=== PATIENT | female | born 1945 | race Caucasian/White ===

== ENCOUNTER 2019-11-26 17:45 | Emergency (ER) | payer MEDICARE, SELFPAY ==
[2019-11-26 17:47] VITALS: PULSE 79; RESP 18; TEMP 36.6; O2SAT 96; BMI 29.2
[2019-11-26 18:22] LABS: Basophils % 0.6 %; Eosinophils # 0.1 10^3/uL (0.0-0.8); Hematocrit 41.8 % (37.0-47.0); Hemoglobin 12.6 g/dL (11.5-15.3); Lymphocytes % 29.1 %; Mean Corpuscular HGB Conc 30.1 g/dL (30.0-36.0); Mean Corpuscular Volume 99.5 fL (81-99); Mean Platelet Volume 10.2 fL (7.4-10.4); Monocytes # 0.6 10^3/uL (0.2-0.9); Monocytes % 8.6 %; Neutrophils % 60.4 %; Nucleated Red Blood Cells % 0 %; Platelet Count 218 10^3/cmm (130-400); White Blood Count 6.8 10^3/uL (4.0-10.0)
[2019-11-26 18:35] VITALS: BP 162/91; PULSE 90; RESP 18; O2SAT 95
[2019-11-26 19:00] LABS: Specific Gravity, Urine 1.015 (1.005-1.030); Urine Appearance Clear (CLEAR); Urine Color Yellow (Yellow); pH Urine 5 (5-7)
[2019-11-26 19:01] LABS: Add Urine Microscopic? YES; Bilirubin Urine Neg (NEGATIVE); Blood Urine Neg (Negative); Glucose Urine UA Norm (Normal); Ketones Urine Negative (Negative); Leukocyte Esterase Urine 1+ (Negative); Nitrate Urine Negative (Negative); Protein Urine Neg (Negative); Urobilinogen Urine Neg (Negative)
[2019-11-26 19:01] LABS: Alanine Aminotransferase 16 U/L (0-33); Albumin Level 3.8 g/dL (3.5-5.2); Alkaline Phosphatase 61 IU/L (35-105); Anion Gap 14.7 (5-19); Aspartate Amino Transferase 22 U/L (0-32); Blood Urea Nitrogen 13 mg/dL (8-23); Calcium 9.3 mg/dL (8.5-10.5); Carbon Dioxide 23 mmol/L (22-29); Chloride 106 mmol/L (98-107); Globulin 2.9 g/dL (1.3-4.6); Glucose 176 mg/dL (65-115); Osmolality Calculated 290 mOsm/kg (285-295); Potassium 3.7 mmol/L (3.5-5.1); Sodium 140 mmol/L (136-145); Thyroid Stimulating Hormone 1.86 uIU/mL (0.27-4.20); Total Bilirubin 0.4 mg/dL (0.15-1.2); Total Protein 6.7 g/dL (6.6-8.7)
[2019-11-26 19:03] LABS: Acetaminophen < 5.0 ug/mL (10-30); Alcohol Level < 10 mg/dL (0-10); Salicylate < 0.3 mg/dL (3-10)
[2019-11-26 19:04] LABS: Add Urine Culture? Yes; Bacteria Urine 1+; Mucus Urine 1+; Squamous Epithelial Cell Urine 0-4 (0-5); WBC Urine 15-25 /hpf (0-5)
[2019-11-26 19:07] LABS: Amphetamines Screen Urine Negative (Negative); Barbiturates Screen Urine Negative (Negative); Benzodiazepines Screen Urine Negative (Negative); Cocaine Screen Urine Negative (Negative); Opiate Screen Urine Negative (Negative); PCP Screen Urine Negative (Negative); THC Screen Urine Negative (Negative)
--- NOTE | 2019-11-27 00:03 | ED_ITS ---
HPI - Psych General: Chief Complaint: Psychiatric Symptoms Stated Complaint: SI/ HI Time Seen by Provider: 11/26/19 17:49 Source: patient Mode of arrival: EMS Limitations: no limitations History of Present Illness: HPI Narrative: This 74-year-old female patient was brought in to the emergency department by EMS after her daughter called because she felt the patient was homicidal and suicidal. The patient is tearful when she is talking to me and explained that what happened was she asked her daughter for money to go for lunch with her friends. Her daughter is the patient's power of managing attorney and has control over her financial affairs. So the patient was upset when her daughter did not give her money that belongs to the patient so she could have lunch with her friends. In the midst of these the patient then said you know someone should just shoot me. Because of the statement the daughter called for the patient to be evaluated in the ED. The patient is very upset and is wondering if she is unable to get upset any longer. She is very mandaen and has not thought of harming herself or anyone else as she believes it is a sin. Review of Systems General: Reports: 10 or more systems reviewed and unremarkable except in HPI and below Const: Denies: fever(s), chills or body aches Eyes: Denies: change in vision or blurry vision ENMT: Denies: throat pain, enlarged tonsils, odynophagia, hoarseness, mouth pain or swelling of lips/tongue Card: Denies: palpitations, irregular heart rhythm, edema or swelling of feet/ankles Resp: Denies: dyspnea, productive cough or non-productive cough GI: Denies: abdominal pain, nausea or vomiting : Denies: flank pain, difficulty voiding, dysuria, urinary frequency, urinary urgency or urinary hesitancy Musc: Denies: neck pain, back pain or extremity swelling Skin/Breast: Denies: rash, pruritus or erythema Neuro: Denies: headache(s), numbness in extremities or weakness in extremities Psych: Denies: anxiety, mood swings or panic attacks Endo: Denies: polyuria, polydipsia or tired all the time Physical Exam Const: COMMON NORMALS: no acute distress, average body habitus, patient oriented x3, no limitations, healthy appearing, alert and well nourished HENMT: COMMON NORMALS: normocephalic, atraumatic and moist oral mucous membranes HEAD & SCALP: normocephalic and atraumatic Neck/C-Spine: COMMON NORMALS: no meningeal signs and no JVD Resp: COMMON NORMALS: normal respiratory effort, No retractions, No use of accessory muscles, clear to auscultation bilaterally and percussion normal AUSCULTATION: clear to auscultation bilaterally PERCUSSION: percussion normal Cardio: COMMON NORMALS: no JVD, regular rate, regular rhythm, S1 normal heart sound present, S2 normal heart sound present, No gallops present (Cardio), No clicks present (Cardio), No murmurs present (Cardio), No rub (Cardio) and Peripheral pulses 2+ throughout RATE: regular rate RHYTHM: regular rhythm HEART SOUNDS: S1 normal heart sound present and S2 normal heart sound present PERIPHERAL PULSES: Peripheral pulses 2+ throughout GI: COMMON NORMALS: Normal to inspection, nondistended, normoactive bowel sounds present, Soft to palpation, non-tender, No hepatosplenomegaly present, no masses and no bruits PALPATION: Yes Soft to palpation and Yes No hepatosplenomegaly present Extremity: COMMON NORMALS: normal to inspection, full ROM, capillary refill normal, no calf tenderness and no pedal edema Neuro: COMMON NORMALS: patient oriented x3 SENSORIUM/ORIENTATION: Yes alert MENINGEAL SIGNS: Yes no meningeal signs Skin: COMMON NORMALS: no rashes or lesions noted, no wounds, turgor normal, no jaundice, no petechiae and no mottling GENERAL SKIN EXAM: no rashes or lesions noted and turgor normal MDM - Psych MDM Narrative: Medical decision making narrative: 74-year-old female whose daughter called emergency services for her because she felt the patient was homicidal. The patient was not homicidal and was just upset after a disagreement with her daughter. The daughter did not release the patient's forms that she wanted to have lunch with her friends. The patient was not homicidal or suicidal by my evaluation and evaluation of the psychiatrist. The daughter however is pretty rude and was rude to every member of the staff that she was in contact with. New data and the patient left before she could be discharged and after I discussed my plan with them. Medical Records: Attestation: I reviewed the patient's medical records. Lab Data: Attestation: I reviewed the patient's lab results. Labs: Lab Results 11/26/19 11/26/19 11/26/19 Range/Units 18:05 18:05 18:33 WBC 6.8 (4.0-10.0) 10^3/ uL RBC 4.20 (4.1-5.3) 10^6/u L Hgb 12.6 (11.5-15.3) g/dL Hct 41.8 (37.0-47.0) % MCV 99.5 H (81-99) fL MCH 30.0 (28.0-34.0) pg MCHC 30.1 (30.0-36.0) g/dL RDW 13.0 (12.1-15.1) % Plt Count 218 (130-400) 10^3/c mm MPV 10.2 (7.4-10.4) fL Neut % (Auto) 60.4 % Lymph % (Auto) 29.1 % [place] % (Auto) 8.6 % Eos % (Auto) 1.0 % Baso % (Auto) 0.6 % Neut # (Auto) 4.10 (1.8-7.7) 10^3/u L Lymph # (Auto) 2.0 (0.8-4.8) 10^3/u L [place] # (Auto) 0.6 (0.2-0.9) 10^3/u L Eos # (Auto) 0.1 (0.0-0.8) 10^3/u L Baso # (Auto) 0.0 (0.0-0.1) 10^3/u L Nucleated RBC % (a uto) 0 % Nucleated RBCs # 0.0 /100WBC Sodium 140 (136-145) mmol/L Potassium 3.7 (3.5-5.1) mmol/L Chloride 106 (98-107) mmol/L Carbon Dioxide 23 (22-29) mmol/L Anion Gap 14.7 (5-19) BUN 13 (8-23) mg/dL Creatinine 0.9 (0.5-0.9) mg/dL GFR Calculation Not Reportable Glucose 176 H (65-115) mg/dL Calculated Osmolal ity 290 (285-295) mOsm/k g Calcium 9.3 (8.5-10.5) mg/dL Total Bilirubin 0.4 (0.15-1.2) mg/dL AST 22 (0-32) U/L ALT 16 (0-33) U/L Alkaline Phosphata se 61 (35-105) IU/L Total Protein 6.7 (6.6-8.7) g/dL Albumin 3.8 (3.5-5.2) g/dL Globulin 2.9 (1.3-4.6) g/dL TSH 1.86 (0.27-4.20) uIU/ mL Urine Color Yellow (Yellow) Urine Appearance Clear (CLEAR) Urine pH 5 (5-7) Ur Specific Gravit y 1.015 (1.005-1.030) Urine Protein Neg (Negative) Urine Glucose (UA) Norm (Normal) Urine Ketones Negative (Negative) Urine Blood Neg (Negative) Urine Nitrate Negative (Negative) Urine Bilirubin Neg (NEGATIVE) Urine Urobilinogen Neg (Negative) mg/dL Ur Leukocyte Zoe ase 1+ H (Negative) Urine RBC None (0-2) /hpf Urine WBC 15-25 H (0-5) /hpf Ur Squamous Epith Cells 0-4 H (0-5) Amorphous Sediment Not Reportable Urine Bacteria 1+ H (NONE) Urine Mucus 1+ Salicylates < 0.3 L (3-10) mg/dL Urine Opiates Scre en (Negative) ng/mL Acetaminophen < 5.0 L (10-30) ug/mL Ur Barbiturates Sc reen (Negative) ng/mL Ur Phencyclidine S crn (Negative) ng/mL Ur Amphetamines Sc reen (Negative) ng/mL U Benzodiazepines Scrn (Negative) ng/mL Urine Cocaine Scre en (Negative) ng/mL U Marijuana (THC) Screen (Negative) ng/mL Ethyl Alcohol < 10 (0-10) mg/dL 11/26/19 Range/Units 18:33 WBC (4.0-10.0) 10^3/ uL RBC (4.1-5.3) 10^6/u L Hgb (11.5-15.3) g/dL Hct (37.0-47.0) % MCV (81-99) fL MCH (28.0-34.0) pg MCHC (30.0-36.0) g/dL RDW (12.1-15.1) % Plt Count (130-400) 10^3/c mm MPV (7.4-10.4) fL Neut % (Auto) % Lymph % (Auto) % [place] % (Auto) % Eos % (Auto) % Baso % (Auto) % Neut # (Auto) (1.8-7.7) 10^3/u L Lymph # (Auto) (0.8-4.8) 10^3/u L [place] # (Auto) (0.2-0.9) 10^3/u L Eos # (Auto) (0.0-0.8) 10^3/u L Baso # (Auto) (0.0-0.1) 10^3/u L Nucleated RBC % (a uto) % Nucleated RBCs # /100WBC Sodium (136-145) mmol/L Potassium (3.5-5.1) mmol/L Chloride (98-107) mmol/L Carbon Dioxide (22-29) mmol/L Anion Gap (5-19) BUN (8-23) mg/dL Creatinine (0.5-0.9) mg/dL GFR Calculation Glucose (65-115) mg/dL Calculated Osmolal ity (285-295) mOsm/k g Calcium (8.5-10.5) mg/dL Total Bilirubin (0.15-1.2) mg/dL AST (0-32) U/L ALT (0-33) U/L Alkaline Phosphata se (35-105) IU/L Total Protein (6.6-8.7) g/dL Albumin (3.5-5.2) g/dL Globulin (1.3-4.6) g/dL TSH (0.27-4.20) uIU/ mL Urine Color (Yellow) Urine Appearance (CLEAR) Urine pH (5-7) Ur Specific Gravit y (1.005-1.030) Urine Protein (Negative) Urine Glucose (UA) (Normal) Urine Ketones (Negative) Urine Blood (Negative) Urine Nitrate (Negative) Urine Bilirubin (NEGATIVE) Urine Urobilinogen (Negative) mg/dL Ur Leukocyte Zoe ase (Negative) Urine RBC (0-2) /hpf Urine WBC (0-5) /hpf Ur Squamous Epith Cells (0-5) Amorphous Sediment Urine Bacteria (NONE) Urine Mucus Salicylates (3-10) mg/dL Urine Opiates Scre en Negative (Negative) ng/mL Acetaminophen (10-30) ug/mL Ur Barbiturates Sc reen Negative (Negative) ng/mL Ur Phencyclidine S crn Negative (Negative) ng/mL Ur Amphetamines Sc reen Negative (Negative) ng/mL U Benzodiazepines Scrn Negative (Negative) ng/mL Urine Cocaine Scre en Negative (Negative) ng/mL U Marijuana (THC) Screen Negative (Negative) ng/mL Ethyl Alcohol (0-10) mg/dL Discharge Plan Discharge Patient Disposition: Left Against Medical Advice Clinical Impression: Social discord Prescriptions: No Action memantine [Namenda] 10 mg tablet 10 mg PO BID Qty: 60 RF: 2 venlafaxine 37.5 mg capsule,extended release 24hr 37.5 mg PO DAILY RF: 0 donepezil 10 mg tablet 10 mg PO BEDTIME RF: 0 isosorbide mononitrate 30 mg tablet extended release 24 hr 30 mg PO DAILY RF: 0 Aspirin Low Dose 81 mg Tablet,Delayed Release (Dr/Ec) 81 mg PO DAILY RF: 0 alprazolam 0.25 mg tablet 0.25 mg PO BID RF: 0 metformin 1,000 mg tablet 1,000 mg PO BID RF: 0 hydrochlorothiazide 25 mg tablet 25 mg PO DAILY RF: 0 albuterol sulfate 90 mcg/actuation HFA aerosol inhaler See Rx Instructions .ROUTE .COMPLEX RF: 0 atenolol 50 mg tablet 25 mg PO DAILY RF: 0 Vitamin D3 25 mcg (1,000 unit) Tablet 25 mcg PO DAILY RF: 0 Referrals: Saima Carnes MD [Primary Care Provider] - Interventions: ED Discharge Assessment Last Done: 11/26/19 19:30 ED Charges Last Done: 11/26/19 19:30 Discharge Date/Time: 11/26/19 19:32 Coding Level of Care Code 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
== END 2019-11-26 19:32 | disposition left against medical advice (07) ==
PROVIDERS: Emergency Provider Family Medicine; PCP Family Medicine
DX: Z73.5 Social role conflict, not elsewhere classified (principal); Z53.21 Procedure and treatment not carried out due to patient leaving prior to being seen by health care provider; Z79.82 Long term (current) use of aspirin; Z79.899 Other long term (current) drug therapy
CPT/HCPCS: 12345; 80053; 80306; 80307; 81001; 84443; 85025; 87086; 99284

== ENCOUNTER 2020-01-11 20:46 | Observation (INO) | payer MEDICARE, SELFPAY ==
[2020-01-11 20:49] VITALS: BP 117/70; PULSE 123; RESP 18; TEMP 36.6; O2SAT 94; BMI 32.9
--- NOTE | 2020-01-11 20:51 | XRR_ITS ---
PROCEDURE INFORMATION: Exam: XR Chest, 1 View Exam date and time: 01/11/2020 9:14 PM Age: 74 years old Clinical indication: Other: AMS TECHNIQUE: Imaging protocol: XR of the chest Views: 1 view. COMPARISON: No relevant prior studies available. FINDINGS: Lungs: COPD, interstitial disease, and left-sided volume loss. Pleural space: No significant pleural effusion. Heart/Mediastinum: No cardiomegaly. Vasculature: Calcification of the thoracic aorta. Bones/joints: Degenerative change. XR/XR chest 1V portable [id number] IMPRESSION: COPD, interstitial disease, and left-sided volume loss.
--- NOTE | 2020-01-11 20:52 | ECG_ITS ---
[facility] Test Date: 2020-01-11 Pat Name: Vandana Le Department: Room: Gender: Female Teller Manager: : 1945 Requested By: Shefali Montes Order Number: [id number] Eloisa MD: Oc Westfall M.D. Measurements Intervals [place] Rate: 117 P: 80 MS: 156 QRS: 59 QRSD: 89 T: 76 QT: 341 QTc: 476 Interpretive Statements SINUS TACHYCARDIA MINIMAL ST DEPRESSION [0.025+ mV ST DEPRESSION] ABNORMAL RHYTHM ECG No previous ECG available for comparison Electronically Signed On 01-12-2020 18:35:44 CDT by Oc Westfall M.D. [id number]
--- NOTE | 2020-01-11 20:54 | ED_ITS ---
HPI - General Adult General: Chief complaint: Psychiatric Symptoms Stated complaint: MHE Time Seen by Provider: 01/11/20 20:46 Source: patient and EMS Mode of arrival: EMS Limitations: altered mental status History of Present Illness: HPI narrative: Mrs. Le is a very nice 74-year-old female who is brought in by EMS for threatening to hurt others. Apparently the family called EMS because the patient got upset today. She lives at home alone but does have dementia. Apparently she was throwing things and it was hitting her head against a wall. Her daughter who is her power of city attorney stated that she was also threatening to hurt other people. Because of this the patient was brought here for evaluation. The patient states that she does not know why she is here. She understands that she is in the hospital in [place] and that it is 2019 but does not know the month. The patient states that she is here in the hospital because her family is upset with her. Associated symptoms: Deny chest pain, confusion, diaphoresis, dyspnea, headache(s), malaise, nausea, rash, palpitations, syncope or vomiting Review of Systems Const: Denies: fever(s), chills, body aches, fatigue, malaise or diaphoresis Eyes: Denies: change in vision, blurry vision, photophobia, eye discomfort, eye discharge, eye redness or yellow eyes ENMT: Denies: throat pain, odynophagia, hoarseness, swelling of lips/tongue, ear or mastoid pain, ear discharge, change in hearing or nasal discharge Card: Denies: chest pain, palpitations, irregular heart rhythm, edema, lightheadedness, syncope, pre-syncope, dyspnea on exertion or orthopnea Resp: Denies: dyspnea, productive cough, non-productive cough, wheezing, hemoptysis or chest congestion GI: Denies: abdominal pain, nausea, vomiting, hematemesis, coffee ground emesis, heartburn, diarrhea, constipation, GI cramping, hematochezia or melena : Denies: flank pain, dysuria, urinary frequency, urinary urgency or hematuria Musc: Denies: neck pain, back pain, extremity pain, extremity swelling, joint pain, joint swelling, joint redness, joint warmth or joint stiffness Skin/Breast: Denies: rash, pruritus, erythema, skin pain or skin tenderness Neuro: Denies: headache(s), numbness in extremities, weakness in extremities, sensory changes, lack of coordination, difficulty walking, dizziness, vertigo, confusion, Slurred speech present or seizure-like activity Onel/Lymph: Denies: easy bruising, easy bleeding, petechiae, purpura or enlarged lymph nodes All/Imm: Denies: urticaria, throat swelling, tongue swelling, facial swelling or acute wheezing PFSH ED PFSH: Medical History (Updated 01/12/20 @ 03:05 by Cara Coates MD) DM type 2 (diabetes mellitus, type 2) DVT (deep venous thrombosis) GERD (gastroesophageal reflux disease) Heart disease Hyperlipidemia Hypertension Surgical History (Updated 01/12/20 @ 03:11 by Cara Coates MD) H/O hernia repair H/O: hysterectomy History of carpal tunnel surgery S/P appendectomy Status post myringotomy with tube placement of both ears Physical Exam Const: COMMON NORMALS: no acute distress, no limitations and alert GENERAL APPEARANCE: cooperative ORIENTATION/CONSCIOUSNESS: Yes oriented to person and Yes oriented to place; not oriented to time HENMT: COMMON NORMALS: normocephalic, atraumatic, external ears normal, EAC's normal and Normal external nose present HEAD & SCALP: normal to inspection, normocephalic and atraumatic FACE & SINUS: normal facial exam and face symmetric NOSE: Normal external nose present and Normal nares present EXTERNAL EAR: Yes external ears normal EXTERNAL AUDITORY CANAL: EAC's normal MOUTH: Normal oral and palatal mucosa present, lip normal and tongue normal Eye: COMMON NORMALS: Equal, round and reactive pupils present and conjunctivae normal GENERAL EYE: appearance normal, both eyes and all related structures ALIGNMENT: Yes alignment normal PERIORBITAL: periorbital findings normal EYELID: eyelids normal CONJUNCTIVA: Yes conjunctivae normal SCLERA: sclerae normal PUPIL: Yes Equal, round and reactive pupils present Neck/C-Spine: COMMON NORMALS: full ROM, no lymphadenopathy, supple, no meningeal signs and no JVD GENERAL: Yes normal visual inspection and Yes trachea midline Chest: COMMONS NORMALS: normal inspection of the chest and normal palpation of entire chest wall Resp: COMMON NORMALS: normal respiratory effort, No retractions, No use of accessory muscles and clear to auscultation bilaterally EFFORT & INSPECTION: Yes able to speak in complete sentences and Yes symmetric chest movement AUSCULTATION: clear to auscultation bilaterally, no crackles, no rales, no rhonchi and no wheezes Cardio: COMMON NORMALS: no JVD, regular rhythm, S1 normal heart sound present and S2 normal heart sound present RATE: tachycardic RHYTHM: regular rhythm HEART SOUNDS: S1 normal heart sound present, S2 normal heart sound present, no click, no gallops, no murmurs and no rubs GI: COMMON NORMALS: Soft to palpation and No hepatosplenomegaly present PALPATION: Yes Soft to palpation, No Tenderness to palpation present (GI), No Guarding due to palpation present (GI), No Rigid due to palpation, Yes No hepatosplenomegaly present, No Hernia present, No Palpable mass present and No Pulsatile mass present : COMMON NORMALS: Yes no CVA tenderness BLADDER/KIDNEY EXAM: Yes no CVA tenderness EXTERNAL FEMALE EXAM: No Hernia present Back/Pelvis: COMMON NORMALS: no CVA tenderness, thoracic and lumbar spine normal to inspection, no thoracic nor lumbar tenderness and thoraco-lumbar ROM normal Extremity: COMMON NORMALS: normal to inspection, full ROM, capillary refill normal, no joint enlargement, no clubbing, cyanosis or edema and no calf tenderness Neuro: COMMON NORMALS: CN's II-XII intact bilaterally, moves all extremities, no focal motor deficits and no sensory deficits noted SENSORIUM/ORIENTATION: Yes alert, Yes oriented to person, Yes oriented to place and No oriented to time MENINGEAL SIGNS: Yes no meningeal signs SPEECH: speech normal Psych: COMMON NORMALS: mental status grossly normal, Normal thought process present, cooperative, normal affect, speech normal and activity/motor behavior normal SPEECH: Yes normal speech THOUGHT PROCESS: Normal thought process present Skin: COMMON NORMALS: no rashes or lesions noted, turgor normal, no jaundice, no petechiae and no mottling GENERAL SKIN EXAM: no rashes or lesions noted and turgor normal Course Vital Signs: Vital signs: Vital Signs Temperature 98.1 F 01/12/20 03:00 Pulse Rate 103 H 01/12/20 03:00 Respiratory Rate 18 01/12/20 03:00 Blood Pressure 164/110 01/12/20 03:00 Pulse Oximetry 96 01/12/20 03:00 MDM - General Adult MDM Narrative: Medical decision making narrative: Mrs. Le is a pleasant 74-year-old female who comes in with report of hurting others and threatening others. I believe this likely represents dementia with agitation. The patient did not appear agitated or anxious upon arrival though in the work-up of her tachycardia pulmonary embolism was found. Patient has a history of DVT but it is been years since she was on any medication for this. There is no sign of heart failure or significant strain on her heart at this time. Patient also has a UTI but no fever or elevated white count. She does not appear septic. Because of all these issues I believe the patient will need to be admitted and further medically managed before sent to a geriatric psychiatry facility. I did review the case with Dr. Londono who states he is in agreement that he can consult if necessary. I reviewed the case with Dr. Coates who is agreeable to admit the patient for medical management at this time. Lab Data: Attestation: I reviewed the patient's lab results. Labs: Lab Results 01/11/20 01/11/20 01/11/20 Range/Units 21:03 21:03 21:03 WBC 7.6 (4.0-10.0) 10^3/ uL RBC 3.78 L (4.1-5.3) 10^6/u L Hgb 11.5 (11.5-15.3) g/dL Hct 37.2 (37.0-47.0) % MCV 98.4 (81-99) fL MCH 30.4 (28.0-34.0) pg MCHC 30.9 (30.0-36.0) g/dL RDW 13.1 (12.1-15.1) % Plt Count 213 (130-400) 10^3/c mm MPV 10.0 (7.4-10.4) fL Neut % (Auto) 72.4 % Lymph % (Auto) 18.0 % [place] % (Auto) 8.7 % Eos % (Auto) 0.1 % Baso % (Auto) 0.4 % Neut # (Auto) 5.46 (1.8-7.7) 10^3/u L Lymph # (Auto) 1.4 (0.8-4.8) 10^3/u L [place] # (Auto) 0.7 (0.2-0.9) 10^3/u L Eos # (Auto) 0.0 (0.0-0.8) 10^3/u L Baso # (Auto) 0.0 (0.0-0.1) 10^3/u L Nucleated RBC % (a uto) 0 % Nucleated RBCs # 0.0 /100WBC PT 12.90 (12.1-14.9) SECO NDS INR 0.94 (0.8-1.2) D-Dimer (0-0.59) ug/mIFE U Specimen Type Sample Site ABG pH (7.35-7.45) ABG pCO2 (35-45) mmHg ABG pO2 (80.0-100.0) mmH g ABG HCO3 (22-26) mmol/L ABG Base Excess (-2.0-2.0) mmol/ L Dorian Test Hematocrit (37-47) % O2 Delivery Device O2 Liters/Min % Parking Cashier ID Sodium 138 (136-145) mmol/L Potassium 4.2 (3.5-5.1) mmol/L Chloride 98 (98-107) mmol/L Carbon Dioxide 24 (22-29) mmol/L Anion Gap 20.2 H (5-19) BUN 18 (8-23) mg/dL Creatinine 1.4 H (0.5-0.9) mg/dL GFR Calculation Not Reportable Glucose 157 H (65-115) mg/dL Calculated Osmolal ity 291 (285-295) mOsm/k g Lactic Acid (0.5-2.2) mmol/L Calcium 10.0 (8.5-10.5) mg/dL Magnesium 1.4 L (1.7-2.3) mg/dL Total Bilirubin 0.4 (0.15-1.2) mg/dL AST 15 (0-32) U/L ALT 9 (0-33) U/L Alkaline Phosphata se 72 (35-105) IU/L Creatine Kinase 52 (26-192) U/L Troponin T Baselin e (0-10) ng/L Troponin T 120 Min [place] (0-10) ng/L Delta Troponin T (0-10) ABS# NT-Pro-B Natriuret Pep (0-450) pg/mL Total Protein 6.0 L (6.6-8.7) g/dL Albumin 3.8 (3.5-5.2) g/dL Globulin 2.2 (1.3-4.6) g/dL Lipase 29 (13-60) U/L TSH 1.33 (0.27-4.20) uIU/ mL Free T4 1.19 (0.82-1.77) ng/d L Urine Color (Yellow) Urine Appearance (CLEAR) Urine pH (5-7) Ur Specific Gravit y (1.005-1.030) Urine Protein (Negative) Urine Glucose (UA) (Normal) Urine Ketones (Negative) Urine Blood (Negative) Urine Nitrate (Negative) Urine Bilirubin (Negative) Urine Urobilinogen (Negative) mg/dL Ur Leukocyte Zoe ase (Negative) Urine RBC (0-2) /hpf Urine WBC (0-5) /hpf Ur Squamous Epith Cells (0-5) /hpf Amorphous Sediment Urine Bacteria (NONE) /hpf Salicylates < 0.3 L (3-10) mg/dL Urine Opiates Scre en (Negative) ng/mL Acetaminophen < 5.0 L (10-30) ug/mL Ur Barbiturates Sc reen (Negative) ng/mL Ur Phencyclidine S crn (Negative) ng/mL Ur Amphetamines Sc reen (Negative) ng/mL U Benzodiazepines Scrn (Negative) ng/mL Urine Cocaine Scre en (Negative) ng/mL U Marijuana (THC) Screen (Negative) ng/mL Ethyl Alcohol < 10 (0-10) mg/dL Serum Ketones Negative (Negative) SARS-CoV-2 Ag (Rap id) (Negative) 01/11/20 01/11/20 01/11/20 Range/Units 21:03 21:03 21:03 WBC (4.0-10.0) 10^3/ uL RBC (4.1-5.3) 10^6/u L Hgb (11.5-15.3) g/dL Hct (37.0-47.0) % MCV (81-99) fL MCH (28.0-34.0) pg MCHC (30.0-36.0) g/dL RDW (12.1-15.1) % Plt Count (130-400) 10^3/c mm MPV (7.4-10.4) fL Neut % (Auto) % Lymph % (Auto) % [place] % (Auto) % Eos % (Auto) % Baso % (Auto) % Neut # (Auto) (1.8-7.7) 10^3/u L Lymph # (Auto) (0.8-4.8) 10^3/u L [place] # (Auto) (0.2-0.9) 10^3/u L Eos # (Auto) (0.0-0.8) 10^3/u L Baso # (Auto) (0.0-0.1) 10^3/u L Nucleated RBC % (a uto) % Nucleated RBCs # /100WBC PT (12.1-14.9) SECO NDS INR (0.8-1.2) D-Dimer 1.21 H (0-0.59) ug/mIFE U Specimen Type Sample Site ABG pH (7.35-7.45) ABG pCO2 (35-45) mmHg ABG pO2 (80.0-100.0) mmH g ABG HCO3 (22-26) mmol/L ABG Base Excess (-2.0-2.0) mmol/ L Dorian Test Hematocrit (37-47) % O2 Delivery Device O2 Liters/Min % Parking Cashier ID Sodium (136-145) mmol/L Potassium (3.5-5.1) mmol/L Chloride (98-107) mmol/L Carbon Dioxide (22-29) mmol/L Anion Gap (5-19) BUN (8-23) mg/dL Creatinine (0.5-0.9) mg/dL GFR Calculation Glucose (65-115) mg/dL Calculated Osmolal ity (285-295) mOsm/k g Lactic Acid 2.3 H (0.5-2.2) mmol/L Calcium (8.5-10.5) mg/dL Magnesium (1.7-2.3) mg/dL Total Bilirubin (0.15-1.2) mg/dL AST (0-32) U/L ALT (0-33) U/L Alkaline Phosphata se (35-105) IU/L Creatine Kinase (26-192) U/L Troponin T Baselin e 32 H (0-10) ng/L Troponin T 120 Min [place] (0-10) ng/L Delta Troponin T (0-10) ABS# NT-Pro-B Natriuret Pep (0-450) pg/mL Total Protein (6.6-8.7) g/dL Albumin (3.5-5.2) g/dL Globulin (1.3-4.6) g/dL Lipase (13-60) U/L TSH (0.27-4.20) uIU/ mL Free T4 (0.82-1.77) ng/d L Urine Color (Yellow) Urine Appearance (CLEAR) Urine pH (5-7) Ur Specific Gravit y (1.005-1.030) Urine Protein (Negative) Urine Glucose (UA) (Normal) Urine Ketones (Negative) Urine Blood (Negative) Urine Nitrate (Negative) Urine Bilirubin (Negative) Urine Urobilinogen (Negative) mg/dL Ur Leukocyte Zoe ase (Negative) Urine RBC (0-2) /hpf Urine WBC (0-5) /hpf Ur Squamous Epith Cells (0-5) /hpf Amorphous Sediment Urine Bacteria (NONE) /hpf Salicylates (3-10) mg/dL Urine Opiates Scre en (Negative) ng/mL Acetaminophen (10-30) ug/mL Ur Barbiturates Sc reen (Negative) ng/mL Ur Phencyclidine S crn (Negative) ng/mL Ur Amphetamines Sc reen (Negative) ng/mL U Benzodiazepines Scrn (Negative) ng/mL Urine Cocaine Scre en (Negative) ng/mL U Marijuana (THC) Screen (Negative) ng/mL Ethyl Alcohol (0-10) mg/dL Serum Ketones (Negative) SARS-CoV-2 Ag (Rap id) (Negative) 01/11/20 01/11/20 01/11/20 Range/Units 21:03 21:13 21:19 WBC (4.0-10.0) 10^3/ uL RBC (4.1-5.3) 10^6/u L Hgb (11.5-15.3) g/dL Hct (37.0-47.0) % MCV (81-99) fL MCH (28.0-34.0) pg MCHC (30.0-36.0) g/dL RDW (12.1-15.1) % Plt Count (130-400) 10^3/c mm MPV (7.4-10.4) fL Neut % (Auto) % Lymph % (Auto) % [place] % (Auto) % Eos % (Auto) % Baso % (Auto) % Neut # (Auto) (1.8-7.7) 10^3/u L Lymph # (Auto) (0.8-4.8) 10^3/u L [place] # (Auto) (0.2-0.9) 10^3/u L Eos # (Auto) (0.0-0.8) 10^3/u L Baso # (Auto) (0.0-0.1) 10^3/u L Nucleated RBC % (a uto) % Nucleated RBCs # /100WBC PT (12.1-14.9) SECO NDS INR (0.8-1.2) D-Dimer (0-0.59) ug/mIFE U Specimen Type Arterial Sample Site Brachial, right ABG pH 7.40 (7.35-7.45) ABG pCO2 37.0 (35-45) mmHg ABG pO2 79.9 L (80.0-100.0) mmH g ABG HCO3 23.1 (22-26) mmol/L ABG Base Excess -1.4 (-2.0-2.0) mmol/ L Dorian Test N/a Hematocrit 37.8 (37-47) % O2 Delivery Device Nc O2 Liters/Min 2.0 % Parking Cashier ID vossa Sodium (136-145) mmol/L Potassium (3.5-5.1) mmol/L Chloride (98-107) mmol/L Carbon Dioxide (22-29) mmol/L Anion Gap (5-19) BUN (8-23) mg/dL Creatinine (0.5-0.9) mg/dL GFR Calculation Glucose (65-115) mg/dL Calculated Osmolal ity (285-295) mOsm/k g Lactic Acid (0.5-2.2) mmol/L Calcium (8.5-10.5) mg/dL Magnesium (1.7-2.3) mg/dL Total Bilirubin (0.15-1.2) mg/dL AST (0-32) U/L ALT (0-33) U/L Alkaline Phosphata se (35-105) IU/L Creatine Kinase (26-192) U/L Troponin T Baselin e (0-10) ng/L Troponin T 120 Min [place] (0-10) ng/L Delta Troponin T (0-10) ABS# NT-Pro-B Natriuret Pep 681 H (0-450) pg/mL Total Protein (6.6-8.7) g/dL Albumin (3.5-5.2) g/dL Globulin (1.3-4.6) g/dL Lipase (13-60) U/L TSH (0.27-4.20) uIU/ mL Free T4 (0.82-1.77) ng/d L Urine Color (Yellow) Urine Appearance (CLEAR) Urine pH (5-7) Ur Specific Gravit y (1.005-1.030) Urine Protein (Negative) Urine Glucose (UA) (Normal) Urine Ketones (Negative) Urine Blood (Negative) Urine Nitrate (Negative) Urine Bilirubin (Negative) Urine Urobilinogen (Negative) mg/dL Ur Leukocyte Zoe ase (Negative) Urine RBC (0-2) /hpf Urine WBC (0-5) /hpf Ur Squamous Epith Cells (0-5) /hpf Amorphous Sediment Urine Bacteria (NONE) /hpf Salicylates (3-10) mg/dL Urine Opiates Scre en (Negative) ng/mL Acetaminophen (10-30) ug/mL Ur Barbiturates Sc reen (Negative) ng/mL Ur Phencyclidine S crn (Negative) ng/mL Ur Amphetamines Sc reen (Negative) ng/mL U Benzodiazepines Scrn (Negative) ng/mL Urine Cocaine Scre en (Negative) ng/mL U Marijuana (THC) Screen (Negative) ng/mL Ethyl Alcohol (0-10) mg/dL Serum Ketones (Negative) SARS-CoV-2 Ag (Rap id) Negative (Negative) 01/11/20 01/11/20 01/11/20 Range/Units 21:27 21:27 23:00 WBC (4.0-10.0) 10^3/ uL RBC (4.1-5.3) 10^6/u L Hgb (11.5-15.3) g/dL Hct (37.0-47.0) % MCV (81-99) fL MCH (28.0-34.0) pg MCHC (30.0-36.0) g/dL RDW (12.1-15.1) % Plt Count (130-400) 10^3/c mm MPV (7.4-10.4) fL Neut % (Auto) % Lymph % (Auto) % [place] % (Auto) % Eos % (Auto) % Baso % (Auto) % Neut # (Auto) (1.8-7.7) 10^3/u L Lymph # (Auto) (0.8-4.8) 10^3/u L [place] # (Auto) (0.2-0.9) 10^3/u L Eos # (Auto) (0.0-0.8) 10^3/u L Baso # (Auto) (0.0-0.1) 10^3/u L Nucleated RBC % (a uto) % Nucleated RBCs # /100WBC PT (12.1-14.9) SECO NDS INR (0.8-1.2) D-Dimer (0-0.59) ug/mIFE U Specimen Type Sample Site ABG pH (7.35-7.45) ABG pCO2 (35-45) mmHg ABG pO2 (80.0-100.0) mmH g ABG HCO3 (22-26) mmol/L ABG Base Excess (-2.0-2.0) mmol/ L Dorian Test Hematocrit (37-47) % O2 Delivery Device O2 Liters/Min % Parking Cashier ID Sodium (136-145) mmol/L Potassium (3.5-5.1) mmol/L Chloride (98-107) mmol/L Carbon Dioxide (22-29) mmol/L Anion Gap (5-19) BUN (8-23) mg/dL Creatinine (0.5-0.9) mg/dL GFR Calculation Glucose (65-115) mg/dL Calculated Osmolal ity (285-295) mOsm/k g Lactic Acid (0.5-2.2) mmol/L Calcium (8.5-10.5) mg/dL Magnesium (1.7-2.3) mg/dL Total Bilirubin (0.15-1.2) mg/dL AST (0-32) U/L ALT (0-33) U/L Alkaline Phosphata se (35-105) IU/L Creatine Kinase (26-192) U/L Troponin T Baselin e (0-10) ng/L Troponin T 120 Min [place] 33.72 H (0-10) ng/L Delta Troponin T 1.72 (0-10) ABS# NT-Pro-B Natriuret Pep (0-450) pg/mL Total Protein (6.6-8.7) g/dL Albumin (3.5-5.2) g/dL Globulin (1.3-4.6) g/dL Lipase (13-60) U/L TSH (0.27-4.20) uIU/ mL Free T4 (0.82-1.77) ng/d L Urine Color Yellow (Yellow) Urine Appearance Clear (CLEAR) Urine pH 5 (5-7) Ur Specific Gravit y 1.015 (1.005-1.030) Urine Protein Neg (Negative) Urine Glucose (UA) Norm (Normal) Urine Ketones 1+ H (Negative) Urine Blood Neg (Negative) Urine Nitrate Negative (Negative) Urine Bilirubin Neg (Negative) Urine Urobilinogen Norm (Negative) mg/dL Ur Leukocyte Zoe ase 1+ H (Negative) Urine RBC 5-10 H (0-2) /hpf Urine WBC >100 H (0-5) /hpf Ur Squamous Epith Cells 0-4 H (0-5) /hpf Amorphous Sediment Not Reportable Urine Bacteria 1+ H (NONE) /hpf Salicylates (3-10) mg/dL Urine Opiates Scre en Negative (Negative) ng/mL Acetaminophen (10-30) ug/mL Ur Barbiturates Sc reen Negative (Negative) ng/mL Ur Phencyclidine S crn Negative (Negative) ng/mL Ur Amphetamines Sc reen Negative (Negative) ng/mL U Benzodiazepines Scrn Negative (Negative) ng/mL Urine Cocaine Scre en Negative (Negative) ng/mL U Marijuana (THC) Screen Negative (Negative) ng/mL Ethyl Alcohol (0-10) mg/dL Serum Ketones (Negative) SARS-CoV-2 Ag (Rap id) (Negative) Imaging Data^: CT Head: Radiologist's impression: [address] [place] [address] CT Scan Report Signed Patient: Vandana Le Unit #: [id number] : 1945 Age/Sex: 74 / F ADM Date: 01/11/20 Loc: ER Room/Bed: Attending Dr: Ordering Provider/Ordering MD: Shefali Izquierdo DO Date of Service: 01/11/20 Procedure(s): CT head wo con* [id number] Accession Number(s): [id number] Report Number: [id number] PROCEDURE INFORMATION: Exam: CT Head Without Contrast Exam date and time: 01/11/2020 11:45 PM Age: 74 years old Clinical indication: Altered mental status/memory loss; Confusion or disorientation TECHNIQUE: Imaging protocol: Computed tomography of the head without contrast. Sagittal and coronal reformatted images were created and reviewed. Radiation optimization: All CT scans at this facility use at least one of these dose optimization techniques: automated exposure control; mA and/or kV adjustment per patient size (includes targeted exams where dose is matched to clinical indication); or iterative reconstruction. COMPARISON: [place] [id number] 09/22/2018 10:19 AM RADIATION DOSE METRICS: Total DLP (mGy-cm): 877.21 FINDINGS: Brain: No intra-axial or extra-axial masses. Howe-white matter differentiation is preserved. No cerebral edema. No extra-axial fluid collections. No midline shift. No evidence for Chiari 1 malformation. Stable mild atrophy of the brain parenchyma. Stable mildly decreased attenuation in the deep white matter, consistent with mild chronic microangiopathic change. Cerebral ventricles: No hydrocephalus. Bones/joints: No acute fracture. Paranasal sinuses: Visualized paranasal sinuses are clear. Mastoid air cells: Small amount of fluid in the right mastoid air cells and large amount of fluid in the left mastoid air cells. Findings are stable. Orbits: Globes and lenses, extraocular muscles, and optic nerves are intact bilaterally. No acute intraorbital abnormality. Vasculature: Atherosclerotic changes in the visualized arteries. Evaluation for hemorrhage is limited due to recent administration of intravenous contrast. No definite intracranial hemorrhage otherwise. No acute infarct. Soft tissues: No acute abnormality of the extracranial soft tissues. CT/CT head wo con* [id number] IMPRESSION: 1. Evaluation for hemorrhage is limited due to recent administration of intravenous contrast. Otherwise, no acute abnormality of the brain. 2. Stable mild atrophy of the brain parenchyma. 3. Stable mild chronic white matter microangiopathic change. 4. Small amount of fluid in the right mastoid air cells and large amount of fluid in the left mastoid air cells. Findings are stable. 5. Incidental/nonacute findings are listed in the report. Radiation Dose CTDIVOL = (mGy): DLP = 877.21 (mGy-cm) Dictated By: Elva Malloy MD Signed By: Elva Malloy MD Signed Date/Time: 01/12/2010 DD/ 001 CT Chest: Radiologist's impression: [place] [address] CT Scan Report Signed with Addenda Patient: Vandana Le Unit #: [id number] : 1945 Age/Sex: 74 / F ADM Date: 01/11/20 Loc: ER Room/Bed: Attending Dr: Ordering Provider/Ordering MD: Shefali Izquierdo DO Date of Service: 01/11/20 Procedure(s): CT angio chest PE protcl [id number] Accession Number(s): [id number] Report Number: [id number]/CT angio chest PE protcl [id number] THIS REPORT CONTAINS FINDINGS THAT MAY BE CRITICAL TO PATIENT CARE. The findings were verbally communicated via telephone conference with Shefali Wells at 11:32 PM CDT on 01/11/2020. The findings were acknowledged and understood. Radiation Dose CTDIVOL = (mGy): DLP = 621.38 (mGy-cm) Addendum Dictated By: Elva Malloy MD Addendum Signed By: Elva Malloy MD Signed Date/Time: 01/11/20 2333 Addendum Cosigned By: PROCEDURE INFORMATION: Exam: CT Angiography Chest With Contrast Exam date and time: 01/11/2020 9:57 PM Age: 74 years old Clinical indication: Abnormal findings; Abnormal diagnostic tests; Elevated d-dimer; Other: Tachycardia; Additional info: Tachycardia, elevated d-dimer. TECHNIQUE: Imaging protocol: Computed tomographic angiography of the chest with intravenous contrast. 3D rendering (Not supervised by radiologist): MIP and/or 3D reconstructed images were created by the technologist. Radiation optimization: All CT scans at this facility use at least one of these dose optimization techniques: automated exposure control; mA and/or kV adjustment per patient size (includes targeted exams where dose is matched to clinical indication); or iterative reconstruction. Contrast material: VISI 320; Contrast volume: 74 ml; Contrast route: INTRAVENOUS (IV); COMPARISON: CR XR chest 1V portable [id number] 01/11/2020 9:00 PM RADIATION DOSE METRICS: Total DLP (mGy-cm): 621.38 FINDINGS: Pulmonary arteries: Enlarged main pulmonary artery, this may suggest pulmonary hypertension. The main pulmonary artery measures 3.7 cm in diameter (series 2, image 159). Relatively small caliber pulmonary arteries in the left upper lobe, likely secondary to chronic pleural-parenchymal scarring and volume loss. There is an occlusive filling defect within the anterior segmental branch of the left upper lobe pulmonary artery. Findings suggest an acute pulmonary embolus. Aorta: Moderate atherosclerotic changes in the visualized arteries. No evidence for aortic aneurysm or aortic dissection. Thyroid: Calcifications in the right thyroid lobe. Lungs: Extensive pleural-parenchymal scarring with volume loss and bronchiectatic changes in the left upper lobe. Superior retraction of the left hilum. Moderate centrilobular and paraseptal emphysematous changes in the upper lobes. No pulmonary parenchymal nodules or masses. No focal consolidation. No pulmonary edema. There is a polypoid soft tissue focus at the origin of the right mainstem bronchus. This measures 0.8 x 0.7 x 1.1 cm (series 602, image 42 in series 2, image 157). Pleural space: No pneumothorax. No pleural effusion. Heart: Mild enlargement of the heart. Calcification of the aortic valve. Extensive atherosclerotic calcification in the coronary arteries. The RV/LV ratio 0.84. Mediastinal space: Small hiatal hernia. The esophagus is unremarkable. No mediastinal hematoma. No pneumomediastinum. Lymph nodes: No lymphadenopathy. Liver: The liver is unremarkable. Gallbladder and bile ducts: The gallbladder is unremarkable. No biliary ductal dilatation. Pancreas: The visualized pancreas is unremarkable. No pancreatic ductal dilatation. Spleen: Multiple calcified granulomas in the spleen. Adrenals: The right and left adrenal glands are unremarkable. Kidneys and ureters: The visualized right and left kidneys are unremarkable. Bones/joints: Multilevel degenerative changes of varying severity in the visualized spine. Soft tissues: No acute abnormality in the extrathoracic soft tissues. CT/CT angio chest PE protcl [id number] IMPRESSION: 1. Relatively small caliber pulmonary arteries in the left upper lobe, likely secondary to chronic pleural-parenchymal scarring and volume loss. There is an occlusive filling defect within the anterior segmental branch of the left upper lobe pulmonary artery. Findings suggest an acute pulmonary embolus. 2. Soft tissue polypoid density at the origin of the right mainstem bronchus, findings may suggest bronchial secretions, a small mass cannot be ruled out however. Recommend follow up to ensure resolution of these findings. If findings persist, consider further evaluation with bronchoscopy. 3. Extensive pleural-parenchymal scarring with volume loss and bronchiectatic changes in the left upper lobe. Superior retraction of the left hilum. 4. Small hiatal hernia. 5. Incidental/nonacute findings are listed in the report. Radiation Dose CTDIVOL = (mGy): DLP = 621.38 (mGy-cm) Dictated By: Elva Malloy MD Signed By: Elva Malloy MD Signed Date/Time: 01/11/202331 DD/ 31 CXR: Attestation: I personally reviewed and interpreted this imaging study as follows: My impression: Patient slightly rotated. No acute pulmonary findings. CV Echo Limited: My impression: See formal report. No evidence of pericardial effusion. Ultrasound bilateral lower extremity venous doppler: My impression: Tech interpretation -no DVT present. EKG Data^: EKG 1: Attestation: I personally reviewed and interpreted this EKG as follows: EKG interpretation date: 01/11/20 EKG interpretation time: 21:00 Interpretation: Sinus tachycardia at 117 beats a minute, normal axis, no blocks, normal intervals, nonspecific ST and T wave changes. Baseline artifact present. Computer generated interpretation: Chest CTA 01/11/20 21:39 IMPRESSION: 1. Relatively small caliber pulmonary arteries in the left upper lobe, likely secondary to chronic pleural-parenchymal scarring and volume loss. There is an occlusive filling defect within the anterior segmental branch of the left upper lobe pulmonary artery. Findings suggest an acute pulmonary embolus. 2. Soft tissue polypoid density at the origin of the right mainstem bronchus, findings may suggest bronchial secretions, a small mass cannot be ruled out however. Recommend follow up to ensure resolution of these findings. If findings persist, consider further evaluation with bronchoscopy. 3. Extensive pleural-parenchymal scarring with volume loss and bronchiectatic changes in the left upper lobe. Superior retraction of the left hilum. 4. Small hiatal hernia. 5. Incidental/nonacute findings are listed in the report. Radiation Dose CTDIVOL = (mGy): DLP = 621.38 (mGy-cm) ADDENDUM: 01/11/20 2333 THIS REPORT CONTAINS FINDINGS THAT MAY BE CRITICAL TO PATIENT CARE. The findings were verbally communicated via telephone conference with Shefali Wells at 11:32 PM CDT on 01/11/2020. The findings were acknowledged and understood. Radiation Dose CTDIVOL = (mGy): DLP = 621.38 (mGy-cm) Head CT 01/11/20 23:30 IMPRESSION: 1. Evaluation for hemorrhage is limited due to recent administration of intravenous contrast. Otherwise, no acute abnormality of the brain. 2. Stable mild atrophy of the brain parenchyma. 3. Stable mild chronic white matter microangiopathic change. 4. Small amount of fluid in the right mastoid air cells and large amount of fluid in the left mastoid air cells. Findings are stable. 5. Incidental/nonacute findings are listed in the report. Radiation Dose CTDIVOL = (mGy): DLP = 877.21 (mGy-cm) ADDENDUM: 01/12/20 0019 Follow-up CT scan of the head in 12 hours may be obtained if there is continuing clinical concern for intracranial abnormality. Urgent results were discussed with Shefali Wells on 01/12/2020 at 12:17 AM CDT. Radiation Dose CTDIVOL = (mGy): DLP = 877.21 (mGy-cm) EKG 2: Attestation: I personally reviewed and interpreted this EKG as follows: EKG interpretation date: 01/11/20 EKG interpretation time: 23:00 Interpretation: Normal sinus rhythm at 90 beats a minute, normal axis, no blocks, normal intervals, low voltage present, nonspecific ST and T wave changes present. Baseline artifact present. Computer generated interpretation: Chest CTA 01/11/20 21:39 IMPRESSION: 1. Relatively small caliber pulmonary arteries in the left upper lobe, likely secondary to chronic pleural-parenchymal scarring and volume loss. There is an occlusive filling defect within the anterior segmental branch of the left upper lobe pulmonary artery. Findings suggest an acute pulmonary embolus. 2. Soft tissue polypoid density at the origin of the right mainstem bronchus, findings may suggest bronchial secretions, a small mass cannot be ruled out however. Recommend follow up to ensure resolution of these findings. If findings persist, consider further evaluation with bronchoscopy. 3. Extensive pleural-parenchymal scarring with volume loss and bronchiectatic changes in the left upper lobe. Superior retraction of the left hilum. 4. Small hiatal hernia. 5. Incidental/nonacute findings are listed in the report. Radiation Dose CTDIVOL = (mGy): DLP = 621.38 (mGy-cm) ADDENDUM: 01/11/20 2333 THIS REPORT CONTAINS FINDINGS THAT MAY BE CRITICAL TO PATIENT CARE. The findings were verbally communicated via telephone conference with Shefali Wells at 11:32 PM CDT on 01/11/2020. The findings were acknowledged and understood. Radiation Dose CTDIVOL = (mGy): DLP = 621.38 (mGy-cm) Head CT 01/11/20 23:30 IMPRESSION: 1. Evaluation for hemorrhage is limited due to recent administration of intravenous contrast. Otherwise, no acute abnormality of the brain. 2. Stable mild atrophy of the brain parenchyma. 3. Stable mild chronic white matter microangiopathic change. 4. Small amount of fluid in the right mastoid air cells and large amount of fluid in the left mastoid air cells. Findings are stable. 5. Incidental/nonacute findings are listed in the report. Radiation Dose CTDIVOL = (mGy): DLP = 877.21 (mGy-cm) ADDENDUM: 01/12/20 0019 Follow-up CT scan of the head in 12 hours may be obtained if there is continuing clinical concern for intracranial abnormality. Urgent results were discussed with Shefali Wells on 01/12/2020 at 12:17 AM CDT. 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
[2020-01-11] MEDS: LORazepam 1 mg Tablet PO (21:01)
[2020-01-11] MEDS: sodium chloride 0.9% 1,000 ML 999 ML IV (21:06)
[2020-01-11 21:10] LABS: Basophils % 0.4 %; Eosinophils % 0.1 %; Hematocrit 37.2 % (37.0-47.0); Hemoglobin 11.5 g/dL (11.5-15.3); Lymphocytes # 1.4 10^3/uL (0.8-4.8); Mean Corpuscular HGB Conc 30.9 g/dL (30.0-36.0); Mean Corpuscular Hemoglobin 30.4 pg (28.0-34.0); Mean Corpuscular Volume 98.4 fL (81-99); Monocytes # 0.7 10^3/uL (0.2-0.9); Monocytes % 8.7 %; Neutrophils # 5.46 10^3/uL (1.8-7.7); Neutrophils % 72.4 %; Nucleated Red Blood Cells % 0 %; Platelet Count 213 10^3/cmm (130-400); Red Blood Count 3.78 10^6/uL (4.1-5.3); Red Cell Distribution Width 13.1 % (12.1-15.1); White Blood Count 7.6 10^3/uL (4.0-10.0)
--- NOTE | 2020-01-11 21:13 | PC.NURSE ---
COVID test obtained and sent to lab.
[2020-01-11 21:24] VITALS: BP 146/87; PULSE 113; RESP 16
[2020-01-11 21:24] LABS: INR 0.94 (0.8-1.2)
[2020-01-11 21:25] LABS: Ketone (Acetest) Serum Negative (Negative)
[2020-01-11 21:26] LABS: D Dimer 1.21 ug/mIFEU (0-0.59)
[2020-01-11 21:30] LABS: Arterial Blood Gas Hematocrit 37.8 % (37-47); Base Excess ABG -1.4 mmol/L (-2.0-2.0); Blood Gas Sample Site Brachial, right; Blood Gas Sample Type Arterial; HCO3 ABG 23.1 mmol/L (22-26); Oxygen Device NC; PO2 ABG 79.9 mmHg (80.0-100.0)
[2020-01-11 21:34] VITALS: BP 146/87; PULSE 105; RESP 16; O2SAT 96
[2020-01-11 21:35] LABS: Troponin(5th) Baseline 32 ng/L (0-10)
--- NOTE | 2020-01-11 21:39 | CTR_ITS ---
PROCEDURE INFORMATION: Exam: CT Angiography Chest With Contrast Exam date and time: 01/11/2020 9:57 PM Age: 74 years old Clinical indication: Abnormal findings; Abnormal diagnostic tests; Elevated d-dimer; Other: Tachycardia; Additional info: Tachycardia, elevated d-dimer. TECHNIQUE: Imaging protocol: Computed tomographic angiography of the chest with intravenous contrast. 3D rendering (Not supervised by radiologist): MIP and/or 3D reconstructed images were created by the technologist. Radiation optimization: All CT scans at this facility use at least one of these dose optimization techniques: automated exposure control; mA and/or kV adjustment per patient size (includes targeted exams where dose is matched to clinical indication); or iterative reconstruction. Contrast material: VISI 320; Contrast volume: 74 ml; Contrast route: INTRAVENOUS (IV); COMPARISON: CR XR chest 1V portable [id number] 01/11/2020 9:00 PM RADIATION DOSE METRICS: Total DLP (mGy-cm): 621.38 FINDINGS: Pulmonary arteries: Enlarged main pulmonary artery, this may suggest pulmonary hypertension. The main pulmonary artery measures 3.7 cm in diameter (series 2, image 159). Relatively small caliber pulmonary arteries in the left upper lobe, likely secondary to chronic pleural-parenchymal scarring and volume loss. There is an occlusive filling defect within the anterior segmental branch of the left upper lobe pulmonary artery. Findings suggest an acute pulmonary embolus. Aorta: Moderate atherosclerotic changes in the visualized arteries. No evidence for aortic aneurysm or aortic dissection. Thyroid: Calcifications in the right thyroid lobe. Lungs: Extensive pleural-parenchymal scarring with volume loss and bronchiectatic changes in the left upper lobe. Superior retraction of the left hilum. Moderate centrilobular and paraseptal emphysematous changes in the upper lobes. No pulmonary parenchymal nodules or masses. No focal consolidation. No pulmonary edema. There is a polypoid soft tissue focus at the origin of the right mainstem bronchus. This measures 0.8 x 0.7 x 1.1 cm (series 602, image 42 in series 2, image 157). Pleural space: No pneumothorax. No pleural effusion. Heart: Mild enlargement of the heart. Calcification of the aortic valve. Extensive atherosclerotic calcification in the coronary arteries. The RV/LV ratio 0.84. Mediastinal space: Small hiatal hernia. The esophagus is unremarkable. No mediastinal hematoma. No pneumomediastinum. Lymph nodes: No lymphadenopathy. Liver: The liver is unremarkable. Gallbladder and bile ducts: The gallbladder is unremarkable. No biliary ductal dilatation. Pancreas: The visualized pancreas is unremarkable. No pancreatic ductal dilatation. Spleen: Multiple calcified granulomas in the spleen. Adrenals: The right and left adrenal glands are unremarkable. Kidneys and ureters: The visualized right and left kidneys are unremarkable. Bones/joints: Multilevel degenerative changes of varying severity in the visualized spine. Soft tissues: No acute abnormality in the extrathoracic soft tissues. CT/CT angio chest PE protcl [id number] IMPRESSION: 1. Relatively small caliber pulmonary arteries in the left upper lobe, likely secondary to chronic pleural-parenchymal scarring and volume loss. There is an occlusive filling defect within the anterior segmental branch of the left upper lobe pulmonary artery. Findings suggest an acute pulmonary embolus. 2. Soft tissue polypoid density at the origin of the right mainstem bronchus, findings may suggest bronchial secretions, a small mass cannot be ruled out however. Recommend follow up to ensure resolution of these findings. If findings persist, consider further evaluation with bronchoscopy. 3. Extensive pleural-parenchymal scarring with volume loss and bronchiectatic changes in the left upper lobe. Superior retraction of the left hilum. 4. Small hiatal hernia. 5. Incidental/nonacute findings are listed in the report. Radiation Dose CTDIVOL = (mGy): DLP = 621.38 (mGy-cm)
[2020-01-11 21:43] LABS: Alanine Aminotransferase 9 U/L (0-33); Albumin Level 3.8 g/dL (3.5-5.2); Alkaline Phosphatase 72 IU/L (35-105); Anion Gap 20.2 (5-19); Aspartate Amino Transferase 15 U/L (0-32); Blood Urea Nitrogen 18 mg/dL (8-23); Carbon Dioxide 24 mmol/L (22-29); Chloride 98 mmol/L (98-107); Creatine Phosphokinase 52 U/L (26-192); Free T4 Free Thyroxine 1.19 ng/dL (0.82-1.77); Globulin 2.2 g/dL (1.3-4.6); Glucose 157 mg/dL (65-115); Lipase 29 U/L (13-60); Magnesium 1.4 mg/dL (1.7-2.3); Osmolality Calculated 291 mOsm/kg (285-295); Potassium 4.2 mmol/L (3.5-5.1); Sodium 138 mmol/L (136-145); Thyroid Stimulating Hormone 1.33 uIU/mL (0.27-4.20); Total Bilirubin 0.4 mg/dL (0.15-1.2)
[2020-01-11 21:50] LABS: Acetaminophen < 5.0 ug/mL (10-30); Alcohol Level < 10 mg/dL (0-10); Salicylate < 0.3 mg/dL (3-10)
[2020-01-11 21:52] LABS: SARS Covid-2 Antigen Negative (Negative)
[2020-01-11 21:57] LABS: Add Urine Culture? Yes; Bacteria Urine 1+ /hpf; Bilirubin Urine Neg (Negative); Blood Urine Neg (Negative); Glucose Urine UA Norm (Normal); Ketones Urine 1+ (Negative); Leukocyte Esterase Urine 1+ (Negative); Nitrate Urine Negative (Negative); Protein Urine Neg (Negative); Specific Gravity, Urine 1.015 (1.005-1.030); Squamous Epithelial Cell Urine 0-4 /hpf (0-5); Urine Appearance Clear (CLEAR); Urine Color Yellow (Yellow); Urobilinogen Urine Norm (Negative); WBC Urine >100 /hpf (0-5); pH Urine 5 (5-7)
[2020-01-11 21:58] LABS: Amphetamines Screen Urine Negative (Negative); Barbiturates Screen Urine Negative (Negative); Benzodiazepines Screen Urine Negative (Negative); Cocaine Screen Urine Negative (Negative); Opiate Screen Urine Negative (Negative); PCP Screen Urine Negative (Negative); THC Screen Urine Negative (Negative)
[2020-01-11 22:00] VITALS: BP 125/79; PULSE 94; RESP 16; O2SAT 98
[2020-01-11 22:26] LABS: Lactic Sepsis W/Reflex 2.3 mmol/L (0.5-2.2)
[2020-01-11] MEDS: cefTRIAXone 1,000 MG in sodium chloride 0.9% (plus) 50 ML 100 MG IV (22:28)
[2020-01-11] MEDS: iodixanol 320 mg/mL 100mL Btl IV (22:46)
--- NOTE | 2020-01-11 22:52 | ECG_ITS ---
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 Measurements Intervals [place] Rate: 90 P: 81 [place]: 162 QRS: 51 QRSD: 89 T: 86 QT: 349 QTc: 429 Interpretive Statements SINUS RHYTHM LOW QRS VOLTAGE IN PRECORDIAL LEADS [QRS DEFLECTION < 1.0 mV IN CHEST LEADS] NONSPECIFIC T-WAVE ABNORMALITY Compared to ECG 01/11/2020 20:59:54 Low QRS voltage now present T-wave abnormality now present Sinus tachycardia no longer present ST (T wave) deviation no longer present Electronically Signed On 01-12-2020 18:37:02 CDT by Oc Westfall M.D. [id number]
[2020-01-11] MEDS: sodium chloride 0.9% 1,000 ML 100 ML IV (22:55)
[2020-01-11] MEDS: magnesium sulfate premix 2 GM/50 ML PIGGYBACK IV (22:55)
[2020-01-11 23:00] VITALS: PULSE 99; RESP 16; O2SAT 98
[2020-01-11 23:13] VITALS: BP 164/88; PULSE 92; RESP 18; O2SAT 93
--- NOTE | 2020-01-11 23:13 | PC.NURSE ---
EKG done at 2304 and shown to ER doctor
--- NOTE | 2020-01-11 23:30 | CTR_ITS ---
PROCEDURE INFORMATION: Exam: CT Head Without Contrast Exam date and time: 01/11/2020 11:45 PM Age: 74 years old Clinical indication: Altered mental status/memory loss; Confusion or disorientation TECHNIQUE: Imaging protocol: Computed tomography of the head without contrast. Sagittal and coronal reformatted images were created and reviewed. Radiation optimization: All CT scans at this facility use at least one of these dose optimization techniques: automated exposure control; mA and/or kV adjustment per patient size (includes targeted exams where dose is matched to clinical indication); or iterative reconstruction. COMPARISON: [place] [id number] 09/22/2018 10:19 AM RADIATION DOSE METRICS: Total DLP (mGy-cm): 877.21 FINDINGS: Brain: No intra-axial or extra-axial masses. Howe-white matter differentiation is preserved. No cerebral edema. No extra-axial fluid collections. No midline shift. No evidence for Chiari 1 malformation. Stable mild atrophy of the brain parenchyma. Stable mildly decreased attenuation in the deep white matter, consistent with mild chronic microangiopathic change. Cerebral ventricles: No hydrocephalus. Bones/joints: No acute fracture. Paranasal sinuses: Visualized paranasal sinuses are clear. Mastoid air cells: Small amount of fluid in the right mastoid air cells and large amount of fluid in the left mastoid air cells. Findings are stable. Orbits: Globes and lenses, extraocular muscles, and optic nerves are intact bilaterally. No acute intraorbital abnormality. Vasculature: Atherosclerotic changes in the visualized arteries. Evaluation for hemorrhage is limited due to recent administration of intravenous contrast. No definite intracranial hemorrhage otherwise. No acute infarct. Soft tissues: No acute abnormality of the extracranial soft tissues. CT/CT head wo con* [id number] IMPRESSION: 1. Evaluation for hemorrhage is limited due to recent administration of intravenous contrast. Otherwise, no acute abnormality of the brain. 2. Stable mild atrophy of the brain parenchyma. 3. Stable mild chronic white matter microangiopathic change. 4. Small amount of fluid in the right mastoid air cells and large amount of fluid in the left mastoid air cells. Findings are stable. 5. Incidental/nonacute findings are listed in the report. Radiation Dose CTDIVOL = (mGy): DLP = 877.21 (mGy-cm)
[2020-01-11 23:58] LABS: Reflex Lactate Order REFLEX LACTIC ORDERD
[2020-01-12] VITALS (12 sets, daily range): BP systolic 124–164; BP diastolic 69–110; PULSE 54–112; RESP 16–20; TEMP 36.5–37.1; O2SAT 94–99
--- NOTE | 2020-01-12 | USCV_ITS ---
Vandana Le Age: 74 Gender: F : 1945 Exam Date: 01/12/2020 00:49 Ordering Phys: Shefali Izquierdo DO Technologist: Jamie Teixeira Exam Location: [facility] [place]_ Indication: swelling HISTORY: Lower extremity swelling. PROCEDURES: Venous duplex imaging was performed in bilateral lower extremities. The following venous structures were evaluated: common femoral vein, profunda vein, proximal portion of the greater saphenous vein, superficial femoral vein, and the popliteal vein. In addition, the posterior tibial and peroneal trunk were evaluated. Serial compression, augmentation maneuvers, and spectral Doppler flow evaluation were performed. FINDINGS: Normal 2-D Doppler and augmentation and compressibility throughout the lower extremity venous structures. Additional imaging through the proximal calf veins also reveals no thrombus. Limited evaluation of the greater saphenous vein is patent with no thrombus.. CONCLUSIONS No evidence of DVT in the above-mentioned identifiable veins. Dr Niall Araiza MD [facility] (Electronically Signed) Final Date: 13 January 2020 08:44 S
[2020-01-12 00:10] LABS: Troponin 5 2HR 33.72 ng/L (0-10); Troponin 5 2HR Delta 1.72 ABS# (0-10)
[2020-01-12 00:16] LABS: NT Pro B Type Natriuretic Pept 681 pg/mL (0-450)
--- NOTE | 2020-01-12 00:29 | PC.NURSE ---
Urine collected for UA and sent to lab by nurse
[2020-01-12] MEDS: enoxaparin 80 mg/0.8 mL Syringe 81 MG SUBCUT (02:25)
--- NOTE | 2020-01-12 02:52 | ECG_ITS ---
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 Measurements Intervals [place] Rate: 76 P: 63 GA: 146 QRS: -7 QRSD: 91 T: 96 QT: 391 QTc: 440 Interpretive Statements SINUS RHYTHM NONSPECIFIC ST & T-WAVE ABNORMALITY Compared to ECG 01/11/2020 23:00:27 No significant changes Electronically Signed On 01-12-2020 18:37:26 CDT by Oc Westfall M.D. [id number]
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
[2020-01-12 05:10] LABS: Basophils % 0.3 %; Eosinophils % 0.7 %; Hematocrit 34.3 % (37.0-47.0); Hemoglobin 10.5 g/dL (11.5-15.3); Lymphocytes # 1.5 10^3/uL (0.8-4.8); Lymphocytes % 25.3 %; Mean Corpuscular HGB Conc 30.6 g/dL (30.0-36.0); Mean Corpuscular Hemoglobin 30.5 pg (28.0-34.0); Mean Corpuscular Volume 99.7 fL (81-99); Mean Platelet Volume 10.3 fL (7.4-10.4); Monocytes # 0.6 10^3/uL (0.2-0.9); Monocytes % 10.4 %; Neutrophils # 3.77 10^3/uL (1.8-7.7); Neutrophils % 63.1 %; Nucleated Red Blood Cells % 0 %; Platelet Count 199 10^3/cmm (130-400); Red Blood Count 3.44 10^6/uL (4.1-5.3); Red Cell Distribution Width 13.2 % (12.1-15.1)
[2020-01-12 05:35] LABS: Anion Gap 14.7 (5-19); Blood Urea Nitrogen 15 mg/dL (8-23); Calcium 8.9 mg/dL (8.5-10.5); Carbon Dioxide 25 mmol/L (22-29); Chloride 104 mmol/L (98-107); Creatinine Clr Calc Pharmacy 47.3875; Glucose 114 mg/dL (65-115); Osmolality Calculated 292 mOsm/kg (285-295); Potassium 3.7 mmol/L (3.5-5.1); Sodium 140 mmol/L (136-145)
[2020-01-12 06:10] LABS: Troponin 5 6HR 33.99 ng/L (0-10); Troponin 5 6HR Delta 1.99 ng/L (0-12)
[2020-01-12] MEDS: docusate sodium 100 mg Capsule PO ×2 (08:10→17:20)
[2020-01-12] MEDS: memantine 5 mg tablet 10 MG PO ×2 (08:10→17:20)
[2020-01-12] MEDS: isosorbide mononitrate ER 30 mg Tablet PO (08:10)
[2020-01-12] MEDS: atenolol 50 mg Tablet 25 MG PO (08:10)
[2020-01-12] MEDS: venlafaxine ER (24HR) 150 mg Capsule PO (08:10)
[2020-01-12] MEDS: sodium chloride 0.9% 1,000 ML 100 ML IV (08:12)
[2020-01-12 08:19] LABS: Glucose Point of Care 99 mg/dL (70-110)
[2020-01-12] MEDS: pantoprazole DR 40 mg Tablet PO (09:08)
[2020-01-12 10:37] LABS: Glucose Point of Care 127 mg/dL (70-110)
--- NOTE | 2020-01-12 12:53 | PM.PSYCN ---
Providers/Reason for Consult Consulting Physican/Specialty*: Jovanny Petty M.D./psychiatry Reason for Consult*: Episodes of extreme agitation, self-harm and depression. Patient has also been aggressive with grandchildren. Attending Physician: Ritchie Carnes MD Primary Care Provider: Saima Carnes MD Psych Consult HPI History of Present Illness Vandana Le is a 74 year old female who was brought to the hospital by her daughter, who has medical power of commercial real estate attorney. The reason she was brought here is that she has been having episodes of severe depression with uncontrollable crying to the point that she is unable to speak. She has also had pronounced agitation, self-harm, banging her head on the floor and physical aggression towards her grandchildren. She says she has not been on any antipsychotic or antidepressive medication (she was on quetiapine 50 mg daily and venlafaxine 37.5 mg daily at home) but seems to remember seeing me some 15 years ago. I have talked to her daughter, who characterizes the problem as escalating over time to the point that it is simply not manageable at home. She also provided some of the details about her mother's agitated behavior. raised the question of transfer to a geriatric psych unit, which occasioned this consultation. Meds Current Medications: Current Medications Generic Name Dose Route Start Last Admin Trade Name Tish PRN Reason Stop Dose Admin Atenolol 25 mg 01/12/20 09:00 01/12/20 08:10 Tenormin PO 25 mg DAILY TE Administration Docusate Sodium 100 mg 01/12/20 09:00 01/12/20 08:10 Colace PO 100 mg BID TE Administration Sodium Chloride 1,000 mls @ 100 m ls/hr 01/11/20 21:00 01/12/20 08:12 Sodium Chloride 0.9% IV 100 mls/hr .Q10H TE Administration Insulin Aspart 0 unit 01/12/20 08:00 01/12/20 11:11 Novolog SUBCUT Not Given TIDWM TE Protocol Isosorbide Mononit rate 30 mg 01/12/20 09:00 01/12/20 08:10 Imdur PO 30 mg DAILY TE Administration Memantine 10 mg 01/12/20 09:00 01/12/20 08:10 Namenda PO 10 mg BID TE Administration Pantoprazole Sodiu m 40 mg 01/12/20 09:00 01/12/20 09:08 Protonix PO 40 mg DAILY ET Administration Venlafaxine HCl 150 mg 01/12/20 09:00 01/12/20 08:10 Effexor Xr PO 150 mg DAILY TE Administration PFSH NPU PFSH: Medical History (Updated 01/12/20 @ 13:17 by Jovanny Petty) COPD (chronic obstructive pulmonary disease) Dementia DM type 2 (diabetes mellitus, type 2) DVT (deep venous thrombosis) GERD (gastroesophageal reflux disease) Hyperlipidemia Hypertension Surgical History (Updated 01/12/20 @ 03:11 by Cara Coates MD) H/O hernia repair H/O: hysterectomy History of carpal tunnel surgery S/P appendectomy Status post myringotomy with tube placement of both ears Family History Other Dementia Social History (Updated 01/12/20 @ 07:38 by Cara Coates MD) Smoking and tobacco status: former smoker Alcohol intake: never Substance/Drug Use: never Household members: children Marital status: / Female Reproductive History: : 4 Para: 3 Mental Status Exam MSE Comments: Ms. Le is a 74-year-old female who presents at her stated age. She is lying in her bed with a one-to-one sitter. She seems reasonably clean and free of dishevelment. Mood is described as calm but she frankly acknowledges episodes of depression with severe agitation. Affect is appropriate. She is very friendly on approach. Thought processes are integrated and free of any racing, blocking or looseness of association. She cognitive functions presently are largely intact. She is fully oriented and we can have a very nuanced and enjoyable conversation. She does complain of some memory problems, although there does not seem to be any glaring problems. Insight into the gravity of her situation may be mildly limited, as is her judgment. She does not frankly admit to the self-harm or to hurting her grandchild. We discussed treatment options for her and she agrees that a geropsychiatry placement might be helpful for her psychiatric affliction. Vitals/I&O/Wt Last Vital Signs Temp 97.9 F 01/12/20 11:14 Pulse 72 01/12/20 11:14 Resp 18 01/12/20 11:14 BP 133/74 01/12/20 11:14 Pulse Ox 98 01/12/20 11:14 01/11/20 01/12/20 01/12/20 23:59 07:59 15:59 Intake Total 1648.333 Balance 1648.333 Weight last 48 hrs Weight 180 lb Data NPU Micro: Micro: Microbiology 01/11/20 21:45 Blood Culture - Pr eliminary Blood SPECIMEN [facility] 01/11/20 21:45 Blood Culture - Pr eliminary Blood SPECIMEN [facility] Microbiology 01/11/20 21:45 Blood Blood Culture - Preliminary SPECIMEN COLLECTED 01/11/20 21:45 Blood Blood Culture - Preliminary SPECIMEN COLLECTED A&P Assessment and plan (1) COPD (chronic obstructive pulmonary disease): Status: Chronic Qualifiers: COPD type: emphysema Emphysema type: unspecified Qualified Code(s): J43.9 - Emphysema, unspecified (2) Acute UTI: Dr. Carnes is treating this Status: Acute (3) Agitation due to dementia: This and her depression would be well served by assessment and treatment at a geropsychiatry unit. She is already on pharmacotherapy and adjustment thereof should be undertaken there. Status: Acute (4) Depression due to dementia: See above. Status: Acute (5) Acute pulmonary embolism: Status: Acute Qualifiers: Acute cor pulmonale presence: unspecified Pulmonary embolism type: unspecified Qualified Code(s): I26.99 - Other pulmonary embolism without acute cor pulmonale Involuntary Hold Information 96 Hour Hold: 96 Hour Involuntary Admission: No Attestations NPU Medical Necessity Statement*: I anticipate 2 to 3 midnights additional hospitalization here prior to transfer to a geriatric psychiatry unit Time Spent in Patient Care: Greater than 35 minutes (>than 50% of time spent in counselling and/or direct pt care on unit). [address] Carnes. Review of the record. Gathering collateral history from patient's daughter. Patient interview. Documentation. Coding Level of Care Code Acute Complaint Evaluation Officer for [employer] Fwd Diagnoses COPD (chronic obstructive pulmonary disease) J43.9 COPD type: emphysema Emphysema type: unspecified Acute UTI N39.0 Agitation due to dementia F03.91 Depression due to dementia F32.9; F02.80 Acute pulmonary embolism I26.99 Acute cor pulmonale presence: unspecified Pulmonary embolism type: unspecified
--- NOTE | 2020-01-12 13:45 | P.PN_ITS ---
Subjective Subjective: Interval history: History and physical reviewed. Patient confused, but conversant. No specific complaints. I discussed her case with daughter as well concerning her behaviors at home. Nurse alerts me that she occasionally will have some hallucinations. Patient denies shortness of breath or chest pain. Medications: Reviewed: Yes Vitals/I&O/Wt Last Vital Signs Temp 97.9 F 01/12/20 11:14 Pulse 72 01/12/20 11:14 Resp 18 01/12/20 11:14 BP 133/74 01/12/20 11:14 Pulse Ox 98 01/12/20 11:14 01/11/20 01/12/20 01/12/20 22:59 06:59 14:59 Intake Total 1648.333 / 1648.333 Balance 1648.333 / 1648.333 Weight last 48 hrs Weight 81.647 kg Physical Exam Narrative: EXAM NARRATIVE: General exam is conversant and pleasant. Cardiovascular regular rate and rhythm without murmur Lungs clear Abdomen is soft with positive bowel sounds Extremities no cyanosis clubbing or edema Data : 01/12/20 04:30 01/12/20 04:30 Micro: Microbiology 01/11/20 21:45 Blood Culture - Preliminary Blood SPECIMEN COLLECTED 01/11/20 21:45 Blood Culture - Preliminary Blood SPECIMEN COLLECTED A&P Assessment and plan (1) Acute pulmonary embolism: Therapeutic Lovenox initiated She is on her baseline oxygen requirement Elevated d-dimer, troponin likely secondary to PE Check echocardiogram, for any right heart strain If none is present change to oral anticoagulation tomorrow Status: Acute Qualifiers: Acute cor pulmonale presence: unspecified Pulmonary embolism type: unspecified Qualified Code(s): I26.99 - Other pulmonary embolism without acute cor pulmonale (2) Macrocytic anemia: Without any reported bleeding Stool Hemoccult ordered TIBC and B12 level ordered for tomorrow Repeat CBC in the morning Status: Acute (3) Acute UTI: Possible symptoms included increasing confusion. Placed on ceftriaxone. Await culture. Status: Acute (4) Agitation due to dementia: Concern for self-harm. Sitter will stay with the patient. May need geriatric psychiatry. Consult psychiatry here for opinion Status: Acute (5) COPD (chronic obstructive pulmonary disease): No evidence of acute exacerbation Status: Chronic Qualifiers: COPD type: emphysema Emphysema type: unspecified Qualified Code(s): J43.9 - Emphysema, unspecified (6) Oxygen dependent: Status: Chronic (7) DM type 2 (diabetes mellitus, type 2): Sliding scale insulin Status: Chronic Qualifiers: Diabetes mellitus skilled nursing insulin use: without skilled nursing use Diabetes mellitus complication status: without complication Qualified Code(s): E11.9 - Type 2 diabetes mellitus without complications (8) Hypertension: Continue home meds Status: Chronic Qualifiers: Hypertension type: essential hypertension Qualified Code(s): I10 - Essential (primary) hypertension (9) GERD (gastroesophageal reflux disease): Protonix Status: Chronic Qualifiers: Esophagitis presence: esophagitis presence not specified Qualified Code(s): K21.9 - Gastro-esophageal reflux disease without esophagitis Additional A&P Information Full code Lovenox will serve for DVT prophylaxis. Attestations Medical Necessity Statement*: Needs continued hospitalization, for close monitoring secondary to pulmonary embolism, symptomatic UTI in this elderly patient with dementia with behaviors and likely need for geriatric psychiatry placement. Coding Level of Care Code Acute Exterminator Helper Termite for [facility] Fwd Diagnoses Acute pulmonary embolism I26.99 Acute cor pulmonale presence: unspecified Pulmonary embolism type: unspecified Macrocytic anemia D53.9 Acute UTI N39.0 Agitation due to dementia F03.91 COPD (chronic obstructive pulmonary disease) J43.9 COPD type: emphysema Emphysema type: unspecified Oxygen dependent Z99.81 DM type 2 (diabetes mellitus, type 2) E11.9 Diabetes mellitus skilled nursing insulin use: without skilled nursing use Diabetes mellitus complication status: without complication Hypertension I10 Hypertension type: essential hypertension GERD (gastroesophageal reflux disease) K21.9 Esophagitis presence: esophagitis presence not specified
[2020-01-12] MEDS: enoxaparin 80 mg/0.8 mL Syringe SUBCUT (13:47)
--- NOTE | 2020-01-12 13:53 | PC.CHAP ---
Pastoral Care Encounter/Spiritual Assessment Type of Contact [] Declined secondary special education teacher visit [] Patient/Family/Request visit [] Outpatient visit [] Follow-up visit [] Physician referral [] Code/Alert [X] Routine visit [] Staff referral [] Actively dying [] Patient sleeping [] Family support [] [] Out of room [] Palliative care [] [] Receiving care in room [] Pre-surgical visit [] Trauma [] Long length of stay [] ICU visit [] Other: Relational/Emotional Strength [] Patient feels connected with others/family/visitors/staff [] Distress [] Loneliness/isolation [] Abandonment Spirituality of Patient [] Person of Juli [] Attends Shinto of their Juli [] Believes in Prayer [] Reads Bible or Yarsani materials [] There are Spiritual issues to be addressed Insulation Worker Furnace Installer Interventions [] Prayer [] Active listening [] Non-anxious presence [] Spiritual/emotional support [] Crisis/trauma care [] Spiritual counseling [] Bereavement support [] Provided bereavement packet [] Provided Bible/devotional materials [] Provided toy/stuffed animal, coloring book to patient or family member [] Provided Communion [] Anointing/[place] [] Salvation [] Completed spiritual assessment [] Other: Impact on Illness or Injury [] Angry [] Fearful [] Anxious [] Often cries [] Exhaustion [] Unable to work [] Unable to attend zoroastrian [] Unable to walk/stand [] Unable to read [] Unable to drive [] Unable to eat/drink [] Unable to sleep [] Unable to be with family [] Patient intubated [] Other: Summary Time spent with patient
--- NOTE | 2020-01-12 14:28 | USCV_ITS ---
Vandana Le Age: 74 Gender: F : 1945 Exam Date: 01/12/2020 00:40 Ordering Phys: Shefali Izquierdo DO Technologist: Jamie Teixeira Exam Location: [facility] [place] Indication: EFFUSION BP: 150 / 78 HR: 79 Rhythm: Sinus Technical Quality: Adequate MEASUREMENTS (Male / Female) Normal Values 2D ECHO LV Diastolic Diameter PLAX 4.3 cm 4.2 - 5.9 / 3.9 - 5.3 cm LV Systolic Diameter PLAX 2.9 cm IVS Diastolic Thickness 1.0 cm 0.6 - 1.0 / 0.6 - 0.9 cm IVS Systolic Thickness 1.5 cm LVPW Diastolic Thickness 1.1 cm 0.6 - 1.0 / 0.6 - 0.9 cm LVPW Systolic Thickness 1.3 cm LVOT Diameter 2.0 cm LV Ejection Fraction 2D Teich 62.0 % LV Ejection Fraction MOD 2C 60.2 % LV Ejection Fraction 2C AL 59.9 % LA Diameter 3.6 cm LA Width 3.2 cm LA Height 4.3 cm RA Width 3.4 cm RA Height 5.0 cm Aorta at Sinotubular Diameter 1.0 cm M-MODE LV Diastolic Diameter MM 4.7 cm 4.2 - 5.9 / 3.9 - 5.3 cm LV Systolic Diameter MM 3.4 cm LV Ejection Fraction MM Teich 55.8 % IVS Diastolic Thickness MM 1.2 cm 0.6 - 1.0 / 0.6 - 0.9 cm IVS Systolic Thickness MM 1.4 cm LVPW Diastolic Thickness MM 1.7 cm 0.6 - 1.0 / 0.6 - 0.9 cm LVPW Systolic Thickness MM 1.9 cm RV Diastolic Diameter MM 2.2 cm Aortic Annulus Diameter 4.2 cm LA Ao Ratio MM 0.9 MV E Point Septal Separation 1.3 cm FINDINGS Left Ventricle Normal LV size with diminished ejection fraction of 45 to 50%. Diffuse hypokinesia of the septum, anteroseptal [place] and inferior wall segments were noted.mild left ventricular hypertrophy. Right Ventricle Normal right ventricular size and systolic function. Right Atrium The right atrium is normal in size. Left Atrium Mildly increased left atrial size. Mitral Valve Mild mitral annular calcification. Aortic Valve No gross abnormalities noted Tricuspid Valve No gross abnormalities noted Pulmonic Valve Pulmonic valve not well visualized. Pericardium Normal pericardium without effusion. Aorta Normal ascending aorta dimension. CONCLUSIONS Normal LV size with diminished ejection fraction of 45 to 50%. Diffuse hypokinesia of the septum, anteroseptal [place] and inferior wall segments were noted.mild left ventricular hypertrophy. Mildly increased left atrial size. Mild mitral annular calcification. There is no pericardial effusion. There are no intracardiac masses. No previous study is available for comparison. Dr Niall Araiza MD FACC (Electronically Signed) Final Date: 12 January 2020 18:09 S
--- NOTE | 2020-01-12 14:51 | DCPLANNER ---
assistant merchandise manager had message to schedule a follow up appointment for patient with Dr. Barker. After looking at patients chart, this patient was admitted. The order came from [facility], this patient was seen by Dr. Izquierdo, order was placed on wrong patient.
[2020-01-12 16:32] LABS: Glucose Point of Care 99 mg/dL (70-110)
[2020-01-12 21:13] LABS: Glucose Point of Care 106 mg/dL (70-110)
[2020-01-12] MEDS: donepezil 5 MG Tablet 10 MG PO (21:20)
[2020-01-12] MEDS: cefTRIAXone 1,000 MG in sodium chloride 0.9% (plus) 50 ML 100 MG IV (21:21)
[2020-01-12] MEDS: quetiapine 25 mg Tablet PO (21:21)
[2020-01-13] VITALS: BP 131/73; PULSE 81; RESP 18; TEMP 36.4; O2SAT 92
[2020-01-13] MEDS: enoxaparin 80 mg/0.8 mL Syringe SUBCUT (03:30)
[2020-01-13 04:00] VITALS: BP 116/66; PULSE 81; RESP 17; TEMP 36.6; O2SAT 97
[2020-01-13 05:17] LABS: Basophils % 0.4 %; Eosinophils # 0.1 10^3/uL (0.0-0.8); Eosinophils % 1.7 %; Hematocrit 31.6 % (37.0-47.0); Hemoglobin 9.6 g/dL (11.5-15.3); Lymphocytes # 1.7 10^3/uL (0.8-4.8); Lymphocytes % 34.9 %; Mean Corpuscular HGB Conc 30.4 g/dL (30.0-36.0); Mean Corpuscular Hemoglobin 30.6 pg (28.0-34.0); Mean Corpuscular Volume 100.6 fL (81-99); Mean Platelet Volume 10.7 fL (7.4-10.4); Monocytes # 0.6 10^3/uL (0.2-0.9); Monocytes % 12.3 %; Neutrophils # 2.38 10^3/uL (1.8-7.7); Neutrophils % 50.3 %; Nucleated Red Blood Cells % 0 %; Platelet Count 199 10^3/cmm (130-400); Red Blood Count 3.14 10^6/uL (4.1-5.3); Red Cell Distribution Width 13.2 % (12.1-15.1); White Blood Count 4.7 10^3/uL (4.0-10.0)
[2020-01-13 05:46] LABS: Blood Urea Nitrogen 16 mg/dL (8-23); Calcium 8.7 mg/dL (8.5-10.5); Carbon Dioxide 25 mmol/L (22-29); Chloride 110 mmol/L (98-107); Creatinine Clr Calc Pharmacy 47.3875; Glucose 115 mg/dL (65-115); Magnesium 1.7 mg/dL (1.7-2.3); Osmolality Calculated 300 mOsm/kg (285-295); Sodium 144 mmol/L (136-145)
[2020-01-13 06:01] LABS: Iron 36 ug/dL (37-145); Vitamin B12 243 pg/mL (232-1245)
[2020-01-13 06:02] LABS: Folate Level 5.5 ng/mL (4.8-37.3)
--- NOTE | 2020-01-13 06:12 | PC.NURSE ---
Pt has been A&O tonight, with no signs or suicidal attempt. Pt has been slightly emotional and has became teary-eyed on a few occasions when asking about going home. This nurse as well as PSA would talk to pt and pt would redirect easily.
[2020-01-13 06:18] LABS: Percent Saturation 20.4 % (20-50); Total Iron Binding Capacity 176 mcg/dl; Unsaturated Iron Binding 140 ug/dL (112-347)
[2020-01-13 06:44] LABS: Glucose Point of Care 100 mg/dL (70-110)
[2020-01-13 08:00] VITALS: BP 131/78; PULSE 80; PULSE 81; RESP 15; RESP 16; TEMP 36.6; O2SAT 97
[2020-01-13] MEDS: atenolol 50 mg Tablet 25 MG PO (08:45)
[2020-01-13] MEDS: isosorbide mononitrate ER 30 mg Tablet PO (08:45)
[2020-01-13] MEDS: venlafaxine ER (24HR) 150 mg Capsule PO (08:45)
[2020-01-13] MEDS: docusate sodium 100 mg Capsule PO (08:45)
[2020-01-13] MEDS: memantine 5 mg tablet 10 MG PO (08:45)
[2020-01-13] MEDS: pantoprazole DR 40 mg Tablet PO (08:45)
--- NOTE | 2020-01-13 10:04 | PC.NURSE ---
Spoke with patient at length. longterm memory was intact. Patient has difficult word finding and unable to remember grand children names. Patient started talking to someone (not present) in the room regarding helping her recall these names. Patient states she wont answer me. Patient brightens with interaction and does not know why she is here. Patient states she has fallen quite a few times recently.
[2020-01-13 10:54] LABS: Glucose Point of Care 132 mg/dL (70-110)
[2020-01-13 11:32] VITALS: BP 116/70; PULSE 74; RESP 16; TEMP 36.4; O2SAT 97
--- NOTE | 2020-01-13 12:52 | P.TS_ITS ---
Transfer Summary Providers Date of Admission: 01/12/20 02:20 Date of Discharge: 01/13/20 Attending Provider at Admission: Cara Coates MD Attending Provider at Transfer: Ritchie Carnes MD Primary Care Provider: Saima Carnes MD Anticipated Date of Transfer: Anticipated date of transfer: 01/13/20 Receiving Facility & Provider: Receiving Provider: [] Receiving facility: [] Diagnoses at Discharge Discharge Diagnosis (1) Acute pulmonary embolism: Status: Acute Problem details: Transition to Eliquis 10 mg twice daily for 1 week then 5 mg twice daily Qualifiers: Acute cor pulmonale presence: unspecified Pulmonary embolism type: unspecified Qualified Code(s): I26.99 - Other pulmonary embolism without acute cor pulmonale (2) Macrocytic anemia: Status: Acute Problem details: Stable, B12 levels normal (3) Acute UTI: Status: Acute Problem details: Will finish up 5 days of cefdinir (4) Agitation due to dementia: Status: Acute (5) COPD (chronic obstructive pulmonary disease): Status: Chronic Qualifiers: COPD type: emphysema Emphysema type: unspecified Qualified Code(s): J43.9 - Emphysema, unspecified (6) Oxygen dependent: Status: Chronic (7) DM type 2 (diabetes mellitus, type 2): Status: Chronic Qualifiers: Diabetes mellitus middle or intermediate [employer] principal insulin use: without fpc use Diabetes mellitus complication status: without complication Qualified Code(s): E11.9 - Type 2 diabetes mellitus without complications (8) Hypertension: Status: Chronic Qualifiers: Hypertension type: essential hypertension Qualified Code(s): I10 - Essential (primary) hypertension (9) GERD (gastroesophageal reflux disease): Status: Chronic Qualifiers: Esophagitis presence: esophagitis presence not specified Qualified Code(s): K21.9 - Gastro-esophageal reflux disease without esophagitis Reason for Visit Reason for Visit: My daughter wanted me here Hospital Course Hospital Course: Vandana presented to the hospital with concern of behaviors. There was concern she may need to go to geriatric psychiatry facility. While in the emergency department, tachycardia was noted. Screening occurred and she was found to have a UTI, as well as a small pulmonary embolism left upper lobe. She was anticoagulated with Lovenox. She was placed on Rocephin. Admitted to the hospital. While in the hospital she remained stable. She did not have any further tachycardia. She was able to wean down to her home oxygen amount. She was transitioned to Eliquis 10 mg twice daily which she should take for 1 week and then transition to 5 mg twice daily. She will take cefdinir for 5 more days 300 mg twice daily. Psychiatric consultation was obtained, and they believed she would need further inpatient psychiatric treatment. This was arranged, and patient transferred on January 12. Other pertinent studies were an echocardiogr am demonstrating no right heart strain, venous duplex demonstrating no DVT in either leg. Physical Exam Narrative: EXAM NARRATIVE: General exam no apparent distress Cardiovascular regular rate and rhythm without murmur Lungs clear Abdomen is soft with positive bowel sounds Extremities no cyanosis clubbing or edema TS Data Data Completed and Pending: Completed Studies During Hospitalization Category Date Time Status CT angio chest PE protcl [id number] Stat Cat Scan 01/11/20 21:[address] head wo con* 7 0450 Stat Cat Scan 01/11/20 23:30 Completed XR chest 1V pablo ble [id number] Stat Exams 01/11/20 20:51 Completed CV echo limited 9 [id number] Routine Ultrasound 01/12/20 14:28 [place] [id number] Stat Ultrasound 01/12/20 00:00 Completed Pending at discharge Category Date Time Status Blood Culture Sta t Lab 01/11/20 21:45 Results Immunochemical Fe olga OCB Routine Lab 01/12/20 08:12 Uncollected Urine Culture Sta t Lab 01/11/20 21:27 Results Labs from last 24 hours 01/13/20 01/13/20 01/13/20 10:29 06:39 04:37 WBC RBC Hgb Hct MCV MCH MCHC RDW Plt Count MPV Neut % (Auto) Lymph % (Auto) [place] % (Auto) Eos % (Auto) Baso % (Auto) Neut # (Auto) Lymph # (Auto) [place] # (Auto) Eos # (Auto) Baso # (Auto) Nucleated RBC % (a uto) Nucleated RBCs # Sodium Potassium Chloride Carbon Dioxide Anion Gap BUN Creatinine GFR Calculation Glucose POC Glucose 132 100 Calculated Osmolal ity Calcium Phosphorus Magnesium Iron TIBC % Saturation Unsat Iron Binding Vitamin B12 Folate 5.5 01/13/20 01/13/20 01/13/20 04:37 04:37 04:37 WBC 4.7 RBC 3.14 L Hgb 9.6 L Hct 31.6 L MCV 100.6 H MCH 30.6 MCHC 30.4 RDW 13.2 Plt Count 199 MPV 10.7 H Neut % (Auto) 50.3 Lymph % (Auto) 34.9 [place] % (Auto) 12.3 Eos % (Auto) 1.7 Baso % (Auto) 0.4 Neut # (Auto) 2.38 Lymph # (Auto) 1.7 [place] # (Auto) 0.6 Eos # (Auto) 0.1 Baso # (Auto) 0.0 Nucleated RBC % (a uto) 0 Nucleated RBCs # 0.0 Sodium 144 Potassium 4.0 Chloride 110 H Carbon Dioxide 25 Anion Gap 13.0 BUN 16 Creatinine 1.0 H GFR Calculation Not Reportable Glucose 115 POC Glucose Calculated Osmolal ity 300 H Calcium 8.7 Phosphorus 3.0 Magnesium 1.7 Iron 36 L TIBC 176 % Saturation 20.4 Unsat Iron Binding 140 Vitamin B12 243 Folate 01/12/20 01/12/20 20:48 16:27 WBC RBC Hgb Hct MCV MCH MCHC RDW Plt Count MPV Neut % (Auto) Lymph % (Auto) [place] % (Auto) Eos % (Auto) Baso % (Auto) Neut # (Auto) Lymph # (Auto) [place] # (Auto) Eos # (Auto) Baso # (Auto) Nucleated RBC % (a uto) Nucleated RBCs # Sodium Potassium Chloride Carbon Dioxide Anion Gap BUN Creatinine GFR Calculation Glucose POC Glucose 106 99 Calculated Osmolal ity Calcium Phosphorus Magnesium Iron TIBC % Saturation Unsat Iron Binding Vitamin B12 Folate Vitals: Last Vital Signs Temp 97.5 F L 01/13/20 11:32 Pulse 74 01/13/20 11:32 Resp 16 01/13/20 11:32 BP 116/70 01/13/20 11:32 Pulse Ox 97 01/13/20 11:32 TS Medications Medications Home Medications albuterol sulfate 1 puff INHALATION Q6H PRN 11/26/19 [History Confirmed 01/12/20] alprazolam 0.25 mg PO BID PRN 11/26/19 [History Confirmed 01/12/20] aspirin [Aspirin Low Dose] 81 mg PO DAILY 11/26/19 [History Confirmed 01/12/20] atenolol 25 mg PO DAILY 11/26/19 [History Confirmed 01/12/20] cholecalciferol (vitamin D3) [Vitamin D3] 25 mcg PO DAILY 11/26/19 [History Confirmed 01/12/20] donepezil 10 mg PO BEDTIME 11/26/19 [History Confirmed 01/12/20] hydrochlorothiazide 25 mg PO DAILY 11/26/19 [History Confirmed 01/12/20] isosorbide mononitrate 30 mg PO BID 11/26/19 [History Confirmed 01/12/20] metformin 1,000 mg PO BID 11/26/19 [History Confirmed 01/12/20] venlafaxine 37.5 mg PO DAILY 11/26/19 [History Confirmed 01/12/20] memantine 10 mg tablet 10 mg PO BID #60 tab 01/10/20 [Rx Confirmed 01/12/20] levothyroxine 50 mcg PO DAILY 01/12/20 [History Confirmed 01/12/20] quetiapine [Seroquel] 50 mg PO DAILY 01/12/20 [History Confirmed 01/12/20] Active Medications Acetaminophen (Tylenol) 650 mg PO Q6H PRN PRN Reason: Mild/Mod Pain Or Temp >/= 101 Albuterol Sulfate (Ventolin) 2 puff INHALATION Q4H.RESPIRATORY PRN PRN Reason: SHORTNESS OF BREATH Alprazolam (Xanax) 0.25 mg PO TID PRN PRN Reason: ANXIETY Apixaban (Eliquis) 10 mg PO BID@0600,1800 TE Apixaban (Eliquis) 10 mg PO ONCE ONE Stop: 01/13/20 16:01 Atenolol (Tenormin) 25 mg PO DAILY REPLACED BY [facility] Last Admin: 01/13/20 08:45 Dose: 25 mg Documented by: Bisacodyl (Dulcolax) 10 mg PO DAILY PRN PRN Reason: CONSTIPATION Calcium Carbonate (Tums) 1,000 mg PO Q4H PRN PRN Reason: DYSPEPSI Dextrose (D50w) 25 ml IVP ONCE PRN; Protocol PRN Reason: hypoglycemia protocol Dextrose (D50w) 50 ml IVP PRN PRN; Protocol PRN Reason: hypoglycemia protocol Docusate Sodium (Colace) 100 mg PO BID REPLACED BY [facility] Last Admin: 01/13/20 08:45 Dose: 100 mg Documented by: Donepezil HCl (Aricept) 10 mg PO BEDTIME REPLACED BY [facility] Last Admin: 01/12/20 21:20 Dose: 10 mg Documented by: Glucagon (Glucagen) 1 mg IM ONCE PRN; Protocol PRN Reason: Adult Acute Hypoglycemia Prot. Dextrose (D5w) 500 mls @ 100 mls/hr IV ONCE PRN; Protocol PRN Reason: Adult Acute Hypoglycemia Prot Insulin Aspart (Novolog) 0 unit SUBCUT BEDTIME REPLACED BY [facility]; Protocol Last Admin: 01/12/20 21:14 Dose: Not Given Documented by: Insulin Aspart (Novolog) 0 unit SUBCUT TIDWM REPLACED BY [facility]; Protocol Last Admin: 01/13/20 11:17 Dose: Not Given Documented by: Isosorbide Mononitrate (Imdur) 30 mg PO DAILY REPLACED BY [facility] Last Admin: 01/13/20 08:45 Dose: 30 mg Documented by: Memantine (Namenda) 10 mg PO BID REPLACED BY [facility] Last Admin: 01/13/20 08:45 Dose: 10 mg Documented by: Morphine Sulfate (Morphine) 2 mg IVP Q4H PRN PRN Reason: SEVERE PAIN Ondansetron HCl (Zofran) 4 mg IVP Q6H PRN PRN Reason: NAUSEA AND VOMITING Pantoprazole Sodium (Protonix) 40 mg PO DAILY REPLACED BY [facility] Last Admin: 01/13/20 08:45 Dose: 40 mg Documented by: Quetiapine Fumarate (Seroquel) 25 mg PO BEDTIME REPLACED BY [facility] Last Admin: 01/12/20 21:21 Dose: 25 mg Documented by: Venlafaxine HCl (Effexor Xr) 150 mg PO DAILY REPLACED BY [facility] Last Admin: 01/13/20 08:45 Dose: 150 mg Documented by: Discharge Plan Discharge Patient Disposition: Xfer Psychiatric Hosp Condition: Stable Prescriptions: New apixaban 5 mg (74 tabs) tablets,dose pack See Rx Instructions .ROUTE .COMPLEX Qty: 74 RF: 0 cefdinir 300 mg capsule 300 mg PO BID 5 Days Qty: 10 RF: 0 Continued memantine [Namenda] 10 mg tablet 10 mg PO BID Qty: 60 RF: 2 venlafaxine 37.5 mg capsule,extended release 24hr 37.5 mg PO DAILY RF: 0 donepezil 10 mg tablet 10 mg PO BEDTIME RF: 0 isosorbide mononitrate 30 mg tablet extended release 24 hr 30 mg PO BID RF: 0 aspirin [Aspirin Low Dose] 81 mg Tablet,Delayed Release (Dr/Ec) 81 mg PO DAILY RF: 0 alprazolam 0.25 mg tablet 0.25 mg PO BID PRN (Reason: Anxiety) RF: 0 hydrochlorothiazide 25 mg tablet 25 mg PO DAILY RF: 0 albuterol sulfate 90 mcg/actuation HFA aerosol inhaler 1 puff inhalation Q6H PRN (Reason: Shortness Of Breath) RF: 0 atenolol 50 mg tablet 25 mg PO DAILY RF: 0 cholecalciferol (vitamin D3) [Vitamin D3] 25 mcg (1,000 unit) Tablet 25 mcg PO DAILY RF: 0 Seroquel 25 mg Tablet 50 mg PO DAILY RF: 0 levothyroxine 50 mcg Tablet 50 mcg PO DAILY RF: 0 Discontinued metformin 1,000 mg tablet 1,000 mg PO BID RF: 0 Referrals: Saima Carnes MD [Primary Care Provider] - Activity Restrictions/Additional Instructions: Patient should be on apixaban 10 mg twice daily for 1 week then 5 mg twice daily. Metformin can be restarted on January 14. 5 days of cefdinir. Gram- negative jeovany growing in urine. Identification and sensitivity pending. Transfer Attestations Time Spent in Transfer Care*: greater than 30 min Quality Metrics Clinical Quality Measures: During this hospital stay, did patient experience: VTE Contraindication to Overlap Therapy: Overlap treatment not indicated VTE Discharge Education: Medication side effects education Coding Level of Care Code Acute [employer] Attendant for g Fwd Diagnoses Acute pulmonary embolism I26.99 Acute cor pulmonale presence: unspecified Pulmonary embolism type: unspecified Macrocytic anemia D53.9 Acute UTI N39.0 Agitation due to dementia F03.91 COPD (chronic obstructive pulmonary disease) J43.9 COPD type: emphysema Emphysema type: unspecified Oxygen dependent Z99.81 DM type 2 (diabetes mellitus, type 2) E11.9 Diabetes mellitus fpc insulin use: without fpc use Diabetes mellitus complication status: without complication Hypertension I10 Hypertension type: essential hypertension GERD (gastroesophageal reflux disease) K21.9 Esophagitis presence: esophagitis presence not specified
[2020-01-13 15:58] VITALS: BP 148/79; PULSE 63; RESP 20; TEMP 36.5; O2SAT 100
[2020-01-13] MEDS: apixaban 5 mg Tablet 10 MG PO (15:59)
[2020-01-13 17:45] VITALS: BP 148/79; PULSE 63; RESP 20; TEMP 36.5; O2SAT 100
== END 2020-01-13 16:30 ==
LOC: ER 01-12 01:09 → MEDSURG 01-12 07:26
PROVIDERS: Emergency Medicine; Admitting Provider Hospitalist; PCP Family Medicine; Visit Provider Internal Medicine
DX: I26.99 Other pulmonary embolism without acute cor pulmonale (principal); D53.9 Nutritional anemia, unspecified; N39.0 Urinary tract infection, site not specified; F03.91 Unspecified dementia, unspecified severity, with behavioral disturbance; J43.9 Emphysema, unspecified; Z99.81 Dependence on supplemental oxygen; E11.9 Type 2 diabetes mellitus without complications; I10 Essential (primary) hypertension; K21.9 Gastro-esophageal reflux disease without esophagitis; Z79.01 Long term (current) use of anticoagulants; Z79.82 Long term (current) use of aspirin; Z79.84 Long term (current) use of oral hypoglycemic drugs; Z86.718 Personal history of other venous thrombosis and embolism; E78.5 Hyperlipidemia, unspecified; Z87.891 Personal history of nicotine dependence
CPT/HCPCS: 12345; 36415; 36416; 36600; 70450; 71045; 71275; 80048; 80053; 80306; 80307; 81001; 82009; 82550; 82607; 82746; 82803; 82962; 83540; 83550; 83605; 83690; 83735; 83880; 84100; 84439; 84443; 84484; 85025; 85378; 85610; 87040; 87077; 87086; 87186; 87426; 93005; 93308; 93970; 96360; 96361; 96365; 96367; 96372; 99285; G0378; J0696; J1650; J3475; J7030; Q9967

== ENCOUNTER 2020-06-10 23:41 | Inpatient (IN) | payer MEDICARE, SELFPAY ==
[2020-06-10 23:48] VITALS: BP 133/76; PULSE 74; RESP 18; TEMP 36.4; O2SAT 100; BMI 26.2
[2020-06-11] VITALS (12 sets, daily range): BP systolic 89–187; BP diastolic 55–94; PULSE 59–78; RESP 15–20; TEMP 36.2–36.7; O2SAT 97–100
--- NOTE | 2020-06-11 00:06 | ED_ITS ---
Documented by User: Cyndie Penaloza 06/11/20 02:29 HPI - Altered Mental Status General: Chief Complaint: Altered Mental Status Stated Complaint: INCREASED FALLS Time Seen by Provider: 06/10/20 23:51 Source: patient and family Mode of arrival: EMS Limitations: altered mental status and physical limitation History of Present Illness: HPI narrative: pt has been passing out increasingly over the past several months complaint: weakness Timing confirmed by: family member Review of Systems General: Reports: 10 or more systems reviewed and unremarkable except in HPI and below Neuro: Reports: lack of coordination, frequent falls and dizziness PFS ED PFSH: Medical History COPD (chronic obstructive pulmonary disease) Dementia DM type 2 (diabetes mellitus, type 2) DVT (deep venous thrombosis) GERD (gastroesophageal reflux disease) Hyperlipidemia Hypertension Surgical History H/O hernia repair H/O: hysterectomy History of carpal tunnel surgery S/P appendectomy Status post myringotomy with tube placement of both ears Family History Other Dementia Social History Smoking and tobacco status: former smoker Alcohol intake: never Household members: children Marital status: / Female Reproductive History: Para: 3 Physical Exam Const: COMMON NORMALS: no acute distress, patient oriented x3, no limitations and alert GENERAL APPEARANCE: cooperative and comfortable ORIENTATION/CONSCIOUSNESS: Yes awake, Yes oriented to person, Yes oriented to place and Yes oriented to time HENMT: COMMON NORMALS: normocephalic, atraumatic, external ears normal, EAC's normal, TM's normal bilaterally and Normal external nose present HEAD & SCALP: normal to inspection, normocephalic and atraumatic FACE & SINUS: normal facial exam, sinuses nontender and face symmetric NOSE: Normal external nose present, Normal nares present and No nasal discharge present EXTERNAL EAR: Yes external ears normal EXTERNAL AUDITORY CANAL: EAC's normal TYMPANIC MEMBRANE: TM's normal bilaterally MOUTH: Normal oral and palatal mucosa present, lip normal and tongue normal THROAT: posterior oropharynx normal, tonsils normal and uvula midline Eye: COMMON NORMALS: Equal, round and reactive pupils present, EOMs intact bilaterally and conjunctivae normal GENERAL EYE: appearance normal, both eyes and all related structures and normal light reflex EYELID: eyelids normal CONJUNCTIVA: Yes conjunctivae normal PUPIL: Yes Equal, round and reactive pupils present EOM: Yes EOM abnormal DIRECT OPHTHALMOSCOPY: Yes normal light reflex Neck/C-Spine: COMMON NORMALS: full ROM, no lymphadenopathy, supple, no meningeal signs, no JVD and Thyroid normal GENERAL: Yes normal visual inspection THYROID: Thyroid normal CERVICAL SPINE: Yes cervical ROM normal and Yes normal cervical lordosis Lymph: LYMPHATIC: no lymphadenopathy noted Chest: COMMONS NORMALS: normal inspection of the chest and normal palpation of entire chest wall Resp: COMMON NORMALS: normal respiratory effort, No retractions and clear to auscultation bilaterally AUSCULTATION: clear to auscultation bilaterally Cardio: COMMON NORMALS: no JVD, regular rate, regular rhythm, S1 normal heart sound present, S2 normal heart sound present, No gallops present (Cardio), No clicks present (Cardio), No murmurs present (Cardio), No rub (Cardio) and Peripheral pulses 2+ throughout RATE: regular rate RHYTHM: regular rhythm HEART SOUNDS: S1 normal heart sound present and S2 normal heart sound present PERIPHERAL PULSES: Peripheral pulses 2+ throughout GI: COMMON NORMALS: Normal to inspection, nondistended, normoactive bowel sounds present, Soft to palpation, non-tender and no masses PALPATION: Yes Soft to palpation : COMMON NORMALS: Yes no CVA tenderness and Yes normal external appearance BLADDER/KIDNEY EXAM: Yes no CVA tenderness Back/Pelvis: COMMON NORMALS: no CVA tenderness, thoracic and lumbar spine normal to inspection, no thoracic nor lumbar tenderness and thoraco-lumbar ROM normal Extremity: COMMON NORMALS: normal to inspection, full ROM, capillary refill normal, no joint enlargement, no clubbing, cyanosis or edema, no calf tenderness and no pedal edema GENERAL: Yes normal exam except as noted Neuro: COMMON NORMALS: patient oriented x3, moves all extremities, no focal motor deficits, no sensory deficits noted and gait normal SENSORIUM/ORIENTATION: Yes alert, Yes oriented to person, Yes oriented to place and Yes oriented to time MENINGEAL SIGNS: Yes no meningeal signs Psych: COMMON NORMALS: mental status grossly normal, Normal thought process present, cooperative, normal affect, speech normal and activity/motor behavior normal SPEECH: Yes normal speech THOUGHT PROCESS: Normal thought process present Skin: COMMON NORMALS: no rashes or lesions noted, no wounds and turgor normal GENERAL SKIN EXAM: no rashes or lesions noted and turgor normal Course ED course: Pt presents to ER with complaints of increased falls and weakness as well as passing out. Caregiver is grandson who is at bedside who states it happens several times a day. She is not using her walker currently because she does not want to become dependent on it. CT head ordered as well as labs. Orthostatic VS ordered. Reevaluation(s): Reevaluation #1: Pt CT head is normal. She was unable to tolerate orthostatic vitals without needing to lay back down. Will likely need to be admitted to the hospital. Awaiting labs currently and urine sample. Time: 01:19 Reevaluation #2: Pt urine is positive for WBC, leuk est, and she is exhibiting labs indicative of metabolic acidosis. She will require admission to the hospital. Oral levaquin and potassium started. Dr. Garcias notified and will place orders once pt is accepted for admission. Awaiting callback from hospitalist. Time: 02:29 Vital Signs: Vital signs: Vital Signs Temperature 97.7 F 06/11/20 04:00 Pulse Rate 66 06/11/20 04:05 Respiratory Rate 16 06/11/20 04:40 Blood Pressure 128/68 06/11/20 04:05 Pulse Oximetry 100 06/11/20 04:05 MDM - Altered Mental Status Lab Data: Labs: Lab Results 06/11/20 06/11/20 06/11/20 Range/Units 00:04 00:04 00:36 WBC 10.0 (4.0-10.0) 10^3/ uL RBC 4.55 (4.1-5.3) 10^6/u L Hgb 13.7 (11.5-15.3) g/dL Hct 43.5 (37.0-47.0) % MCV 95.6 (81-99) fL MCH 30.1 (28.0-34.0) pg MCHC 31.5 (30.0-36.0) g/dL RDW 12.2 (12.1-15.1) % Plt Count 288 (130-400) 10^3/c mm MPV 10.3 (7.4-10.4) fL Neut % (Auto) 84.3 % Lymph % (Auto) 9.8 % [place] % (Auto) 5.2 % Eos % (Auto) 0.1 % Baso % (Auto) 0.3 % Neut # (Auto) 8.40 H (1.8-7.7) 10^3/u L Lymph # (Auto) 1.0 (0.8-4.8) 10^3/u L [place] # (Auto) 0.5 (0.2-0.9) 10^3/u L Eos # (Auto) 0.0 (0.0-0.8) 10^3/u L Baso # (Auto) 0.0 (0.0-0.1) 10^3/u L Nucleated RBC % (a uto) 0 % Nucleated RBCs # 0.0 /100WBC Sodium 131 L (136-145) mmol/L Potassium 3.3 L (3.5-5.1) mmol/L Chloride 91 L (98-107) mmol/L Carbon Dioxide 20 L (22-29) mmol/L Anion Gap 23.3 H (5-19) BUN 29 H (8-23) mg/dL Creatinine 1.2 H (0.5-0.9) mg/dL GFR Calculation Not Reportable Glucose 129 H (65-115) mg/dL Calculated Osmolal ity 280 L (285-295) mOsm/k g Calcium 10.2 (8.5-10.5) mg/dL Total Bilirubin 0.5 (0.15-1.2) mg/dL AST 13 (0-32) U/L ALT 9 (0-33) U/L Alkaline Phosphata se 96 (35-105) IU/L C-React Prot High Sens 10.760 H (0.0-0.3) mg/dL Total Protein 8.1 (6.6-8.7) g/dL Albumin 4.1 (3.5-5.2) g/dL Globulin 4.0 (1.3-4.6) g/dL Urine Color Yellow (Yellow) Urine Appearance Sl cloudy A (CLEAR) Urine pH 5 (5-7) Ur Specific Gravit y 1.020 (1.005-1.030) Urine Protein Trace (Negative) Urine Glucose (UA) Norm (Normal) Urine Ketones 2+ H (Negative) Urine Blood 3+ H (Negative) Urine Nitrate Positive H (Negative) Urine Bilirubin 1+ H (Negative) Urine Urobilinogen Norm (Negative) mg/dL Ur Leukocyte Zoe ase 2+ H (Negative) Urine RBC 25-40 H (0-2) /hpf Urine WBC 40-55 H (0-5) /hpf Ur Squamous Epith Cells 0-4 H (0-5) /hpf Amorphous Sediment Not Reportable Urine Bacteria 4+ H (NONE) /hpf Imaging Data^: CT Head: Radiologist's impression: [employer] [address] [address] Scan Report Signed Patient: Vandana Le Unit #: [id number] : 1945 Age/Sex: 75 / F ADM Date: 06/10/20 Loc: ER Room/Bed: Attending Dr: Ordering Provider/Ordering MD: Cyndie Penaloza NP Date of Service: 06/11/20 Procedure(s): CT head wo con* [id number] Accession Number(s): [id number] Report Number: [id number] PROCEDURE INFORMATION: Exam: CT Head Without Contrast Exam date and time: 06/11/2020 12:08 AM Age: 75 years old Clinical indication: Syncope and collapse; Patient HX: Multiple syncope episodes increasing frequency; Additional info: AMS TECHNIQUE: Imaging protocol: Computed tomography of the head without contrast. Radiation optimization: All CT scans at this facility use at least one of these dose optimization techniques: automated exposure control; mA and/or kV adjustment per patient size (includes targeted exams where dose is matched to clinical indication); or iterative reconstruction. COMPARISON: CT head wo con* [id number] 01/11/2020 11:41 PM RADIATION DOSE METRICS: Total DLP (mGy-cm): 759.01 FINDINGS: Brain: No evidence of acute infarct. No mass or mass effect. No intra axial hemorrhage. No extra axial fluid collection or hemorrhage. Cerebral ventricles: Symmetric and without enlargement. Bones/joints: No acute fracture. Paranasal sinuses: Visualized sinuses are well aerated. Mastoid air cells: Visualized mastoid air cells are well aerated. Soft tissues: Suspected small laceration/contusion over the left frontal scalp. CT/CT head wo con* [id number] IMPRESSION: No acute intracranial abnormality. Radiation Dose CTDIVOL = (mGy): DLP = 759.01 (mGy-cm) Dictated By: Jose Rogers Signed By: Jose Rogers Signed Date/Time: 06/11/2033 DD/ EKG Data^: EKG 1: EKG interpretation date: 06/11/20 Interpretation: NSR Discharge Plan Discharge Patient Disposition: Admitted As Inpatient Admit Provider: Oc Davidson Clinical Impression: Orthostasis, Acute UTI Condition: Stable Coding Level of Care Code ED Groundskeeper Supervisor for Chg Fwd Exam Comprehensive Documented by User: Wayne Garcias DO 06/11/20 04:53 HPI - Altered Mental Status General: Chief Complaint: Altered Mental Status Stated Complaint: INCREASED FALLS Time Seen by Provider: 06/10/20 23:51 PFSH ED PFSH: Medical History COPD (chronic obstructive pulmonary disease) Dementia DM type 2 (diabetes mellitus, type 2) DVT (deep venous thrombosis) GERD (gastroesophageal reflux disease) Hyperlipidemia Hypertension Surgical History H/O hernia repair H/O: hysterectomy History of carpal tunnel surgery S/P appendectomy Status post myringotomy with tube placement of both ears Family History Other Dementia Social History Smoking and tobacco status: former smoker Alcohol intake: never Household members: children Marital status: / Course Vital Signs: Vital signs: Vital Signs Temperature 97.7 F 06/11/20 04:00 Pulse Rate 66 06/11/20 04:05 Respiratory Rate 16 06/11/20 04:40 Blood Pressure 128/68 06/11/20 04:05 Pulse Oximetry 100 06/11/20 04:05 MDM - Altered Mental Status MDM Narrative: Medical decision making narrative: 75-year-old female seen by KianJORDI. I agree with her history, evaluation, and treatment. This lady is incredibly weak, is unable to tolerate standing for orthostatic vital signs, and falling at home. She has significant dehydration with a bicarbonate level of 20, bump in her creatinine, and hypokalemia. She is admitted to the hospital. Hospitalist has been consulted and agrees. Lab Data: Labs: Lab Results 06/11/20 06/11/20 06/11/20 Range/Units 00:04 00:04 00:36 WBC 10.0 (4.0-10.0) 10^3/ uL RBC 4.55 (4.1-5.3) 10^6/u L Hgb 13.7 (11.5-15.3) g/dL Hct 43.5 (37.0-47.0) % MCV 95.6 (81-99) fL MCH 30.1 (28.0-34.0) pg MCHC 31.5 (30.0-36.0) g/dL RDW 12.2 (12.1-15.1) % Plt Count 288 (130-400) 10^3/c mm MPV 10.3 (7.4-10.4) fL Neut % (Auto) 84.3 % Lymph % (Auto) 9.8 % [place] % (Auto) 5.2 % Eos % (Auto) 0.1 % Baso % (Auto) 0.3 % Neut # (Auto) 8.40 H (1.8-7.7) 10^3/u L Lymph # (Auto) 1.0 (0.8-4.8) 10^3/u L [place] # (Auto) 0.5 (0.2-0.9) 10^3/u L Eos # (Auto) 0.0 (0.0-0.8) 10^3/u L Baso # (Auto) 0.0 (0.0-0.1) 10^3/u L Nucleated RBC % (a uto) 0 % Nucleated RBCs # 0.0 /100WBC Sodium 131 L (136-145) mmol/L Potassium 3.3 L (3.5-5.1) mmol/L Chloride 91 L (98-107) mmol/L Carbon Dioxide 20 L (22-29) mmol/L Anion Gap 23.3 H (5-19) BUN 29 H (8-23) mg/dL Creatinine 1.2 H (0.5-0.9) mg/dL GFR Calculation Not Reportable Glucose 129 H (65-115) mg/dL Calculated Osmolal ity 280 L (285-295) mOsm/k g Calcium 10.2 (8.5-10.5) mg/dL Total Bilirubin 0.5 (0.15-1.2) mg/dL AST 13 (0-32) U/L ALT 9 (0-33) U/L Alkaline Phosphata se 96 (35-105) IU/L C-React Prot High Sens 10.760 H (0.0-0.3) mg/dL Total Protein 8.1 (6.6-8.7) g/dL Albumin 4.1 (3.5-5.2) g/dL Globulin 4.0 (1.3-4.6) g/dL Urine Color Yellow (Yellow) Urine Appearance Sl cloudy A (CLEAR) Urine pH 5 (5-7) Ur Specific Gravit y 1.020 (1.005-1.030) Urine Protein Trace (Negative) Urine Glucose (UA) Norm (Normal) Urine Ketones 2+ H (Negative) Urine Blood 3+ H (Negative) Urine Nitrate Positive H (Negative) Urine Bilirubin 1+ H (Negative) Urine Urobilinogen Norm (Negative) mg/dL Ur Leukocyte Zoe ase 2+ H (Negative) Urine RBC 25-40 H (0-2) /hpf Urine WBC 40-55 H (0-5) /hpf Ur Squamous Epith Cells 0-4 H (0-5) /hpf Amorphous Sediment Not Reportable Urine Bacteria 4+ H (NONE) /hpf Discharge Plan Discharge Patient Disposition: Admitted As Inpatient Admit Provider: Oc Davidson Clinical Impression: Orthostasis, Acute UTI Condition: Stable Coding Level of Care Code ED Groundskeeper Supervisor for g Fwd Exam Comprehensive
--- NOTE | 2020-06-11 00:11 | ECG_ITS ---
[facility] Test Date: 2020-06-11 Pat Name: Vandana Le Department: Room: Gender: Female Head Of Marketing: : 1945 Requested By: Cyndie Penaloza Order Number: [id number] Eloisa MD: Camilo Nieto M.D. Measurements Intervals [place] Rate: 65 P: 77 RI: 148 QRS: 14 QRSD: 92 T: 73 QT: 394 QTc: 412 Interpretive Statements SINUS RHYTHM NONSPECIFIC ST & T-WAVE ABNORMALITY Compared to ECG 01/12/2020 06:07:54 No significant changes Electronically Signed On 06-11-2020 17:01:28 SERVICES PROGRAM MANAGER by Camilo Nieto M.D. [email or web address]
[2020-06-11 00:18] LABS: Basophils % 0.3 %; Eosinophils % 0.1 %; Hematocrit 43.5 % (37.0-47.0); Hemoglobin 13.7 g/dL (11.5-15.3); Lymphocytes % 9.8 %; Mean Corpuscular HGB Conc 31.5 g/dL (30.0-36.0); Mean Corpuscular Hemoglobin 30.1 pg (28.0-34.0); Mean Corpuscular Volume 95.6 fL (81-99); Mean Platelet Volume 10.3 fL (7.4-10.4); Monocytes # 0.5 10^3/uL (0.2-0.9); Monocytes % 5.2 %; Neutrophils % 84.3 %; Nucleated Red Blood Cells % 0 %; Platelet Count 288 10^3/cmm (130-400); Red Blood Count 4.55 10^6/uL (4.1-5.3); Red Cell Distribution Width 12.2 % (12.1-15.1)
[2020-06-11 00:45] LABS: Alanine Aminotransferase 9 U/L (0-33); Albumin Level 4.1 g/dL (3.5-5.2); Alkaline Phosphatase 96 IU/L (35-105); Anion Gap 23.3 (5-19); Aspartate Amino Transferase 13 U/L (0-32); Blood Urea Nitrogen 29 mg/dL (8-23); Calcium 10.2 mg/dL (8.5-10.5); Carbon Dioxide 20 mmol/L (22-29); Chloride 91 mmol/L (98-107); Glucose 129 mg/dL (65-115); Osmolality Calculated 280 mOsm/kg (285-295); Potassium 3.3 mmol/L (3.5-5.1); Sodium 131 mmol/L (136-145); Total Bilirubin 0.5 mg/dL (0.15-1.2); Total Protein 8.1 g/dL (6.6-8.7)
[2020-06-11 01:24] LABS: Add Urine Microscopic? YES; Bilirubin Urine 1+ (Negative); Blood Urine 3+ (Negative); Glucose Urine UA Norm (Normal); Ketones Urine 2+ (Negative); Leukocyte Esterase Urine 2+ (Negative); Nitrate Urine Positive (Negative); Protein Urine Trace (Negative); Urine Color Yellow (Yellow); Urobilinogen Urine Norm (Negative); pH Urine 5 (5-7)
[2020-06-11 01:25] LABS: Add Urine Culture? Yes; Bacteria Urine 4+ /hpf; RBC Urine 25-40 /hpf (0-2); Squamous Epithelial Cell Urine 0-4 /hpf (0-5); WBC Urine 40-55 /hpf (0-5)
[2020-06-11] MEDS: levoFLOXacin 500 mg Tablet PO (01:52)
[2020-06-11] MEDS: potassium chloride ER 20 mEq Tablet 40 MEQ PO (01:53)
[2020-06-11] MEDS: sodium chloride 0.9% 500 ML IV (01:54)
--- NOTE | 2020-06-11 02:39 | P.HP_ITS ---
Providers/Chief Complaint Primary Care Provider: Saima Carnes MD Chief Complaint: INCREASED FALLS History of Present Illness Vandana Le is a 75 year old female who was sent to [facility] facility and December 2019 when she was diagnosed with new PE, she was transferred to [facility] facility with Chauncey, at that time UTI was also detected with Klebsiella presenting today with chief complaint of syncopal events. Patient is stating that she has been having dizziness for last 1 to 2 months, she is describing dizziness as lightheadedness which gets worse on changing her position no recent chest pain, shortness of breath, orthopnea, PND, fever, diarrhea, vomiting she is also denying dysuria however endorsing frequent urination. She is compliant with her medications including hydrochlorothiazide and Imdur. No previous history of aortic stenosis, patient is denying chest pain, palpitations, seizure-like activities. Diagnostics in the ER revealed normal CBC, BMP revealed hypokalemia, mild JOSEPH and abnormal urinalysis noted CT head unremarkable patient was complaining of left-sided rib pain for which I have requested chest x-ray, lactic acid is pending for metabolic acidosis, high CRP noted, I have requested urine cultures Levaquin was given in the ER, she was orthostatic positive, EKG showed sinus rhythm with normal QTc interval Review of Systems Const: Reports: fatigue and malaise; Denies: fever(s) or chills Eyes: Denies: change in vision ENMT: Denies: throat pain Card: Denies: chest pain Resp: Denies: dyspnea GI: Denies: abdominal pain : Reports: urinary frequency and urinary urgency; Denies: flank pain Musc: Reports: back pain Skin/Breast: Denies: lesions Neuro: Denies: headache(s) Psych: Denies: anxiety Endo: Denies: polyuria Onel/Lymph: Denies: easy bruising All/Imm: Denies: urticaria Medications/Allergies Home Medications Medication Instructions Recorded Confirmed Last Taken Type albuterol sulfate 1 puff INHALATION Q6H PRN 11/26/19 01/12/20 Unknown History alprazolam 0.25 mg PO BID PRN 11/26/19 01/12/20 Unknown History aspirin [Aspirin Low Dose] 81 mg PO DAILY 11/26/19 01/12/20 11/25/19 History atenolol 25 mg PO DAILY 11/26/19 01/12/20 11/26/19 History cholecalciferol (vitamin D3) 25 mcg PO DAILY 11/26/19 01/12/20 11/25/19 History [Vitamin D3] donepezil 10 mg PO BEDTIME 11/26/19 01/12/20 11/25/19 History hydrochlorothiazide 25 mg PO DAILY 11/26/19 01/12/20 11/26/19 History isosorbide mononitrate 30 mg PO BID 11/26/19 01/12/20 11/26/19 History metformin 1,000 mg PO BID 11/26/19 01/12/20 11/26/19 History venlafaxine 37.5 mg PO DAILY 11/26/19 01/12/20 11/26/19 History memantine 10 mg tablet 10 mg PO BID #60 tab 01/10/20 01/12/20 Unknown Rx levothyroxine 50 mcg PO DAILY 01/12/20 01/12/20 Unknown History quetiapine [Seroquel] 50 mg PO DAILY 01/12/20 01/12/20 Unknown History Allergies Allergy/AdvReac Type Severity Reaction Status Date / Time No Known Allergies Allergy Verified 06/11/20 00:01 PFSH Acute PFSH: Medical History COPD (chronic obstructive pulmonary disease) Dementia DM type 2 (diabetes mellitus, type 2) DVT (deep venous thrombosis) GERD (gastroesophageal reflux disease) Hyperlipidemia Hypertension Surgical History H/O hernia repair H/O: hysterectomy History of carpal tunnel surgery S/P appendectomy Status post myringotomy with tube placement of both ears Family History Other Dementia Social History Smoking and tobacco status: former smoker Alcohol intake: never Household members: children Marital status: / Female Reproductive History: Para: 3 Vitals/I&O/Wt Last Vital Signs Temp 97.5 F L 06/10/20 23:48 Pulse 74 06/11/20 01:18 Resp 18 06/10/20 23:48 BP 115/71 06/11/20 01:18 Pulse Ox 99 06/11/20 01:18 Weight last 48 hrs Weight 68.039 kg Physical Exam Narrative: EXAM NARRATIVE: Very pleasant elderly female resting comfortably in her bed Was not able to do Carmina-Hallpike maneuver because of her rib pain however patient endorsed feeling lightheaded on change of head position, she was orthostatic positive S1, S2 no murmur appreciated no signs of aortic stenosis Bilateral breath sounds no adventitious rhonchi or crackles Abdomen soft Bilateral lower extremity no edema gangrene or ulcer Appropriate mood and affect GCS 15 no neurological deficit No skin cellulitis or joint swelling EOMI, PERRLA Data : 06/11/20 00:04 06/11/20 00:04 A&P Assessment and plan (1) Syncope: Status: Acute (2) UTI (urinary tract infection): Status: Acute (3) Rib pain on left side: Status: Acute (4) Hypokalemia: Status: Acute (5) Orthostasis: Status: Acute (6) JOSEPH (acute kidney injury): Status: Acute Additional A&P Information Recurrent syncopal events Orthostatic positive, previous history of PE, currently hemodynamically stable she has been compliant with her Eliquis, EKG showing sinus rhythm currently saturating well on room air Endorsing lightheadedness with change of head position, No active systolic murmur appreciated Would request echo in the morning Start her on meclizine Start maintenance fluid Physical therapy evaluation UTI: Start ceftriaxone requested urine culture Hypokalemia secondary to hydrochlorothiazide usage: Stop diuretics Metabolic acidosis, lactic acid is pending Mild uremia, she is type II diabetic with hypokalemia do not think renal tubular acidosis is playing a role at this point Glucose normal With pain on the left side: Would request chest x-ray to rule out rib fracture otherwise no flail breathing pattern noted JOSEPH Hold hydrochlorothiazide Consistent carb diet, moderate sliding scale DNR/DNI discussed with the patient Attestations Medical Necessity Statement*: Anticipating discharge in less than 48 hours continued overnight monitoring because of recurrent syncopal events Time Spent in Patient Care: 45mins Coding Level of Care Code Acute Timber Management Professor for g Fwd Diagnoses Syncope R55 UTI (urinary tract infection) N39.0 Rib pain on left side R07.81 Hypokalemia E87.6 Orthostasis I95.1 JOSEPH (acute kidney injury) N17.9
--- NOTE | 2020-06-11 03:18 | XRR_ITS ---
PROCEDURE INFORMATION: Exam: XR Chest Exam date and time: 06/11/2020 3:19 AM Age: 75 years old Clinical indication: Dyspnea; Additional info: Fall TECHNIQUE: Imaging protocol: XR of the chest Views: 1 view. COMPARISON: CR XR chest 1V portable [id number] 01/11/2020 9:00 PM FINDINGS: Lungs: Fibrotic changes are seen in the left lung with decreased volume and ipsilateral shift of the mediastinum, unchanged. No consolidation. Pleural spaces: Unremarkable. No pleural effusion. No pneumothorax. Heart/Mediastinum: Unremarkable. No cardiomegaly. Bones/joints: Unremarkable. XR/XR chest 1V portable [id number] IMPRESSION: No acute change.
--- NOTE | 2020-06-11 04:07 | USCV_ITS ---
Vandana Le Age: 75 Gender: F : 1945 Exam Date: 06/11/2020 09:23 Ordering Phys: Oc Davidson MD Technologist: Aixa Ingram Exam Location: [facility] – [place] Indication: Syncope BP: 150 / 75 HR: 66 Rhythm: Sinus Technical Quality: Fair MEASUREMENTS (Male / Female) Normal Values 2D ECHO LV Diastolic Diameter PLAX 3.5 cm 4.2 - 5.9 / 3.9 - 5.3 cm LV Systolic Diameter PLAX 2.3 cm LV Chamber Size 4.5 cm IVS Diastolic Thickness 1.1 cm 0.6 - 1.0 / 0.6 - 0.9 cm IVS Systolic Thickness 1.3 cm LVPW Diastolic Thickness 1.3 cm 0.6 - 1.0 / 0.6 - 0.9 cm LVPW Systolic Thickness 1.1 cm RV Chamber Size 1.8 cm LVOT Diameter 2.0 cm LV Ejection Fraction 2D Teich 63.0 % LV Ejection Fraction MOD 2C 52.2 % LV Ejection Fraction 2C AL 53.8 % LA Diameter 2.4 cm LA Width 2.2 cm LA Height 6.0 cm RA Width 3.2 cm RA Height 4.2 cm Aorta at Sinotubular Diameter 2.4 cm M-MODE LV Diastolic Diameter MM 4.5 cm 4.2 - 5.9 / 3.9 - 5.3 cm LV Systolic Diameter MM 3.0 cm LV Ejection Fraction MM Teich 60.1 % IVS Diastolic Thickness MM 1.4 cm 0.6 - 1.0 / 0.6 - 0.9 cm IVS Systolic Thickness MM 1.5 cm LVPW Diastolic Thickness MM 1.3 cm 0.6 - 1.0 / 0.6 - 0.9 cm LVPW Systolic Thickness MM 1.4 cm RV Diastolic Diameter MM 2.3 cm Aortic Annulus Diameter 3.8 cm LA Ao Ratio MM 0.7 MV E Point Septal Separation 1.4 cm DOPPLER AV Peak Velocity 132.3 cm/s LVOT Peak Velocity 82.0 cm/s AV Area Cont Eq vti 2.1 cm squared AV Area Cont Eq pk 1.9 cm squared MV Area PHT 2.8 cm squared Mitral E to A Ratio 0.6 MV E' Velocity 29.0 cm/s Mitral E to MV E' Ratio 8.8 Mitral E to LV E' Lateral Ratio 7.6 Mitral E to LV E' Septal Ratio 10.7 TR Peak Velocity 218.3 cm/s TR Peak Gradient 19.1 mmHg TV Peak E Velocity 32.0 cm/s Right Atrial Pressure 3.0 mmHg Pulmonary Artery Systolic Pressu 22.1 mmHg PV Peak Velocity 37.0 cm/s RV Acceleration Time 0.1 s RV Ejection Time 0.3 s RV AcT/ET 0.3 FINDINGS Left Ventricle Normal left ventricular size. LV systolic function is borderline low with EF of 45-50%. Mild hypokinesis of anteroseptal wall. Grade 1 diastolic dysfunction. Mild left ventricular hypertropy present Right Ventricle The right ventricle is normal in size and function. Right Atrium The right atrium is normal in size. Left Atrium The left atrium is mildly enlarged Mitral Valve Mild mitral annular calcification is seen. No significant stenosis or prolapse. There is no mitral regurgitation. Aortic Valve Structurally normal aortic valve without significant sclerosis or stenosis. There is mild aortic regurgitation. Tricuspid Valve Structurally normal tricuspid valve without significant stenosis or regurgitation. Insufficient TR jet to calculate RVSP Pulmonic Valve Structurally normal pulmonic valve without significant stenosis. There is no pulmonic regurgitation. Pericardium Normal pericardium without effusion. Aorta Normal ascending aorta dimension. CONCLUSIONS LV systolic function is borderline low with EF of 45-50%. Mild hypokinesis of the anteroseptal wall Mild LVH is present Grade 1 diastolic dysfunction Mildly enlarged left atrium Mild aortic regurgitation Compared to prior echocardiogram from 01/12/2020, mild aortic regurgitation is noted now Camilo Nieto MD (Electronically Signed) Final Date: 11 June 2020 12:21 S
--- NOTE | 2020-06-11 04:17 | PC.NURSE ---
Patient sat down before standing blood pressure was complete.
[2020-06-11] MEDS: sodium chloride 0.9% 1,000 ML 75 ML IV ×2 (04:40→18:36)
[2020-06-11] MEDS: oxyCODONE 5 mg IR Tab/Cap PO (04:40)
[2020-06-11 06:45] LABS: Glucose Point of Care 80 mg/dL (70-110)
[2020-06-11] MEDS: memantine 5 mg tablet 10 MG PO ×2 (08:34→17:12)
[2020-06-11] MEDS: apixaban 5 mg Tablet PO ×2 (08:34→17:12)
[2020-06-11] MEDS: quetiapine 25 mg Tablet 50 MG PO (08:34)
[2020-06-11] MEDS: aspirin 81 mg EC Tablet PO (08:34)
[2020-06-11] MEDS: levothyroxine 50 mcg Tablet PO (08:34)
[2020-06-11] MEDS: cefTRIAXone 1,000 MG in sodium chloride 0.9% (plus) 50 ML 100 MG IV (08:37)
[2020-06-11] MEDS: venlafaxine ER (24HR) 37.5 mg Capsule PO (08:46)
--- NOTE | 2020-06-11 09:49 | P.PN_ITS ---
Subjective Subjective: Interval history: 75-year-old female with a past medical history significant for dementia, diabetes mellitus, O2 dependent COPD, hypertension, gastroesophageal reflux disease, microcytic anemia, pulmonary embolism on Eliquis, chronic systolic heart failure with a last known EF of 45 to 50% who was brought to the hospital after she noted to have dizziness leading to increa sed frequency of falls and syncope. Laboratory workup on arrival showed a WBC of 10.0, hemoglobin 13.7, hematocrit of 43.5 and platelet count 288. Sodium 131, potassium 3.3, chloride 91, bicarb 20, BUN 29 and creatinine of 1.2. Prior creatinine of 1.0 in January of 2020. Lactic acid of 2.0. Urinalysis positive for nitrites and leukocyte esterase. Head CT without contrast did not show any acute intracranial abnormality. Chest x-ray also was unremarkable. Upon admission to the hospital patient had cardiac workup performed including echocardiogram which showed EF of 45 to 50%, grade 1 diastolic dysfunction and newly noted mild aortic regurgitation. Initially on arrival patient was noted to have orthostatic hypotension. Antihypertensive medications were held and patient was started on IV fluids. Patient at the time of my evaluation did not have any complaints while Ng in bed. This states that she became dizzy earlier when attempting orthostatic vitals. Denies chest pain or shortness of breath. No fever or chills. Of note while in ER patient was given Levaquin 500mg PO x 1 and subsequently continued on Rocephin 1 g daily for suspected UTI based on abnormal UA. Medications: Reviewed: Yes Vitals/I&O/Wt Last Vital Signs Temp 98.1 F 06/11/20 20:00 Pulse 78 06/11/20 20:00 Resp 17 06/11/20 20:00 BP 126/74 06/11/20 20:00 Pulse Ox 98 06/11/20 20:00 06/11/20 06/11/20 06/11/20 06:59 14:59 22:59 Intake Total 175 / 175 615 / 615 1480 / 2095 Output Total 120 / 120 Balance 55 / 55 615 / 615 1480 / 2095 Weight last 48 hrs Weight 68.039 kg Physical Exam Narrative: EXAM NARRATIVE: General- alert awake in no apparent distress HEENT- grossly unremarkable CVS- regular rate rhythm Chest- clear to auscultation, nonlabored respiration on baseline O2 via nasal cannula Abdomen- soft nontender nondistended Extremities-no significant edema Data : 06/11/20 00:04 06/11/20 00:04 Micro: Microbiology 06/11/20 07:16 Blood Culture - Preliminary Blood SPECIMEN COLLECTED 06/11/20 03:00 Blood Culture - Preliminary Blood SPECIMEN COLLECTED A&P Assessment and plan (1) Syncope: Status: Acute (2) UTI (urinary tract infection): Status: Acute (3) Rib pain on left side: Status: Acute (4) Hypokalemia: Status: Acute (5) Orthostasis: Status: Acute (6) JOSEPH (acute kidney injury): Status: Acute Additional A&P Information Recurrent syncope/fall due to orthostatic hypotension - Antihypertensive medication held - Reintroduce gradually - Continue IVF - cautiously due to ch. HF - Repeat labs in AM - Fall precautions - Repeat orthostatic vital in am - ECHO - EF 45-50%, mild AR - Monitor on telemetry Chronic systolic HF w/o exacerbation - Monitor daily weight - Cautious fluid resuscitation Urinary tract infection - UA culture - pending - Continue IV Rocephin daily - Further abx based on organism and susceptibilities Hypokalemia - Replaced - Repeat BMP in am Acute kidney injury - Likely pre-renal - hypotensive - Hold hydrochlorothiazide - Repeat BMP in am Hx of PE - OAC Hypothyroidism - Continue synthyroid Diabetes Mellitus - Sliding scale insulin - Diabetic diet. Code status - DNR/DNI Attestations Medical Necessity Statement*: Will require further hospitalization for management of recurrent syncope, orthostatic hypotension and acute renal insufficiency Time Spent in Patient Care: Greater than 35 minutes (>than 50% of time spent in counselling and/or direct pt care on unit) . Coding Level of Care Code Acute Currency Examiner for Chg Fwd Diagnoses Syncope R55 UTI (urinary tract infection) N39.0 Rib pain on left side R07.81 Hypokalemia E87.6 Orthostasis I95.1 JOSEPH (acute kidney injury) N17.9
[2020-06-11 16:43] LABS: Glucose Point of Care 95 mg/dL (70-110)
[2020-06-11 16:44] LABS: Glucose Point of Care 79 mg/dL (70-110)
[2020-06-11] MEDS: donepezil 5 MG Tablet 10 MG PO (21:09)
[2020-06-11 21:13] LABS: Glucose Point of Care 132 mg/dL (70-110)
[2020-06-12] VITALS (7 sets, daily range): BP systolic 81–151; BP diastolic 52–84; PULSE 65–83; RESP 17–19; TEMP 36.2–37.1; O2SAT 92–99
[2020-06-12 06:37] LABS: Glucose Point of Care 100 mg/dL (70-110)
[2020-06-12 07:03] LABS: Basophils % 0.5 %; Eosinophils % 0.5 %; Hematocrit 39.7 % (37.0-47.0); Hemoglobin 12.2 g/dL (11.5-15.3); Lymphocytes # 1.2 10^3/uL (0.8-4.8); Lymphocytes % 21.3 %; Mean Corpuscular HGB Conc 30.7 g/dL (30.0-36.0); Mean Corpuscular Hemoglobin 30.5 pg (28.0-34.0); Mean Corpuscular Volume 99.3 fL (81-99); Monocytes # 0.6 10^3/uL (0.2-0.9); Monocytes % 10.3 %; Neutrophils # 3.88 10^3/uL (1.8-7.7); Neutrophils % 66.9 %; Nucleated Red Blood Cells % 0 %; Platelet Count 262 10^3/cmm (130-400); Red Cell Distribution Width 12.6 % (12.1-15.1); White Blood Count 5.8 10^3/uL (4.0-10.0)
[2020-06-12 07:20] LABS: Anion Gap 14.6 (5-19); Blood Urea Nitrogen 26 mg/dL (8-23); Carbon Dioxide 24 mmol/L (22-29); Chloride 102 mmol/L (98-107); Glucose 98 mg/dL (65-115); Osmolality Calculated 289 mOsm/kg (285-295); Potassium 3.6 mmol/L (3.5-5.1); Sodium 137 mmol/L (136-145)
[2020-06-12] MEDS: sodium chloride 0.9% 1,000 ML 75 ML IV ×2 (08:17→21:31)
[2020-06-12] MEDS: aspirin 81 mg EC Tablet PO (08:40)
[2020-06-12] MEDS: apixaban 5 mg Tablet PO ×2 (08:40→17:29)
[2020-06-12] MEDS: levothyroxine 50 mcg Tablet PO (08:40)
[2020-06-12] MEDS: venlafaxine ER (24HR) 37.5 mg Capsule PO (08:40)
[2020-06-12] MEDS: memantine 5 mg tablet 10 MG PO ×2 (08:40→17:29)
[2020-06-12] MEDS: quetiapine 25 mg Tablet 50 MG PO (08:40)
[2020-06-12] MEDS: cefTRIAXone 1,000 MG in sodium chloride 0.9% (plus) 50 ML 100 MG IV (08:43)
--- NOTE | 2020-06-12 09:48 | PC.CHAP ---
Pastoral Care Encounter/Spiritual Assessment Type of Contact [] Declined exchange teller visit [] Patient/Family/Request visit [] Outpatient visit [] Follow-up visit [] Physician referral [] Code/Alert [x] Routine visit [] Staff referral [] Actively dying [] Patient sleeping [] Family support [] [] Out of room [] Palliative care [] [x] Receiving care in room [] Pre-surgical visit [] Trauma [] Long length of stay [] ICU visit [] Other: Relational/Emotional Strength [] Patient feels connected with others/family/visitors/staff [] Distress [] Loneliness/isolation [] Abandonment Spirituality of Patient [] Person of Juli [] Attends Rastafarian of their Juli [] Believes in Prayer [] Reads Bible or Taoism materials [] There are Spiritual issues to be addressed Registered Nurse First Assistant Interventions [] Prayer [] Active listening [] Non-anxious presence [] Spiritual/emotional support [] Crisis/trauma care [] Spiritual counseling [] Bereavement support [] Provided bereavement packet [] Provided Bible/devotional materials [] Provided toy/stuffed animal, coloring book to patient or family member [] Provided Communion [] Anointing/[place] [] Salvation [] Completed spiritual assessment [] Other: Impact on Illness or Injury [] Angry [] Fearful [] Anxious [] Often cries [] Exhaustion [] Unable to work [] Unable to attend anabaptism [] Unable to walk/stand [] Unable to read [] Unable to drive [] Unable to eat/drink [] Unable to sleep [] Unable to be with family [] Patient intubated [] Other: Summary Time spent with patient
[2020-06-12 10:51] LABS: Glucose Point of Care 121 mg/dL (70-110)
[2020-06-12 16:47] LABS: Glucose Point of Care 94 mg/dL (70-110)
[2020-06-12 20:54] LABS: Glucose Point of Care 103 mg/dL (70-110)
--- NOTE | 2020-06-12 21:10 | PM.PN ---
Subjective Subjective: Interval history: Noted to get quite dizzy while standing up with physical therapy. Noted quite significantly orthostatic. States otherwise no complaints while supine/at rest. Denies chest pain or pressure. Denies trouble breathing. Vitals/I&O/Wt Last Vital Signs Temp 97.9 F 06/12/20 20:00 Pulse 79 06/12/20 20:00 Resp 17 06/12/20 20:00 BP 148/80 06/12/20 20:00 Pulse Ox 98 06/12/20 20:00 06/12/20 06/12/20 06/12/20 06:59 14:59 22:59 Intake Total 1350 / 1350 200 / 1550 Output Total 600 / 600 300 / 300 Balance -600 / 1615 1050 / 1050 200 / 1250 Weight last 48 hrs Weight 68.039 kg Physical Exam Const: COMMON NORMALS: no acute distress and patient oriented x3 GENERAL APPEARANCE: cooperative and comfortable HENMT: COMMON NORMALS: oropharynx normal Neck/C-Spine: COMMON NORMALS: no JVD Resp: COMMON NORMALS: normal respiratory effort and clear to auscultation bilaterally AUSCULTATION: clear to auscultation bilaterally Cardio: COMMON NORMALS: no JVD, regular rhythm, S1 normal heart sound present, S2 normal heart sound present and No murmurs present (Cardio) RHYTHM: regular rhythm HEART SOUNDS: S1 normal heart sound present and S2 normal heart sound present GI: COMMON NORMALS: Normal to inspection, nondistended, normoactive bowel sounds present, Soft to palpation and non-tender PALPATION: Yes Soft to palpation Extremity: COMMON NORMALS: no joint enlargement and no pedal edema Neuro: COMMON NORMALS: patient oriented x3 and moves all extremities Skin: COMMON NORMALS: no rashes or lesions noted GENERAL SKIN EXAM: no rashes or lesions noted Data : 06/12/20 05:35 06/12/20 05:35 Micro: Microbiology 06/11/20 00:36 Urine Culture - Preliminary Urine Catheterized Gram Negative Rods 06/11/20 07:16 Blood Culture - Preliminary Blood NEGATIVE TO DATE 06/11/20 03:00 Blood Culture - Preliminary Blood NEGATIVE TO DATE A&P Assessment and plan (1) Syncope: Status: Acute (2) UTI (urinary tract infection): Status: Acute (3) Rib pain on left side: Status: Acute (4) Hypokalemia: Status: Acute (5) Orthostasis: Status: Acute (6) JOSEPH (acute kidney injury): Status: Acute Additional A&P Information Recurrent syncope/fall due to orthostatic hypotension: Persistent significant orthostatic hypotension, blood pressure supine 118/61, standing 80/50. Symptomatic. This despite IV hydration, decrease rate to 30 mL/h. Continue gentle IV hydration. Will start midodrine after discussion with her. We discussed additional consideration of adverse effects including supine hypertension. Reassess orthostatics tomorrow. Continue attempts to safely mobilize. Maintain orthostatic precautions. - Antihypertensive medication held - Repeat labs in AM - ECHO - EF 45-50%, mild AR - Monitor on telemetry Chronic systolic HF w/o exacerbation - Monitor daily weight - Decreaase IVF rate Urinary tract infection: Gram-negative rods. Follow-up urine culture results. Continue IV Rocephin daily - Further abx based on organism and susceptibilities Hypokalemia - Replaced - Repeat BMP in am Acute kidney injury: Improving. Monitor creatinine. - Likely pre-renal - hypotensive - Hold hydrochlorothiazide - Repeat BMP in am Hx of PE - OAC Hypothyroidism - Continue synthyroid Diabetes Mellitus - Sliding scale insulin - Diabetic diet. Code status - DNR/DNI Attestations Medical Necessity Statement*: Requires admission of over 2 midnights for assessment management of severe orthostatic hypotension, symptomatic with presyncope, disabling to the point of inability to ambulate, assessment treatment of UTI. Coding Level of Care Code Acute Industrial Gas Production Operator for [facility] Khadijah Diagnoses Syncope R55 UTI (urinary tract infection) N39.0 Rib pain on left side R07.81 Hypokalemia E87.6 Orthostasis I95.1 JOSEPH (acute kidney injury) N17.9
[2020-06-12] MEDS: donepezil 5 MG Tablet 10 MG PO (21:27)
[2020-06-12] MEDS: midodrine 5 mg TABLET PO (21:27)
[2020-06-13] VITALS (12 sets, daily range): BP systolic 110–184; BP diastolic 65–85; PULSE 64–94; RESP 15–19; TEMP 36.4–37.1; O2SAT 87–98
[2020-06-13 06:36] LABS: Glucose Point of Care 103 mg/dL (70-110)
[2020-06-13] MEDS: quetiapine 25 mg Tablet 50 MG PO (08:31)
[2020-06-13] MEDS: memantine 5 mg tablet 10 MG PO ×2 (08:31→17:03)
[2020-06-13] MEDS: apixaban 5 mg Tablet PO ×2 (08:31→17:03)
[2020-06-13] MEDS: venlafaxine ER (24HR) 37.5 mg Capsule PO (08:31)
[2020-06-13] MEDS: aspirin 81 mg EC Tablet PO (08:32)
[2020-06-13] MEDS: cefTRIAXone 1,000 MG in sodium chloride 0.9% (plus) 50 ML 100 MG IV (08:32)
[2020-06-13] MEDS: midodrine 5 mg TABLET PO (08:32)
[2020-06-13] MEDS: levothyroxine 50 mcg Tablet PO (08:32)
[2020-06-13 10:44] LABS: Glucose Point of Care 165 mg/dL (70-110)
[2020-06-13] MEDS: midodrine 5 mg TABLET 10 MG PO (14:11)
[2020-06-13 17:07] LABS: Glucose Point of Care 103 mg/dL (70-110)
--- NOTE | 2020-06-13 17:52 | PC.NURSE ---
Patient's orthostatic blood pressures taken at 1738 were as followed: Laying- 169/80 Sitting- 148/85 Standing 117/75 Provider notified of results
--- NOTE | 2020-06-13 20:48 | PM.PN ---
Subjective Subjective: Interval history: Today she is needing little bit of nasal cannula support for the first time, IV fluids discontinued. She denies chest pain or pressure. Overall says she is breathing comfortably. Denies any complaints. Blood pressure did appear to transiently improved today with standing up, however, on recheck again quite significantly orthostatic later in the evening. Discussed with her daughter who is concerned that the patient has had a very poor oral intake at home. During my visit she actually eating someone from her tray. Discussed with daughter it is difficult to say whether the acute urinary tract infection has contributed some worse appetite and oral intake, as well as contributing to her orthostasis. Daughter is concerned it may be progression of her dementia, and discussed that certainly this may be a possibility, and dementia, be certain times of it may be associated with autonomic dysfunction. She reportedly follows with neurology in office, and daughter states is on optimal therapy currently. Vitals/I&O/Wt Last Vital Signs Temp 98.7 F 06/13/20 20:00 Pulse 64 06/13/20 20:00 Resp 18 06/13/20 20:00 BP 176/80 06/13/20 20:15 Pulse Ox 95 06/13/20 20:00 06/13/20 06/13/20 06/13/20 06:59 14:59 22:59 Intake Total 240 / 2820 1290 / 1290 240 / 1530 Output Total 400 / 700 Balance -160 / 2120 1290 / 1290 240 / 1530 Physical Exam Const: COMMON NORMALS: no acute distress and patient oriented x3 GENERAL APPEARANCE: cooperative and comfortable HENMT: COMMON NORMALS: oropharynx normal Neck/C-Spine: COMMON NORMALS: no JVD Resp: COMMON NORMALS: normal respiratory effort and clear to auscultation bilaterally AUSCULTATION: clear to auscultation bilaterally Cardio: COMMON NORMALS: no JVD, regular rhythm, S1 normal heart sound present, S2 normal heart sound present and No murmurs present (Cardio) RHYTHM: regular rhythm HEART SOUNDS: S1 normal heart sound present and S2 normal heart sound present GI: COMMON NORMALS: Normal to inspection, nondistended, normoactive bowel sounds present, Soft to palpation and non-tender PALPATION: Yes Soft to palpation Extremity: COMMON NORMALS: no joint enlargement and no pedal edema Neuro: COMMON NORMALS: patient oriented x3 and moves all extremities Skin: COMMON NORMALS: no rashes or lesions noted GENERAL SKIN EXAM: no rashes or lesions noted Data : 06/12/20 05:35 06/12/20 05:35 Micro: Microbiology 06/11/20 00:36 Urine Culture - Final Urine Catheterized Klebsiella pneumoniae A&P Assessment and plan (1) Syncope: Status: Acute (2) UTI (urinary tract infection): Status: Acute (3) Rib pain on left side: Status: Acute (4) Hypokalemia: Status: Acute (5) Orthostasis: Status: Acute (6) JOSEPH (acute kidney injury): Status: Acute Additional A&P Information Recurrent syncope/fall due to orthostatic hypotension: Transiently during this afternoon blood pressure. To be better, with orthostasis nearly resolved, however, appears this was short-lived. We did have to discontinue her IV fluids due to now needing some oxygen support, and with history of CHF. Fluid overload is minimal if present. Otherwise does not appear in genie CHF, however, will avoid additional intravenous fluids so as to avoid florid CHF exacerbation. As still orthostatic today, midodrine dose increased to 10 mg 3 times daily. Discussed with her daughter. We discussed also supine hypertension as a risk of treatment. Continue to monitor. With patient's dementia, daughter would rather prefer if possible as she did not go to [facility]. She will be trying to seek to arrange for more supervision and help at home. Assistance with oral intake. - Antihypertensive medication held - Repeat labs in AM - ECHO - EF 45-50%, mild AR - Monitor on telemetry Chronic systolic HF w/o exacerbation - Monitor daily weight -DC IVF Urinary tract infection: Klebsiella. Continue IV Rocephin daily Hypokalemia - Replaced - Repeat BMP in am Acute kidney injury: Continue to improve. Creatinine down to 1. DC IV fluid. - Likely pre-renal - hypotensive - Hold hydrochlorothiazide - Repeat BMP in am Hx of PE - OAC Hypothyroidism - Continue synthyroid Diabetes Mellitus - Sliding scale insulin - Diabetic diet. Code status - DNR/DNI Attestations Medical Necessity Statement*: Continue admission for optimization of medical therapy for management of severe, disabling, symptomatic orthostatic hypotension with inability to stand or ambulate. Treatment of UTI. Disposition planning. Coding Level of Care Code Acute Remediation Technician for [facility] Fwd Diagnoses Syncope R55 UTI (urinary tract infection) N39.0 Rib pain on left side R07.81 Hypokalemia E87.6 Orthostasis I95.1 JOSEPH (acute kidney injury) N17.9
[2020-06-13 21:05] LABS: Glucose Point of Care 94 mg/dL (70-110)
[2020-06-13] MEDS: donepezil 5 MG Tablet 10 MG PO (22:03)
[2020-06-14] VITALS (9 sets, daily range): BP systolic 63–169; BP diastolic 47–82; PULSE 67–102; RESP 17–20; TEMP 36.6–36.9; O2SAT 92–99
[2020-06-14 06:06] LABS: Blood Urea Nitrogen 20 mg/dL (8-23); Calcium 8.8 mg/dL (8.5-10.5); Carbon Dioxide 22 mmol/L (22-29); Chloride 110 mmol/L (98-107); Glucose 101 mg/dL (65-115); Osmolality Calculated 297 mOsm/kg (285-295); Sodium 142 mmol/L (136-145)
[2020-06-14 06:08] LABS: Anion Gap 13.8 (5-19); Potassium 3.8 mmol/L (3.5-5.1)
[2020-06-14 06:11] LABS: Basophils % 0.5 %; Eosinophils # 0.1 10^3/uL (0.0-0.8); Eosinophils % 1.5 %; Hematocrit 38.2 % (37.0-47.0); Hemoglobin 11.4 g/dL (11.5-15.3); Lymphocytes # 2.4 10^3/uL (0.8-4.8); Lymphocytes % 39.2 %; Mean Corpuscular HGB Conc 29.8 g/dL (30.0-36.0); Mean Corpuscular Hemoglobin 30.6 pg (28.0-34.0); Mean Corpuscular Volume 102.4 fL (81-99); Mean Platelet Volume 10.5 fL (7.4-10.4); Monocytes # 0.6 10^3/uL (0.2-0.9); Monocytes % 9.6 %; Neutrophils # 2.97 10^3/uL (1.8-7.7); Neutrophils % 48.9 %; Nucleated Red Blood Cells % 0 %; Platelet Count 264 10^3/cmm (130-400); Red Blood Count 3.73 10^6/uL (4.1-5.3); Red Cell Distribution Width 12.7 % (12.1-15.1); White Blood Count 6.1 10^3/uL (4.0-10.0)
[2020-06-14 06:42] LABS: Glucose Point of Care 106 mg/dL (70-110)
[2020-06-14] MEDS: aspirin 81 mg EC Tablet PO (08:00)
[2020-06-14] MEDS: apixaban 5 mg Tablet PO ×2 (08:00→17:48)
[2020-06-14] MEDS: quetiapine 25 mg Tablet 50 MG PO (08:00)
[2020-06-14] MEDS: levothyroxine 50 mcg Tablet PO (08:01)
[2020-06-14] MEDS: memantine 5 mg tablet 10 MG PO ×2 (08:01→17:48)
[2020-06-14] MEDS: venlafaxine ER (24HR) 37.5 mg Capsule PO (08:01)
[2020-06-14] MEDS: midodrine 5 mg TABLET 10 MG PO ×3 (08:01→21:03)
[2020-06-14] MEDS: cefTRIAXone 1,000 MG in sodium chloride 0.9% (plus) 50 ML 100 MG IV (08:02)
[2020-06-14 08:56] LABS: Thyroid Stimulating Hormone 0.81 uIU/mL (0.27-4.20)
[2020-06-14 10:35] LABS: Glucose Point of Care 237 mg/dL (70-110)
[2020-06-14 12:56] LABS: Cortisol Random 14.02 ug/dL (2.47-19.5)
[2020-06-14 16:35] LABS: Glucose Point of Care 80 mg/dL (70-110)
--- NOTE | 2020-06-14 20:26 | P.PN_ITS ---
Subjective Subjective: Interval history: She is lying reclined in bed. She denies any discomfort or pain. No headache or dizziness. No lightheadedness. No trouble breathing or chest pain. States that she is comfortable. Denies any needs. Vitals/I&O/Wt Last Vital Signs Temp 97.8 F 06/14/20 19:39 Pulse 102 H 06/14/20 19:39 Resp 18 06/14/20 19:39 BP 142/76 06/14/20 19:39 Pulse Ox 94 06/14/20 19:39 06/14/20 06/14/20 06/14/20 06:59 14:59 22:59 Intake Total 550 / 550 400 / 950 Balance 550 / 550 400 / 950 Physical Exam Const: COMMON NORMALS: no acute distress GENERAL APPEARANCE: cooperative and comfortable HENMT: COMMON NORMALS: oropharynx normal Neck/C-Spine: COMMON NORMALS: no JVD Resp: COMMON NORMALS: normal respiratory effort and clear to auscultation bilaterally AUSCULTATION: clear to auscultation bilaterally Cardio: COMMON NORMALS: no JVD, regular rhythm, S1 normal heart sound present, S2 normal heart sound present and No murmurs present (Cardio) RHYTHM: regular rhythm HEART SOUNDS: S1 normal heart sound present and S2 normal heart sound present GI: COMMON NORMALS: Normal to inspection, nondistended, normoactive bowel sounds present, Soft to palpation and non-tender PALPATION: Yes Soft to pal pation Extremity: COMMON NORMALS: no joint enlargement and no pedal edema Neuro: COMMON NORMALS: moves all extremities Skin: COMMON NORMALS: no rashes or lesions noted GENERAL SKIN EXAM: no rashes or lesions noted Data : 06/14/20 05:14 06/14/20 05:14 A&P Assessment and plan (1) Syncope: Status: Acute (2) UTI (urinary tract infection): Status: Acute (3) Rib pain on left side: Status: Acute (4) Hypokalemia: Status: Acute (5) Orthostasis: Status: Acute (6) JOSEPH (acute kidney injury): Status: Acute Additional A&P Information Recurrent syncope/fall due to orthostatic hypotension: Persistent severe orthostatic hypotension, symptomatic, disabling, she is unable to stand up even for short period of time. Orthostatic even with sitting. Appears yesterday dose was missed for midodrine due to supine hypertension. Will request for head of bed elevation. Midodrine dose for now continue 10 mg 3 times daily. Discussed with her daughter. Unfortunately it may be that she may not respond to midodrine. In that case consideration may be given to switching to fludrocortisone, in which case we discussed potential adverse effects of fluid overload and CHF, or trial of pyridostigmine, although I am not sure that this medication is well-tolerated in general based on past experiences. We checked TSH which was normal. Serum cortisol level assessed as well this morning, was 14. As discussed with her we can consider cosyntropin stimulation test. Discussed also if we are not seeing a reversible causes, unfortunately this may be related to her dementia. Discussed also with her neurologist who agrees that unfortunately symptoms more likely related to system atrophy in relation to progression of dementia. She certainly will require additional support at home. May require wheelchair if tolerates enough sitting upright. - Antihypertensive medication held - Repeat labs in AM - ECHO - EF 45-50%, mild AR - Monitor on telemetry Chronic systolic HF w/o exacerbation - Monitor daily weight -off IVF Urinary tract infection: Klebsiella. Continue IV Rocephin daily Hypokalemia - Replaced - Repeat BMP in am Acute kidney injury: Continue to improve. Creatinine improved. - Likely pre-renal - hypotensive - Hold hydrochlorothiazide - Repeat BMP in am Hx of PE - OAC Hypothyroidism - Continue synthyroid Diabetes Mellitus - Sliding scale insulin - Diabetic diet. Code status - DNR/DNI Attestations Medical Necessity Statement*: Continue assessment of management of severe, symptomatic disabling orthostatic hypotension, disposition planning. Coding Level of Care Code Acute Cinder Dump Crane Operator for Chg Fwd Diagnoses Syncope R55 UTI (urinary tract infection) N39.0 Rib pain on left side R07.81 Hypokalemia E87.6 Orthostasis I95.1 JOSEPH (acute kidney injury) N17.9
[2020-06-14] MEDS: donepezil 5 MG Tablet 10 MG PO (21:04)
[2020-06-14 21:10] LABS: Glucose Point of Care 127 mg/dL (70-110)
[2020-06-15] VITALS (8 sets, daily range): BP systolic 82–196; BP diastolic 56–108; PULSE 77–89; RESP 17–18; TEMP 36–36.6; O2SAT 90–98
--- NOTE | 2020-06-15 01:05 | PC.NURSE ---
VENUE ATTENDANT reported 198/106 B/P (manual) with patient in recumbent position. Nurse had patient stand at bedside 2 minutes and a recheck (manual) had result of 106/64. Patient denies any dizziness or discomfort.
[2020-06-15 06:19] LABS: Basophils % 0.6 %; Eosinophils # 0.1 10^3/uL (0.0-0.8); Eosinophils % 1.4 %; Hematocrit 35.5 % (37.0-47.0); Hemoglobin 10.8 g/dL (11.5-15.3); Lymphocytes # 2.3 10^3/uL (0.8-4.8); Lymphocytes % 36.6 %; Mean Corpuscular HGB Conc 30.4 g/dL (30.0-36.0); Mean Corpuscular Hemoglobin 30.1 pg (28.0-34.0); Mean Corpuscular Volume 98.9 fL (81-99); Mean Platelet Volume 10.4 fL (7.4-10.4); Monocytes # 0.6 10^3/uL (0.2-0.9); Monocytes % 10.2 %; Neutrophils # 3.18 10^3/uL (1.8-7.7); Neutrophils % 50.7 %; Nucleated Red Blood Cells % 0 %; Platelet Count 267 10^3/cmm (130-400); Red Blood Count 3.59 10^6/uL (4.1-5.3); Red Cell Distribution Width 12.6 % (12.1-15.1); White Blood Count 6.3 10^3/uL (4.0-10.0)
[2020-06-15 06:44] LABS: Anion Gap 12.7 (5-19); Blood Urea Nitrogen 21 mg/dL (8-23); Carbon Dioxide 25 mmol/L (22-29); Chloride 110 mmol/L (98-107); Glucose 105 mg/dL (65-115); Osmolality Calculated 301 mOsm/kg (285-295); Potassium 3.7 mmol/L (3.5-5.1); Sodium 144 mmol/L (136-145)
[2020-06-15 06:55] LABS: Glucose Point of Care 119 mg/dL (70-110)
[2020-06-15] MEDS: cosyntropin 0.25 mg SDV IVP (09:22)
[2020-06-15] MEDS: aspirin 81 mg EC Tablet PO (09:26)
[2020-06-15] MEDS: memantine 5 mg tablet 10 MG PO (09:26)
[2020-06-15] MEDS: cefTRIAXone 1,000 MG in sodium chloride 0.9% (plus) 50 ML 100 MG IV (09:26)
[2020-06-15] MEDS: venlafaxine ER (24HR) 37.5 mg Capsule PO (09:26)
[2020-06-15] MEDS: apixaban 5 mg Tablet PO (09:27)
[2020-06-15] MEDS: levothyroxine 50 mcg Tablet PO (09:27)
--- NOTE | 2020-06-15 09:29 | PC.CHAP ---
Pastoral Care Encounter/Spiritual Assessment Type of Contact [] Declined spot facer visit [] Patient/Family/Request visit [] Outpatient visit [] Follow-up visit [] Physician referral [] Code/Alert [x] Routine visit [] Staff referral [] Actively dying [] Patient sleeping [] Family support [] [] Out of room [] Palliative care [] [] Receiving care in room [] Pre-surgical visit [] Trauma [] Long length of stay [] ICU visit [] Other: Relational/Emotional Strength [x] Patient feels connected with others/family/visitors/staff [] Distress [] Loneliness/isolation [] Abandonment Spirituality of Patient [x] Person of Juli [] Attends Restoration of their Juli [x] Believes in Prayer [] Reads Bible or Religion materials [] There are Spiritual issues to be addressed Clinical Courier Interventions [x] Prayer [x] Active listening [] Non-anxious presence [x] Spiritual/emotional support [] Crisis/trauma care [] Spiritual counseling [] Bereavement support [] Provided bereavement packet [] Provided Bible/devotional materials [] Provided toy/stuffed animal, coloring book to patient or family member [] Provided Communion [] Anointing/[place] [] Salvation [x] Completed spiritual assessment [] Other: Impact on Illness or Injury [] Angry [] Fearful [] Anxious [] Often cries [] Exhaustion [] Unable to work [] Unable to attend hindu [] Unable to walk/stand [] Unable to read [] Unable to drive [] Unable to eat/drink [] Unable to sleep [] Unable to be with family [] Patient intubated [] Other: Summary Time spent with patient 10 min
[2020-06-15] MEDS: midodrine 5 mg TABLET 10 MG PO (09:34)
[2020-06-15] MEDS: quetiapine 25 mg Tablet 50 MG PO (09:34)
[2020-06-15 11:05] LABS: Cosyntropin Baseline 9.23 mcg/dL
--- NOTE | 2020-06-15 11:15 | PC.SOCIAL ---
IMM Update Pg. 2 of IMM updated and reviewed with patient who verbalized understanding. Copy provided.
[2020-06-15 11:40] LABS: Cosyntropin 1 Hour 39.79 mcg/dL
[2020-06-15 12:26] LABS: Cosyntropin 30 Minute 39.79 mcg/dL
[2020-06-15 12:38] LABS: Glucose Point of Care 138 mg/dL (70-110)
--- NOTE | 2020-06-15 14:52 | P.DS_ITS ---
Discharge Providers Date of Admission: 06/12/20 21:13 Date of Discharge: June 15, 2020 Attending Provider at Admission: Oc Davidson MD Attending Provider at Discharge: Pancho Milton Primary Care Provider: Saima Carnes MD Diagnoses at Discharge Discharge Diagnosis (1) Syncope: Status: Acute (2) UTI (urinary tract infection): Status: Acute (3) Rib pain on left side: Status: Acute (4) Hypokalemia: Status: Acute (5) Orthostasis: Status: Acute (6) JOSEPH (acute kidney injury): Status: Acute Reason for Visit Reason for Visit: INCREASED FALLS Hospital Course Hospital Course Pleasant 75-year-old lady with history of dementia, recently in January found to have a PE started on anticoagulation, was brought in due to significant dizziness, lightheadedness, worse with change in position, and hospital noted significantly orthostatic, with prior history of PE, was resumed on anticoagulation, received fluid challenge on admission, with concern for possible dehydration due to poor oral intake at home, per discussion with her daughter recently with advancing dementia, was also found to have urinary tract infection for which was treated with ceftriaxone after 1 dose of Levaquin in ER. Her diuretic, antihypertensives were held. CT of the head without acute normality. Chest x-ray without acute change. Was assessed by echocardiogram with EF 45-50%, mild hypokinesis anteroseptal wall, mild LVH, grade 1 diastolic dysfunction, mildly enlarged left atrium, mild aortic regurgitation. Compared to prior echo in December noted mild aortic regurgitation. Findings on echocardiogram mostly not new, and not corresponding to the degree of orthostatic hypotension. Blood pressures will decrease as low as 63/47 on standing even for a brief period of time. Symptoms severely disabling, unable to stand or walk, with blood pressures even significantly orthostatic with sitting. Also with noted acute kidney injury on presentation. Despite rehydration, treatment of UTI, improvement in JOSEPH, there was no improvement in blood pressures. She continued to do very poorly with even brief upright positioning. She was started on midodrine, with response in blood pressure with supine hypertension, but with still significant orthostatic blood pressure decreases from 162/87 down to 82/56 despite escalation to 10 mg midodrine 3 times daily. She was additionally assessed by thyroid function test, with normal TSH, as well as with borderline serum cortisol at 14 was assessed with cosyntropin stimulation test, on which appears to have had sufficiently appropriate response with 9.23 baseline, response up to 39.79 at 30 and 60 minutes. Adrenal sufficiency did not appear to be the cause of her symptoms. IV fluids were discontinued due to minimal fluid overload. Did not appear to be in active CHF. Completed course of Rocephin for Klebsiella pneumoniae UTI, more than 100,000, resistant to ampicillin. They were no signs of persistent sepsis. We discussed additional options with her daughter. Also discussed with her neurologist. They consensus is unfortunately it appears that significant of stasis may be related to progression in dementia, possible autonomic dysfunction, multisystem atrophy. We discussed additional possibilities of treatment, discussed setting up compression stockings, 20-30mmHg, strict orthostatic precautions, we are also ordering a wheelchair for her due to severe intolerance of any upright positioning standing or walking of any distance with increased risk of syncope, falls, injury. Her family is getting additional help to provide close progression of her through the day. Due to this for now we are continuing anticoagulation, however, if there is persistent risk of falls, this will need to be discontinued for risk of injury/bleeding. We also discussed additional options for possible medical treatment of the significant hypotension, discussed previous treatment and fludrocortisone, for now we will hold off on fludrocortisone due to CHF, propensity for fluid overload. Her daughter is agreeable with plan and to trial with pyridostigmine, initially 30 mg twice a day. Please follow-up, adjust depending on response and tolerance. Home health is requested for her to follow-up orthostatics, assistance with medications as well as PT. Physical Exam Const: COMMON NORMALS: no acute distress GENERAL APPEARANCE: cooperative and comfortable HENMT: COMMON NORMALS: oropharynx normal Neck/C-Spine: COMMON NORMALS: no JVD Resp: COMMON NORMALS: normal respiratory effort and clear to auscultation bilaterally AUSCULTATION: clear to auscultation bilaterally Cardio: COMMON NORMALS: no JVD, regular rhythm, S1 normal heart sound present, S2 normal heart sound present and No murmurs present (Cardio) RHYTHM: regular rhythm HEART SOUNDS: S1 normal heart sound present and S2 normal heart sound present GI: COMMON NORMALS: Normal to inspection, nondistended, normoactive bowel sounds present, Soft to palpation and non-tender PALPATION: Yes Soft to palpation Extremity: COMMON NORMALS: no joint enlargement and no pedal edema Neuro: COMMON NORMALS: moves all extremities Skin: COMMON NORMALS: no rashes or lesions noted GENERAL SKIN EXAM: no rashes or lesions noted Discharge Data Data Completed and Pending: Completed Studies During Hospitalization Category Date Time Status CT head wo con* 7 0450 Urgent Cat Scan 06/11/20 00:04 Completed XR chest 1V pablo ble [id number] Stat Exams 06/11/20 03:18 Completed CV echo complete* [id number] Routine Ultrasound 06/11/20 04:07 Completed Pending at discharge Category Date Time Status Basic Metabolic P neyda AM LABS Lab 06/16/20 04:00 Ordered Blood Culture Sta t Lab 06/11/20 07:16 Results Complete Blood Co unt w/Auto AM LABS Lab 06/16/20 04:00 Ordered Labs from last 24 hours 06/15/20 06/15/20 06/15/20 12:34 08:04 06:42 WBC RBC Hgb Hct MCV MCH MCHC RDW Plt Count MPV Neut % (Auto) Lymph % (Auto) [place] % (Auto) Eos % (Auto) Baso % (Auto) Neut # (Auto) Lymph # (Auto) [place] # (Auto) Eos # (Auto) Baso # (Auto) Nucleated RBC % (a uto) Nucleated RBCs # Sodium Potassium Chloride Carbon Dioxide Anion Gap BUN Creatinine GFR Calculation Glucose POC Glucose 138 H 119 H Calculated Osmolal ity Calcium Cortisol Response 06/15/20 06/15/20 06/14/20 05:15 05:15 20:43 WBC 6.3 RBC 3.59 L Hgb 10.8 L Hct 35.5 L MCV 98.9 MCH 30.1 MCHC 30.4 RDW 12.6 Plt Count 267 MPV 10.4 Neut % (Auto) 50.7 Lymph % (Auto) 36.6 [place] % (Auto) 10.2 Eos % (Auto) 1.4 Baso % (Auto) 0.6 Neut # (Auto) 3.18 Lymph # (Auto) 2.3 [place] # (Auto) 0.6 Eos # (Auto) 0.1 Baso # (Auto) 0.0 Nucleated RBC % (a uto) 0 Nucleated RBCs # 0.0 Sodium 144 Potassium 3.7 Chloride 110 H Carbon Dioxide 25 Anion Gap 12.7 BUN 21 Creatinine 0.9 GFR Calculation Not Reportable Glucose 105 POC Glucose 127 H Calculated Osmolal ity 301 H Calcium 9.0 Cortisol Response 06/14/20 16:20 WBC RBC Hgb Hct MCV MCH MCHC RDW Plt Count MPV Neut % (Auto) Lymph % (Auto) [place] % (Auto) Eos % (Auto) Baso % (Auto) Neut # (Auto) Lymph # (Auto) [place] # (Auto) Eos # (Auto) Baso # (Auto) Nucleated RBC % (a uto) Nucleated RBCs # Sodium Potassium Chloride Carbon Dioxide Anion Gap BUN Creatinine GFR Calculation Glucose POC Glucose 80 Calculated Osmolal ity Calcium Cortisol Response Vitals: Last Vital Signs Temp 97.6 F 06/15/20 12:00 Pulse 81 06/15/20 12:00 Resp 17 06/15/20 12:00 BP 179/80 06/15/20 12:00 Pulse Ox 96 06/15/20 12:00 Discharge Plan Discharge Patient Disposition: Home Health Service Condition: Stable Prescriptions: New Eliquis 5 mg Tablet 5 mg PO BID Qty: 60 RF: 0 aspirin 81 mg Tablet,Delayed Release (Dr/Ec) 81 mg PO DAILY Qty: 30 RF: 0 pyridostigmine bromide 30 mg tablet 30 mg PO BID Qty: 60 RF: 0 Continued venlafaxine 37.5 mg capsule,extended release 24hr 37.5 mg PO DAILY RF: 0 donepezil 10 mg tablet 10 mg PO BEDTIME RF: 0 alprazolam 0.25 mg tablet 0.25 mg PO BID PRN (Reason: Anxiety) RF: 0 metformin 1,000 mg tablet 1,000 mg PO BID RF: 0 albuterol sulfate 90 mcg/actuation HFA aerosol inhaler 1 puff inhalation Q6H PRN (Reason: Shortness Of Breath) RF: 0 cholecalciferol (vitamin D3) [Vitamin D3] 25 mcg (1,000 unit) Tablet 25 mcg PO DAILY RF: 0 quetiapine [Seroquel] 25 mg Tablet 50 mg PO DAILY RF: 0 levothyroxine 50 mcg Tablet 50 mcg PO DAILY RF: 0 memantine 10 mg tablet 10 mg PO BID RF: 0 Discontinued hydrochlorothiazide 25 mg tablet 25 mg PO DAILY RF: 0 atenolol 50 mg tablet 25 mg PO DAILY RF: 0 Discharge Orders: Discharge Order (Routine); Ordered 06/15/20 Ordered By: Pancho Milton Other Ambulatory Orders: DME: Wheelchair (Order) Location: None Selected Ordered By: Pancho Milton Referrals: [facility] [Outside] Sherice Mclean MD [Physician] - 2 weeks (Severe orthostatic HoTN, dementia) Wilfrido Batistasa Miller [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 Use wheelchair to get around at home unless your blood pressure decreases with standing are found to improve. You are started on a new medication pyridostigmine which may help control the symptoms. You are started for now initially on 30 mg twice daily. Your primary care doctor or neurologist may increase the dose depending on response. In case you experience significant flushing, sweating, drooling, diarrhea, or other intolerance, discontinue taking this medication. Please have your primary care doctor follow-up your kidney function after the kidney injury is resolved. Please discuss with your primary care doctor that you completed antibiotic course for urinary tract infection while in the hospital. Please be aware you are continued on Eliquis blood thinner medication due to hi story of recent blood clot in the lung, but be aware that this medication puts you at increased risk of bleeding, make certain to avoid any injury, fall, head injury to avoid bleeding or bleeding inside the head. In case there are any concerns about falling down, or near falls, please discontinue this medication to avoid bleeding risk. Discharge Attestations Time Spent in Discharge Care*: greater than 30 min Quality Metrics Clinical Quality Measures During this hospital stay, did patient experience: None Coding Level of Care Code Acute Injection Specialist for Chg Fwd Diagnoses Syncope R55 UTI (urinary tract infection) N39.0 Rib pain on left side R07.81 Hypokalemia E87.6 Orthostasis I95.1 JOSEPH (acute kidney injury) N17.9
--- NOTE | 2020-06-15 17:33 | PC.NURSE ---
wanted to take her dinner home with her.
--- NOTE | 2020-06-15 18:08 | PC.NURSE ---
Patient discharged at this time. Patient was given discharge instructions, all questions answered. IV removed, catheter tip intact. Patient discharged in stable condition in the care of family. With her home oxygen.
[2020-06-15 18:23] LABS: Glucose Point of Care 148 mg/dL (70-110)
== END 2020-06-15 18:11 | disposition home health service (06) | DRG 312 ==
LOC: ER 23:59 → MEDSURG 06-11 04:14
PROVIDERS: Emergency Medicine; Hospitalist; Admitting Provider Internal Medicine; Emergency Provider Nurse Practitioner Family; PCP Family Medicine; Visit Provider Internal Medicine
DX: I95.1 Orthostatic hypotension (principal); N17.9 Acute kidney failure, unspecified; I50.22 Chronic systolic (congestive) heart failure; N39.0 Urinary tract infection, site not specified; E87.2 Acidosis; Z16.11 Resistance to penicillins; Z86.711 Personal history of pulmonary embolism; Z87.440 Personal history of urinary (tract) infections; E87.6 Hypokalemia; J44.9 Chronic obstructive pulmonary disease, unspecified; F03.90 Unspecified dementia, unspecified severity, without behavioral disturbance, psychotic disturbance, mood disturbance, and anxiety; E11.9 Type 2 diabetes mellitus without complications; Z86.718 Personal history of other venous thrombosis and embolism; K21.9 Gastro-esophageal reflux disease without esophagitis; E78.5 Hyperlipidemia, unspecified; I11.0 Hypertensive heart disease with heart failure; Z87.891 Personal history of nicotine dependence; R07.81 Pleurodynia; Z66 Do not resuscitate; Z99.81 Dependence on supplemental oxygen; Z79.84 Long term (current) use of oral hypoglycemic drugs; E86.0 Dehydration; B96.1 Klebsiella pneumoniae [K. pneumoniae] as the cause of diseases classified elsewhere; W19.XXXA Unspecified fall, initial encounter; I35.1 Nonrheumatic aortic (valve) insufficiency; D50.9 Iron deficiency anemia, unspecified
CPT/HCPCS: 36415; 36416; 70450; 71045; 80048; 80053; 81001; 82533; 82962; 83605; 84443; 85025; 86141; 87040; 87077; 87086; 87186; 93005; 93306; 96360; 96372; 97110; 97162; 97530; 99285; G0378; J0696; J0834; J1815; J7030; J7040

== ENCOUNTER 2020-06-22 16:46 | Outpatient (CLI) | payer MEDICARE, SELFPAY ==
[2020-06-22 17:41] LABS: Anion Gap 11.7 (5-19); Blood Urea Nitrogen 17 mg/dL (8-23); Calcium 9.8 mg/dL (8.5-10.5); Carbon Dioxide 30 mmol/L (22-29); Chloride 99 mmol/L (98-107); Glucose 151 mg/dL (65-115); Osmolality Calculated 288 mOsm/kg (285-295); Potassium 3.7 mmol/L (3.5-5.1); Sodium 137 mmol/L (136-145)
== END 2020-06-22 16:47 | disposition home or self-care (01) ==
LOC: LAB 16:50
PROVIDERS: PCP Family Medicine; Visit Provider Family Medicine
DX: R55 Syncope and collapse (principal); N39.0 Urinary tract infection, site not specified; R07.81 Pleurodynia; E87.6 Hypokalemia; N17.9 Acute kidney failure, unspecified
CPT/HCPCS: 80048

== ENCOUNTER → 2020-07-03 10:59 | Outpatient (BNVA) | payer MEDICARE, SELFPAY | PROVIDERS: PCP Family Medicine; Referring Provider Internal Medicine; Visit Provider Nurse Practitioner | DX: F03.90 Unspecified dementia, unspecified severity, without behavioral disturbance, psychotic disturbance, mood disturbance, and anxiety (principal); I95.1 Orthostatic hypotension; Z87.891 Personal history of nicotine dependence | CPT/HCPCS: 99204 ==

== ENCOUNTER → 2020-07-10 09:07 | Outpatient (BNVA) | payer MEDICARE, SELFPAY | PROVIDERS: PCP Family Medicine; Visit Provider Internal Medicine Rheumatology | DX: M05.79 Rheumatoid arthritis with rheumatoid factor of multiple sites without organ or systems involvement (principal); L40.0 Psoriasis vulgaris; Z79.899 Other long term (current) drug therapy; Z11.59 Encounter for screening for other viral diseases; Z11.1 Encounter for screening for respiratory tuberculosis; E11.9 Type 2 diabetes mellitus without complications; Z79.84 Long term (current) use of oral hypoglycemic drugs; M06.9 Rheumatoid arthritis, unspecified | CPT/HCPCS: 71046; 73130; 73562; 99204 ==

== ENCOUNTER 2020-07-10 10:35 | Outpatient (CLI) | payer MEDICARE, SELFPAY ==
--- NOTE | 2020-07-10 11:08 | XR_ITS ---
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 FINDINGS: Normal metacarpals. Normal MCP joint. Metacarpal heads are normal in appearance. Mild IP joint narrow ing. No evidence of acute fracture or dislocation. Radiocarpal joint: Mild narrowing Carpal bones: Mild degenerative narrowing at the first CMC and STT XR/XR hand LT min 3V* [id number] IMPRESSION: 1. 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 2. Mild IP joint narrowing. 3. Mild narrowing of the radiocarpal joint.
--- NOTE | 2020-07-10 11:08 | XR_ITS ---
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 FINDINGS: Normal anatomic alignment. Mild degenerative narrowing medial joint compartment and patellofemoral ar ticulation. Vascular calcification. Slightly hypertrophic patella. Mild soft tissue edema. No signifi cant effusion. XR/XR knee LT 3V* [id number] IMPRESSION: Mild degenerative arthritis. No acute findings
--- NOTE | 2020-07-10 11:08 | XR_ITS ---
WS: [id number] PROCEDURE: XR chest 2V* [id number] CLINICAL INFORMATION: Z79.899 - Other emt intermediate (current) drug therapy COMPARISON: June 11, 2020 FINDINGS: Heart: Normal cardiac silhouette. Tortuous ectatic thoracic aorta. Lungs: Advanced chronic emphysematous changes. Stable decreased volume left lung with fibrosis. Stab le ipsilateral mediastinal shift. Bones: Osteopenia. Mild thoracic curve and kyphosis. XR/XR chest 2V* [id number] IMPRESSION: 1. Volume loss left lung with fibrosis unchanged from previous 2. No other significant interval changes.
== END 2020-07-10 10:36 | disposition home or self-care (01) ==
PROVIDERS: PCP Family Medicine; Visit Provider Internal Medicine Rheumatology
DX: M06.9 Rheumatoid arthritis, unspecified (principal); Z79.899 Other long term (current) drug therapy
CPT/HCPCS: 71046; 73130; 73562

== ENCOUNTER 2020-07-13 12:02 | Emergency (ER) | payer MEDICARE, SELFPAY ==
[2020-07-13] VITALS (9 sets, daily range): BP systolic 113–180; BP diastolic 55–110; PULSE 56–75; RESP 14–20; TEMP 36.4; O2SAT 96–100; BMI 28.3
--- NOTE | 2020-07-13 12:09 | CT_ITS ---
WS: [id number] CT HEAD NONCONTRAST HISTORY: syncope TECHNIQUE: Contiguous axial imaging performed through the brain in 2.5 mm imaging. Bone and soft tiss ue windows. Sagittal and coronal reformats reviewed. All CT scans at [facility] use at ast one of these dose optimization techniques: automated exposure control; mA and/or kV adjustment pe r patient size (includes targeted exams where dose is matched to clinical indication); or iterative r econstruction. DLP: 793.57 mGy.cm COMPARISON: 06/11/2020 No acute intracranial hemorrhage, midline shift or mass effect. No atrophy or prior infarcts or herniation. Very mild chronic microvascular ischemic disease. Prior lacunar infarcts in the anterior limbs of internal capsules. Ventricles: Normal size with no hydrocephalus. Paranasal sinuses: As visualized are clear. Mastoid air cells: Well pneumatized. Calvarium and scalp: Hyperostosis frontalis interna. No fracture. CT/CT head wo con* [id number] IMPRESSION: 1. No acute intracranial hemorrhage or edema. 2. Mild chronic microvascular ischemic disease and lacunar infarcts. 3. No skull fracture.
--- NOTE | 2020-07-13 12:09 | XR_ITS ---
WS: [id number] PORTABLE CHEST HISTORY: reduced breath sounds COMPARISON: 07/10/2020 Mild volume loss in the LEFT thorax. Reticular nodular thickening and pleural thickening at the LEFT apex. Similar to prior studies. No pneumonia. RIGHT lung is clear and hyperexpanded. No pleural effusion or pneumothorax. Cardiac size: Normal. Mediastinum/Aorta: Mild atherosclerosis aorta. No osseous abnormality seen. XR/XR chest 1V portable [id number] IMPRESSION: 1. Stable volume loss with fibrosis LEFT lung. 2. No pneumonia.
--- NOTE | 2020-07-13 12:24 | ECG_ITS ---
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 Measurements Intervals [place] Rate: 50 P: 18 [place]: 160 QRS: 0 QRSD: 92 T: 70 QT: 422 QTc: 386 Interpretive Statements SINUS BRADYCARDIA NONSPECIFIC T-WAVE ABNORMALITY Compared to ECG 06/11/2020 00:56:07 Sinus rhythm no longer present T-wave abnormality still present Electronically Signed On 07-13-2020 17:18:55 CDT by Edwige Buck M.D. [id number]
--- NOTE | 2020-07-13 12:28 | W.ED.SYNCOPE ---
HPI - Syncope General: Chief Complaint: Syncope Stated Complaint: SYNCOPAL EPISODE/ WEAKNESS Time Seen by Provider: 07/13/20 12:09 History of Present Illness: HPI narrative: Patient is a 75-year-old female with past medical history COPD on 2 L oxygen, remote HI history,, PE last fall on Eliquis, history of asymptomatic CVA seen on CT. She comes to the ER after an apparent syncopal episode. Reported she was going to the bathroom and when she came out she felt pale and generally weak all over. She was admitted about a month ago for similar episode of syncope related to positional hypotension and admitted for 5 days and started on midodrine but she continued to have significant positional orthostasis and was also started on pyridostigmine. It was recommended she go home with compression stockings and they were ordering her a wheelchair. The work-up was mostly negative and they were suspecting that this is likely related to her advancing dementia and related autonomic dysfunction. She was also treated for a UTI and given IV fluids during the admission for dehydration. Associated symptoms: Deny abdominal pain, chest pain or headache(s) Review of Systems General: Reports: 10 or more systems reviewed and unremarkable except in HPI and below Const: Denies: fatigue Eyes: Denies: change in vision, blurry vision or eye redness ENMT: Denies: throat pain, swelling of lips/tongue, ear or mastoid pain or nasal congestion Card: Denies: chest pain, palpitations, irregular heart rhythm, edema, dyspnea on exertion or orthopnea Resp: Denies: dyspnea, productive cough or non-productive cough GI: Denies: abdominal pain, diarrhea or GI cramping : Denies: flank pain, difficulty voiding, urinary frequency or urinary urgency Musc: Denies: neck pain, back pain, extremity pain, joint pain, joint redness, limited range of motion or muscle weakness Skin/Breast: Denies: rash, pruritus, erythema, skin pain or skin tenderness Neuro: Denies: headache(s), numbness in extremities, weakness in extremities, sensory changes, difficulty walking, dizziness, confusion or Slurred speech present Psych: Denies: anxiety or depression Endo: Denies: polyuria All/Imm: Denies: urticaria, throat swelling or tongue swelling [facility] PFSH: Medical History (Updated 07/13/20 @ 19:44 by Chavo Mcgowan MD) COPD (chronic obstructive pulmonary disease) Dementia DM type 2 (diabetes mellitus, type 2) DVT (deep venous thrombosis) GERD (gastroesophageal reflux disease) High risk medication use Hyperlipidemia Hypertension Immunization counseling Plaque psoriasis Seropositive rheumatoid arthritis of multiple sites Surgical History H/O hernia repair H/O: hysterectomy History of carpal tunnel surgery S/P appendectomy Status post myringotomy with tube placement of both ears Family History (Updated 07/10/20 @ 09:45 by Kylee Mederos LPN) Other CAD (coronary artery disease) Cancer Dementia Diabetes Hypertension Stroke Denies family history of Rheumatoid arthritis Lupus Chronic kidney disease (CKD) Lung disease Social History (Updated 07/10/20 @ 09:41 by Kylee Mederos LPN) Smoking and tobacco status: former smoker Alcohol intake: never Household members: children Marital status: / History of recent travel: No Female Reproductive History: Para: 3 Physical Exam Const: COMMON NORMALS: no acute distress, average body habitus, patient oriented x3, no limitations, healthy appearing, alert and well nourished GENERAL APPEARANCE: cooperative, comfortable, well kempt and well developed ORIENTATION/CONSCIOUSNESS: Yes awake, Yes oriented to person, Yes oriented to place and Yes oriented to time HENMT: COMMON NORMALS: normocephalic, external ears normal and Normal external nose present HEAD & SCALP: normal to inspection and normocephalic NOSE: Normal external nose present EXTERNAL EAR: Yes external ears normal MOUTH: Normal oral and palatal mucosa present THROAT: posterior oropharynx normal Eye: COMMON NORMALS: Equal, round and reactive pupils present and EOMs intact bilaterally GENERAL EYE: appearance normal, both eyes and all related structures PUPIL: Yes Equal, round and reactive pupils present Neck/C-Spine: COMMON NORMALS: full ROM, no lymphadenopathy, no meningeal signs and no JVD GENERAL: Yes normal visual inspection Lymph: LYMPHATIC: no lymphadenopathy noted Chest: COMMONS NORMALS: normal inspection of the chest and normal palpation of entire chest wall Resp: COMMON NORMALS: normal respiratory effort, No retractions, No use of accessory muscles, clear to auscultation bilaterally and percussion normal EFFORT & INSPECTION: Yes able to speak in complete sentences AUSCULTATION: clear to auscultation bilaterally PERCUSSION: percussion normal Cardio: COMMON NORMALS: no JVD, regular rate, regular rhythm, S1 normal heart sound present, S2 normal heart sound present and Peripheral pulses 2+ throughout RATE: regular rate RHYTHM: regular rhythm HEART SOUNDS: S1 normal heart sound present and S2 normal heart sound present PERIPHERAL PULSES: Peripheral pulses 2+ throughout GI: COMMON NORMALS: Normal to inspection, nondistended, normoactive bowel sounds present, Soft to palpation, non-tender and no masses INSPECTION: Yes normal to inspection PALPATION: Yes Soft to palpation : COMMON NORMALS: Yes no CVA tenderness BLADDER/KIDNEY EXAM: Yes no CVA tenderness Back/Pelvis: COMMON NORMALS: no CVA tenderness, thoracic and lumbar spine normal to inspection, no thoracic nor lumbar tenderness and thoraco-lumbar ROM normal Extremity: COMMON NORMALS: normal to inspection, full ROM, capillary refill normal, no joint enlargement and no pedal edema GENERAL: Yes normal exam except as noted Neuro: COMMON NORMALS: patient oriented x3, CN's II-XII intact bilaterally, moves all extremities, no focal motor deficits, no sensory deficits noted and gait normal SENSORIUM/ORIENTATION: Yes alert, Yes oriented to person, Yes oriented to place and Yes oriented to time MENINGEAL SIGNS: Yes no meningeal signs Psych: COMMON NORMALS: mental status grossly normal, Normal thought process present, cooperative, normal affect and speech normal APPEARANCE: Yes well kempt ATTITUDE: Yes calm SPEECH: Yes normal speech THOUGHT PROCESS: Normal thought process present Skin: COMMON NORMALS: no rashes or lesions noted GENERAL SKIN EXAM: no rashes or lesions noted Course Vital Signs: Vital signs: Vital Signs Temperature 97.5 F L 07/13/20 12:08 Pulse Rate 62 07/13/20 18:39 Respiratory Rate 14 07/13/20 18:39 Blood Pressure 136/65 07/13/20 18:39 Pulse Oximetry 99 07/13/20 18:39 MDM - Syncope MDM Narrative: Medical decision making narrative: The patient came after a syncopal episode. She was admitted recently after multiple syncopal episodes and had an array of tests done all of which were negative. She was started on midodrine and pyridostigmine and discharged and recommended she use a wheelchair to get around. But even still on discharge she had some positional hypotension which they think is related to her advancing dementia and autonomic dysfunction. Today after using the bathroom she got up off the toilet and had an episode of syncope again before she could get to her wheelchair. She sustained to left rib fractures which are not bothersome to her. Her neck CT did show some abnormalities but the MRI was ordered which showed that the changes are chronic and likely degenerative. She is stable for discharge and follow-up with her primary care physician in a couple days. ER with worsening symptoms Lab Data: Labs: Lab Results 07/13/20 07/13/20 07/13/20 Range/Units 12:00 12:00 12:00 WBC 8.9 (4.0-10.0) 10^3/ uL RBC 3.67 L (4.1-5.3) 10^6/u L Hgb 11.1 L (11.5-15.3) g/dL Hct 36.4 L (37.0-47.0) % MCV 99.2 H (81-99) fL MCH 30.2 (28.0-34.0) pg MCHC 30.5 (30.0-36.0) g/dL RDW 13.2 (12.1-15.1) % Plt Count 277 (130-400) 10^3/c mm MPV 10.2 (7.4-10.4) fL Neut % (Auto) 66.5 % Lymph % (Auto) 27.7 % [place] % (Auto) 4.7 % Eos % (Auto) 0.4 % Baso % (Auto) 0.3 % Neut # (Auto) 5.93 (1.8-7.7) 10^3/u L Lymph # (Auto) 2.5 (0.8-4.8) 10^3/u L [place] # (Auto) 0.4 (0.2-0.9) 10^3/u L Eos # (Auto) 0.0 (0.0-0.8) 10^3/u L Baso # (Auto) 0.0 (0.0-0.1) 10^3/u L Nucleated RBC % (a uto) 0 % Nucleated RBCs # 0.0 /100WBC D-Dimer 0.50 (0-0.59) ug/mIFE U Sodium 138 (136-145) mmol/L Potassium 3.8 (3.5-5.1) mmol/L Chloride 100 (98-107) mmol/L Carbon Dioxide 26 (22-29) mmol/L Anion Gap 15.8 (5-19) BUN 29 H (8-23) mg/dL Creatinine 1.1 H (0.5-0.9) mg/dL GFR Calculation Not Reportable Glucose 161 H (65-115) mg/dL Calculated Osmolal ity 295 (285-295) mOsm/k g Lactate (0.5-2.2) mmol/L Calcium 9.9 (8.5-10.5) mg/dL Total Bilirubin 0.3 (0.15-1.2) mg/dL AST 12 (0-32) U/L ALT 6 (0-33) U/L Alkaline Phosphata se 78 (35-105) IU/L Troponin T Baselin e (0-10) ng/L Troponin T 120 Min [place] (0-10) ng/L Delta Troponin T (0-10) ABS# Troponin T Hi Sens 6Hr (0-10) ng/L Troponin T Hi Sens 6Hr Delta (0-12) ng/L NT-Pro-B Natriuret Pep 288 (0-450) pg/mL Total Protein 6.3 L (6.6-8.7) g/dL Albumin 3.8 (3.5-5.2) g/dL Globulin 2.5 (1.3-4.6) g/dL Urine Color (Yellow) Urine Appearance (CLEAR) Urine pH (5-7) Ur Specific Gravit y (1.005-1.030) Urine Protein (Negative) Urine Glucose (UA) (Normal) Urine Ketones (Negative) Urine Blood (Negative) Urine Nitrate (Negative) Urine Bilirubin (Negative) Urine Urobilinogen (Negative) mg/dL Ur Leukocyte Zoe ase (Negative) 07/13/20 07/13/20 07/13/20 Range/Units 12:00 13:27 13:45 WBC (4.0-10.0) 10^3/ uL RBC (4.1-5.3) 10^6/u L Hgb (11.5-15.3) g/dL Hct (37.0-47.0) % MCV (81-99) fL MCH (28.0-34.0) pg MCHC (30.0-36.0) g/dL RDW (12.1-15.1) % Plt Count (130-400) 10^3/c mm MPV (7.4-10.4) fL Neut % (Auto) % Lymph % (Auto) % [place] % (Auto) % Eos % (Auto) % Baso % (Auto) % Neut # (Auto) (1.8-7.7) 10^3/u L Lymph # (Auto) (0.8-4.8) 10^3/u L [place] # (Auto) (0.2-0.9) 10^3/u L Eos # (Auto) (0.0-0.8) 10^3/u L Baso # (Auto) (0.0-0.1) 10^3/u L Nucleated RBC % (a uto) % Nucleated RBCs # /100WBC D-Dimer (0-0.59) ug/mIFE U Sodium (136-145) mmol/L Potassium (3.5-5.1) mmol/L Chloride (98-107) mmol/L Carbon Dioxide (22-29) mmol/L Anion Gap (5-19) BUN (8-23) mg/dL Creatinine (0.5-0.9) mg/dL GFR Calculation Glucose (65-115) mg/dL Calculated Osmolal ity (285-295) mOsm/k g Lactate 1.8 (0.5-2.2) mmol/L Calcium (8.5-10.5) mg/dL Total Bilirubin (0.15-1.2) mg/dL AST (0-32) U/L ALT (0-33) U/L Alkaline Phosphata se (35-105) IU/L Troponin T Baselin e 17 H (0-10) ng/L Troponin T 120 Min [place] (0-10) ng/L Delta Troponin T (0-10) ABS# Troponin T Hi Sens 6Hr (0-10) ng/L Troponin T Hi Sens 6Hr Delta (0-12) ng/L NT-Pro-B Natriuret Pep (0-450) pg/mL Total Protein (6.6-8.7) g/dL Albumin (3.5-5.2) g/dL Globulin (1.3-4.6) g/dL Urine Color Yellow (Yellow) Urine Appearance Clear (CLEAR) Urine pH 5 (5-7) Ur Specific Gravit y 1.025 (1.005-1.030) Urine Protein Neg (Negative) Urine Glucose (UA) Norm (Normal) Urine Ketones Negative (Negative) Urine Blood Neg (Negative) Urine Nitrate Negative (Negative) Urine Bilirubin 1+ H (Negative) Urine Urobilinogen Norm (Negative) mg/dL Ur Leukocyte Zoe ase Negative (Negative) 07/13/20 07/13/20 Range/Units 13:45 18:12 WBC (4.0-10.0) 10^3/ uL RBC (4.1-5.3) 10^6/u L Hgb (11.5-15.3) g/dL Hct (37.0-47.0) % MCV (81-99) fL MCH (28.0-34.0) pg MCHC (30.0-36.0) g/dL RDW (12.1-15.1) % Plt Count (130-400) 10^3/c mm MPV (7.4-10.4) fL Neut % (Auto) % Lymph % (Auto) % [place] % (Auto) % Eos % (Auto) % Baso % (Auto) % Neut # (Auto) (1.8-7.7) 10^3/u L Lymph # (Auto) (0.8-4.8) 10^3/u L [place] # (Auto) (0.2-0.9) 10^3/u L Eos # (Auto) (0.0-0.8) 10^3/u L Baso # (Auto) (0.0-0.1) 10^3/u L Nucleated RBC % (a uto) % Nucleated RBCs # /100WBC D-Dimer (0-0.59) ug/mIFE U Sodium (136-145) mmol/L Potassium (3.5-5.1) mmol/L Chloride (98-107) mmol/L Carbon Dioxide (22-29) mmol/L Anion Gap (5-19) BUN (8-23) mg/dL Creatinine (0.5-0.9) mg/dL GFR Calculation Glucose (65-115) mg/dL Calculated Osmolal ity (285-295) mOsm/k g Lactate (0.5-2.2) mmol/L Calcium (8.5-10.5) mg/dL Total Bilirubin (0.15-1.2) mg/dL AST (0-32) U/L ALT (0-33) U/L Alkaline Phosphata se (35-105) IU/L Troponin T Baselin e (0-10) ng/L Troponin T 120 Min [place] 15.72 H (0-10) ng/L Delta Troponin T -1.28 L (0-10) ABS# Troponin T Hi Sens 6Hr 17.68 H (0-10) ng/L Troponin T Hi Sens 6Hr Delta 0.68 (0-12) ng/L NT-Pro-B Natriuret Pep (0-450) pg/mL Total Protein (6.6-8.7) g/dL Albumin (3.5-5.2) g/dL Globulin (1.3-4.6) g/dL Urine Color (Yellow) Urine Appearance (CLEAR) Urine pH (5-7) Ur Specific Gravit y (1.005-1.030) Urine Protein (Negative) Urine Glucose (UA) (Normal) Urine Ketones (Negative) Urine Blood (Negative) Urine Nitrate (Negative) Urine Bilirubin (Negative) Urine Urobilinogen (Negative) mg/dL Ur Leukocyte Zoe ase (Negative) Discharge Plan Discharge Patient Disposition: Home Clinical Impression: Syncope, Fracture of ribs, multiple Condition: Stable Prescriptions: No Action prednisone 5 mg tablet See Rx Instructions PO .COMPLEX PRN (Reason: joint pain flare) Qty: 30 RF: 0 alprazolam 0.25 mg tablet 0.25 mg PO BID PRN (Reason: Anxiety) RF: 0 metformin 1,000 mg tablet 1,000 mg PO BID@10,22 RF: 0 albuterol sulfate 90 mcg/actuation HFA aerosol inhaler 1 puff inhalation Q6H PRN (Reason: Shortness Of Breath) RF: 0 cholecalciferol (vitamin D3) [Vitamin D3] 25 mcg (1,000 unit) Tablet 25 mcg PO DAILY@10 RF: 0 levothyroxine 50 mcg Tablet 50 mcg PO DAILY@10 RF: 0 venlafaxine 150 mg Capsule,Extended Release 24hr 150 mg PO DAILY@10 RF: 0 hydrochlorothiazide 25 mg Tablet 25 mg PO DAILY@10 RF: 0 sertraline 50 mg Tablet 50 mg PO DAILY@10 RF: 0 atenolol 50 mg Tablet 25 mg PO DAILY@10 RF: 0 Seroquel 25 mg tablet 50 mg PO BID@ RF: 0 donepezil 10 mg tablet 10 mg PO BEDTIME@ RF: 0 aspirin 81 mg tablet,delayed release (DR/EC) 81 mg PO DAILY@10 RF: 0 leflunomide 20 mg tablet 20 mg PO DAILY@22 RF: 0 memantine 10 mg tablet 10 mg PO BID@ RF: 0 diclofenac sodium 1 % gel 2 g topical QID PRN (Reason: Pain) RF: 0 Eliquis 5 mg tablet 5 mg PO BID@ RF: 0 pyridostigmine bromide 30 mg tablet 30 mg PO BID@ RF: 0 Discharge Orders: Discharge ED (Routine); Ordered 07/13/20 Ordered By: Chavo Mcgowan Referrals: Saima Carnes MD [Primary Care Provider] - Discharge Diet: Advance as tolerated Discharge Activity: Limit activity as instructed Patient Instructions: Rib Fracture (ED), Syncope (ED), Opioid Safety Activity Restrictions/Additional Instructions: You have had an episode of syncope and have broken a couple ribs on your left side. Please take Tylenol for your pain and return to the ER with worsening symptoms. This has been a chronic problem for you passing out and please use your wheelchair to get around and have assistance to use the bathroom to prevent you from falling again. Return to the ER at anytime with worsening symptoms otherwise follow-up with your primary care physician in a couple weeks. Coding Level of Care Code ED St[employer] Cle[employer] Machine Feeder for Robbie Gonzales Exam Comprehensive
[2020-07-13 12:41] LABS: Basophils % 0.3 %; Eosinophils % 0.4 %; Hematocrit 36.4 % (37.0-47.0); Hemoglobin 11.1 g/dL (11.5-15.3); Lymphocytes # 2.5 10^3/uL (0.8-4.8); Lymphocytes % 27.7 %; Mean Corpuscular HGB Conc 30.5 g/dL (30.0-36.0); Mean Corpuscular Hemoglobin 30.2 pg (28.0-34.0); Mean Corpuscular Volume 99.2 fL (81-99); Mean Platelet Volume 10.2 fL (7.4-10.4); Monocytes # 0.4 10^3/uL (0.2-0.9); Monocytes % 4.7 %; Neutrophils # 5.93 10^3/uL (1.8-7.7); Neutrophils % 66.5 %; Nucleated Red Blood Cells % 0 %; Platelet Count 277 10^3/cmm (130-400); Red Blood Count 3.67 10^6/uL (4.1-5.3); Red Cell Distribution Width 13.2 % (12.1-15.1); White Blood Count 8.9 10^3/uL (4.0-10.0)
--- NOTE | 2020-07-13 12:49 | CT_ITS ---
WS: [id number] CT CERVICAL SPINE HISTORY: Fall, history of dementia. TECHNIQUE: Contiguous 2.5 mm axial imaging performed through the entire cervical spine. Sagittal and coronal reformats also performed. All CT scans at [facility] use at least one of these do se optimization techniques: automated exposure control; mA and/or kV adjustment per patient size (inc ludes targeted exams where dose is matched to clinical indication); or iterative reconstruction. DLP: 406.93 mGy.cm COMPARISON: None available. Straightening of the normal cervical lordosis. C3 anterolisthesis by 3 mm and C5 retrolisthesis 2.2 m m. Moderate disc space narrowing at C5-6 with degenerative osteophytosis. Craniocervical junction and the lateral masses of C1 and C2 are normal. No fractures. Partially calcified RIGHT thyroid nodule mass measures 1.9 x 1.6 cm. Fibrotic changes with volume los s visualized in the LEFT upper lobe. C2-C3: Normal. C3-C4: Small foraminal osteophytes and see 3 anterolisthesis by 2 mm. No fracture. C4-C5: Small central disc protrusion. No stenosis. C5-C6: Diffuse mild osteophytic ridging. Moderate LEFT foraminal stenosis. C6-C7: LEFT paracentral disc protrusion and osteophytes causing mild LEFT foraminal stenosis. C7-T1: Normal. Soft tissues are normal. Lung apices are clear. CT/CT cervical spin wo con* [id number] IMPRESSION: 1. No acute cervical spine fracture. 2. C3 anterolisthesis by 3 mm and C5 retrolisthesis by 2 mm. 3. Moderate degenerative disc space narrowing with osteophytic ridging at C5-6 . 4. Moderate LEFT foraminal stenosis at C5-6. 5. LEFT paracentral disc protrusion and osteophyte at C6-7 causing mild LEFT f oraminal stenosis.
--- NOTE | 2020-07-13 12:49 | CT_ITS ---
WS: [id number] CT CHEST WITHOUT INTRAVENOUS CONTRAST HISTORY: fall TECHNIQUE: Contiguous 5 mm axial imaging performed on the thorax. Coronal and sagittal reformats are submitted. All CT scans at [facility] use at least one of these dose optimization techniq ues: automated exposure control; mA and/or kV adjustment per patient size (includes targeted exams wh ere dose is matched to clinical indication); or iterative reconstruction. CONTRAST: None DLP: 682.69 mGy.cm COMPARISON: 01/11/2020 Lungs and central airway: Volume loss in the LEFT lung. Interstitial thickening and fibrosis in the L EFT upper lobe. No pulmonary mass or nodule. Pleura: Normal. No pleural effusion. Heart and pericardium: Normal size heart with no pericardial effusion. Mediastinum and yolande: No significant adenopathy. Vessels: Moderate atherosclerosis thoracic aorta. Mild dilatation of the pulmonary artery. There is a lso moderate coronary artery atherosclerosis. Chest wall and lower neck: RIGHT thyroid nodule contains calcification. No os change since 01/11/2020. Upper abdomen: Suprarenal moderate atherosclerosis of aorta. Calcifications extend into the mesenteri c arteries. Nonobstructing calcifications in the central RIGHT kidney. No adrenal mass. Osseous structures: Nondisplaced fracture in the lateral LEFT fifth rib in the posterior medial ninth rib. CT/CT chest wo con [id number] IMPRESSION: 1. Volume loss with pulmonary fibrosis is stable in the LEFT lung. 2. No pneumothorax. 3. Nondisplaced acute LEFT lateral fifth and posterior medial ninth ribs. 4. Moderate thoracic and suprarenal aortic atherosclerosis.
[2020-07-13 12:56] LABS: Troponin(5th) Baseline 17 ng/L (0-10)
[2020-07-13 13:04] LABS: Alanine Aminotransferase 6 U/L (0-33); Albumin Level 3.8 g/dL (3.5-5.2); Alkaline Phosphatase 78 IU/L (35-105); Anion Gap 15.8 (5-19); Aspartate Amino Transferase 12 U/L (0-32); Blood Urea Nitrogen 29 mg/dL (8-23); Calcium 9.9 mg/dL (8.5-10.5); Carbon Dioxide 26 mmol/L (22-29); Chloride 100 mmol/L (98-107); Globulin 2.5 g/dL (1.3-4.6); Glucose 161 mg/dL (65-115); NT Pro B Type Natriuretic Pept 288 pg/mL (0-450); Osmolality Calculated 295 mOsm/kg (285-295); Potassium 3.8 mmol/L (3.5-5.1); Sodium 138 mmol/L (136-145); Total Bilirubin 0.3 mg/dL (0.15-1.2); Total Protein 6.3 g/dL (6.6-8.7)
[2020-07-13] MEDS: sodium chloride 0.9% 500 ML IV (13:22)
[2020-07-13 13:32] LABS: Add Urine Microscopic? NO
[2020-07-13 13:35] LABS: Bilirubin Urine 1+ (Negative); Blood Urine Neg (Negative); Glucose Urine UA Norm (Normal); Ketones Urine Negative (Negative); Leukocyte Esterase Urine Negative (Negative); Nitrate Urine Negative (Negative); Protein Urine Neg (Negative); Specific Gravity, Urine 1.025 (1.005-1.030); Urine Appearance Clear (CLEAR); Urine Color Yellow (Yellow); Urobilinogen Urine Norm (Negative); pH Urine 5 (5-7)
[2020-07-13 14:10] LABS: Lactate (Lactic Acid level) 1.8 mmol/L (0.5-2.2)
[2020-07-13 14:18] LABS: Troponin 5 2HR 15.72 ng/L (0-10)
[2020-07-13 14:19] LABS: Troponin 5 2HR Delta -1.28 ABS# (0-10)
--- NOTE | 2020-07-13 14:24 | ECG_ITS ---
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 Measurements Intervals [place] Rate: 56 P: -37 RI: 137 QRS: 8 QRSD: 89 T: 52 QT: 400 QTc: 387 Interpretive Statements SINUS BRADYCARDIA NONSPECIFIC T-WAVE ABNORMALITY Compared to ECG 07/13/2020 12:22:25 No significant changes Electronically Signed On 07-13-2020 17:24:31 CDT by Edwige Buck M.D. [id number]
--- NOTE | 2020-07-13 14:25 | MRR_ITS ---
PROCEDURE INFORMATION: Exam: MR Cervical Spine Without Contrast Exam date and time: 07/13/2020 4:38 PM Age: 75 years old Clinical indication: Neck pain; Prior surgery; Surgery type: Ears; Additional info: Ligament disruption vs chronic neck problem TECHNIQUE: Imaging protocol: Multiplanar magnetic resonance images of the cervical spine without contrast. COMPARISON: CT cervical spin wo con* [id number] 07/13/2020 1:13 PM FINDINGS: Limitations: Study is somewhat limited by patient motion. Vertebrae: Vertebrae are intact without evidence of fracture or destructive lesion. Spinal cord: Cervical cord has a normal diameter and appearance. C2-C3: Mild posterior disc bulge. No central canal or foraminal stenosis. C3-C4: Small midline posterior disc osteophyte complex without central canal or foraminal stenosis. Approximately 2 mm of anterolisthesis. C4-C5: Minimal midline posterior disc osteophyte complex. No central canal or foraminal stenosis. C5-C6: Moderate disc osteophyte complex more prominent towards the left. Mild right and moderate left foraminal narrowing. Decreased height of the C5-C6 disc. C6-C7: There is mild uncovertebral hypertrophy and mild narrowing of the left neural foramen. No disc herniation or central canal stenosis. C7-T1: Unremarkable Soft tissues: Unremarkable. Vertebral arteries: Expected flow voids in the vertebral arteries. MR/MR cervical spin wo con* [id number] IMPRESSION: Degenerative changes as described above.
--- NOTE | 2020-07-13 14:37 | XR_ITS ---
NOTE: Report was unsigned for reason: Order was edited. Original Signature date and time was: 07/13/20 @ 1518 WS: [id number] Bilateral hips, AP and frog-leg views, AP pelvis, 07/13/2020 Clinical Data: fall Comparison: Pelvis and right hip, 02/03/2019. Findings: Right hip: There is a prominent acetabular lip which can be seen with arthritis. No narrowing, sclerosis or cyst formation of the right hip is seen. There are no fractures or dislocations. Left hip: No narrowing, erosion or sclerosis seen. There are no fractures or dislocations. AP pelvis: There are no pelvic fractures. The SI joints and pubic symphysis are not remarkable. There is vascular calcification of the femoral arteries. [facility] XR/XR hip BI m 5V wo/w pel* [id number] Impression: 1. Moderate osteoarthritis of the right hip. 2. Negative left hip and pelvis.
--- NOTE | 2020-07-13 15:30 | PC.NURSE ---
2nd ekg done by military technology specialist and given to physician
--- NOTE | 2020-07-13 15:40 | PC.NURSE ---
pt left to go to MRI by EMS
--- NOTE | 2020-07-13 17:32 | PC.NURSE ---
Replaced hard c-collar with Large soft collar. Pt was not comfortable and collar did not provide adequate support. Large soft collar replaced again with medium collar. Medium collar provided proper support. Pt was much happier and states collar was more comfortable.
--- NOTE | 2020-07-13 18:24 | ECG_ITS ---
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 Measurements Intervals [place] Rate: 70 P: 60 AR: 167 QRS: 19 QRSD: 90 T: 31 QT: 323 QTc: 349 Interpretive Statements SINUS RHYTHM WITH OCCASIONAL VENTRICULAR PREMATURE COMPLEXES NONSPECIFIC T-WAVE ABNORMALITY Compared to ECG 07/13/2020 15:20:02 Ventricular premature complex(es) now present Sinus bradycardia no longer present T-wave abnormality still present Electronically Signed On 07-13-2020 22:33:35 CDT by Edwige Buck M.D. [id number]
[2020-07-13 18:40] LABS: Troponin 5 6HR 17.68 ng/L (0-10); Troponin 5 6HR Delta 0.68 ng/L (0-12)
== END 2020-07-13 20:25 | disposition home or self-care (01) ==
PROVIDERS: Emergency Provider Family Medicine; PCP Family Medicine
DX: R55 Syncope and collapse (principal); S22.42XA Multiple fractures of ribs, left side, initial encounter for closed fracture; J44.9 Chronic obstructive pulmonary disease, unspecified; F03.90 Unspecified dementia, unspecified severity, without behavioral disturbance, psychotic disturbance, mood disturbance, and anxiety; E11.9 Type 2 diabetes mellitus without complications; E78.5 Hyperlipidemia, unspecified; I10 Essential (primary) hypertension; Z87.891 Personal history of nicotine dependence; Z99.81 Dependence on supplemental oxygen; I25.2 Old myocardial infarction; W19.XXXA Unspecified fall, initial encounter; Z79.01 Long term (current) use of anticoagulants; Z79.84 Long term (current) use of oral hypoglycemic drugs; Z79.82 Long term (current) use of aspirin
CPT/HCPCS: 36415; 70450; 71045; 71250; 72125; 72141; 73521; 73523; 80053; 81003; 83605; 83880; 84484; 85025; 85378; 93005; 96360; 99284; J7040

== ENCOUNTER 2020-08-15 08:30 | Outpatient (CLI) | payer MEDICARE, SELFPAY ==
--- NOTE | 2020-08-15 08:35 | US_ITS ---
WS: [id number] ULTRASOUND THYROID TECHNIQUE: Ultrasound of the thyroid. CLINICAL INFORMATION: NONTOXIC GOITER COMPARISON: None. FINDINGS: Heterogeneous nodular RIGHT thyroid lobe consistent with goiter. Calcified shadowing RIGHT sided nodule measuring 7 mm. Hypoechoic nodule LEFT thyroid measuring 8 x 9 mm Thyroid: Right thyroid lobe: cm x 2.3 cm x 2.6 cm Left thyroid lobe: cm x 1.0 cm x 1.8 cm. Isthmus: 2-3 mm. Cervical lymphadenopathy: None. US/US thyroid [id number] IMPRESSION: 1. Heterogeneous nodular right thyroid consistent with goiter. 2. Calcified right nodule measuring 7 mm. 3. Ovoid hypoechoic left-sided nodule measuring 8 x 9 mm. 4. No other significant findings.
== END 2020-08-15 08:31 | disposition home or self-care (01) ==
LOC: RAD 08:32
PROVIDERS: PCP Family Medicine; Visit Provider Nurse Practitioner Family
DX: E04.9 Nontoxic goiter, unspecified (principal); E04.1 Nontoxic single thyroid nodule
CPT/HCPCS: 76536

== ENCOUNTER 2020-08-29 02:17 | Emergency (ER) | payer MEDICARE, SELFPAY ==
[2020-08-29 02:19] VITALS: BP 164/67; PULSE 56; RESP 18; TEMP 36.8; O2SAT 95; BMI 28.3
--- NOTE | 2020-08-29 02:20 | CTR_ITS ---
PROCEDURE INFORMATION: Exam: CT Head Without Contrast Exam date and time: 08/29/2020 2:44 AM Age: 75 years old Clinical indication: Injury or trauma; Fall; Blunt trauma (contusions or hematomas); With loss of consciousness; Loss of consciousness for 30 minutes or less TECHNIQUE: Imaging protocol: Computed tomography of the head without contrast. Radiation optimization: All CT scans at this facility use at least one of these dose optimization techniques: automated exposure control; mA and/or kV adjustment per patient size (includes targeted exams where dose is matched to clinical indication); or iterative reconstruction. COMPARISON: CT head wo con* [id number] 07/13/2020 1:03 PM RADIATION DOSE METRICS: Total DLP (mGy-cm): 801.88 FINDINGS: Brain: No acute infarct or hemorrhage. Cerebral ventricles: No ventriculomegaly. Bones/joints: No calvarial or skull base fracture. Paranasal sinuses: Paranasal sinuses are clear. Mastoid air cells: Stable small amounts of fluid in the mastoid air cells bilaterally. Soft tissues: Unremarkable. CT/CT head wo con* [id number] IMPRESSION: 1. No acute infarct or hemorrhage. 2. No calvarial or skull base fracture. Radiation Dose CTDIVOL = (mGy): DLP = 801.88 (mGy-cm)
--- NOTE | 2020-08-29 02:20 | ECG_ITS ---
[facility] Test Date: 2020-08-29 Pat Name: Vandana Le Department: Room: Gender: Female Technical Professional: : 1945 Requested By: Roland Ramírez Order Number: [id number] Eloisa MD: Edwige Buck M.D. Measurements Intervals [place] Rate: 54 P: 108 [place]: 154 QRS: 51 QRSD: 92 T: 96 QT: 385 QTc: 367 Interpretive Statements SINUS BRADYCARDIA NONSPECIFIC T-WAVE ABNORMALITY Compared to ECG 07/13/2020 18:48:11 Sinus rhythm no longer present Ventricular premature complex(es) no longer present T-wave abnormality still present Electronically Signed On 08-30-2020 6:55:59 CDT by Edwige Buck M.D. [id number]
--- NOTE | 2020-08-29 02:21 | W.ED.SYNCOPE ---
HPI - Syncope General: Chief Complaint: Syncope Stated Complaint: SYNCOPE, HEAD INJURY Time Seen by Provider: 08/29/20 02:17 Source: patient and EMS Mode of arrival: EMS Limitations: no limitations History of Present Illness: HPI narrative: 75-year-old female has a history of syncopal events the past states she got up tonight to go to the bathroom states she passed out after she got up and fell and hit her head on the floor. She does have a contusion to her head states she has a headache currently. She rates her headache a 6 out of 10. Denies any injuries. Denies any neck pain. She denies any worsening improving factors. Associated symptoms: Reports headache(s); Deny abdominal pain, fever(s) or nausea Review of Systems Const: Denies: fever(s), chills, body aches or change in appetite Eyes: Denies: blurry vision or eye discomfort ENMT: Denies: throat pain or dental pain Card: Reports: syncope Resp: Denies: dyspnea GI: Denies: abdominal pain, nausea, vomiting or diarrhea : Denies: dysuria Musc: Denies: neck pain or back pain Skin/Breast: Denies: rash Neuro: Reports: headache(s) Psych: Denies: depression Onel/Lymph: Denies: easy bruising All/Imm: Denies: urticaria PFSH ED PFSH: Medical History COPD (chronic obstructive pulmonary disease) Dementia DM type 2 (diabetes mellitus, type 2) DVT (deep venous thrombosis) GERD (gastroesophageal reflux disease) High risk medication use Hyperlipidemia Hypertension Immunization counseling Plaque psoriasis Seropositive rheumatoid arthritis of multiple sites Surgical History H/O hernia repair H/O: hysterectomy History of carpal tunnel surgery S/P appendectomy Status post myringotomy with tube placement of both ears Family History Other CAD (coronary artery disease) Cancer Dementia Diabetes Hypertension Stroke Denies family history of Rheumatoid arthritis Lupus Chronic kidney disease (CKD) Lung disease Social History (Updated 07/10/20 @ 09:41 by Kylee Mederos LPN) Smoking and tobacco status: former smoker Alcohol intake: never Household members: children Marital status: / History of recent travel: No Female Reproductive History: Para: 3 Physical Exam Const: COMMON NORMALS: no acute distress, patient oriented x3 and healthy appearing HENMT: COMMON NORMALS: normocephalic HEAD & SCALP: normocephalic OTHER: contusion to forehead Eye: COMMON NORMALS: Equal, round and reactive pupils present and EOMs intact bilaterally PUPIL: Yes Equal, round and reactive pupils present Neck/C-Spine: COMMON NORMALS: full ROM and supple Chest: COMMONS NORMALS: normal inspection of the chest and normal palpation of entire chest wall Resp: COMMON NORMALS: normal respiratory effort, No retractions, No use of accessory muscles and clear to auscultation bilaterally AUSCULTATION: clear to auscultation bilaterally Cardio: COMMON NORMALS: regular rate, regular rhythm and No murmurs present (Cardio) RATE: regular rate RHYTHM: regular rhythm GI: COMMON NORMALS: Normal to inspection, nondistended, normoactive bowel sounds present, Soft to palpation, non-tender and no masses PALPATION: Yes Soft to palpation Extremity: COMMON NORMALS: normal to inspection and full ROM Neuro: COMMON NORMALS: patient oriented x3, moves all extremities and no focal motor deficits Psych: COMMON NORMALS: mental status grossly normal, Normal thought process present and cooperative THOUGHT PROCESS: Normal thought process present Skin: COMMON NORMALS: no rashes or lesions noted and no wounds GENERAL SKIN EXAM: no rashes or lesions noted Course Vital Signs: Vital signs: Vital Signs Temperature 98 F 08/29/20 03:37 Pulse Rate 62 08/29/20 04:30 Respiratory Rate 16 08/29/20 04:30 Blood Pressure 124/52 08/29/20 04:30 Pulse Oximetry 99 08/29/20 04:30 MDM - Syncope MDM Narrative: Medical decision making narrative: Patient presents her syncopal event and has had multiple syncopal events in the past. She has been well-appearing here and her heart rate has improved here. CT head and blood work are all normal. She feels improved and would like to go home. I feel she is stable for discharge. Her CT head is normal. Lab Data: Labs: Lab Results 08/29/20 08/29/20 08/29/20 Range/Units 01:50 01:50 01:50 WBC 6.9 (4.0-10.0) 10^3/ uL RBC 3.65 L (4.1-5.3) 10^6/u L Hgb 11.3 L (11.5-15.3) g/dL Hct 37.1 (37.0-47.0) % MCV 101.6 H (81-99) fL MCH 31.0 (28.0-34.0) pg MCHC 30.5 (30.0-36.0) g/dL RDW 12.8 (12.1-15.1) % Plt Count 237 (130-400) 10^3/c mm MPV 10.3 (7.4-10.4) fL Neut % (Auto) 40.0 % Lymph % (Auto) 49.4 % [place] % (Auto) 8.4 % Eos % (Auto) 1.2 % Baso % (Auto) 0.6 % Neut # (Auto) 2.77 (1.8-7.7) 10^3/u L Lymph # (Auto) 3.4 (0.8-4.8) 10^3/u L [place] # (Auto) 0.6 (0.2-0.9) 10^3/u L Eos # (Auto) 0.1 (0.0-0.8) 10^3/u L Baso # (Auto) 0.0 (0.0-0.1) 10^3/u L Nucleated RBC % (a uto) 0 % Nucleated RBCs # 0.0 /100WBC PT 13.10 (12.1-14.9) SECO NDS INR 0.96 (0.8-1.2) Sodium 140 (136-145) mmol/L Potassium 3.0 L (3.5-5.1) mmol/L Chloride 102 (98-107) mmol/L Carbon Dioxide 26 (22-29) mmol/L Anion Gap 15.0 (5-19) BUN 19 (8-23) mg/dL Creatinine 1.1 H (0.5-0.9) mg/dL GFR Calculation Not Reportable Glucose 117 H (65-115) mg/dL Calculated Osmolal ity 293 (285-295) mOsm/k g Calcium 8.8 (8.5-10.5) mg/dL Total Bilirubin 0.3 (0.15-1.2) mg/dL AST 14 (0-32) U/L ALT 7 (0-33) U/L Alkaline Phosphata se 80 (35-105) IU/L Troponin T Baselin e (0-10) ng/L Troponin T 120 Min [place] (0-10) ng/L Delta Troponin T (0-10) ABS# Total Protein 6.4 L (6.6-8.7) g/dL Albumin 3.3 L (3.5-5.2) g/dL Globulin 3.1 (1.3-4.6) g/dL 08/29/20 08/29/20 Range/Units 01:50 04:23 WBC (4.0-10.0) 10^3/ uL RBC (4.1-5.3) 10^6/u L Hgb (11.5-15.3) g/dL Hct (37.0-47.0) % MCV (81-99) fL MCH (28.0-34.0) pg MCHC (30.0-36.0) g/dL RDW (12.1-15.1) % Plt Count (130-400) 10^3/c mm MPV (7.4-10.4) fL Neut % (Auto) % Lymph % (Auto) % [place] % (Auto) % Eos % (Auto) % Baso % (Auto) % Neut # (Auto) (1.8-7.7) 10^3/u L Lymph # (Auto) (0.8-4.8) 10^3/u L [place] # (Auto) (0.2-0.9) 10^3/u L Eos # (Auto) (0.0-0.8) 10^3/u L Baso # (Auto) (0.0-0.1) 10^3/u L Nucleated RBC % (a uto) % Nucleated RBCs # /100WBC PT (12.1-14.9) SECO NDS INR (0.8-1.2) Sodium (136-145) mmol/L Potassium (3.5-5.1) mmol/L Chloride (98-107) mmol/L Carbon Dioxide (22-29) mmol/L Anion Gap (5-19) BUN (8-23) mg/dL Creatinine (0.5-0.9) mg/dL GFR Calculation Glucose (65-115) mg/dL Calculated Osmolal ity (285-295) mOsm/k g Calcium (8.5-10.5) mg/dL Total Bilirubin (0.15-1.2) mg/dL AST (0-32) U/L ALT (0-33) U/L Alkaline Phosphata se (35-105) IU/L Troponin T Baselin e 24 H (0-10) ng/L Troponin T 120 Min [place] 21.63 H (0-10) ng/L Delta Troponin T -2.37 L (0-10) ABS# Total Protein (6.6-8.7) g/dL Albumin (3.5-5.2) g/dL Globulin (1.3-4.6) g/dL EKG Data^: EKG 1: Attestation: I personally reviewed and interpreted this EKG as follows: EKG interpretation date: 08/29/20 EKG interpretation time: 02:30 Interpretation: sinus miguel hr [address] ort wave abnormalities qrs 92 qtc 372 Discharge Plan Discharge Patient Disposition: Home Clinical Impression: Syncope Qualifiers: Syncope type: unspecified Qualified Code(s): R55 - Syncope and collapse Closed head injury Qualifiers: Encounter type: initial encounter Qualified Code(s): S09.90XA - Unspecified injury of head, initial encounter Condition: Stable Prescriptions: No Action prednisone 5 mg tablet See Rx Instructions PO .COMPLEX PRN (Reason: joint pain flare) Qty: 30 RF: 0 alprazolam 0.25 mg tablet 0.25 mg PO BID PRN (Reason: Anxiety) RF: 0 metformin 1,000 mg tablet 1,000 mg PO BID@10,22 RF: 0 albuterol sulfate 90 mcg/actuation HFA aerosol inhaler 1 puff inhalation Q6H PRN (Reason: Shortness Of Breath) RF: 0 cholecalciferol (vitamin D3) [Vitamin D3] 25 mcg (1,000 unit) Tablet 25 mcg PO DAILY@10 RF: 0 levothyroxine 50 mcg Tablet 50 mcg PO DAILY@10 RF: 0 venlafaxine 150 mg Capsule,Extended Release 24hr 150 mg PO DAILY@10 RF: 0 hydrochlorothiazide 25 mg Tablet 25 mg PO DAILY@10 RF: 0 sertraline 50 mg Tablet 50 mg PO DAILY@10 RF: 0 atenolol 50 mg Tablet 25 mg PO DAILY@10 RF: 0 Seroquel 25 mg tablet 50 mg PO BID@ RF: 0 donepezil 10 mg tablet 10 mg PO BEDTIME@ RF: 0 aspirin 81 mg tablet,delayed release (DR/EC) 81 mg PO DAILY@10 RF: 0 leflunomide 20 mg tablet 20 mg PO DAILY@22 RF: 0 memantine 10 mg tablet 10 mg PO BID@ RF: 0 diclofenac sodium 1 % gel 2 g topical QID PRN (Reason: Pain) RF: 0 Eliquis 5 mg tablet 5 mg PO BID@ RF: 0 pyridostigmine bromide 30 mg tablet 30 mg PO BID@ RF: 0 Discharge Orders: Discharge ED (Routine); Ordered 08/29/20 Ordered By: Roland Ramírez Referrals: Saima Carnes MD [Primary Care Provider] - 1-3 days Discharge Diet: Advance as tolerated Discharge Activity: Resume usual activity Patient Instructions: Syncope (ED) Coding Level of Care Code ED Job Putter Up And Ticket Preparer for Chg Fwd Exam Comprehensive
[2020-08-29 02:28] LABS: Basophils % 0.6 %; Eosinophils # 0.1 10^3/uL (0.0-0.8); Eosinophils % 1.2 %; Hematocrit 37.1 % (37.0-47.0); Hemoglobin 11.3 g/dL (11.5-15.3); Lymphocytes # 3.4 10^3/uL (0.8-4.8); Lymphocytes % 49.4 %; Mean Corpuscular HGB Conc 30.5 g/dL (30.0-36.0); Mean Corpuscular Volume 101.6 fL (81-99); Mean Platelet Volume 10.3 fL (7.4-10.4); Monocytes # 0.6 10^3/uL (0.2-0.9); Monocytes % 8.4 %; Neutrophils # 2.77 10^3/uL (1.8-7.7); Nucleated Red Blood Cells % 0 %; Platelet Count 237 10^3/cmm (130-400); Red Blood Count 3.65 10^6/uL (4.1-5.3); Red Cell Distribution Width 12.8 % (12.1-15.1); White Blood Count 6.9 10^3/uL (4.0-10.0)
--- NOTE | 2020-08-29 02:35 | XRR_ITS ---
PROCEDURE INFORMATION: Exam: XR Chest Exam date and time: 08/29/2020 2:44 AM Age: 75 years old Clinical indication: Cough TECHNIQUE: Imaging protocol: XR of the chest. Views: 1 view. COMPARISON: CT chest [facility] [id number] 07/13/2020 1:15 PM FINDINGS: Lungs: Stable volume loss in the left hemithorax with left apical scar. Pleural spaces: Unremarkable. No pleural effusion. No pneumothorax. Heart/Mediastinum: Unremarkable. No cardiomegaly. Bones/joints: Unremarkable. XR/XR chest 1V portable [id number] IMPRESSION: Stable volume loss in the left hemithorax with left apical scar. No acute disease.
[2020-08-29 02:38] LABS: INR 0.96 (0.8-1.2)
[2020-08-29 02:48] LABS: Alanine Aminotransferase 7 U/L (0-33); Albumin Level 3.3 g/dL (3.5-5.2); Alkaline Phosphatase 80 IU/L (35-105); Aspartate Amino Transferase 14 U/L (0-32); Blood Urea Nitrogen 19 mg/dL (8-23); Calcium 8.8 mg/dL (8.5-10.5); Carbon Dioxide 26 mmol/L (22-29); Chloride 102 mmol/L (98-107); Globulin 3.1 g/dL (1.3-4.6); Glucose 117 mg/dL (65-115); Osmolality Calculated 293 mOsm/kg (285-295); Sodium 140 mmol/L (136-145); Total Bilirubin 0.3 mg/dL (0.15-1.2); Total Protein 6.4 g/dL (6.6-8.7)
[2020-08-29 03:37] VITALS: BP 100/60; PULSE 58; RESP 16; TEMP 36.6; O2SAT 98
[2020-08-29 03:42] LABS: Troponin(5th) Baseline 24 ng/L (0-10)
[2020-08-29 04:30] VITALS: BP 124/52; PULSE 62; RESP 16; O2SAT 99
[2020-08-29 05:00] LABS: Troponin 5 2HR 21.63 ng/L (0-10)
[2020-08-29 05:03] LABS: Troponin 5 2HR Delta -2.37 ABS# (0-10)
--- NOTE | 2020-08-29 05:26 | ECG_ITS ---
[facility] Test Date: 2020-08-29 Pat Name: Vandana Le Department: Room: Gender: Female Donor Support Technician: : 1945 Requested By: Roland Ramírez Order Number: [id number] Eloisa MD: Edwige Buck M.D. Measurements Intervals [place] Rate: 61 P: 87 PA: 160 QRS: 62 QRSD: 104 T: 86 QT: 440 QTc: 444 Interpretive Statements SINUS RHYTHM NONSPECIFIC T-WAVE ABNORMALITY Compared to ECG 08/29/2020 02:30:40 Sinus bradycardia no longer present T-wave abnormality still present Electronically Signed On 08-30-2020 7:03:42 CDT by Edwige Buck M.D. [id number]
[2020-08-29 05:40] VITALS: BP 124/64; PULSE 75; RESP 17; O2SAT 99
== END 2020-08-29 05:42 | disposition home or self-care (01) ==
PROVIDERS: Emergency Provider Emergency Medicine; PCP Family Medicine
DX: R55 Syncope and collapse (principal); S09.8XXA Other specified injuries of head, initial encounter; Z79.01 Long term (current) use of anticoagulants; Z79.84 Long term (current) use of oral hypoglycemic drugs; Z79.82 Long term (current) use of aspirin; J44.9 Chronic obstructive pulmonary disease, unspecified; F03.90 Unspecified dementia, unspecified severity, without behavioral disturbance, psychotic disturbance, mood disturbance, and anxiety; E11.9 Type 2 diabetes mellitus without complications; E78.5 Hyperlipidemia, unspecified; I10 Essential (primary) hypertension; Z87.891 Personal history of nicotine dependence; W19.XXXA Unspecified fall, initial encounter
CPT/HCPCS: 70450; 71045; 80053; 84484; 85025; 85610; 93005; 99283

== ENCOUNTER 2020-08-30 11:49 | Inpatient (IN) | payer MEDICARE, SELFPAY ==
[2020-08-30] VITALS (7 sets, daily range): BP systolic 75–163; BP diastolic 43–91; PULSE 67–77; RESP 14–31; TEMP 36.4; O2SAT 96–100; BMI 31.8
--- NOTE | 2020-08-30 12:11 | XR_ITS ---
WS: [id number] Portable AP upright chest, 08/30/2020 Clinical Data: syncope Comparison: Portable chest, 08/29/2020. Findings: There is scarring and loss of volume in the left upper lobe unchanged. There is a shift of the heart and mediastinum from right to left. The right lung is fully expanded. No nodules, masses or effusions are seen. The heart is normal. The aortic arch and descending aorta show calcification and tortuosity. Monitor leads are on the chest wall. XR/XR chest 1V portable [id number] Impression: 1. Volume loss and scarring in the left upper lobe. 2. Atherosclerosis.
--- NOTE | 2020-08-30 12:11 | ECG_ITS ---
[facility] Test Date: 2020-08-30 Pat Name: Vandana Le Department: Room: Gender: Female Rougher Operator: : 1945 Requested By: Emerald Kee Order Number: [id number] Eloisa MD: Niall Araiza M.D. Measurements Intervals [place] Rate: 68 P: 72 IA: 158 QRS: 16 QRSD: 86 T: 93 QT: 390 QTc: 417 Interpretive Statements SINUS RHYTHM NONSPECIFIC ST & T-WAVE ABNORMALITY Compared to ECG 08/29/2020 05:22:29 No significant changes Electronically Signed On 08-31-2020 10:07:02 CDT by Niall Araiza M.D. [id number]
--- NOTE | 2020-08-30 12:12 | W.ED.SYNCOPE ---
HPI - Syncope General: Chief Complaint: Syncope Stated Complaint: SYNCOPAL EPISODE Time Seen by Provider: 08/30/20 11:51 History of Present Illness: HPI narrative: 75 yo female presents from home with dizziness and possible syncope. There are conflicting reports. EMS says she was up with walker, felt dizzy and sat down in chair. Patient says she stood up to go to bathroom and might have hit table on side of her chair but wondering if patient is confusing this event with last night as she was seen here in ED with a fall and hit head. Patient is a poor historian in details but does says she ate breakfast this morning. Will try to obtain more info from family. Review of Systems Narrative: General: denies fatigue, fever or chills HEENT: denies ear pain, denies nasal congestion, denies vision changes, denies sore throat Neck: denies masses or pain Resp: denies cough, denies shortness of breath, denies pleuritic pain Cardio: denies chest pain, denies edema, ++ syncope GI: denies abdominal pain, denies N/V/D, denies black/tarry or bloody stools : denies hematuria, denies dysuria Neuro: denies headache, denies dizziness, denies motor or sensory changes Musculoskeletal: denies pain, denies swelling Skin: denies rashes Psych: denies SI or HI Endocrine: denies thyroid symptoms, denies lymphadenopathy all over ROS reviewed and patient denies [facility] ED PFSH: Medical History COPD (chronic obstructive pulmonary disease) Dementia DM type 2 (diabetes mellitus, type 2) DVT (deep venous thrombosis) GERD (gastroesophageal reflux disease) High risk medication use Hyperlipidemia Hypertension Immunization counseling Plaque psoriasis Seropositive rheumatoid arthritis of multiple sites Surgical History H/O hernia repair H/O: hysterectomy History of carpal tunnel surgery S/P appendectomy Status post myringotomy with tube placement of both ears Family History Other CAD (coronary artery disease) Cancer Dementia Diabetes Hypertension Stroke Denies family history of Rheumatoid arthritis Lupus Chronic kidney disease (CKD) Lung disease Social History Smoking and tobacco status: former smoker Alcohol intake: never Household members: children Marital status: / History of recent travel: No Female Reproductive History: Para: 3 Physical Exam Narrative: EXAM NARRATIVE: General: a/o/3, no distress Head: ecchymosis forehead healing abrasion appears older then today no other scalp hematomas HEENT: normal eyes, normal conjunctiva, normal hearing, normal external nose, normal mouth, mucous membranes moist Neck: FROM, trachea midline Chest: normal expansion, no gross deformities Resp: normal speech, no retractions, no accessory muscle use, CTA bilaterally Cardio: regular rate and rhythm and no murmur, no peripheral edema, normal peripheral pulses GI: soft, flat non tender, no guarding normal BS : deferred Musculoskeletal: FROM, no pain or gross deformities Neuro: a/o appropriate for age, no gross motor or sensory deficitys, CN II-XII grossly intact, normal coordination, normal speech Skin: no rashes Psych: cooperative, normal mood and effect Course Vital Signs: Vital signs: Vital Signs Pulse Rate 69 08/30/20 12:07 Respiratory Rate 18 08/30/20 11:57 Blood Pressure 114/67 08/30/20 12:07 Pulse Oximetry 100 08/30/20 11:57 MDM - Syncope MDM Narrative: Medical decision making narrative: patient is definitely orthostatic positive with 114/67, 77 lying, then on standing she was 75/43, 69 and very symptomatic. Will give fluid bolus. Urine culture was also ordered. Repeat head CT was negative chest x-ray is chronic scarring on the left side. Her laboratory work is unremarkable however she had 2 syncopal events in 2 days as well as orthostatic hypotension. Her daughter states she does take her medications in the morning and I discussed with her they may need to make some changes and that if that is dropping her blood pressure too much however she did her syncopal event 2 days ago was in the evening so that would not necessarily be a cause at that time. Patient does have some dementia she lives with her daughter and has another small animal caretaker that looks after her as well She chronically wears oxygen there is been no report of shortness of breath she is compliant with her Eliquis Dr. Simpson accepted the patient for admission Lab Data: Labs: Lab Results 08/30/20 08/30/20 08/30/20 Range/Units 12:16 12:16 13:52 WBC 5.1 (4.0-10.0) 10^3/ uL RBC 4.00 L (4.1-5.3) 10^6/u L Hgb 12.0 (11.5-15.3) g/dL Hct 39.8 (37.0-47.0) % MCV 99.5 H (81-99) fL MCH 30.0 (28.0-34.0) pg MCHC 30.2 (30.0-36.0) g/dL RDW 12.9 (12.1-15.1) % Plt Count 244 (130-400) 10^3/c mm MPV 10.2 (7.4-10.4) fL Neut % (Auto) 59.8 % Lymph % (Auto) 33.1 % [place] % (Auto) 5.7 % Eos % (Auto) 0.6 % Baso % (Auto) 0.6 % Neut # (Auto) 3.07 (1.8-7.7) 10^3/u L Lymph # (Auto) 1.7 (0.8-4.8) 10^3/u L [place] # (Auto) 0.3 (0.2-0.9) 10^3/u L Eos # (Auto) 0.0 (0.0-0.8) 10^3/u L Baso # (Auto) 0.0 (0.0-0.1) 10^3/u L Nucleated RBC % (a uto) 0 % Nucleated RBCs # 0.0 /100WBC Sodium 142 (136-145) mmol/L Potassium 3.2 L (3.5-5.1) mmol/L Chloride 102 (98-107) mmol/L Carbon Dioxide 29 (22-29) mmol/L Anion Gap 14.2 (5-19) BUN 19 (8-23) mg/dL Creatinine 1.1 H (0.5-0.9) mg/dL GFR Calculation Not Reportable Glucose 131 H (65-115) mg/dL Calculated Osmolal ity 298 H (285-295) mOsm/k g Calcium 9.1 (8.5-10.5) mg/dL Total Bilirubin 0.3 (0.15-1.2) mg/dL AST 14 (0-32) U/L ALT 6 (0-33) U/L Alkaline Phosphata se 83 (35-105) IU/L Total Protein 6.8 (6.6-8.7) g/dL Albumin 3.7 (3.5-5.2) g/dL Globulin 3.1 (1.3-4.6) g/dL Urine Color Yellow (Yellow) Urine Appearance Sl hazy (CLEAR) Urine pH 5 (5-7) Ur Specific Gravit y 1.030 (1.005-1.030) Urine Protein Trace (Negative) Urine Glucose (UA) Norm (Normal) Urine Ketones 1+ H (Negative) Urine Blood Neg (Negative) Urine Nitrate Negative (Negative) Urine Bilirubin 1+ H (Negative) Urine Urobilinogen 1 H (Negative) mg/dL Ur Leukocyte Zoe ase 1+ H (Negative) Urine RBC 0-4 H (0-2) /hpf Urine WBC 0-4 H (0-5) /hpf Ur Squamous Epith Cells 10-15 H (0-5) /hpf Amorphous Sediment Not Reportable Urine Bacteria 2+ H (NONE) /hpf Hyaline Casts 0-4 H /lpf Discharge Plan Discharge Patient Disposition: Admitted As Inpatient Clinical Impression: Orthostatic hypotension Syncope Qualifiers: Syncope type: unspecified Qualified Code(s): R55 - Syncope and collapse Condition: Stable Coding Level of Care Code ED Beam Worker for Robbie Gonzales
[2020-08-30 12:23] LABS: Basophils % 0.6 %; Eosinophils % 0.6 %; Hematocrit 39.8 % (37.0-47.0); Lymphocytes # 1.7 10^3/uL (0.8-4.8); Lymphocytes % 33.1 %; Mean Corpuscular HGB Conc 30.2 g/dL (30.0-36.0); Mean Corpuscular Volume 99.5 fL (81-99); Mean Platelet Volume 10.2 fL (7.4-10.4); Monocytes # 0.3 10^3/uL (0.2-0.9); Monocytes % 5.7 %; Neutrophils # 3.07 10^3/uL (1.8-7.7); Neutrophils % 59.8 %; Nucleated Red Blood Cells % 0 %; Platelet Count 244 10^3/cmm (130-400); Red Cell Distribution Width 12.9 % (12.1-15.1); White Blood Count 5.1 10^3/uL (4.0-10.0)
--- NOTE | 2020-08-30 12:38 | CT_ITS ---
WS: [id number] CT HEAD TECHNIQUE: Noncontrast CT of the head obtained from the skullbase to the vertex. CLINICAL INFORMATION: fall, on eliquis, here 2 nights ago for same COMPARISON: August 29, 2020 DLP: 818.[address] scans at [facility] use at least one of these dose optimization techniques: automat ed exposure control; mA and/or kV adjustment per patient size (includes targeted exams where dose is matched to clinical indication); or iterative reconstruction. FINDINGS: No evidence of intracranial hemorrhage or mass effect. Ventricular system and basal cisterns are klein nt. Mild small vessel changes with mild parenchymal volume loss. A few tiny chronic lacunar infarcts in the basal ganglia. No extra-axial fluid collections. No evidence of mass or mass effect. Normal gr ay-white differentiation. Partial opacification of the right mastoid tip. Partial opacification left mastoid air cells. Paranasal sinuses are well aerated. CT/CT head wo con* [id number] IMPRESSION: 1. No evidence of intracranial hemorrhage or mass effect. 2. Mild small vessel changes. Mild parenchymal volume loss. 3. No acute intracranial findings.
[2020-08-30 12:50] LABS: Alanine Aminotransferase 6 U/L (0-33); Albumin Level 3.7 g/dL (3.5-5.2); Alkaline Phosphatase 83 IU/L (35-105); Anion Gap 14.2 (5-19); Aspartate Amino Transferase 14 U/L (0-32); Blood Urea Nitrogen 19 mg/dL (8-23); Calcium 9.1 mg/dL (8.5-10.5); Carbon Dioxide 29 mmol/L (22-29); Chloride 102 mmol/L (98-107); Globulin 3.1 g/dL (1.3-4.6); Glucose 131 mg/dL (65-115); Osmolality Calculated 298 mOsm/kg (285-295); Potassium 3.2 mmol/L (3.5-5.1); Sodium 142 mmol/L (136-145); Total Bilirubin 0.3 mg/dL (0.15-1.2); Total Protein 6.8 g/dL (6.6-8.7)
[2020-08-30 14:05] LABS: Glucose Urine UA Norm (Normal); Protein Urine Trace (Negative); Urine Appearance SL Hazy (CLEAR); Urine Color Yellow (Yellow); pH Urine 5 (5-7)
[2020-08-30 14:06] LABS: Bilirubin Urine 1+ (Negative); Blood Urine Neg (Negative); Ketones Urine 1+ (Negative); Leukocyte Esterase Urine 1+ (Negative); Nitrate Urine Negative (Negative); Urobilinogen Urine 1 mg/dL (Negative)
[2020-08-30] MEDS: sodium chloride 0.9% 500 ML 999 ML IV (14:15)
[2020-08-30 14:26] LABS: Bacteria Urine 2+ /hpf; RBC Urine 0-4 /hpf (0-2)
[2020-08-30 14:27] LABS: Add Urine Culture? No; Hyaline Casts Urine 0-4 /lpf; WBC Urine 0-4 /hpf (0-5)
--- NOTE | 2020-08-30 16:46 | P.HP_ITS ---
Providers/Chief Complaint Primary Care Provider: Saima Carnes MD Chief Complaint: SYNCOPAL EPISODE History of Present Illness Vandana Le is a 75 year old female with past medical history of dementia, COPD, type 2 diabetes mellitus, pulmonary embolism/DVT, hyperlipidemia, hypertension, orthostatic hypotension on pyridostigmine presents to the ER today after having 2 episodes of blacking out at home. As per the caregiver today morning patient was in the kitchen and stood up to go to the room on hospital room she collapsed on the floor. Did not have any bowel bladder accident, frothing from the mouth or opening of eyes to did have some to 3 movements. Patient had black out for around 30 seconds and after waking up was not confused. As per the caregiver patient is not drinking as well as she should be. She has been taking all her medications as per the caregiver. Patient denies any dysuria, diarrhea, nausea or vomiting. Denies any abdominal pain, chest pain, chest heaviness prior to the event or around the event for last couple of days. This is the second event in the last 2 days as per the caregiver. Of note patient was admitted for similar complaint in early June and at that time she had extensive work-up including TSH, cortisol level, cosyntropin stimulation test which are low normal. Patient was not responsive to midodrine treatment at that point. In the ER patient did not have any further events though she was found to be severely orthostatic with blood pressure dropping down from 140s systolic at lying down position to 75 systolic on standing up. Blood work in the ER showed white count of 5.1, hemoglobin of 12,000, sodium of 142, potassium of 3.2, creatinine of 1.1, AST/ALT of 14/6, UA negative for nitrite but 1+ for leuk esterase, 2+ bacteria. CT head done on admission shows no active acute pathology. Chest x-ray negative for any acute consolidation. Review of Systems General: Reports: 10 or more systems reviewed and unremarkable except in HPI and below Const: Denies: fever(s), chills, body aches, change in appetite, change in weight, malaise, night sweats, diaphoresis, change in sleep pattern, daytime sleepiness or snoring Eyes: Denies: change in vision, blurry vision, photophobia, eye discomfort or eye discharge ENMT: Denies: throat pain, enlarged tonsils, hoarseness, mouth pain, oral sores, dry mouth, tinnitus, nasal congestion or post nasal drip Card: Denies: chest pain, palpitations, irregular heart rhythm, edema, swelling of feet/ankles, lightheadedness, syncope, pre-syncope, dyspnea on exertion, orthopnea, leg pain with exertion or acrocyanosis Resp: Denies: dyspnea, productive cough, non-productive cough, wheezing, stridor, pain on inspiration, change in phlegm color, hemoptysis or chest congestion GI: Denies: abdominal pain, nausea, vomiting, hematemesis, coffee ground emesis, dysphagia, heartburn, diarrhea, constipation, bloating, GI cramping, change in bowel habits, pain on defecation, hematochezia or melena : Denies: flank pain, dysuria, urinary frequency, urinary urgency, urinary hesitancy, nocturia or hematuria Musc: Denies: neck pain, back pain, extremity pain, joint pain, joint swelling, joint redness, joint stiffness or limited range of motion Neuro: Denies: headache(s), numbness in extremities, weakness in extremities, sensory changes, lack of coordination, difficulty walking, frequent falls, dizziness, vertigo, confusion, Slurred speech present, difficulty communicating thoughts or seizure-like activity Psych: Denies: anxiety, depression, mood swings, panic attacks, hopelessness or irritability Endo: Denies: polyuria, polydipsia, tired all the time, cold intolerance, excessive sweating, flushing or heat intolerance Onel/Lymph: Denies: easy bruising or easy bleeding All/Imm: Denies: tongue swelling, facial swelling or acute wheezing Medications/Allergies Home Medications Medication Instructions Recorded Confirmed Last Taken Type albuterol sulfate 1 puff INHALATION Q6H PRN 11/26/19 08/30/20 Unknown History alprazolam 0.25 mg PO BID PRN 11/26/19 08/30/20 Unknown History cholecalciferol (vitamin D3) 25 mcg PO DAILY@11/26/19 08/30/20 07/13/20 History [Vitamin D3] metformin 1,000 mg PO BID@11/26/19 08/30/20 08/30/20 History levothyroxine 50 mcg PO DAILY@01/12/20 08/30/20 08/29/20 History prednisone 5 mg tablet See Rx Instructions PO .COMPLEX 07/10/20 08/30/20 08/30/20 Rx PRN #30 tab apixaban [Eliquis] 5 mg PO BID@,07/13/20 08/30/20 08/30/20 History aspirin 81 mg PO DAILY@07/13/20 08/30/20 08/30/20 History atenolol 25 mg PO DAILY@07/13/20 08/30/20 08/30/20 History diclofenac sodium 2 g TOPICAL QID PRN 07/13/20 08/30/20 Unknown History donepezil 10 mg PO BEDTIME@07/13/20 08/30/20 08/29/20 History hydrochlorothiazide 25 mg PO DAILY@07/13/20 08/30/20 08/30/20 History leflunomide 20 mg PO DAILY@07/13/20 08/30/20 08/29/20 History memantine 10 mg PO BID@,07/13/20 08/30/20 08/30/20 History pyridostigmine bromide 30 mg PO BID@,07/13/20 08/30/20 07/13/20 History quetiapine [Seroquel] 50 mg PO BID@,07/13/20 08/30/20 08/30/20 History sertraline 50 mg PO DAILY@07/13/20 08/30/20 08/30/20 History venlafaxine 150 mg PO DAILY@07/13/20 08/30/20 08/30/20 History mirtazapine 7.5 mg PO DAILY 08/30/20 08/30/20 08/30/20 History Allergies Allergy/AdvReac Type Severity Reaction Status Date / Time No Known Allergies Allergy Verified 07/10/20 09:40 PFSH Acute PFSH: Medical History COPD (chronic obstructive pulmonary disease) Dementia DM type 2 (diabetes mellitus, type 2) DVT (deep venous thrombosis) GERD (gastroesophageal reflux disease) High risk medication use Hyperlipidemia Hypertension Immunization counseling Joint pain Plaque psoriasis Seropositive rheumatoid arthritis of multiple sites Surgical History H/O hernia repair H/O: hysterectomy History of carpal tunnel surgery S/P appendectomy Status post myringotomy with tube placement of both ears Family History Other CAD (coronary artery disease) Cancer Dementia Diabetes Hypertension Stroke Denies family history of Rheumatoid arthritis Lupus Chronic kidney disease (CKD) Lung disease Social History Smoking and tobacco status: former smoker Alcohol intake: never Household members: children Marital status: / History of recent travel: No Female Reproductive History: Para: 3 Vitals/I&O/Wt Last Vital Signs Pulse 67 08/30/20 16:36 Resp 14 08/30/20 16:36 BP 109/60 08/30/20 16:36 Pulse Ox 96 08/30/20 16:36 Weight last 48 hrs Weight 81.647 kg Physical Exam Narrative: EXAM NARRATIVE: General: No acute distress, AO x3, dehydrated HEENT: PERRLA, pupils bilaterally equal and reactive Chest: Normal vesicular breath sounds, no added sounds, equal good air entry bilaterally CVS: S1-S2 regular, no murmurs, no tachycardia, no gallops, no rubs Abdomen: Soft, nontender, no organomegaly, bowel sounds present Neuro: No focal deficits, no facial deformity, AO x3, power 4/5 in all limbs Data : 08/30/20 12:16 08/30/20 12:16 A&P Assessment and plan (1) Syncope: Status: Acute Qualifiers: Syncope type: unspecified Qualified Code(s): R55 - Syncope and collapse (2) Orthostatic hypotension: Status: Acute (3) Depression due to dementia: Status: Acute (4) COPD (chronic obstructive pulmonary disease): Status: Chronic Qualifiers: COPD type: emphysema Emphysema type: unspecified Qualified Code(s): J43.9 - Emphysema, unspecified (5) Acute pulmonary embolism: Status: Acute Qualifiers: Acute cor pulmonale presence: unspecified Pulmonary embolism type: unspecified Qualified Code(s): I26.99 - Other pulmonary embolism without acute cor pulmonale (6) Hypertension: Status: Chronic Qualifiers: Hypertension type: essential hypertension Qualified Code(s): I10 - Essential (primary) hypertension (7) DM type 2 (diabetes mellitus, type 2): Status: Chronic Qualifiers: Diabetes mellitus skilled nursing insulin use: without skilled nursing use Diabetes mellitus complication status: without complication Qualified Code(s): E11.9 - Type 2 diabetes mellitus without complications Additional A&P Information Syncope 2/2 orthostatic hypotension: Symptoms most likely secondary to orthostatic hypotension or polypharmacy from multiple dementia medications. Admitted in early June with similar complaints. At that time she had significant work-up including TSH, cosyntropin stimulation test which were all within normal limits. At that time she was not responsive to midodrine therapy. Fludrocortisone was not started because of propensity of fluid overload. At that time trial of pyridostigmine which was given to her. Telemetry. Check orthostatic every shift. Stop hydrochlorothiazide. Gentle hydration with 50 cc of normal saline for 1 back. Have encouraged patient to drink more. Patient recently had echocardiogram in June.Echocardiogram with EF 45-50%, mild hypokinesis anteroseptal wall, mild LVH, grade 1 diastolic dysfunction, mildly enlarged left atrium, mild aortic regurgitation. We will hold off on starting echocardiogram for now. Troponin cycle and EKG. If troponins are elevated we will repeat echocardiogram. Continue paroxetine 30 mg twice daily for now. No current signs of infection at present. Patient denies any fever or dysuria or diarrhea. UA has 1+ leuk esterase. Given symptoms for now we will start her on ceftriaxone. Previously patient's urine culture positive for Klebsiella which is sensitive to ceftriaxone. Will de-escalate antibiotics as per the culture results or if patient remains afebrile for next 24 hours. Neurological cause of syncope unlikely as patient did not have any seizure-like activity or does not have any history of seizures in the past. Did not have any bowel or bladder accidents. Did not have any confusion post waking up. CT head negative for any acute abnormality. Fall precaution, seizure precaution. Physical therapy eval and treat. History of COPD: History of acute pulmonary embolism: Patient is at baseline oxygen supplementation at 4 L saturating 96% No exacerbation at present. Continue home dose of Eliquis. Given history of falls will confirm with family because at this time patient is at high risk of stroke from hemorrhage then at the risk of permanent embolism. DuoNebs as needed. Hypertension: Goal blood pressure less than 140/90 mmHg. With mean over 65. Hold off on hydrochlorothiazide. For now continue with atenolol 25 mg daily. Will monitor blood pressures. Type 2 diabetes mellitus: Check HbA1c. Insulin sliding scale. CKD: Creatinine at baseline of 1.1. Medical reconciliation done for nephrotoxic drugs. We will continue to monitor. Continue other chronic medications including levothyroxine 50 mg, memantine 10 mg twice daily, Remeron 7.5 mg daily, pyridostigmine 30 mg 3 times daily, decrease Seroquel to 50 mg nightly. Stop Zoloft. Continue with venlafaxine. Check TSH, urine culture, lipid panel, proBNP, procalcitonin, iron panel, A1c. Carb consistent cardiac diet. CODE STATUS: As per patient and the caregiver at bedside patient is DNR/DNI. Chauncey will have a DVT prophylaxis as well. Tried calling patient his daughter Ms. Dutton over the phone. Patient daughter is at work and will call back when possible. Attestations Medical Necessity Statement*: Admission for more than 2 midnights for significant orthostatic hypotension causing this syncope and blacking out. Time Spent in Patient Care: Greater than 35 minutes (>than 50% of time spent in counselling and/or direct pt care on unit) . Coding Level of Care Code Acute Used Car Lot Attendant for [facility] Khadijahd Diagnoses Syncope R55 Syncope type: unspecified Orthostatic hypotension I95.1 Depression due to dementia F32.9; F02.80 COPD (chronic obstructive pulmonary disease) J43.9 COPD type: emphysema Emphysema type: unspecified Acute pulmonary embolism I26.99 Acute cor pulmonale presence: unspecified Pulmonary embolism type: unspecified Hypertension I10 Hypertension type: essential hypertension DM type 2 (diabetes mellitus, type 2) E11.9 Diabetes mellitus long term acute care registered nurse insulin use: without skilled nursing use Diabetes mellitus complication status: without complication
[2020-08-30 17:55] LABS: Troponin(5th) Baseline 21 ng/L (0-10)
[2020-08-30 18:02] LABS: NT Pro B Type Natriuretic Pept 498 pg/mL (0-450); Procalcitonin 0.05 ng/mL (0-0.5); Thyroid Stimulating Hormone 1.54 uIU/mL (0.27-4.20)
[2020-08-30 18:13] LABS: Iron 37 ug/dL (37-145); Percent Saturation 17.4 % (20-50); Total Iron Binding Capacity 212 mcg/dl; Unsaturated Iron Binding 175 ug/dL (112-347)
--- NOTE | 2020-08-30 18:37 | ECG_ITS ---
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 Measurements Intervals [place] Rate: 70 P: 65 NC: 151 QRS: 3 QRSD: 89 T: 85 QT: 383 QTc: 413 Interpretive Statements SINUS RHYTHM NONSPECIFIC T-WAVE ABNORMALITY Compared to ECG 08/30/2020 12:20:48 No significant changes Electronically Signed On 09-01-2020 0:00:36 CDT by Niall Araiza M.D. [id number]
--- NOTE | 2020-08-30 19:11 | PC.NURSE ---
pt report called to Devi ESTES in SBAR format.
[2020-08-30 19:34] LABS: Troponin 5 2HR 17.93 ng/L (0-10)
[2020-08-30 19:36] LABS: Troponin 5 2HR Delta -3.07 ABS# (0-10)
[2020-08-30 21:32] LABS: Magnesium 1.6 mg/dL (1.7-2.3)
[2020-08-30] MEDS: sodium chlor 0.9% + KCl 20 mEq 20 MEQ/1,000 ML BAG 50 MEQ IV (22:07)
[2020-08-30] MEDS: memantine 5 mg tablet 10 MG PO (22:15)
[2020-08-30] MEDS: apixaban 5 mg Tablet PO (22:16)
[2020-08-30] MEDS: mirtazapine 15 mg Tablet 7.5 MG PO (22:16)
[2020-08-30] MEDS: quetiapine 25 mg Tablet 50 MG PO (22:18)
--- NOTE | 2020-08-30 22:37 | ECG_ITS ---
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 Measurements Intervals [place] Rate: 73 P: 38 RI: 157 QRS: 3 QRSD: 89 T: 37 QT: 362 QTc: 401 Interpretive Statements SINUS RHYTHM NONSPECIFIC T-WAVE ABNORMALITY Compared to ECG 08/30/2020 18:32:46 No significant changes Electronically Signed On 09-01-2020 0:02:12 CDT by Niall Araiza M.D. [id number]
[2020-08-30] MEDS: pyridostigmine 60 mg Tablet 30 MG PO (23:11)
[2020-08-30] MEDS: cefTRIAXone 1,000 MG in sodium chloride 0.9% (plus) 50 ML 100 MG IV (23:11)
[2020-08-30] MEDS: donepezil 5 MG Tablet 10 MG PO (23:14)
[2020-08-31] VITALS (64 sets, daily range): BP systolic 87–178; BP diastolic 44–96; PULSE 56–85; RESP 16–54; TEMP 36.6–36.8; O2SAT 94–100
[2020-08-31 03:42] LABS: Basophils % 0.6 %; Eosinophils # 0.1 10^3/uL (0.0-0.8); Eosinophils % 1.1 %; Hematocrit 33.5 % (37.0-47.0); Hemoglobin 10.2 g/dL (11.5-15.3); Lymphocytes % 38.9 %; Mean Corpuscular HGB Conc 30.4 g/dL (30.0-36.0); Mean Corpuscular Hemoglobin 30.7 pg (28.0-34.0); Mean Corpuscular Volume 100.9 fL (81-99); Mean Platelet Volume 10.2 fL (7.4-10.4); Monocytes # 0.4 10^3/uL (0.2-0.9); Monocytes % 8.4 %; Neutrophils # 2.66 10^3/uL (1.8-7.7); Neutrophils % 50.6 %; Nucleated Red Blood Cells % 0 %; Platelet Count 214 10^3/cmm (130-400); Red Blood Count 3.32 10^6/uL (4.1-5.3); White Blood Count 5.3 10^3/uL (4.0-10.0)
[2020-08-31 03:55] LABS: Troponin 5 6HR 21.63 ng/L (0-10)
[2020-08-31 03:59] LABS: Alanine Aminotransferase < 5 U/L (0-33); Alkaline Phosphatase 69 IU/L (35-105); Anion Gap 9.5 (5-19); Aspartate Amino Transferase 12 U/L (0-32); Blood Urea Nitrogen 19 mg/dL (8-23); Calcium 8.6 mg/dL (8.5-10.5); Carbon Dioxide 28 mmol/L (22-29); Chloride 106 mmol/L (98-107); Globulin 2.4 g/dL (1.3-4.6); Glucose 109 mg/dL (65-115); Osmolality Calculated 293 mOsm/kg (285-295); Potassium 3.5 mmol/L (3.5-5.1); Sodium 140 mmol/L (136-145); Total Bilirubin 0.2 mg/dL (0.15-1.2); Total Protein 5.4 g/dL (6.6-8.7)
[2020-08-31 04:03] LABS: Estmated Average Glucose 97
[2020-08-31 04:04] LABS: Chol HDL Ratio 5.19 mg/dL (0.0-4.40); Cholesterol 187 mg/dL (0-200); HDL Cholesterol 36 mg/dL (60-100); LDL Cholesterol Calculated 122 mg/dL (50-129); Magnesium 1.6 mg/dL (1.7-2.3); Phosphorus 2.9 mg/dL (2.5-4.5); Triglycerides 143 mg/dL (0-150); VLDL Cholestrol Calculation 29 mg/dL (0-30)
[2020-08-31 04:08] LABS: Troponin 5 6HR Delta -1 ng/L (0-12)
--- NOTE | 2020-08-31 09:44 | PC.CHAP ---
Pastoral Care Encounter/Spiritual Assessment Type of Contact [] Declined unmanned aircraft systems roboticist visit [] Patient/Family/Request visit [] Outpatient visit [] Follow-up visit [] Physician referral [] Code/Alert [x] Routine visit [] Staff referral [] Actively dying [] Patient sleeping [] Family support [] [] Out of room [] Palliative care [] [x] Receiving care in room [] Pre-surgical visit [] Trauma [x] Long length of stay [] ICU visit [] Other: Relational/Emotional Strength [x] Patient feels connected with others/family/visitors/staff [x] Distress [] Loneliness/isolation [] Abandonment Spirituality of Patient [x] Person of Juli [] Attends Orthodox of their Juli [x] Believes in Prayer [] Reads Bible or Latter Day materials [] There are Spiritual issues to be addressed Display Specialist Interventions [x] Prayer [x] Active listening [x] Non-anxious presence [x] Spiritual/emotional support [] Crisis/trauma care [x] Spiritual counseling [x] Bereavement support [x] Provided bereavement packet [] Provided Bible/devotional materials [] Provided toy/stuffed animal, coloring book to patient or family member [] Provided Communion [] Anointing/[place] [] Salvation [x] Completed spiritual assessment [] Other: Impact on Illness or Injury [] Angry [] Fearful [x] Anxious [] Often cries [] Exhaustion [x] Unable to work [] Unable to attend sabianist [] Unable to walk/stand [] Unable to read [] Unable to drive [] Unable to eat/drink [] Unable to sleep [] Unable to be with family [] Patient intubated [] Other: Summary Dealing with her heart doesn't know about her health, 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
[2020-08-31] MEDS: venlafaxine ER (24HR) 150 mg Capsule PO (09:49)
[2020-08-31] MEDS: atenolol 50 mg Tablet 25 MG PO (09:49)
[2020-08-31] MEDS: levothyroxine 50 mcg Tablet PO (09:49)
[2020-08-31] MEDS: memantine 5 mg tablet 10 MG PO ×2 (09:49→21:05)
[2020-08-31] MEDS: aspirin 81 mg EC Tablet PO (09:49)
[2020-08-31] MEDS: apixaban 5 mg Tablet PO (09:49)
[2020-08-31] MEDS: cholecalciferol (vitamin D3) 1,000 unit Tablet 1000 UNIT PO (09:49)
[2020-08-31] MEDS: pyridostigmine 60 mg Tablet 30 MG PO (10:04)
[2020-08-31] MEDS: albuterol 8 gm MDI 1 PUFF INHALATION ×2 (10:45→20:43)
--- NOTE | 2020-08-31 11:22 | P.PN_ITS ---
Subjective Subjective: Interval history: No acute events overnight. Patient has not had any diarrhea. On examination sitting up in bed. Jovial. More conversant today. Having her breakfast. Denies any nausea, vomiting, headache, dizziness. Continues to be orthostatic but does not have any symptoms anymore. On orthostatic check had mild dizziness but no passing out or blacking out. She d id not have any symptoms of presyncope as well. Medications: Reviewed: Yes Vitals/I&O/Wt Last Vital Signs Temp 98.3 F 08/31/20 04:00 Pulse 72 08/31/20 06:00 Resp 37 H 08/31/20 04:00 BP 130/67 08/31/20 04:45 Pulse Ox 96 08/31/20 04:00 08/30/20 08/31/20 08/31/20 22:59 06:59 14:59 Intake Total 500 / 500 200 / 700 Output Total 500 / 500 Balance 500 / 500 -300 / 200 Weight last 48 hrs Weight 67.132 kg Weight 81.647 kg Physical Exam Narrative: EXAM NARRATIVE: General: No acute distress, AO x3, HEENT: PERRLA, pupils bilaterally equal and reactive Chest: Normal vesicular breath sounds, no added sounds, equal good air entry bilaterally CVS: S1-S2 regular, no murmurs, no tachycardia, no gallops, no rubs Abdomen: Soft, nontender, no organomegaly, bowel sounds present Neuro: No focal deficits, no facial deformity, AO x3, power 4/5 in all limbs Data : 08/31/20 03:05 08/31/20 03:05 Micro: Microbiology 08/30/20 13:52 Bacterial Antigens - Final Urine Kidney A&P Assessment and plan (1) Syncope: Status: Acute Qualifiers: Syncope type: unspecified Qualified Code(s): R55 - Syncope and collapse (2) Orthostatic hypotension: Status: Acute (3) Depression due to dementia: Status: Chronic (4) COPD (chronic obstructive pulmonary disease): Status: Chronic Qualifiers: COPD type: emphysema Emphysema type: unspecified Qualified Code(s): J43.9 - Emphysema, unspecified (5) Acute pulmonary embolism: History of PE in the past. 6 months ago. Status: Resolved Qualifiers: Acute cor pulmonale presence: unspecified Pulmonary embolism type: unspecified Qualified Code(s): I26.99 - Other pulmonary embolism without acute cor pulmonale (6) Hypertension: Status: Chronic Qualifiers: Hypertension type: essential hypertension Qualified Code(s): I10 - Essential (primary) hypertension (7) DM type 2 (diabetes mellitus, type 2): Status: Chronic Qualifiers: Diabetes mellitus complication status: without complication Diabetes mellitus continuous churn buttermaker insulin use: without continuous churn buttermaker use Qualified Code(s): E11.9 - Type 2 diabetes mellitus without complications Additional A&P Information Syncope 2/2 orthostatic hypotension: Symptoms most likely secondary to orthostatic hypotension or polypharmacy from multiple dementia medications. This time precipitated because of dehydration from diarrhea while she is on hydrochlorothiazide. Admitted in early June with similar complaints. At that time she had significant work-up including TSH, cosyntropin stimulation test which were all within normal limits. At that time she was not responsive to midodrine therapy. Fludrocortisone was not started because of propensity of fluid overload. At that time trial of pyridostigmine which was given to her. Telemetry. Check cortisol levels. Check orthostatic every shift. Remains orthostatic but less symptomatic. Stop hydrochlorothiazide. Continue with IV hydration at 50 cc/h. Patient recently had echocardiogram in June.Echocardiogram with EF 45-50%, mild hypokinesis anteroseptal wall, mild LVH, grade 1 diastolic dysfunction, mildly enlarged left atrium, mild aortic regurgitation. We will hold off on starting echocardiogram for now. Troponin cycle and EKG stable. Increase Pyridostigmine 60 mg BID No current signs of infection at present. Patient denies any fever or dysuria or diarrhea. UA has 1+ leuk esterase. Given symptoms for now we will start her on ceftriaxone. Previously patient's urine culture positive for Klebsiella which is sensitive to ceftriaxone. Will de-escalate antibiotics as per the culture results or if patient remains afebrile for next 24 hours. Neurological cause of syncope unlikely as patient did not have any seizure-like activity or does not have any history of seizures in the past. Did not have any bowel or bladder accidents. Did not have any confusion post waking up. CT head negative for any acute abnormality. Fall precaution, seizure precaution. Replete magnesium with 2 g IV. History of PE: 6 months ago. Patient is on baseline oxygen supplementation. Patient has been on Eliquis 5 mg daily. Discussed with daughter Marija who is also patient's DPOA that at this point patient is at a higher risk of developing hemorrhagic stroke versus severe hemorrhage from recurrent falls and moreover she is 6 months into treatment at this time it is safe to stop the treatment. Daughter is agreeable to same. Physical therapy eval and treat. History of COPD: History of acute pulmonary embolism: Patient is at baseline oxygen supplementation at 4 L saturating 96% No exacerbation at present. DuoNebs as needed. Hypertension: Goal blood pressure less than 140/90 mmHg. With mean over 65. Hold off on hydrochlorothiazide. For now continue with atenolol 25 mg daily. Will monitor blood pressures. Type 2 diabetes mellitus: A1c 5.0. Most likely patient does not need Metformin as an outpatient. Insulin sliding scale. CKD: Creatinine at baseline of 1.1. Medical reconciliation done for nephrotoxic drugs. We will continue to monitor. Continue other chronic medications including levothyroxine 50 mg, memantine 10 mg twice daily, Remeron 7.5 mg daily, Seroquel 50 mg QD. Stop Zoloft. Continue with venlafaxine. Carb consistent cardiac diet. CODE STATUS: As per patient and the caregiver at bedside patient is DNR/DNI. Lovenox for DVT prophylaxis Discussed in detail with patient's daughter the treatment plan. She is agreeable and understands the treatment plan. Attestations Medical Necessity Statement*: Requires further hospitalization for management of continuous orthostatic hypotension. Time Spent in Patient Care: Greater than 35 minutes (>than 50% of time spent in counselling and/or direct pt care on unit) . Coding Level of Care Code Acute Environmental Services Tech for [facility] Fwd Diagnoses Syncope R55 Syncope type: unspecified Orthostatic hypotension I95.1 Depression due to dementia F32.9; F02.80 COPD (chronic obstructive pulmonary disease) J43.9 COPD type: emphysema Emphysema type: unspecified Acute pulmonary embolism I26.99 Acute cor pulmonale presence: unspecified Pulmonary embolism type: unspecified Hypertension I10 Hypertension type: essential hypertension DM type 2 (diabetes mellitus, type 2) E11.9 Diabetes mellitus complication status: without complication Diabetes mellitus continuous churn buttermaker insulin use: without alf use
[2020-08-31 12:35] LABS: Cortisol Random 44.95 ug/dL (2.47-19.5)
[2020-08-31] MEDS: magnesium sulfate premix 2 GM/50 ML PIGGYBACK IV (13:36)
--- NOTE | 2020-08-31 14:51 | PC.PT ---
Patient still having difficulty with orthostatic hypotension per PT evaluation, as follows; supine BP 123/96, and 123/71 Sitting initially 122/76; then 148/76 Standing initially 78/59, and after sitting rest off 8 minutes standing increase slightly to 89/68 Encouraged increased positional changes, and sitting bedside for meals versus in the in addition to encourage performance of lower extremity exercise program, patient verbalized agreement to same.
[2020-08-31] MEDS: enoxaparin 40 mg/0.4 mL Syringe SUBCUT (18:05)
[2020-08-31] MEDS: ferrous gluconate 324 mg Tablet PO (18:05)
[2020-08-31] MEDS: quetiapine 25 mg Tablet 50 MG PO (18:05)
[2020-08-31] MEDS: cefTRIAXone 1,000 MG in sodium chloride 0.9% (plus) 50 ML 100 MG IV (21:03)
[2020-08-31] MEDS: mirtazapine 15 mg Tablet 7.5 MG PO (21:03)
[2020-08-31] MEDS: pyridostigmine 60 mg Tablet PO (21:05)
[2020-08-31] MEDS: donepezil 5 MG Tablet 10 MG PO (21:05)
[2020-09-01] VITALS (9 sets, daily range): BP systolic 97–158; BP diastolic 58–91; PULSE 57–71; RESP 19–26; TEMP 36.6–36.8; O2SAT 91–100
[2020-09-01 03:52] LABS: Basophils % 0.8 %; Eosinophils # 0.1 10^3/uL (0.0-0.8); Eosinophils % 1.9 %; Hematocrit 32.6 % (37.0-47.0); Hemoglobin 9.8 g/dL (11.5-15.3); Lymphocytes # 2.1 10^3/uL (0.8-4.8); Mean Corpuscular HGB Conc 30.1 g/dL (30.0-36.0); Mean Corpuscular Hemoglobin 30.5 pg (28.0-34.0); Mean Corpuscular Volume 101.6 fL (81-99); Mean Platelet Volume 10.7 fL (7.4-10.4); Monocytes # 0.4 10^3/uL (0.2-0.9); Monocytes % 8.2 %; Neutrophils # 2.14 10^3/uL (1.8-7.7); Neutrophils % 44.9 %; Nucleated Red Blood Cells % 0 %; Platelet Count 202 10^3/cmm (130-400); Red Blood Count 3.21 10^6/uL (4.1-5.3); Red Cell Distribution Width 12.9 % (12.1-15.1); White Blood Count 4.8 10^3/uL (4.0-10.0)
[2020-09-01 04:20] LABS: Alanine Aminotransferase < 5 U/L (0-33); Alkaline Phosphatase 68 IU/L (35-105); Anion Gap 10.8 (5-19); Aspartate Amino Transferase 14 U/L (0-32); Blood Urea Nitrogen 19 mg/dL (8-23); Calcium 8.6 mg/dL (8.5-10.5); Carbon Dioxide 28 mmol/L (22-29); Chloride 108 mmol/L (98-107); Globulin 2.5 g/dL (1.3-4.6); Glucose 90 mg/dL (65-115); Osmolality Calculated 298 mOsm/kg (285-295); Potassium 3.8 mmol/L (3.5-5.1); Sodium 143 mmol/L (136-145); Total Bilirubin 0.2 mg/dL (0.15-1.2); Total Protein 5.5 g/dL (6.6-8.7)
[2020-09-01] MEDS: atenolol 50 mg Tablet 25 MG PO (09:38)
[2020-09-01] MEDS: ferrous gluconate 324 mg Tablet PO (09:39)
[2020-09-01] MEDS: aspirin 81 mg EC Tablet PO (09:39)
[2020-09-01] MEDS: cholecalciferol (vitamin D3) 1,000 unit Tablet 1000 UNIT PO (09:39)
[2020-09-01] MEDS: pyridostigmine 60 mg Tablet PO (09:39)
[2020-09-01] MEDS: levothyroxine 50 mcg Tablet PO (09:40)
[2020-09-01] MEDS: memantine 5 mg tablet 10 MG PO (09:40)
[2020-09-01] MEDS: venlafaxine ER (24HR) 150 mg Capsule PO (09:40)
--- NOTE | 2020-09-01 11:17 | P.DS_ITS ---
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 (4) COPD (chronic obstructive pulmonary disease): Status: Chronic Qualifiers: COPD type: emphysema Emphysema type: unspecified Qualified Code(s): J43.9 - Emphysema, unspecified (5) Acute pulmonary embolism: Status: Resolved Qualifiers: Acute cor pulmonale presence: unspecified Pulmonary embolism type: unspecified Qualified Code(s): I26.99 - Other pulmonary embolism without acute cor pulmonale (6) Hypertension: Status: Chronic Qualifiers: Hypertension type: essential hypertension Qualified Code(s): I10 - Essential (primary) hypertension (7) DM type 2 (diabetes mellitus, type 2): Status: Chronic Qualifiers: Diabetes mellitus complication status: without complication Diabetes mellitus fdc insulin use: without fdc use Qualified Code(s): E11.9 - Type 2 diabetes mellitus without complications Reason for Visit Reason for Visit: SYNCOPAL EPISODE Hospital Course Hospital Course Vandana Le is a 75 year old female with past medical history of dementia, COPD, type 2 diabetes mellitus, pulmonary embolism/DVT, hyperlipidemia, hypertension, orthostatic hypotension on pyridostigmine presents to the ER today after having 2 episodes of blacking out at home. As per the caregiver today morning patient was in the kitchen and stood up to go to the room on hospital room she collapsed on the floor. Did not have any bowel bladder accident, frothing from the mouth or opening of eyes to did have some to 3 movements. Patient had black out for around 30 seconds and after waking up was not confused. As per the caregiver patient is not drinking as well as she should be. She has been taking all her medications as per the caregiver. Patient denies any dysuria, diarrhea, nausea or vomiting. Denies any abdominal pain, chest pain, chest heaviness prior to the event or around the event for last couple of days. This is the second event in the last 2 days as per the caregiver. Of note patient was admitted for similar complaint in early June and at that time she had extensive work-up including TSH, cortisol level, cosyntropin stimulation test which are low normal. Patient was not responsive to midodrine treatment at that point. In the ER patient did not have any further events though she was found to be severely orthostatic with blood pressure dropping down from 140s systolic at lying down position to 75 systolic on standing up. Blood work in the ER showed white count of 5.1, hemoglobin of 12,000, sodium of 142, potassium of 3.2, creatinine of 1.1, AST/ALT of 14/6, UA negative for nitrite but 1+ for leuk esterase, 2+ bacteria. CT head done on admission shows no active acute pathology. Chest x-ray negative for any acute consolidation. Patient was admitted to the hospital for further management. On conversation with the daughter it was found out that patient has been having multiple episodes of diarrhea for last 3 to 4 days. She started on IV hydration and orthostatic blood pressure was checked multiple times during the day. On review of the chart it was seen that patient had similar episodes in June at that time she had extensive work-up which included normal TSH, cosyntropin stimulation test. Cortisol levels were checked again and they were within normal limits. At that time in June she was started on midodrine therapy and was not responsive. Fludrocortisone was not started because of propensity of fluid overload given her history of CHF. Her dose of pyridostigmine was increased. After IV hydration patient continued to be orthostatic though was asymptomatic. Troponin cycle was done and was negative. As per the recent echocardiogram in June 2020 her EF was found to be 40 to 45% with mild hypokinesis of anter oseptal wall, mild LVH, grade 1 diastolic dysfunction function. A1c was checked and was found to be 5. Her medications were adjusted. Patient is not supposed to take Metformin anymore. Patient's daughter was counseled in detail regarding holding hydrochlorothiazide on the days when oral intake is poor or when she is having diarrhea. It was also discussed in detail with patient and daughter regarding Eliquis given the fact that patient has been 6 months post the diagnosis of pulmonary embolism and is at baseline oxygen supplementation along with the fact that she has had recurrent falls. It was discussed that unfortunately at this moment because of recurrent falls she is at a higher risk of catastrophic bleeding or hemorrhagic stroke because of being on Eliquis and it was decided to stop the Eliquis going further.Patient did not have any further bowel movements or diarrhea during hospitalization. Her psychiatric medication were adjusted as well. Sertraline dose was decreased to once daily. Zoloft as per patient had been stopped prior to admission also. Patient is been discharged in medically stable condition with above recommendations. Physical Exam Narrative: EXAM NARRATIVE: General: No acute distress, AO x3, HEENT: PERRLA, pupils bilaterally equal and reactive Chest: Normal vesicular breath sounds, no added sounds, equal good air entry bilaterally CVS: S1-S2 regular, no murmurs, no tachycardia, no gallops, no rubs Abdomen: Soft, nontender, no organomegaly, bowel sounds present Neuro: No focal deficits, no facial deformity, AO x3, power 4/5 in all limbs Discharge Data Data Completed and Pending: Completed Studies During Hospitalization Category Date Time Status CT head wo con* 7 0450 Urgent Cat Scan 08/30/20 12:38 Completed XR chest 1V pablo ble [id number] Stat Exams 08/30/20 12:11 Completed Pending at discharge Category Date Time Status Clostridioides Di fficile PCR Routin e Lab 08/30/20 17:56 Ordered Enteric Bacterial Panel by PCR Rout ine Lab 08/30/20 17:56 Ordered Enteric Parasite Panel by PCR Trinidadi ne Lab 08/30/20 17:56 Ordered Immunochemical Fe olga OCB Routine Lab 08/30/20 17:56 Ordered Lactoferrin Routi ne Lab 08/30/20 17:56 Ordered Labs from last 24 hours 09/01/20 09/01/20 08/30/20 03:10 03:10 12:16 WBC 4.8 RBC 3.21 L Hgb 9.8 L Hct 32.6 L MCV 101.6 H MCH 30.5 MCHC 30.1 RDW 12.9 Plt Count 202 MPV 10.7 H Neut % (Auto) 44.9 Lymph % (Auto) 44.0 [place] % (Auto) 8.2 Eos % (Auto) 1.9 Baso % (Auto) 0.8 Neut # (Auto) 2.14 Lymph # (Auto) 2.1 [place] # (Auto) 0.4 Eos # (Auto) 0.1 Baso # (Auto) 0.0 Nucleated RBC % (a uto) 0 Nucleated RBCs # 0.0 Sodium 143 Potassium 3.8 Chloride 108 H Carbon Dioxide 28 Anion Gap 10.8 BUN 19 Creatinine 1.0 H GFR Calculation Not Reportable Glucose 90 Calculated Osmolal ity 298 H Calcium 8.6 Total Bilirubin 0.2 AST 14 ALT < 5 Alkaline Phosphata se 68 Total Protein 5.5 L Albumin 3.0 L Globulin 2.5 Random Cortisol 44.95 H Addt'l Data from Hospital Stay: Laboratory Results WBC 4.8 10^3/uL (4.0- 10.0) 09/01/20 03:10 RBC 3.21 10^6/uL (4.1 -5.3) L 09/01/20 03:10 Hgb 9.8 g/dL (11.5-15 .3) L 09/01/20 03:10 Hct 32.6 % (37.0-47.0 ) L 09/01/20 03:10 MCV 101.6 fL (81-99) H 09/01/20 03:10 MCH 30.5 pg (28.0-34. 0) 09/01/20 03:10 MCHC 30.1 g/dL (30.0-3 6.0) 09/01/20 03:10 RDW 12.9 % (12.1-15.1 ) 09/01/20 03:10 Plt Count 202 10^3/cmm (130 -400) 09/01/20 03:10 MPV 10.7 fL (7.4-10.4 ) H 09/01/20 03:10 Neut % (Auto) 44.9 % 09/01/20 03:10 Lymph % (Auto) 44.0 % 09/01/20 03:10 [place] % (Auto) 8.2 % 09/01/20 03:10 Eos % (Auto) 1.9 % 09/01/20 03:10 Baso % (Auto) 0.8 % 09/01/20 03:10 Neut # (Auto) 2.14 10^3/uL (1.8 -7.7) 09/01/20 03:10 Lymph # (Auto) 2.1 10^3/uL (0.8- 4.8) 09/01/20 03:10 [place] # (Auto) 0.4 10^3/uL (0.2- 0.9) 09/01/20 03:10 Eos # (Auto) 0.1 10^3/uL (0.0- 0.8) 09/01/20 03:10 Baso # (Auto) 0.0 10^3/uL (0.0- 0.1) 09/01/20 03:10 Nucleated RBC % (a uto) 0 % 09/01/20 03:10 Nucleated RBCs # 0.0 /100WBC 09/01/20 03:10 Sodium 143 mmol/L (136-1 45) 09/01/20 03:10 Potassium 3.8 mmol/L (3.5-5 .1) 09/01/20 03:10 Chloride 108 mmol/L (98-10 7) H 09/01/20 03:10 Carbon Dioxide 28 mmol/L (22-29) 09/01/20 03:10 Anion Gap 10.8 (5-19) 09/01/20 03:10 BUN 19 mg/dL (8-23) 09/01/20 03:10 Creatinine 1.0 mg/dL (0.5-0. 9) H 09/01/20 03:10 GFR Calculation Not Reportable 09/01/20 03:10 Glucose 90 mg/dL (65-115) 09/01/20 03:10 Estimat Average Gl ucose 97 08/31/20 03:05 Hemoglobin A1c 5.0 % (4.0-6.0) 08/31/20 03:05 Calculated Osmolal ity 298 mOsm/kg (285- 295) H 09/01/20 03:10 Calcium 8.6 mg/dL (8.5-10 .5) 09/01/20 03:10 Phosphorus 2.9 mg/dL (2.5-4. 5) 08/31/20 03:05 Magnesium 1.6 mg/dL (1.7-2. 3) L 08/31/20 03:05 Iron 37 ug/dL (37-145) 08/30/20 17:20 TIBC 212 mcg/dl 08/30/20 17:20 % Saturation 17.4 % (20-50) L 08/30/20 17:20 Unsat Iron Binding 175 ug/dL (112-34 7) 08/30/20 17:20 Total Bilirubin 0.2 mg/dL (0.15-1 .2) 09/01/20 03:10 AST 14 U/L (0-32) 09/01/20 03:10 ALT < 5 U/L (0-33) 09/01/20 03:10 Alkaline Phosphata se 68 IU/L (35-105) 09/01/20 03:10 Troponin T Baselin e 21 ng/L (0-10) H 08/30/20 17:20 Troponin T 120 Min kit 17.93 ng/L (0-10) H 08/30/20 19:05 Delta Troponin T -3.07 ABS# (0-10) L 08/30/20 19:05 Troponin T Hi Sens 6Hr 21.63 ng/L (0-10) H 08/30/20 03:05 Troponin T Hi Sens 6Hr Delta -1 ng/L (0-12) L 08/30/20 03:05 NT-Pro-B Natriuret Pep 498 pg/mL (0-450) H 08/30/20 17:20 Total Protein 5.5 g/dL (6.6-8.7 ) L 09/01/20 03:10 Albumin 3.0 g/dL (3.5-5.2 ) L 09/01/20 03:10 Globulin 2.5 g/dL (1.3-4.6 ) 09/01/20 03:10 Triglycerides 143 mg/dL (0-150) 08/31/20 03:05 Cholesterol 187 mg/dL (0-200) 08/31/20 03:05 LDL Cholesterol, C alc 122 mg/dL (50-129 ) 08/31/20 03:05 Total VLDL Cholest meg 29 mg/dL (0-30) 08/31/20 03:05 HDL Cholesterol 36 mg/dL (60-100) L 08/31/20 03:05 Cholesterol/HDL Ra tristan 5.19 mg/dL (0.0-4 .40) H 08/31/20 03:05 Procalcitonin 0.05 ng/mL (0-0.5 ) 08/30/20 17:20 TSH 1.54 uIU/mL (0.27 -4.20) 08/30/20 17:20 Random Cortisol 44.95 ug/dL (2.47 -19.5) H 08/30/20 12:16 Urine Color Yellow (Yellow) 08/30/20 13:52 Urine Appearance Sl hazy (CLEAR) 08/30/20 13:52 Urine pH 5 (5-7) 08/30/20 13:52 Ur Specific Gravit y 1.030 (1.005-1.0 30) 08/30/20 13:52 Urine Protein Trace (Negative) 08/30/20 13:52 Urine Glucose (UA) Norm (Normal) 08/30/20 13:52 Urine Ketones 1+ (Negative) H 08/30/20 13:52 Urine Blood Neg (Negative) 08/30/20 13:52 Urine Nitrate Negative (Negati ve) 08/30/20 13:52 Urine Bilirubin 1+ (Negative) H 08/30/20 13:52 Urine Urobilinogen 1 mg/dL (Negative ) H 08/30/20 13:52 Ur Leukocyte Zoe ase 1+ (Negative) H 08/30/20 13:52 Urine RBC 0-4 /hpf (0-2) H 08/30/20 13:52 Urine WBC 0-4 /hpf (0-5) H 08/30/20 13:52 Ur Squamous Epith Cells 10-15 /hpf (0-5) H 08/30/20 13:52 Amorphous Sediment Not Reportable 08/30/20 13:52 Urine Bacteria 2+ /hpf (NONE) H 08/30/20 13:52 Hyaline Casts 0-4 /lpf H 08/30/20 13:52 Impressions Chest X-Ray 08/30/20 12:11 Impression: 1. Volume loss and scarring in the left upper lobe. 2. Atherosclerosis. Head CT 08/30/20 12:38 IMPRESSION: 1. No evidence of intracranial hemorrhage or mass effect. 2. Mild small vessel changes. Mild parenchymal volume loss. 3. No acute intracranial findings. Microbiology 08/30/20 13:52 Urine,Clean Catch Urine Culture - Final Klebsiella pneumoniae 08/30/20 13:52 Urine Kidney Bacterial Antigens - Final Vitals: Last Vital Signs Temp 98.3 F 09/01/20 11:05 Pulse 64 09/01/20 11:05 Resp 19 H 09/01/20 11:05 BP 158/91 09/01/20 11:05 Pulse Ox 100 09/01/20 11:05 Discharge Plan Discharge Patient Disposition: Home Health Service Condition: Stable Prescriptions: New bisacodyl 5 mg Tablet,Delayed Release (Dr/Ec) 10 mg PO DAILY PRN (Reason: Constipation (see protocol)) Qty: 10 RF: 0 ferrous gluconate 324 mg (37.5 mg iron) Tablet 324 mg PO BIDWM Qty: 60 RF: 0 levofloxacin 500 mg tablet 500 mg PO DAILY 3 Days Qty: 3 RF: 0 Continued prednisone 5 mg tablet See Rx Instructions PO .COMPLEX PRN (Reason: joint pain flare) Qty: 30 RF: 0 alprazolam 0.25 mg tablet 0.25 mg PO BID PRN (Reason: Anxiety) RF: 0 albuterol sulfate 90 mcg/actuation HFA aerosol inhaler 1 puff inhalation Q6H PRN (Reason: Shortness Of Breath) RF: 0 cholecalciferol (vitamin D3) [Vitamin D3] 25 mcg (1,000 unit) Tablet 25 mcg PO DAILY@10 RF: 0 mirtazapine 15 mg Tablet 7.5 mg PO DAILY RF: 0 levothyroxine 50 mcg Tablet 50 mcg PO DAILY@10 RF: 0 venlafaxine 150 mg Capsule,Extended Release 24hr 150 mg PO DAILY@10 RF: 0 atenolol 50 mg Tablet 25 mg PO DAILY@10 RF: 0 donepezil 10 mg tablet 10 mg PO BEDTIME@22 RF: 0 aspirin 81 mg tablet,delayed release (DR/EC) 81 mg PO DAILY@10 RF: 0 leflunomide 20 mg tablet 20 mg PO DAILY@22 RF: 0 memantine 10 mg tablet 10 mg PO BID@ RF: 0 diclofenac sodium 1 % gel 2 g topical QID PRN (Reason: Pain) RF: 0 Changed Seroquel 25 mg tablet 50 mg PO QPM Qty: 0 RF: 0 pyridostigmine bromide 30 mg tablet 60 mg PO BID@ Qty: 0 RF: 0 Held hydrochlorothiazide 25 mg Tablet 25 mg PO DAILY@10 RF: 0 Hold Instructions: Resume on 09/05/20. Discontinued metformin 1,000 mg tablet 1,000 mg PO BID@ RF: 0 sertraline 50 mg Tablet 50 mg PO DAILY@10 RF: 0 Eliquis 5 mg tablet 5 mg PO BID@ RF: 0 Discharge Orders: Discharge Order (Routine); Ordered 09/01/20 Ordered By: Bill Williamson Other Ambulatory Orders: DME: Walker (Order) Location: None Selected Ordered By: Bill Williamson Referrals: [facility] [Outside] Saima Carnes MD [Primary Care Provider] - 4-7 days (YOU HAVE A FOLLOW UP APPOINTMENT WITH DR. CARNES ON August AT 915 AM. IF YOU HAVE ANY QUESTIONS OR NEED TO RESCHEDULE PLEASE CALL [phone] ) Discharge Diet: Regular Discharge Activity: Resume usual activity Patient Instructions: Levofloxacin (By mouth), Bisacodyl (By mouth), Ascorbic Acid/Cyanocobalamin/Ferrous Fumarate (By mouth), Hypertension (DC), COPD Stoplight, Opioid Safety Activity Restrictions/Additional Instructions: Eliquis have been stopped for you as discussed in detail over the phone. Dose of Seroquel has been changed to once daily. Metformin has been stopped as A1c is 5. Please do not take hydrochlorothiazide on the days when you have diarrhea or when the oral intake is poor. Going forward please take a regular diet. You can use compression stockings when awake to prevent orthostatic hypotension. Please follow-up with your primary care provider within next 7 to 10 days with a blood pressure diary. Please check your blood pressure twice daily and maintain a blood pressure diary. Discharge Attestations Time Spent in Discharge Care*: greater than 30 min Specific Discharge Activities: educating patient, educating and/or supporting family/caregiver, discussing with pcp/other providers, discussing with case packer and sealer/social workers/dc planners, documenting/other paperwork and evaluating patient/reviewing data Status at Discharge: Cognitive status at discharge: mildly impaired cognition , Behavioral status at discharge: cooperative , Functional status at discharge: uses cane/walker Overall status at discharge: patient is back to baseline Quality Metrics Clinical Quality Measures During this hospital stay, did patient experience: None Coding Level of Care Code Acute Chg FW DC note Diagnoses Syncope R55 Syncope type: unspecified Orthostatic hypotension I95.1 Depression due to dementia F32.9; F02.80 COPD (chronic obstructive pulmonary disease) J43.9 COPD type: emphysema Emphysema type: unspecified Acute pulmonary embolism I26.99 Acute cor pulmonale presence: unspecified Pulmonary embolism type: unspecified Hypertension I10 Hypertension type: essential hypertension DM type 2 (diabetes mellitus, type 2) E11.9 Diabetes mellitus complication status: without complication Diabetes mellitus army officer insulin use: without army officer use
--- NOTE | 2020-09-01 12:55 | PC.NURSE ---
meds to bed per doctor to call new RX in [facility] prior to discharge.
--- NOTE | 2020-09-01 14:34 | PC.NURSE ---
Pt discharged home. Pts IV removed no redness or swelling noted. Pt discharge instructions given. Pt had no c/o pain or discomfort at the time of discharge.
--- NOTE | 2020-09-01 17:38 | PC.RESP ---
Pulmonary Rehab information sent to patient.
== END 2020-09-01 13:34 | disposition home health service (06) | DRG 312 ==
LOC: ER 14:34 → CSU 18:24
PROVIDERS: Admitting Provider Student in an Organized Health Care Education/Training Program; Emergency Provider Emergency Medicine; PCP Family Medicine; Visit Provider Student in an Organized Health Care Education/Training Program
DX: I95.1 Orthostatic hypotension (principal); F03.90 Unspecified dementia, unspecified severity, without behavioral disturbance, psychotic disturbance, mood disturbance, and anxiety; F32.9 Major depressive disorder, single episode, unspecified; J43.9 Emphysema, unspecified; E11.22 Type 2 diabetes mellitus with diabetic chronic kidney disease; I12.9 Hypertensive chronic kidney disease with stage 1 through stage 4 chronic kidney disease, or unspecified chronic kidney disease; N18.9 Chronic kidney disease, unspecified; Z86.718 Personal history of other venous thrombosis and embolism; Z86.711 Personal history of pulmonary embolism; E78.5 Hyperlipidemia, unspecified; L40.0 Psoriasis vulgaris; M05.9 Rheumatoid arthritis with rheumatoid factor, unspecified; Z87.891 Personal history of nicotine dependence; Z79.51 Long term (current) use of inhaled steroids; Z79.82 Long term (current) use of aspirin; Z79.52 Long term (current) use of systemic steroids
CPT/HCPCS: 36415; 70450; 71045; 80053; 80061; 81001; 82533; 83036; 83540; 83550; 83735; 83880; 84100; 84145; 84443; 84484; 85025; 85610; 86403; 87077; 87086; 87186; 93005; 94640; 94664; 96372; 97161; 97530; 99283; 99285; J0696; J1650; J3475; J3535; J7040

== ENCOUNTER 2020-09-06 12:05 | Emergency (ER) | payer MEDICARE, SELFPAY ==
[2020-09-06 12:07] VITALS: BP 101/64; PULSE 65; RESP 15; TEMP 36.6; O2SAT 95
--- NOTE | 2020-09-06 12:17 | CT_ITS ---
WS: [id number] CT HEAD NONCONTRAST HISTORY: syncope, head injury TECHNIQUE: Contiguous axial imaging performed through the brain in 2.5 mm imaging. Bone and soft tiss ue windows. Sagittal and coronal reformats reviewed. All CT scans at [facility] use at ast one of these dose optimization techniques: automated exposure control; mA and/or kV adjustment pe r patient size (includes targeted exams where dose is matched to clinical indication); or iterative r econstruction. DLP: 824.54 mGy.cm COMPARISON: 08/30/2020 No acute intracranial hemorrhage, midline shift or mass effect. Mild atrophy and mild chronic microvascular ischemic changes. Small prior lacunar infarcts in the bas al ganglia. No progression of disease since the prior study. Ventricles: Normal size with no hydrocephalus. Paranasal sinuses: As visualized are clear. Mastoid air cells: Increased fluid in the LEFT mastoid air cells. Lesser amount of opacification on t he RIGHT. Calvarium and scalp: Hyperostosis frontalis interna. CT/CT head wo con* [id number] IMPRESSION: 1. No acute intracranial hemorrhage or edema. 2. 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 3. Bilateral mastoid air cell disease, LEFT greater than RIGHT is unchanged.
--- NOTE | 2020-09-06 12:19 | ECG_ITS ---
[facility] Test Date: 2020-09-06 Pat Name: Vandana Le Department: Room: Gender: Female [employer]: : 1945 Requested By: Ish Méndez I Order Number: [id number] Eloisa MD: Camilo Nieto M.D. Measurements Intervals Keller Rate: 59 P: 40 PA: 154 QRS: 10 QRSD: 83 T: 67 QT: 415 QTc: 411 Interpretive Statements SINUS BRADYCARDIA LOW QRS VOLTAGE IN PRECORDIAL LEADS [QRS DEFLECTION < 1.0 mV IN CHEST LEADS] NONSPECIFIC T-WAVE ABNORMALITY Compared to ECG 08/30/2020 22:45:30 Low QRS voltage now present Sinus rhythm no longer present T-wave abnormality still present Electronically Signed On 09-06-2020 17:39:29 CDT by Camilo Nieto M.D. [email or web address]
--- NOTE | 2020-09-06 12:20 | ED_ITS ---
HPI - Weakness General: Chief complaint: Weakness Stated complaint: WEAKNESS/ POSSIBLE CVA/ POSSIBLE SYNCOPE Time Seen by Provider: 09/06/20 12:08 Source: patient Mode of arrival: EMS Limitations: no limitations History of Present Illness: HPI Narrative: 75-year-old female patient with a history of COPD, on oxygen at 3 L/min at home who had an episode of near syncope and extreme weakness earlier today. Her home health aide was with her and said the patient became non verbal, had right facial droop and right arm weakness. Symptoms resolved prior to EMS arriving. Patient has a history of frequent falls due to hypotension. She also has a history of dementia. MD Complaint: generalized weakness Onset (ago): hour(s) (1) Duration: now resolved Location: generalized Migration: none Relieving factors: none Exacerbating factors: none Associated symptoms: Denies chest pain, chills, confusion, melena, decreased appetite, diaphoresis, dysuria, easy bruising, fever(s), headache(s), myalgias, nausea, rash, short of breath, syncope or vomiting Review of Systems General: Reports: 10 or more systems reviewed and unremarkable except in HPI and below Const: Denies: fever(s), chills or diaphoresis Card: Denies: chest pain or syncope GI: Denies: nausea, vomiting or melena : Denies: dysuria Neuro: Denies: headache(s) or confusion Onel/Lymph: Denies: easy bruising [facility] PFSH: Medical History Acute pulmonary embolism COPD (chronic obstructive pulmonary disease) Dementia Depression due to dementia DM type 2 (diabetes mellitus, type 2) DVT (deep venous thrombosis) GERD (gastroesophageal reflux disease) High risk medication use Hyperlipidemia Hypertension Immunization counseling Joint pain Orthostatic hypotension Plaque psoriasis Seropositive rheumatoid arthritis of multiple sites Syncope Surgical History H/O hernia repair H/O: hysterectomy History of carpal tunnel surgery S/P appendectomy Status post myringotomy with tube placement of both ears Family History Other CAD (coronary artery disease) Cancer Dementia Diabetes Hypertension Stroke Denies family history of Rheumatoid arthritis Lupus Chronic kidney disease (CKD) Lung disease Social History Smoking and tobacco status: former smoker Alcohol intake: never Household members: children Marital status: / History of recent travel: No Female Reproductive History: Para: 3 Physical Exam Const: COMMON NORMALS: no acute distress, average body habitus, patient oriented x3, no limitations, healthy appearing, alert and well nourished Neck/C-Spine: COMMON NORMALS: full ROM, supple, no meningeal signs, no JVD and No carotid bruits Resp: COMMON NORMALS: normal respiratory effort, No retractions, No use of accessory muscles, clear to auscultation bilaterally and percussion normal AUSCULTATION: clear to auscultation bilaterally PERCUSSION: percussion normal Cardio: COMMON NORMALS: no JVD, regular rate, regular rhythm, S1 normal heart sound present, S2 normal heart sound present, No gallops present (Cardio), No clicks present (Cardio), No murmurs present (Cardio), No rub (Cardio) and Peripheral pulses 2+ throughout RATE: regular rate RHYTHM: regular rhythm HEART SOUNDS: S1 normal heart sound present and S2 normal heart sound present PERIPHERAL PULSES: Peripheral pulses 2+ throughout GI: COMMON NORMALS: Normal to inspection, nondistended, normoactive bowel sounds present, Soft to palpation, non-tender, No hepatosplenomegaly present, no masses and no bruits PALPATION: Yes Soft to palpation and Yes No hepatosplenomegaly present Extremity: COMMON NORMALS: normal to inspection, full ROM, capillary refill normal, no calf tenderness and no pedal edema Neuro: COMMON NORMALS: patient oriented x3 SENSORIUM/ORIENTATION: Yes alert MENINGEAL SIGNS: Yes no meningeal signs Skin: COMMON NORMALS: no rashes or lesions noted, no wounds, turgor normal, no jaundice, no petechiae and no mottling GENERAL SKIN EXAM: no rashes or lesions noted and turgor normal Course Reevaluation(s): Reevaluation #1: Discussed her lab and imaging findings with her. Negative for acute findings. We will therefore discharge her home with no new orders. She voiced understanding and is in agreement with the plan Time: 16:30 Vital Signs: Vital signs: Vital Signs Temperature 97.9 F 09/06/20 12:07 Pulse Rate 67 09/06/20 16:34 Respiratory Rate 18 09/06/20 14:47 Blood Pressure 156/86 09/06/20 16:34 Pulse Oximetry 100 09/06/20 16:34 MDM - Weakness MDM Narrative: Medical decision making narrative: 75-year-old female patient who had a near syncopal event today. Family was concerned for a CVA but symptoms are all resolved prior to EMS arrival at her home. Evaluation in the emergency department was unremarkable. She be discharged home with no new orders. Medical Records: Attestation: I reviewed the patient's medical records. Lab Data: Attestation: I reviewed the patient's lab results. Labs: Lab Results 09/06/20 09/06/20 09/06/20 Range/Units 11:57 11:57 11:57 WBC 5.4 (4.0-10.0) 10^3/ uL RBC 3.79 L (4.1-5.3) 10^6/u L Hgb 11.6 (11.5-15.3) g/dL Hct 37.8 (37.0-47.0) % MCV 99.7 H (81-99) fL MCH 30.6 (28.0-34.0) pg MCHC 30.7 (30.0-36.0) g/dL RDW 13.1 (12.1-15.1) % Plt Count 263 (130-400) 10^3/c mm MPV 10.4 (7.4-10.4) fL Neut % (Auto) 51.3 % Lymph % (Auto) 36.6 % [place] % (Auto) 9.9 % Eos % (Auto) 1.1 % Baso % (Auto) 0.9 % Neut # (Auto) 2.75 (1.8-7.7) 10^3/u L Lymph # (Auto) 2.0 (0.8-4.8) 10^3/u L [place] # (Auto) 0.5 (0.2-0.9) 10^3/u L Eos # (Auto) 0.1 (0.0-0.8) 10^3/u L Baso # (Auto) 0.1 (0.0-0.1) 10^3/u L Nucleated RBC % (a uto) 0 % Nucleated RBCs # 0.0 /100WBC PT 13.40 (12.1-14.9) SECO NDS INR 0.99 (0.8-1.2) Sodium 141 (136-145) mmol/L Potassium 4.0 (3.5-5.1) mmol/L Chloride 103 (98-107) mmol/L Carbon Dioxide 25 (22-29) mmol/L Anion Gap 17.0 (5-19) BUN 22 (8-23) mg/dL Creatinine 1.0 H (0.5-0.9) mg/dL GFR Calculation Not Reportable Glucose 137 H (65-115) mg/dL Calculated Osmolal ity 297 H (285-295) mOsm/k g Lactate (0.5-2.2) mmol/L Calcium 9.3 (8.5-10.5) mg/dL Total Bilirubin 0.2 (0.15-1.2) mg/dL AST 15 (0-32) U/L ALT 9 (0-33) U/L Alkaline Phosphata se 90 (35-105) IU/L Troponin T Baselin e (0-10) ng/L Troponin T 120 Min [place]ik (0-10) ng/L Delta Troponin T (0-10) ABS# C-Reactive Protein 1.6 (0.0-4.9) mg/L NT-Pro-B Natriuret Pep 945 H (0-450) pg/mL Total Protein 5.9 L (6.6-8.7) g/dL Albumin 3.8 (3.5-5.2) g/dL Globulin 2.1 (1.3-4.6) g/dL Urine Color (Yellow) Urine Appearance (CLEAR) Urine pH (5-7) Ur Specific Gravit y (1.005-1.030) Urine Protein (Negative) Urine Glucose (UA) (Normal) Urine Ketones (Negative) Urine Blood (Negative) Urine Nitrate (Negative) Urine Bilirubin (Negative) Urine Urobilinogen (Negative) mg/dL Ur Leukocyte Zoe ase (Negative) 09/06/20 09/06/20 09/06/20 Range/Units 11:57 13:26 13:50 WBC (4.0-10.0) 10^3/ uL RBC (4.1-5.3) 10^6/u L Hgb (11.5-15.3) g/dL Hct (37.0-47.0) % MCV (81-99) fL MCH (28.0-34.0) pg MCHC (30.0-36.0) g/dL RDW (12.1-15.1) % Plt Count (130-400) 10^3/c mm MPV (7.4-10.4) fL Neut % (Auto) % Lymph % (Auto) % [place] % (Auto) % Eos % (Auto) % Baso % (Auto) % Neut # (Auto) (1.8-7.7) 10^3/u L Lymph # (Auto) (0.8-4.8) 10^3/u L [place] # (Auto) (0.2-0.9) 10^3/u L Eos # (Auto) (0.0-0.8) 10^3/u L Baso # (Auto) (0.0-0.1) 10^3/u L Nucleated RBC % (a uto) % Nucleated RBCs # /100WBC PT (12.1-14.9) SECO NDS INR (0.8-1.2) Sodium (136-145) mmol/L Potassium (3.5-5.1) mmol/L Chloride (98-107) mmol/L Carbon Dioxide (22-29) mmol/L Anion Gap (5-19) BUN (8-23) mg/dL Creatinine (0.5-0.9) mg/dL GFR Calculation Glucose (65-115) mg/dL Calculated Osmolal ity (285-295) mOsm/k g Lactate 1.7 (0.5-2.2) mmol/L Calcium (8.5-10.5) mg/dL Total Bilirubin (0.15-1.2) mg/dL AST (0-32) U/L ALT (0-33) U/L Alkaline Phosphata se (35-105) IU/L Troponin T Baselin e 19 H (0-10) ng/L Troponin T 120 Min [place]ik 9.21 (0-10) ng/L Delta Troponin T -9.79 L (0-10) ABS# C-Reactive Protein (0.0-4.9) mg/L NT-Pro-B Natriuret Pep (0-450) pg/mL Total Protein (6.6-8.7) g/dL Albumin (3.5-5.2) g/dL Globulin (1.3-4.6) g/dL Urine Color (Yellow) Urine Appearance (CLEAR) Urine pH (5-7) Ur Specific Gravit y (1.005-1.030) Urine Protein (Negative) Urine Glucose (UA) (Normal) Urine Ketones (Negative) Urine Blood (Negative) Urine Nitrate (Negative) Urine Bilirubin (Negative) Urine Urobilinogen (Negative) mg/dL Ur Leukocyte Zoe ase (Negative) 09/06/20 Range/Units 15:15 WBC (4.0-10.0) 10^3/ uL RBC (4.1-5.3) 10^6/u L Hgb (11.5-15.3) g/dL Hct (37.0-47.0) % MCV (81-99) fL MCH (28.0-34.0) pg MCHC (30.0-36.0) g/dL RDW (12.1-15.1) % Plt Count (130-400) 10^3/c mm MPV (7.4-10.4) fL Neut % (Auto) % Lymph % (Auto) % [place] % (Auto) % Eos % (Auto) % Baso % (Auto) % Neut # (Auto) (1.8-7.7) 10^3/u L Lymph # (Auto) (0.8-4.8) 10^3/u L [place] # (Auto) (0.2-0.9) 10^3/u L Eos # (Auto) (0.0-0.8) 10^3/u L Baso # (Auto) (0.0-0.1) 10^3/u L Nucleated RBC % (a uto) % Nucleated RBCs # /100WBC PT (12.1-14.9) SECO NDS INR (0.8-1.2) Sodium (136-145) mmol/L Potassium (3.5-5.1) mmol/L Chloride (98-107) mmol/L Carbon Dioxide (22-29) mmol/L Anion Gap (5-19) BUN (8-23) mg/dL Creatinine (0.5-0.9) mg/dL GFR Calculation Glucose (65-115) mg/dL Calculated Osmolal ity (285-295) mOsm/k g Lactate (0.5-2.2) mmol/L Calcium (8.5-10.5) mg/dL Total Bilirubin (0.15-1.2) mg/dL AST (0-32) U/L ALT (0-33) U/L Alkaline Phosphata se (35-105) IU/L Troponin T Baselin e (0-10) ng/L Troponin T 120 Min [place] (0-10) ng/L Delta Troponin T (0-10) ABS# C-Reactive Protein (0.0-4.9) mg/L NT-Pro-B Natriuret Pep (0-450) pg/mL Total Protein (6.6-8.7) g/dL Albumin (3.5-5.2) g/dL Globulin (1.3-4.6) g/dL Urine Color Yellow (Yellow) Urine Appearance Clear (CLEAR) Urine pH 6 (5-7) Ur Specific Gravit y 1.010 (1.005-1.030) Urine Protein Neg (Negative) Urine Glucose (UA) Norm (Normal) Urine Ketones Negative (Negative) Urine Blood Neg (Negative) Urine Nitrate Negative (Negative) Urine Bilirubin Neg (Negative) Urine Urobilinogen Norm (Negative) mg/dL Ur Leukocyte Zoe ase Negative (Negative) Imaging Data^: CT Head: Attestation: I personally reviewed and interpreted this imaging study as follows: Radiologist's impression: [address] [id number] Scan ReportSigned Patient: Vandana Le #: [id number]: 1945cct#:[id number]/Sex: 75 / FADM Date: 09/06/20Loc: ERRoom/Bed:Attending Dr: Ordering Provider/Ordering MD: Ish Méndez MD, [facility] [place] Date of Service: 09/06/20 Procedure(s): CT head wo con* [id number] Accession Number(s): [id number] Report Number: [id number] WS: [id number] CT HEAD NONCONTRAST HISTORY: syncope, head injury TECHNIQUE: Contiguous axial imaging performed through the brain in 2.5 mm imaging. Bone and soft tissue windows. Sagittal and coronal reformats reviewed. All CT scans at [facility] use at least one of these dose optimization techniques: automated exposure control; mA and/or kV adjustment per patient size (includes targeted exams where dose is matched to clinical indication); or iterative reconstruction. DLP: 824.54 mGy.cm COMPARISON: 08/30/2020 No acute intracranial hemorrhage, midline shift or mass effect. Mild atrophy and mild chronic microvascular ischemic changes. Small prior lacunar infarcts in the basal ganglia. No progression of disease since the prior study. Ventricles: Normal size with no hydrocephalus. Paranasal sinuses: As visualized are clear. Mastoid air cells: Increased fluid in the LEFT mastoid air cells. Lesser amount of opacification on the RIGHT. Calvarium and scalp: Hyperostosis frontalis interna. CT/CT head wo con* [id number] IMPRESSION: 1. No acute intracranial hemorrhage or edema. 2. 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 3. Bilateral mastoid air cell disease, LEFT greater than RIGHT is unchanged. Dictated By:Tita Lloyd DOSigned By:Tita Lloyd DOSigned Date/Time:09/06/20 1244DD/ 1241 EKG Data^: EKG 1: Attestation: I personally reviewed and interpreted this EKG as follows: EKG interpretation date: 09/06/20 EKG interpretation time: 13:19 Prior EKG tracings: not available for review Interpretation: Sinus bradycardia. Heart rate 59 bpm. Normal axis. No ST changes. EKG 2: Attestation: I personally reviewed and interpreted this EKG as follows: EKG interpretation date: 09/06/20 EKG interpretation time: 14:49 Prior EKG tracings: available for review Interpretation: Sinus rhythm. Heart rate [address] changes. No significant change from earlier today. Discharge Plan Discharge Patient Disposition: Home Clinical Impression: Near syncope Condition: Stable Prescriptions: Continued prednisone 5 mg tablet See Rx Instructions PO .COMPLEX PRN (Reason: joint pain flare) Qty: 30 RF: 0 alprazolam 0.25 mg tablet 0.25 mg PO BID PRN (Reason: Anxiety) RF: 0 albuterol sulfate 90 mcg/actuation HFA aerosol inhaler 1 puff inhalation Q6H PRN (Reason: Shortness Of Breath) RF: 0 cholecalciferol (vitamin D3) [Vitamin D3] 25 mcg (1,000 unit) Tablet 25 mcg PO DAILY@10 RF: 0 mirtazapine 15 mg Tablet 7.5 mg PO DAILY RF: 0 bisacodyl 5 mg Tablet,Delayed Release (Dr/Ec) 10 mg PO DAILY PRN (Reason: Constipation (see protocol)) Qty: 10 RF: 0 ferrous gluconate 324 mg (37.5 mg iron) Tablet 324 mg PO BIDWM Qty: 60 RF: 0 quetiapine [Seroquel] 25 mg tablet 50 mg PO QPM Qty: 0 RF: 0 pyridostigmine bromide 30 mg tablet 60 mg PO BID@10,22 Qty: 0 RF: 0 levothyroxine 50 mcg Tablet 50 mcg PO DAILY@10 RF: 0 venlafaxine 150 mg Capsule,Extended Release 24hr 150 mg PO DAILY@10 RF: 0 hydrochlorothiazide 25 mg Tablet 25 mg PO DAILY@10 RF: 0 Hold Instructions: Resume on 09/05/20. atenolol 50 mg Tablet 25 mg PO DAILY@10 RF: 0 donepezil 10 mg tablet 10 mg PO BEDTIME@22 RF: 0 aspirin 81 mg tablet,delayed release (DR/EC) 81 mg PO DAILY@10 RF: 0 leflunomide 20 mg tablet 20 mg PO DAILY@22 RF: 0 memantine 10 mg tablet 10 mg PO BID@10,22 RF: 0 diclofenac sodium 1 % gel 2 g topical QID PRN (Reason: Pain) RF: 0 Discharge Orders: Discharge ED (Routine); Ordered 09/06/20 Ordered By: Ish Méndez Referrals: Saima Carnes MD [Primary Care Provider] - 1-3 days Discharge Diet: Usual diet Discharge Activity: Increase activity as tolerated Patient Instructions: Near Syncope (ED) Activity Restrictions/Additional Instructions: Return for any new or worsening symptoms. Follow-up with your primary care provider within 3 days. Continue your home medications. Coding Level of Care Code ED Emergency Communications Operator for Chg Fwd Exam Detailed
[2020-09-06 12:32] LABS: Basophils # 0.1 10^3/uL (0.0-0.1); Basophils % 0.9 %; Eosinophils # 0.1 10^3/uL (0.0-0.8); Eosinophils % 1.1 %; Hematocrit 37.8 % (37.0-47.0); Hemoglobin 11.6 g/dL (11.5-15.3); Lymphocytes % 36.6 %; Mean Corpuscular HGB Conc 30.7 g/dL (30.0-36.0); Mean Corpuscular Hemoglobin 30.6 pg (28.0-34.0); Mean Corpuscular Volume 99.7 fL (81-99); Mean Platelet Volume 10.4 fL (7.4-10.4); Monocytes # 0.5 10^3/uL (0.2-0.9); Monocytes % 9.9 %; Neutrophils # 2.75 10^3/uL (1.8-7.7); Neutrophils % 51.3 %; Nucleated Red Blood Cells % 0 %; Platelet Count 263 10^3/cmm (130-400); Red Blood Count 3.79 10^6/uL (4.1-5.3); Red Cell Distribution Width 13.1 % (12.1-15.1); White Blood Count 5.4 10^3/uL (4.0-10.0)
[2020-09-06 12:35] LABS: INR 0.99 (0.8-1.2)
[2020-09-06 12:51] LABS: Troponin(5th) Baseline 19 ng/L (0-10)
[2020-09-06 12:54] VITALS: BP 105/46; PULSE 74; RESP 18; O2SAT 98
[2020-09-06 12:58] LABS: Alanine Aminotransferase 9 U/L (0-33); Albumin Level 3.8 g/dL (3.5-5.2); Alkaline Phosphatase 90 IU/L (35-105); Aspartate Amino Transferase 15 U/L (0-32); Blood Urea Nitrogen 22 mg/dL (8-23); Calcium 9.3 mg/dL (8.5-10.5); Carbon Dioxide 25 mmol/L (22-29); Chloride 103 mmol/L (98-107); Globulin 2.1 g/dL (1.3-4.6); Glucose 137 mg/dL (65-115); NT Pro B Type Natriuretic Pept 945 pg/mL (0-450); Osmolality Calculated 297 mOsm/kg (285-295); Sodium 141 mmol/L (136-145); Total Bilirubin 0.2 mg/dL (0.15-1.2); Total Protein 5.9 g/dL (6.6-8.7)
[2020-09-06 13:12] LABS: C Reactive Protein 1.6 mg/L (0.0-4.9)
--- NOTE | 2020-09-06 14:19 | ECG_ITS ---
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 Measurements Intervals [place] Rate: 62 P: 60 [place]: 166 QRS: 29 QRSD: 87 T: 55 QT: 412 QTc: 419 Interpretive Statements SINUS RHYTHM LOW QRS VOLTAGE IN PRECORDIAL LEADS [QRS DEFLECTION < 1.0 mV IN CHEST LEADS] NONSPECIFIC T-WAVE ABNORMALITY Compared to ECG 09/06/2020 13:19:23 Sinus bradycardia no longer present T-wave abnormality still present Electronically Signed On 09-06-2020 17:51:04 CDT by Camilo Nieto M.D. [id number]
[2020-09-06 14:29] LABS: Troponin 5 2HR 9.21 ng/L (0-10)
[2020-09-06 14:47] VITALS: BP 126/58; PULSE 87; RESP 18; O2SAT 100
[2020-09-06 15:18] LABS: Lactate (Lactic Acid level) 1.7 mmol/L (0.5-2.2)
[2020-09-06 15:29] LABS: Add Urine Microscopic? NO; Charge for UA Resulting for Rev
[2020-09-06 15:48] LABS: Bilirubin Urine Neg (Negative); Blood Urine Neg (Negative); Glucose Urine UA Norm (Normal); Ketones Urine Negative (Negative); Leukocyte Esterase Urine Negative (Negative); Nitrate Urine Negative (Negative); Protein Urine Neg (Negative); Urine Appearance Clear (CLEAR); Urine Color Yellow (Yellow); Urobilinogen Urine Norm (Negative); pH Urine 6 (5-7)
[2020-09-06 16:34] VITALS: BP 156/86; PULSE 67; O2SAT 100
== END 2020-09-06 16:57 | disposition home or self-care (01) ==
PROVIDERS: Emergency Provider Family Medicine; PCP Family Medicine
DX: R55 Syncope and collapse (principal); Z79.82 Long term (current) use of aspirin; J44.9 Chronic obstructive pulmonary disease, unspecified; F03.90 Unspecified dementia, unspecified severity, without behavioral disturbance, psychotic disturbance, mood disturbance, and anxiety; E11.9 Type 2 diabetes mellitus without complications; E78.5 Hyperlipidemia, unspecified; I10 Essential (primary) hypertension; Z87.891 Personal history of nicotine dependence
CPT/HCPCS: 36415; 70450; 80053; 81003; 83605; 83880; 84484; 85025; 85610; 86140; 93005; 99284

== ENCOUNTER 2020-09-26 21:46 | Emergency (ER) | payer MEDICARE, SELFPAY ==
[2020-09-26 21:48] VITALS: BP 160/89; PULSE 82; RESP 18; TEMP 36.8; O2SAT 100
--- NOTE | 2020-09-26 21:59 | XRR_ITS ---
PROCEDURE INFORMATION: Exam: XR Chest Exam date and time: 09/26/2020 9:59 PM Age: 75 years old Clinical indication: Left-sided; Patient HX: Left sided chest pain. General weakness. ; Additional info: Cough TECHNIQUE: Imaging protocol: XR of the chest. Views: 1 view. COMPARISON: CR (CHEST, ) 08/29/2020 2:43 AM FINDINGS: Lungs: Chronic left lung volume loss with left upper lobe parenchymal scarring stable prior. Diffuse emphysematous lung changes. No focal acute pulmonary consolidation identified. Pleural spaces: Unremarkable. No pleural effusion. No pneumothorax. Heart/Mediastinum: Unremarkable. No cardiomegaly. Vasculature: Scattered atherosclerosis. Bones/joints: No acute thoracic fracture. XR/XR chest 1V portable [id number] IMPRESSION: Chronic parenchymal lung changes are identified with no convincing evidence of focal acute pulmonary disease process.
--- NOTE | 2020-09-26 21:59 | ECG_ITS ---
[facility] Test Date: 2020-09-26 Pat Name: Vandana Le Department: Room: Gender: Female Nib Adjuster: : 1945 Requested By: Siddhartha Rodríguez Order Number: [id number] Eloisa MD: Niall Araiza M.D. Measurements Intervals [place] Rate: 78 P: 101 [place]: 149 QRS: 74 QRSD: 81 T: 90 QT: 391 QTc: 447 Interpretive Statements SINUS RHYTHM Compared to ECG 09/06/2020 14:49:35 T-wave abnormality no longer present Electronically Signed On 09-27-2020 17:43:53 CDT by Niall Araiza M.D. [id number]
--- NOTE | 2020-09-26 22:00 | W.ED.CHESTPA ---
HPI - Chest Pain General: Chief Complaint: Chest Pain Stated Complaint: WEAKNESS Time Seen by Provider: 09/26/20 21:59 History of Present Illness: HPI narrative: This patient is a 75-year-old female who presents to the emergency department with complaint of just not feeling well. Patient also states she has a burning in her chest. Patient does have a history of cardiac disease but that does not describe cardiac symptoms. Patient states she does have a little bit of memory issues and records show that she does have mild dementia. Patient lives with her grandson. Patient denies cough congestion or fever. Will do medical evaluation treat as needed Associated symptoms: Deny abdominal pain, dyspnea, fever(s), nausea, palpitations or vomiting Review of Systems General: Reports: 10 or more systems reviewed and unremarkable except in HPI and below Const: Reports: fatigue; Denies: fever(s), chills or body aches Eyes: Denies: change in vision or blurry vision ENMT: Denies: throat pain, hoarseness or mouth pain Card: Reports: chest pain; Denies: palpitations, irregular heart rhythm, edema, swelling of feet/ankles or lightheadedness Resp: Denies: dyspnea, productive cough, non-productive cough, wheezing or pain on inspiration GI: Denies: abdominal pain, nausea or vomiting : Denies: flank pain, difficulty voiding, dysuria, urinary frequency, urinary urgency or urinary hesitancy Musc: Denies: neck pain, back pain, extremity pain, extremity swelling, joint pain, joint swelling, joint redness, joint warmth or limited range of motion Skin/Breast: Denies: rash, pruritus, erythema or skin tenderness Neuro: Denies: headache(s), numbness in extremities or weakness in extremities Psych: Denies: anxiety or depression [facility] ED PFSH: Medical History Acute pulmonary embolism COPD (chronic obstructive pulmonary disease) Dementia Depression due to dementia DM type 2 (diabetes mellitus, type 2) DVT (deep venous thrombosis) GERD (gastroesophageal reflux disease) High risk medication use Hyperlipidemia Hypertension Immunization counseling Joint pain Orthostatic hypotension Plaque psoriasis Seropositive rheumatoid arthritis of multiple sites Syncope Surgical History H/O hernia repair H/O: hysterectomy History of carpal tunnel surgery S/P appendectomy Status post myringotomy with tube placement of both ears Family History Other CAD (coronary artery disease) Cancer Dementia Diabetes Hypertension Stroke Denies family history of Rheumatoid arthritis Lupus Chronic kidney disease (CKD) Lung disease Social History Smoking and tobacco status: former smoker Alcohol intake: never Household members: children Marital status: / History of recent travel: No Female Reproductive History: Para: 3 Physical Exam Const: COMMON NORMALS: no acute distress, average body habitus, patient oriented x3, no limitations, healthy appearing, alert and well nourished HENMT: COMMON NORMALS: normocephalic, atraumatic, hearing grossly normal bilaterally, external ears normal, EAC's normal, TM's normal bilaterally, Normal external nose present, Normal nasal mucous membranes and turbinates present, moist oral mucous membranes, oropharynx normal, dentition normal and gingiva normal HEAD & SCALP: normocephalic and atraumatic NOSE: Normal external nose present and Normal nasal mucous membranes and turbinates present EXTERNAL EAR: Yes external ears normal EXTERNAL AUDITORY CANAL: EAC's normal TYMPANIC MEMBRANE: TM's normal bilaterally Neck/C-Spine: COMMON NORMALS: full ROM, no lymphadenopathy, supple, no meningeal signs, no JVD, Thyroid normal and No carotid bruits THYROID: Thyroid normal Chest: COMMONS NORMALS: normal inspection of the chest, normal palpation of entire chest wall, normal inspection of the breasts and normal palpation of the breasts Breast/axilla inspection: Yes normal inspection of the breasts BREAST/AXILLA PALPATION: Yes normal palpation of the breasts Resp: COMMON NORMALS: normal respiratory effort, No retractions, No use of accessory muscles, clear to auscultation bilaterally and percussion normal AUSCULTATION: clear to auscultation bilaterally PERCUSSION: percussion normal Cardio: COMMON NORMALS: no JVD, regular rate, regular rhythm, S1 normal heart sound present, S2 normal heart sound present, No gallops present (Cardio), No clicks present (Cardio), No murmurs present (Cardio), No rub (Cardio) and Peripheral pulses 2+ throughout RATE: regular rate RHYTHM: regular rhythm HEART SOUNDS: S1 normal heart sound present and S2 normal heart sound present PERIPHERAL PULSES: Peripheral pulses 2+ throughout GI: COMMON NORMALS: Normal to inspection, nondistended, normoactive bowel sounds present, Soft to palpation, non-tender, No hepatosplenomegaly present, no masses and no bruits PALPATION: Yes Soft to palpation and Yes No hepatosplenomegaly present : COMMON NORMALS: Yes no CVA tenderness, Yes normal external appearance, Yes normal appearance of the vagina, Yes normal appearance of the cervix, Yes normal bimanual exam, Yes No adnexal tenderness and Yes no masses BLADDER/KIDNEY EXAM: Yes no CVA tenderness BIMANUAL EXAM - VAGINA & UTERUS: Yes normal bimanual exam Back/Pelvis: COMMON NORMALS: no CVA tenderness, thoracic and lumbar spine normal to inspection, no thoracic nor lumbar tenderness, thoraco-lumbar ROM normal and straight leg raise negative bilaterally Extremity: COMMON NORMALS: normal to inspection, full ROM, capillary refill normal, no joint enlargement, no clubbing, cyanosis or edema, no calf tenderness and no pedal edema Neuro: COMMON NORMALS: patient oriented x3 SENSORIUM/ORIENTATION: Yes alert MENINGEAL SIGNS: Yes no meningeal signs Course Reevaluation(s): Reevaluation #1: This patient is a 75-year-old female that appears to have a blood clot on CT. Patient is satting 100% on room air and has no specific complaints. Patient was previously on blood thinners in the past for PE. Patient has not been on them for some time. Patient will be given a shot of Lovenox and then will be placed on Eliquis as instructed. Patient does not have oxygen at home but this does not seem to needed. Believe this may be related to anxiety due to her dementia. They will continue oxygen as needed at home and follow-up with primary care physician as needed. Patient and family state understanding she is discharged Time: 23:27 Vital Signs: Vital signs: Vital Signs Temperature 98.2 F 09/26/20 21:48 Pulse Rate 82 09/26/20 21:48 Respiratory Rate 18 09/26/20 21:48 Blood Pressure 160/89 09/26/20 21:48 Pulse Oximetry 100 09/26/20 21:48 MDM - Chest Pain MDM Narrative: Medical decision making narrative: IMPRESSION: 1. Positive for small volume pulmonary embolism primarily visible in the right lower lobe. 2. No convincing CT angiogram evidence acute significant right heart strain but correlation is necessary. Medical Records: Attestation: I reviewed the patient's medical records. Lab Data: Attestation: I reviewed the patient's lab results. Labs: Lab Results 09/26/20 09/26/20 09/26/20 Range/Units 21:35 21:35 21:35 WBC 6.1 (4.0-10.0) 10^3/ uL RBC 3.51 L (4.1-5.3) 10^6/u L Hgb 10.8 L (11.5-15.3) g/dL Hct 35.5 L (37.0-47.0) % MCV 101.1 H (81-99) fL MCH 30.8 (28.0-34.0) pg MCHC 30.4 (30.0-36.0) g/dL RDW 13.6 (12.1-15.1) % Plt Count 235 (130-400) 10^3/c mm MPV 10.9 H (7.4-10.4) fL Neut % (Auto) 57.5 % Lymph % (Auto) 32.5 % Kay % (Auto) 8.7 % Eos % (Auto) 0.8 % Baso % (Auto) 0.3 % Neut # (Auto) 3.49 (1.8-7.7) 10^3/u L Lymph # (Auto) 2.0 (0.8-4.8) 10^3/u L Kay # (Auto) 0.5 (0.2-0.9) 10^3/u L Eos # (Auto) 0.1 (0.0-0.8) 10^3/u L Baso # (Auto) 0.0 (0.0-0.1) 10^3/u L Nucleated RBC % (a uto) 0 % Nucleated RBCs # 0.0 /100WBC D-Dimer (0-0.59) ug/mIFE U Sodium 140 (136-145) mmol/L Potassium 4.2 (3.5-5.1) mmol/L Chloride 107 (98-107) mmol/L Carbon Dioxide 23 (22-29) mmol/L Anion Gap 14.2 (5-19) BUN 30 H (8-23) mg/dL Creatinine 1.1 H (0.5-0.9) mg/dL GFR Calculation Not Reportable Glucose 112 (65-115) mg/dL Calculated Osmolal ity 297 H (285-295) mOsm/k g Calcium 9.5 (8.5-10.5) mg/dL Total Bilirubin 0.2 (0.15-1.2) mg/dL AST 12 (0-32) U/L ALT 7 (0-33) U/L Alkaline Phosphata se 91 (35-105) IU/L Troponin T Gen 5 n g/L 18 H (0-10) ng/L NT-Pro-B Natriuret Pep 754 H (0-450) pg/mL Total Protein 6.4 L (6.6-8.7) g/dL Albumin 3.5 (3.5-5.2) g/dL Globulin 2.9 (1.3-4.6) g/dL 09/26/20 Range/Units 21:35 WBC (4.0-10.0) 10^3/ uL RBC (4.1-5.3) 10^6/u L Hgb (11.5-15.3) g/dL Hct (37.0-47.0) % MCV (81-99) fL MCH (28.0-34.0) pg MCHC (30.0-36.0) g/dL RDW (12.1-15.1) % Plt Count (130-400) 10^3/c mm MPV (7.4-10.4) fL Neut % (Auto) % Lymph % (Auto) % Kay % (Auto) % Eos % (Auto) % Baso % (Auto) % Neut # (Auto) (1.8-7.7) 10^3/u L Lymph # (Auto) (0.8-4.8) 10^3/u L Kay # (Auto) (0.2-0.9) 10^3/u L Eos # (Auto) (0.0-0.8) 10^3/u L Baso # (Auto) (0.0-0.1) 10^3/u L Nucleated RBC % (a uto) % Nucleated RBCs # /100WBC D-Dimer 1.19 H (0-0.59) ug/mIFE U Sodium (136-145) mmol/L Potassium (3.5-5.1) mmol/L Chloride (98-107) mmol/L Carbon Dioxide (22-29) mmol/L Anion Gap (5-19) BUN (8-23) mg/dL Creatinine (0.5-0.9) mg/dL GFR Calculation Glucose (65-115) mg/dL Calculated Osmolal ity (285-295) mOsm/k g Calcium (8.5-10.5) mg/dL Total Bilirubin (0.15-1.2) mg/dL AST (0-32) U/L ALT (0-33) U/L Alkaline Phosphata se (35-105) IU/L Troponin T Gen 5 n g/L (0-10) ng/L NT-Pro-B Natriuret Pep (0-450) pg/mL Total Protein (6.6-8.7) g/dL Albumin (3.5-5.2) g/dL Globulin (1.3-4.6) g/dL Imaging Data^: CT Chest: Attestation: I personally reviewed and interpreted this imaging study as follows: Radiologist's impression: IMPRESSION: 1. Positive for small volume pulmonary embolism primarily visible in the right lower lobe. 2. No convincing CT angiogram evidence acute significant right heart strain but correlation is necessary. EKG Data^: EKG 1: Attestation: I personally reviewed and interpreted this EKG as follows: EKG interpretation date: 09/26/20 EKG interpretation time: 22:23 Prior EKG tracings: not available for review Discharge Plan Discharge Patient Disposition: Home Clinical Impression: Pulmonary embolism, Dementia Condition: Stable Prescriptions: New Eliquis 2.5 mg tablet 2.5 mg PO Q12H Qty: 60 RF: 0 No Action prednisone 5 mg tablet See Rx Instructions PO .COMPLEX PRN (Reason: joint pain flare) Qty: 30 RF: 0 alprazolam 0.25 mg tablet 0.25 mg PO BID PRN (Reason: Anxiety) RF: 0 albuterol sulfate 90 mcg/actuation HFA aerosol inhaler 1 puff inhalation Q6H PRN (Reason: Shortness Of Breath) RF: 0 cholecalciferol (vitamin D3) [Vitamin D3] 25 mcg (1,000 unit) Tablet 25 mcg PO DAILY@10 RF: 0 mirtazapine 15 mg Tablet 7.5 mg PO DAILY RF: 0 bisacodyl 5 mg Tablet,Delayed Release (Dr/Ec) 10 mg PO DAILY PRN (Reason: Constipation (see protocol)) Qty: 10 RF: 0 ferrous gluconate 324 mg (37.5 mg iron) Tablet 324 mg PO BIDWM Qty: 60 RF: 0 quetiapine [Seroquel] 25 mg tablet 50 mg PO QPM Qty: 0 RF: 0 pyridostigmine bromide 30 mg tablet 60 mg PO BID@10,22 Qty: 0 RF: 0 levothyroxine 50 mcg Tablet 50 mcg PO DAILY@10 RF: 0 venlafaxine 150 mg Capsule,Extended Release 24hr 150 mg PO DAILY@10 RF: 0 hydrochlorothiazide 25 mg Tablet 25 mg PO DAILY@10 RF: 0 Hold Instructions: Resume on 09/05/20. atenolol 50 mg Tablet 25 mg PO DAILY@10 RF: 0 donepezil 10 mg tablet 10 mg PO BEDTIME@22 RF: 0 aspirin 81 mg tablet,delayed release (DR/EC) 81 mg PO DAILY@10 RF: 0 leflunomide 20 mg tablet 20 mg PO DAILY@22 RF: 0 memantine 10 mg tablet 10 mg PO BID@,22 RF: 0 diclofenac sodium 1 % gel 2 g topical QID PRN (Reason: Pain) RF: 0 Discharge Orders: Discharge ED (Routine); Ordered 09/26/20 Ordered By: Siddhartha Rodríguez Referrals: Saima Carnes MD [Primary Care Provider] - Discharge Diet: Advance as tolerated Discharge Activity: Resume usual activity Patient Instructions: Opioid Safety Activity Restrictions/Additional Instructions: Positive for small volume pulmonary embolism primarily visible in the right lower lobe. Patient given Lovenox IM injection prior to discharge home patient be started on Eliquis 2.5 mg twice daily. Follow-up with PCP in 2 to 3 days. May continue home oxygen as needed. Coding Level of Care Code ED Records Management Specialist for [facility]bie Fwd Exam Comprehensive
[2020-09-26 22:04] LABS: Basophils % 0.3 %; Eosinophils # 0.1 10^3/uL (0.0-0.8); Eosinophils % 0.8 %; Hematocrit 35.5 % (37.0-47.0); Hemoglobin 10.8 g/dL (11.5-15.3); Lymphocytes % 32.5 %; Mean Corpuscular HGB Conc 30.4 g/dL (30.0-36.0); Mean Corpuscular Hemoglobin 30.8 pg (28.0-34.0); Mean Corpuscular Volume 101.1 fL (81-99); Mean Platelet Volume 10.9 fL (7.4-10.4); Monocytes # 0.5 10^3/uL (0.2-0.9); Monocytes % 8.7 %; Neutrophils # 3.49 10^3/uL (1.8-7.7); Neutrophils % 57.5 %; Nucleated Red Blood Cells % 0 %; Platelet Count 235 10^3/cmm (130-400); Red Blood Count 3.51 10^6/uL (4.1-5.3); Red Cell Distribution Width 13.6 % (12.1-15.1); White Blood Count 6.1 10^3/uL (4.0-10.0)
[2020-09-26 22:16] LABS: D Dimer 1.19 ug/mIFEU (0-0.59)
[2020-09-26] MEDS: sodium chloride 0.9% 500 ML IV (22:22)
[2020-09-26 22:24] LABS: Troponin T (5th) Once 18 ng/L (0-10)
[2020-09-26 22:29] LABS: Alanine Aminotransferase 7 U/L (0-33); Albumin Level 3.5 g/dL (3.5-5.2); Alkaline Phosphatase 91 IU/L (35-105); Anion Gap 14.2 (5-19); Aspartate Amino Transferase 12 U/L (0-32); Blood Urea Nitrogen 30 mg/dL (8-23); Calcium 9.5 mg/dL (8.5-10.5); Carbon Dioxide 23 mmol/L (22-29); Chloride 107 mmol/L (98-107); Globulin 2.9 g/dL (1.3-4.6); Glucose 112 mg/dL (65-115); NT Pro B Type Natriuretic Pept 754 pg/mL (0-450); Osmolality Calculated 297 mOsm/kg (285-295); Potassium 4.2 mmol/L (3.5-5.1); Sodium 140 mmol/L (136-145); Total Bilirubin 0.2 mg/dL (0.15-1.2); Total Protein 6.4 g/dL (6.6-8.7)
--- NOTE | 2020-09-26 22:36 | CTR_ITS ---
PROCEDURE INFORMATION: Exam: CTA Chest With Contrast Exam date and time: 09/26/2020 10:36 PM Age: 75 years old Clinical indication: Shortness of breath; Additional info: Chest pain and SOB with elevated ddimer TECHNIQUE: Imaging protocol: Computed tomographic angiography of the chest with contrast. 3D rendering (Not supervised by radiologist): MIP and/or 3D reconstructed images were created by the technologist. Radiation optimization: All CT scans at this facility use at least one of these dose optimization techniques: automated exposure control; mA and/or kV adjustment per patient size (includes targeted exams where dose is matched to clinical indication); or iterative reconstruction. Contrast material: VISI 320; Contrast volume: 58 ml; Contrast route: INTRAVENOUS (IV); COMPARISON: CT angio chest PE protcl [id number] 01/11/2020 10:39 PM RADIATION DOSE METRICS: Total DLP (mGy-cm): 527.95 FINDINGS: Pulmonary arteries: Small volume pulmonary emboli are identified primarily at bifurcation point in the right lower lobe segmental arterial branches most conspicuous on axial series 2, image 313. The main pulmonary artery is mildly dilated but this is stable comparison imaging. Aorta: Unremarkable. No aortic aneurysm. No aortic dissection. Veins: No contrast reflux into the IVC or the hepatic veins. Lungs: Severe emphysematous lung changes. Scattered interstitial fibrosis. Left upper lobe volume loss peripheral honeycombing changes and traction bronchiectasis. Pleural spaces: Unremarkable. No pneumothorax. No pleural effusion. Heart: RV/LV ratio is unremarkable, less than 0.9. There is mild dilation of the left ventricular chamber. Negative for pericardial effusion. Lymph nodes: Unremarkable. No enlarged lymph nodes. Bones/joints: Negative for acute thoracic fracture. There is an old healed left lateral rib fracture. Soft tissues: Unremarkable. Other findings: THIS REPORT CONTAINS FINDINGS THAT MAY BE CRITICAL TO PATIENT CARE. The findings were verbally communicated via telephone conference with DEYSI BRIAN at 11:13 PM CDT on 09/26/2020. The findings were acknowledged and understood. CT/CT angio chest PE protcl [id number] IMPRESSION: 1. Positive for small volume pulmonary embolism primarily visible in the right lower lobe. 2. No convincing CT angiogram evidence acute significant right heart strain but correlation is necessary. Radiation Dose CTDIVOL = (mGy): DLP = 527.95 (mGy-cm)
[2020-09-26] MEDS: iodixanol 320 mg/mL 100mL Btl IV (23:01)
[2020-09-26] MEDS: enoxaparin 60 mg/0.6 mL Syringe SUBCUT (23:39)
[2020-09-26 23:46] VITALS: BP 139/78; PULSE 84; RESP 18
== END 2020-09-26 23:48 | disposition home or self-care (01) ==
PROVIDERS: Emergency Provider Emergency Medicine; PCP Family Medicine
DX: I26.99 Other pulmonary embolism without acute cor pulmonale (principal); F03.90 Unspecified dementia, unspecified severity, without behavioral disturbance, psychotic disturbance, mood disturbance, and anxiety; Z79.82 Long term (current) use of aspirin; J44.9 Chronic obstructive pulmonary disease, unspecified; E11.9 Type 2 diabetes mellitus without complications; E78.5 Hyperlipidemia, unspecified; I10 Essential (primary) hypertension; Z87.891 Personal history of nicotine dependence
CPT/HCPCS: 71045; 71275; 80053; 83880; 84484; 85025; 85378; 93005; 96360; 96372; 99284; J1650; J7040; Q9967

== ENCOUNTER 2020-10-11 00:18 | Emergency (ER) | payer MEDICARE, SELFPAY ==
[2020-10-11 00:25] VITALS: BP 169/122; PULSE 120; RESP 17; TEMP 36.6; O2SAT 99; BMI 28.3
--- NOTE | 2020-10-11 00:25 | ECG_ITS ---
[facility] Test Date: 2020-10-11 Pat Name: Vandana Le Department: Room: Gender: Female [employer]: : 1945 Requested By: Roland Ramírez Order Number: [id number] Eloisa MD: Edwige Buck M.D. Measurements Intervals [place] Rate: 95 P: 85 AL: 150 QRS: 56 QRSD: 79 T: 89 QT: 358 QTc: 450 Interpretive Statements SINUS RHYTHM NONSPECIFIC ST & T-WAVE ABNORMALITY Compared to ECG 09/26/2020 22:23:50 T-wave abnormality now present Electronically Signed On 10-12-2020 7:04:50 CDT by Edwige Buck M.D. [id number]
--- NOTE | 2020-10-11 00:25 | XRR_ITS ---
PROCEDURE INFORMATION: Exam: XR Chest Exam date and time: 10/11/2020 12:25 AM Age: 75 years old Clinical indication: Sternal or substernal pain; Additional info: Cp TECHNIQUE: Imaging protocol: XR of the chest. Views: 1 view. COMPARISON: CR (CHEST, ) 09/26/2020 9:58 PM FINDINGS: Lungs: There is left apical lung scarring with decreased volume in the left hemithorax. Pleural spaces: Unremarkable. No pleural effusion. No pneumothorax. Heart/Mediastinum: Unremarkable. No cardiomegaly. Bones/joints: Unremarkable. XR/XR chest 1V portable [id number] IMPRESSION: 1. No acute disease. 2. Left lung scarring and volume loss.
--- NOTE | 2020-10-11 00:52 | W.ED.CHESTPA ---
HPI - Chest Pain General: Chief Complaint: Chest Pain Stated Complaint: chest pain Time Seen by Provider: 10/11/20 00:23 Source: patient Mode of arrival: ambulatory Limitations: no limitations History of Present Illness: HPI narrative: 75-year-old female with a history of dementia and history of a pulmonary embolism. Patient started complaining of chest pain at home 2 hours ago. Patient since has had the pain resolved since she has been here. She states that earlier she is did not feel well was able to really describe it is felt unwell. Denies any vomiting. She denies any shortness of breath. Denies any worsening improving factors. Associated symptoms: Deny abdominal pain, dyspnea, fever(s), nausea or vomiting Review of Systems Const: Denies: fever(s), chills, body aches or change in appetite Eyes: Denies: blurry vision or eye discomfort ENMT: Denies: throat pain or dental pain Card: Reports: chest pain Resp: Denies: dyspnea GI: Denies: abdominal pain, nausea, vomiting or diarrhea : Denies: dysuria Musc: Denies: neck pain or back pain Skin/Breast: Denies: rash Neuro: Denies: headache(s) Psych: Denies: depression Onel/Lymph: Denies: easy bruising All/Imm: Denies: urticaria PFSH ED PFSH: Medical History Acute pulmonary embolism COPD (chronic obstructive pulmonary disease) Dementia Depression due to dementia DM type 2 (diabetes mellitus, type 2) DVT (deep venous thrombosis) GERD (gastroesophageal reflux disease) High risk medication use Hyperlipidemia Hypertension Immunization counseling Joint pain Orthostatic hypotension Plaque psoriasis Seropositive rheumatoid arthritis of multiple sites Syncope Surgical History H/O hernia repair H/O: hysterectomy History of carpal tunnel surgery S/P appendectomy Status post myringotomy with tube placement of both ears Family History Other CAD (coronary artery disease) Cancer Dementia Diabetes Hypertension Stroke Denies family history of Rheumatoid arthritis Lupus Chronic kidney disease (CKD) Lung disease Social History Smoking and tobacco status: former smoker Alcohol intake: never Household members: children Marital status: / History of recent travel: No Female Reproductive History: Para: 3 Physical Exam Const: COMMON NORMALS: no acute distress, patient oriented x3 and healthy appearing HENMT: COMMON NORMALS: normocephalic and atraumatic HEAD & SCALP: normocephalic and atraumatic Eye: COMMON NORMALS: Equal, round and reactive pupils present and EOMs intact bilaterally PUPIL: Yes Equal, round and reactive pupils present Neck/C-Spine: COMMON NORMALS: full ROM and supple Chest: COMMONS NORMALS: normal inspection of the chest and normal palpation of entire chest wall Resp: COMMON NORMALS: normal respiratory effort, No retractions, No use of accessory muscles and clear to auscultation bilaterally AUSCULTATION: clear to auscultation bilaterally Cardio: COMMON NORMALS: regular rate, regular rhythm and No murmurs present (Cardio) RATE: regular rate RHYTHM: regular rhythm GI: COMMON NORMALS: Normal to inspection, nondistended, normoactive bowel sounds present, Soft to palpation, non-tender and no masses PALPATION: Yes Soft to palpation Extremity: COMMON NORMALS: normal to inspection and full ROM Neuro: COMMON NORMALS: patient oriented x3, moves all extremities and no focal motor deficits Psych: COMMON NORMALS: mental status grossly normal, Normal thought process present and cooperative THOUGHT PROCESS: Normal thought process present Skin: COMMON NORMALS: no rashes or lesions noted and no wounds GENERAL SKIN EXAM: no rashes or lesions noted Course Vital Signs: Vital signs: Vital Signs Temperature 97.8 F 10/11/20 00:25 Pulse Rate 83 10/11/20 02:51 Respiratory Rate 16 10/11/20 02:51 Blood Pressure 150/104 10/11/20 02:51 Pulse Oximetry 93 10/11/20 02:51 MDM - Chest Pain MDM Narrative: Medical decision making narrative: Patient presents with chest pain that is since resolved. Her repeat troponin here is negative and her EKGs and x-rays are normal. She is requesting discharge and feels much improved. I feel she is stable for discharge is to follow-up with PCP and return if worsening. She understands agrees to plan. Lab Data: Labs: Lab Results 10/11/20 10/11/20 10/11/20 Range/Units 00:55 00:55 00:55 WBC 6.1 (4.0-10.0) 10^3/ uL RBC 4.00 L (4.1-5.3) 10^6/u L Hgb 12.3 (11.5-15.3) g/dL Hct 39.4 (37.0-47.0) % MCV 98.5 (81-99) fL MCH 30.8 (28.0-34.0) pg MCHC 31.2 (30.0-36.0) g/dL RDW 13.0 (12.1-15.1) % Plt Count 265 (130-400) 10^3/c mm MPV 10.0 (7.4-10.4) fL Neut % (Auto) 53.3 % Lymph % (Auto) 37.0 % [place] % (Auto) 8.3 % Eos % (Auto) 0.7 % Baso % (Auto) 0.5 % Neut # (Auto) 3.26 (1.8-7.7) 10^3/u L Lymph # (Auto) 2.3 (0.8-4.8) 10^3/u L [place] # (Auto) 0.5 (0.2-0.9) 10^3/u L Eos # (Auto) 0.0 (0.0-0.8) 10^3/u L Baso # (Auto) 0.0 (0.0-0.1) 10^3/u L Nucleated RBC % (a uto) 0 % Nucleated RBCs # 0.0 /100WBC PT (12.1-14.9) SECO NDS INR (0.8-1.2) Sodium 137 (136-145) mmol/L Potassium 3.9 (3.5-5.1) mmol/L Chloride 100 (98-107) mmol/L Carbon Dioxide 23 (22-29) mmol/L Anion Gap 17.9 (5-19) BUN 16 (8-23) mg/dL Creatinine 1.1 H (0.5-0.9) mg/dL GFR Calculation Not Reportable Glucose 109 (65-115) mg/dL Calculated Osmolal ity 286 (285-295) mOsm/k g Calcium 9.5 (8.5-10.5) mg/dL Total Bilirubin 0.3 (0.15-1.2) mg/dL AST 15 (0-32) U/L ALT 8 (0-33) U/L Alkaline Phosphata se 112 H (35-105) IU/L Troponin T Baselin e 26 H (0-10) ng/L Troponin T 120 Min [place] (0-10) ng/L Delta Troponin T (0-10) ABS# Total Protein 6.2 L (6.6-8.7) g/dL Albumin 3.8 (3.5-5.2) g/dL Globulin 2.4 (1.3-4.6) g/dL Lipase 44 (13-60) U/L 10/11/20 10/11/20 Range/Units 01:25 02:37 WBC (4.0-10.0) 10^3/ uL RBC (4.1-5.3) 10^6/u L Hgb (11.5-15.3) g/dL Hct (37.0-47.0) % MCV (81-99) fL MCH (28.0-34.0) pg MCHC (30.0-36.0) g/dL RDW (12.1-15.1) % Plt Count (130-400) 10^3/c mm MPV (7.4-10.4) fL Neut % (Auto) % Lymph % (Auto) % [place] % (Auto) % Eos % (Auto) % Baso % (Auto) % Neut # (Auto) (1.8-7.7) 10^3/u L Lymph # (Auto) (0.8-4.8) 10^3/u L [place] # (Auto) (0.2-0.9) 10^3/u L Eos # (Auto) (0.0-0.8) 10^3/u L Baso # (Auto) (0.0-0.1) 10^3/u L Nucleated RBC % (a uto) % Nucleated RBCs # /100WBC PT 13.80 (12.1-14.9) SECO NDS INR 1.03 (0.8-1.2) Sodium (136-145) mmol/L Potassium (3.5-5.1) mmol/L Chloride (98-107) mmol/L Carbon Dioxide (22-29) mmol/L Anion Gap (5-19) BUN (8-23) mg/dL Creatinine (0.5-0.9) mg/dL GFR Calculation Glucose (65-115) mg/dL Calculated Osmolal ity (285-295) mOsm/k g Calcium (8.5-10.5) mg/dL Total Bilirubin (0.15-1.2) mg/dL AST (0-32) U/L ALT (0-33) U/L Alkaline Phosphata se (35-105) IU/L Troponin T Baselin e (0-10) ng/L Troponin T 120 Min [place] 21.90 H (0-10) ng/L Delta Troponin T -4.10 L (0-10) ABS# Total Protein (6.6-8.7) g/dL Albumin (3.5-5.2) g/dL Globulin (1.3-4.6) g/dL Lipase (13-60) U/L Imaging Data^: CXR: Attestation: I personally reviewed and interpreted this imaging study as follows: My impression: no acute abnormality EKG Data^: EKG 1: Attestation: I personally reviewed and interpreted this EKG as follows: EKG interpretation date: 10/11/20 EKG interpretation time: 00:29 Interpretation: nsr hr [address] or t wave abnormalities qrs 79 qtc 410 EKG 2: Attestation: I personally reviewed and interpreted this EKG as follows: EKG interpretation date: 10/11/20 EKG interpretation time: 02:27 Interpretation: nsr hr [address] or t wave abnormalities qrs 99 qtc 419 Discharge Plan Discharge Patient Disposition: Home Clinical Impression: Chest pain Qualifiers: Chest pain type: unspecified Qualified Code(s): R07.9 - Chest pain, unspecified Condition: Stable Prescriptions: No Action prednisone 5 mg tablet See Rx Instructions PO .COMPLEX PRN (Reason: joint pain flare) Qty: 30 RF: 0 alprazolam 0.25 mg tablet 0.25 mg PO BID PRN (Reason: Anxiety) RF: 0 albuterol sulfate 90 mcg/actuation HFA aerosol inhaler 1 puff inhalation Q6H PRN (Reason: Shortness Of Breath) RF: 0 cholecalciferol (vitamin D3) [Vitamin D3] 25 mcg (1,000 unit) Tablet 25 mcg PO DAILY@10 RF: 0 mirtazapine 15 mg Tablet 7.5 mg PO DAILY RF: 0 bisacodyl 5 mg Tablet,Delayed Release (Dr/Ec) 10 mg PO DAILY PRN (Reason: Constipation (see protocol)) Qty: 10 RF: 0 ferrous gluconate 324 mg (37.5 mg iron) Tablet 324 mg PO BIDWM Qty: 60 RF: 0 quetiapine [Seroquel] 25 mg tablet 50 mg PO QPM Qty: 0 RF: 0 pyridostigmine bromide 30 mg tablet 60 mg PO BID@10,22 Qty: 0 RF: 0 Eliquis 2.5 mg tablet 2.5 mg PO Q12H Qty: 60 RF: 0 levothyroxine 50 mcg Tablet 50 mcg PO DAILY@10 RF: 0 venlafaxine 150 mg Capsule,Extended Release 24hr 150 mg PO DAILY@10 RF: 0 hydrochlorothiazide 25 mg Tablet 25 mg PO DAILY@10 RF: 0 Hold Instructions: Resume on 09/05/20. atenolol 50 mg Tablet 25 mg PO DAILY@10 RF: 0 donepezil 10 mg tablet 10 mg PO BEDTIME@22 RF: 0 aspirin 81 mg tablet,delayed release (DR/EC) 81 mg PO DAILY@10 RF: 0 leflunomide 20 mg tablet 20 mg PO DAILY@22 RF: 0 memantine 10 mg tablet 10 mg PO BID@,22 RF: 0 diclofenac sodium 1 % gel 2 g topical QID PRN (Reason: Pain) RF: 0 Discharge Orders: Discharge ED (Routine); Ordered 10/11/20 Ordered By: Roland Ramírez Referrals: Saima Carnes MD [Primary Care Provider] - Discharge Diet: Advance as tolerated Discharge Activity: Resume usual activity Patient Instructions: Chest Pain (ED) Coding Level of Care Code ED [employer] Worker for Chg Fwd Exam Comprehensive
[2020-10-11 01:05] LABS: Basophils % 0.5 %; Eosinophils % 0.7 %; Hematocrit 39.4 % (37.0-47.0); Hemoglobin 12.3 g/dL (11.5-15.3); Lymphocytes # 2.3 10^3/uL (0.8-4.8); Mean Corpuscular HGB Conc 31.2 g/dL (30.0-36.0); Mean Corpuscular Hemoglobin 30.8 pg (28.0-34.0); Mean Corpuscular Volume 98.5 fL (81-99); Monocytes # 0.5 10^3/uL (0.2-0.9); Monocytes % 8.3 %; Neutrophils # 3.26 10^3/uL (1.8-7.7); Neutrophils % 53.3 %; Nucleated Red Blood Cells % 0 %; Platelet Count 265 10^3/cmm (130-400); White Blood Count 6.1 10^3/uL (4.0-10.0)
[2020-10-11] MEDS: ondansetron 2 mg/ML SDV 2 mL 4 MG IVP (01:09)
[2020-10-11 01:22] LABS: Troponin(5th) Baseline 26 ng/L (0-10)
[2020-10-11 01:25] LABS: Alanine Aminotransferase 8 U/L (0-33); Albumin Level 3.8 g/dL (3.5-5.2); Alkaline Phosphatase 112 IU/L (35-105); Anion Gap 17.9 (5-19); Aspartate Amino Transferase 15 U/L (0-32); Blood Urea Nitrogen 16 mg/dL (8-23); Calcium 9.5 mg/dL (8.5-10.5); Carbon Dioxide 23 mmol/L (22-29); Chloride 100 mmol/L (98-107); Globulin 2.4 g/dL (1.3-4.6); Glucose 109 mg/dL (65-115); Lipase 44 U/L (13-60); Osmolality Calculated 286 mOsm/kg (285-295); Potassium 3.9 mmol/L (3.5-5.1); Sodium 137 mmol/L (136-145); Total Bilirubin 0.3 mg/dL (0.15-1.2); Total Protein 6.2 g/dL (6.6-8.7)
[2020-10-11 01:41] LABS: INR 1.03 (0.8-1.2)
--- NOTE | 2020-10-11 02:25 | ECG_ITS ---
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 Measurements Intervals [place] Rate: 80 P: 76 LA: 153 QRS: 33 QRSD: 99 T: 74 QT: 384 QTc: 443 Interpretive Statements SINUS RHYTHM MINIMAL ST DEPRESSION [0.025+ mV ST DEPRESSION] Compared to ECG 09/26/2020 22:23:50 ST (T wave) deviation now present Electronically Signed On 10-12-2020 7:21:55 CDT by Edwige Buck M.D. [id number]
[2020-10-11 02:51] VITALS: BP 150/104; PULSE 83; RESP 16; O2SAT 93
[2020-10-11 03:28] VITALS: BP 151/87; PULSE 93; RESP 16; O2SAT 98
== END 2020-10-11 03:30 | disposition home or self-care (01) ==
PROVIDERS: Emergency Provider Emergency Medicine; PCP Family Medicine
DX: R07.9 Chest pain, unspecified (principal); Z79.01 Long term (current) use of anticoagulants; Z79.82 Long term (current) use of aspirin; Z86.711 Personal history of pulmonary embolism; J44.9 Chronic obstructive pulmonary disease, unspecified; F03.90 Unspecified dementia, unspecified severity, without behavioral disturbance, psychotic disturbance, mood disturbance, and anxiety; E11.9 Type 2 diabetes mellitus without complications; E78.5 Hyperlipidemia, unspecified; I10 Essential (primary) hypertension; Z87.891 Personal history of nicotine dependence
CPT/HCPCS: 36415; 71045; 80053; 83690; 84484; 85025; 85610; 93005; 96374; 99283; J2405

== ENCOUNTER 2020-10-26 20:41 | Inpatient (IN) | payer MEDICARE, SELFPAY ==
--- NOTE | 2020-10-26 20:58 | XRR_ITS ---
PROCEDURE INFORMATION: Exam: XR Chest Exam date and time: 10/26/2020 8:58 PM Age: 75 years old Clinical indication: Shortness of breath; Additional info: SOB TECHNIQUE: Imaging protocol: XR of the chest. Views: 1 view. COMPARISON: CR (CHEST, ) 10/11/2020 12:51 AM FINDINGS: Lungs: There is coarse reticular opacity and volume loss in the left lung, stable compared to 10/11/2020. The right lung is clear. Pleural spaces: There is no pleural effusion or pneumothorax. Heart/Mediastinum: Cardiomediastinal contours are unremarkable. There is leftward displacement of the heart and mediastinum. Bones/joints: Bones are unremarkable. XR/XR chest 1V portable [id number] IMPRESSION: 1. No change compared to 10/11/2020. 2. Stable chronic reticular opacity and volume loss in the left hemithorax.
[2020-10-26 21:20] VITALS: BP 119/77; PULSE 75; RESP 16; TEMP 36.2; BMI 26.5
[2020-10-26 21:32] LABS: Basophils % 0.3 %; Eosinophils % 0.6 %; Hematocrit 33.5 % (37.0-47.0); Hemoglobin 10.1 g/dL (11.5-15.3); Lymphocytes # 2.7 10^3/uL (0.8-4.8); Lymphocytes % 38.8 %; Mean Corpuscular HGB Conc 30.1 g/dL (30.0-36.0); Mean Corpuscular Hemoglobin 30.4 pg (28.0-34.0); Mean Corpuscular Volume 100.9 fL (81-99); Mean Platelet Volume 10.4 fL (7.4-10.4); Monocytes # 0.6 10^3/uL (0.2-0.9); Monocytes % 8.2 %; Neutrophils # 3.57 10^3/uL (1.8-7.7); Nucleated Red Blood Cells % 0 %; Platelet Count 289 10^3/cmm (130-400); Red Blood Count 3.32 10^6/uL (4.1-5.3); Red Cell Distribution Width 12.6 % (12.1-15.1); White Blood Count 6.9 10^3/uL (4.0-10.0)
--- NOTE | 2020-10-26 21:35 | W.ED.GIBLEED ---
HPI - GI Bleed General: Chief complaint: GI Bleed Stated complaint: PASSED OUT/ LOWER GI BLEED Time Seen by Provider: 10/26/20 21:08 Source: patient and EMS Mode of arrival: EMS Limitations: no limitations History of Present Illness: HPI Narrative: 75-year-old female who has a history of dementia states that roughly an hour before arrival started having bright red blood in her stool. Patient came in with EMS and has had a large bloody bowel movement here as well. States she has been feeling weak especially when she stands. She is not on any blood thinners. Denies any vomiting blood. She had no dark tarry stools. Associated symptoms: Denies chills, easy bruising, fever(s), headache(s) or rash Review of Systems Const: Denies: fever(s), chills, body aches or change in appetite Eyes: Denies: blurry vision or eye discomfort ENMT: Denies: throat pain or dental pain Card: Denies: chest pain Resp: Denies: dyspnea GI: Reports: hematochezia : Denies: dysuria Musc: Denies: neck pain or back pain Skin/Breast: Denies: rash Neuro: Denies: headache(s) Psych: Denies: depression Onel/Lymph: Denies: easy bruising All/Imm: Denies: urticaria PFSH ED PFSH: Medical History Acute pulmonary embolism COPD (chronic obstructive pulmonary disease) Dementia Depression due to dementia DM type 2 (diabetes mellitus, type 2) DVT (deep venous thrombosis) GERD (gastroesophageal reflux disease) High risk medication use Hyperlipidemia Hypertension Immunization counseling Joint pain Orthostatic hypotension Plaque psoriasis Seropositive rheumatoid arthritis of multiple sites Syncope Surgical History H/O hernia repair H/O: hysterectomy History of carpal tunnel surgery S/P appendectomy Status post myringotomy with tube placement of both ears Family History Other CAD (coronary artery disease) Cancer Dementia Diabetes Hypertension Stroke Denies family history of Rheumatoid arthritis Lupus Chronic kidney disease (CKD) Lung disease Social History Smoking and tobacco status: former smoker Alcohol intake: never Household members: children Marital status: / History of recent travel: No Female Reproductive History: Para: 3 Physical Exam Const: COMMON NORMALS: no acute distress, patient oriented x3 and healthy appearing HENMT: COMMON NORMALS: normocephalic and atraumatic HEAD & SCALP: normocephalic and atraumatic Eye: COMMON NORMALS: Equal, round and reactive pupils present and EOMs intact bilaterally PUPIL: Yes Equal, round and reactive pupils present Neck/C-Spine: COMMON NORMALS: full ROM and supple Chest: COMMONS NORMALS: normal inspection of the chest and normal palpation of entire chest wall Resp: COMMON NORMALS: normal respiratory effort, No retractions, No use of accessory muscles and clear to auscultation bilaterally AUSCULTATION: clear to auscultation bilaterally Cardio: COMMON NORMALS: regular rate, regular rhythm and No murmurs present (Cardio) RATE: regular rate RHYTHM: regular rhythm GI: COMMON NORMALS: Normal to inspection, nondistended, normoactive bowel sounds present, Soft to palpation, non-tender and no masses PALPATION: Yes Soft to palpation OTHER: Large amount of bright red blood at rectum Extremity: COMMON NORMALS: normal to inspection and full ROM Neuro: COMMON NORMALS: patient oriented x3, moves all extremities and no focal motor deficits Psych: COMMON NORMALS: mental status grossly normal, Normal thought process present and cooperative THOUGHT PROCESS: Normal thought process present Skin: COMMON NORMALS: no rashes or lesions noted and no wounds GENERAL SKIN EXAM: no rashes or lesions noted Course Vital Signs: Vital signs: Vital Signs Temperature 97.6 F 10/27/20 00:17 Pulse Rate 64 10/27/20 00:17 Respiratory Rate 16 10/27/20 00:17 Blood Pressure 123/61 10/27/20 00:17 Pulse Oximetry 98 10/27/20 00:17 MDM - GI Bleed MDM Narrative: Medical decision making narrative: Patient presents here with a lower GI bleed. Her hemoglobin did drop to 8.7 and will transfuse her 2 units. She has been stable otherwise with stable vitals. Spoke to the hospitalist and will admit at this time. Also spoke to Dr. Yap of GI who is consulted. Lab Data: Labs: Lab Results 10/26/20 10/26/20 10/26/20 Range/Units 20:30 20:30 20:30 WBC 6.9 (4.0-10.0) 10^3/ uL RBC 3.32 L (4.1-5.3) 10^6/u L Hgb 10.1 L (11.5-15.3) g/dL Hct 33.5 L (37.0-47.0) % MCV 100.9 H (81-99) fL MCH 30.4 (28.0-34.0) pg MCHC 30.1 (30.0-36.0) g/dL RDW 12.6 (12.1-15.1) % Plt Count 289 (130-400) 10^3/c mm MPV 10.4 (7.4-10.4) fL Neut % (Auto) 52.0 % Lymph % (Auto) 38.8 % [place] % (Auto) 8.2 % Eos % (Auto) 0.6 % Baso % (Auto) 0.3 % Neut # (Auto) 3.57 (1.8-7.7) 10^3/u L Lymph # (Auto) 2.7 (0.8-4.8) 10^3/u L [place] # (Auto) 0.6 (0.2-0.9) 10^3/u L Eos # (Auto) 0.0 (0.0-0.8) 10^3/u L Baso # (Auto) 0.0 (0.0-0.1) 10^3/u L Nucleated RBC % (a uto) 0 % Nucleated RBCs # 0.0 /100WBC PT 14.40 (12.1-14.9) SECO NDS INR 1.08 (0.8-1.2) Sodium 145 (136-145) mmol/L Potassium 4.6 (3.5-5.1) mmol/L Chloride 110 H (98-107) mmol/L Carbon Dioxide 26 (22-29) mmol/L Anion Gap 13.6 (5-19) BUN 20 (8-23) mg/dL Creatinine 1.3 H (0.5-0.9) mg/dL GFR Calculation Not Reportable Glucose 170 H (65-115) mg/dL Calculated Osmolal ity 307 H (285-295) mOsm/k g Lactic Acid (0.5-2.2) mmol/L Calcium 8.8 (8.5-10.5) mg/dL Total Bilirubin 0.2 (0.15-1.2) mg/dL AST 12 (0-32) U/L ALT 7 (0-33) U/L Alkaline Phosphata se 98 (35-105) IU/L Total Protein 5.8 L (6.6-8.7) g/dL Albumin 3.2 L (3.5-5.2) g/dL Globulin 2.6 (1.3-4.6) g/dL Blood Type Rho(D) Type Antibody Screen Crossmatch 10/26/20 10/26/20 10/26/20 Range/Units 21:39 22:13 23:20 WBC (4.0-10.0) 10^3/ uL RBC (4.1-5.3) 10^6/u L Hgb 8.7 L (11.5-15.3) g/dL Hct 29.4 L (37.0-47.0) % MCV (81-99) fL MCH (28.0-34.0) pg MCHC (30.0-36.0) g/dL RDW (12.1-15.1) % Plt Count (130-400) 10^3/c mm MPV (7.4-10.4) fL Neut % (Auto) % Lymph % (Auto) % [place] % (Auto) % Eos % (Auto) % Baso % (Auto) % Neut # (Auto) (1.8-7.7) 10^3/u L Lymph # (Auto) (0.8-4.8) 10^3/u L [place] # (Auto) (0.2-0.9) 10^3/u L Eos # (Auto) (0.0-0.8) 10^3/u L Baso # (Auto) (0.0-0.1) 10^3/u L Nucleated RBC % (a uto) % Nucleated RBCs # /100WBC PT (12.1-14.9) SECO NDS INR (0.8-1.2) Sodium (136-145) mmol/L Potassium (3.5-5.1) mmol/L Chloride (98-107) mmol/L Carbon Dioxide (22-29) mmol/L Anion Gap (5-19) BUN (8-23) mg/dL Creatinine (0.5-0.9) mg/dL GFR Calculation Glucose (65-115) mg/dL Calculated Osmolal ity (285-295) mOsm/k g Lactic Acid 2.4 H (0.5-2.2) mmol/L Calcium (8.5-10.5) mg/dL Total Bilirubin (0.15-1.2) mg/dL AST (0-32) U/L ALT (0-33) U/L Alkaline Phosphata se (35-105) IU/L Total Protein (6.6-8.7) g/dL Albumin (3.5-5.2) g/dL Globulin (1.3-4.6) g/dL Blood Type A Positive Rho(D) Type Positive / 4+ Antibody Screen Negative Crossmatch See Detail EKG Data^: EKG 1: Attestation: I personally reviewed and interpreted this EKG as follows: EKG interpretation date: 10/26/20 EKG interpretation time: 21:18 Interpretation: nsr hr [address] or t wave abnormalities qrs 76 qtc 434 Critical Care Time Critical Care Time: Critical Care Time: Yes Total Critical Care Time: 35 Attestation: This case had a high probability of a clinically significant, sudden, or life threatening deterioration of this patient's condition which required my full and direct attention, intervention and personal management. Discharge Plan Discharge Patient Disposition: Admitted As Inpatient Clinical Impression: Lower gastrointestinal hemorrhage Condition: Stable Coding Level of Care Code ED Security Program Manager for Chg Fwd Exam Comprehensive
[2020-10-26 21:49] LABS: INR 1.08 (0.8-1.2)
[2020-10-26 21:53] LABS: Alanine Aminotransferase 7 U/L (0-33); Albumin Level 3.2 g/dL (3.5-5.2); Alkaline Phosphatase 98 IU/L (35-105); Anion Gap 13.6 (5-19); Aspartate Amino Transferase 12 U/L (0-32); Blood Urea Nitrogen 20 mg/dL (8-23); Calcium 8.8 mg/dL (8.5-10.5); Carbon Dioxide 26 mmol/L (22-29); Chloride 110 mmol/L (98-107); Globulin 2.6 g/dL (1.3-4.6); Glucose 170 mg/dL (65-115); Osmolality Calculated 307 mOsm/kg (285-295); Potassium 4.6 mmol/L (3.5-5.1); Sodium 145 mmol/L (136-145); Total Bilirubin 0.2 mg/dL (0.15-1.2); Total Protein 5.8 g/dL (6.6-8.7)
[2020-10-26] MEDS: sodium chloride 0.9% 1,000 ML 999 ML IV (22:11)
[2020-10-26 22:22] VITALS: BP 115/65; PULSE 70; RESP 15; O2SAT 93
[2020-10-26 23:08] LABS: Lactic Sepsis W/Reflex 2.4 mmol/L (0.5-2.2)
[2020-10-26 23:27] LABS: Hematocrit 29.4 % (37.0-47.0); Hemoglobin 8.7 g/dL (11.5-15.3)
[2020-10-26 23:56] VITALS: BP 141/71; PULSE 74; RESP 19; TEMP 36.5; O2SAT 98
[2020-10-27] VITALS (11 sets, daily range): BP systolic 101–167; BP diastolic 51–117; PULSE 57–75; RESP 9–18; TEMP 36.4–37.3; O2SAT 97–100
[2020-10-27 00:15] LABS: Reflex Lactate Order REFLEX LACTIC ORDERD
--- NOTE | 2020-10-27 02:27 | PM.HP ---
Providers/Chief Complaint Admitting Physician: Camilla Talavera MD Primary Care Provider: Saima Carnes MD Chief Complaint: PASSED OUT/ LOWER GI BLEED History of Present Illness Vandana Le is a 75 year old female with a past medical history as outlined below, significantly dementia, presents today with 2 episodes of bright red blood per rectum this afternoon. Patient states passing genie blood with some clots. She was also noted to have a large bloody bowel movement in the ER. She was noted to have orthostatic drop in blood pressure. Hemoglobin upon admission was at 10.1, drifted down to 8.7 on the next check. Denies any hematemesis. No abdominal pain. No fever. No diarrhea or constipation prior to bleeding. Does not recall if she ever had a colonoscopy in the past. Review of medications shows that the patient is on Eliquis. Review of Systems General: Reports: 10 or more systems reviewed and unremarkable except in HPI and below Const: Denies: fever(s), chills or body aches Eyes: Denies: change in vision, blurry vision or photophobia ENMT: Reports: hoarseness; Denies: throat pain, enlarged tonsils, odynophagia or nasal congestion Card: Denies: chest pain, palpitations, irregular heart rhythm, edema, swelling of feet/ankles, lightheadedness, pre-syncope, dyspnea on exertion or orthopnea Resp: Denies: dyspnea, productive cough, non-productive cough, wheezing, stridor, pain on inspiration, change in phlegm color, hemoptysis or chest congestion GI: Denies: abdominal pain, nausea, vomiting, hematemesis, coffee ground emesis, dysphagia, heartburn, diarrhea, constipation, GI cramping, change in stool character, hematochezia or melena : Denies: flank pain, difficulty voiding, dysuria, urinary frequency, urinary urgency, urinary hesitancy or hematuria Musc: Denies: neck pain, back pain, extremity pain, joint swelling, joint warmth or deformity Neuro: Denies: headache(s), numbness in extremities, weakness in extremities, sensory changes, difficulty walking, frequent falls, dizziness, vertigo, behavioral changes, Slurred speech present or seizure-like activity Psych: Denies: anxiety, depression, suicidal ideation or homicidal ideation Endo: Denies: polyuria, polydipsia, tired all the time, cold intolerance or hot flashes Onel/Lymph: Denies: easy bruising or easy bleeding Medications/Allergies Home Medications Medication Instructions Recorded Confirmed Last Taken Type albuterol sulfate 1 puff INHALATION Q6H PRN 11/26/19 10/26/20 Unknown History alprazolam 0.25 mg PO BID PRN 11/26/19 10/26/20 Unknown History cholecalciferol (vitamin D3) 25 mcg PO DAILY@11/26/19 10/26/20 10/26/20 History [Vitamin D3] levothyroxine 50 mcg PO DAILY@01/12/20 10/26/20 10/26/20 History atenolol 25 mg PO DAILY@07/13/20 10/26/20 10/26/20 History diclofenac sodium 2 g TOPICAL QID PRN 07/13/20 10/26/20 Unknown History donepezil 10 mg PO BEDTIME@07/13/20 10/26/20 10/25/20 History hydrochlorothiazide 25 mg PO DAILY@07/13/20 10/26/20 08/30/20 History leflunomide 20 mg PO DAILY@07/13/20 10/26/20 10/25/20 History memantine 10 mg PO BID@07/13/20 10/26/20 10/26/20 History venlafaxine 150 mg PO DAILY@07/13/20 10/26/20 10/26/20 History mirtazapine 7.5 mg PO DAILY 08/30/20 10/26/20 10/25/20 History bisacodyl 10 mg PO DAILY PRN #10 tab 09/01/20 10/26/20 Unknown Rx pyridostigmine bromide 60 mg PO BID@ #0 tab 09/01/20 10/26/20 07/13/20 Rx Seroquel 50 mg PO BEDTIME 10/26/20 10/26/20 10/25/20 History apixaban [Eliquis] 5 mg PO DAILY 10/26/20 10/26/20 10/26/20 History Allergies Allergy/AdvReac Type Severity Reaction Status Date / Time No Known Allergies Allergy Verified 10/26/20 21:28 PFSH Acute PFSH: Medical History (Updated 10/27/20 @ 02:35 by Camilla Talavera MD) Acute pulmonary embolism COPD (chronic obstructive pulmonary disease) Dementia Depression due to dementia DM type 2 (diabetes mellitus, type 2) DVT (deep venous thrombosis) GERD (gastroesophageal reflux disease) High risk medication use Hyperlipidemia Hypertension Immunization counseling Joint pain Orthostatic hypotension Plaque psoriasis Seropositive rheumatoid arthritis of multiple sites Syncope Surgical History H/O hernia repair H/O: hysterectomy History of carpal tunnel surgery S/P appendectomy Status post myringotomy with tube placement of both ears Family History Other CAD (coronary artery disease) Cancer Dementia Diabetes Hypertension Stroke Denies family history of Rheumatoid arthritis Lupus Chronic kidney disease (CKD) Lung disease Social History Smoking and tobacco status: former smoker Alcohol intake: never Household members: children Marital status: / History of recent travel: No Female Reproductive History: Para: 3 Vitals/I&O/Wt Last Vital Signs Temp 98.1 F 10/27/20 01:45 Pulse 74 10/27/20 01:45 Resp 9 L 10/27/20 01:45 BP 111/57 10/27/20 01:45 Pulse Ox 99 10/27/20 01:45 10/26/20 10/26/20 10/27/20 14:59 22:59 06:59 Intake Total 1000 / 1000 Balance 1000 / 1000 Weight last 48 hrs Weight 68.039 kg Physical Exam Narrative: EXAM NARRATIVE: General: No acute distress, AO x2, lying comfortably in bed HEENT: PERRLA, pupils bilaterally equal and reactive, pallors not present Chest: Normal vesicular breath sounds, no added sounds, equal good air entry bilaterally CVS: S1-S2 regular, no murmurs, no tachycardia, no gallops, no rubs Abdomen: Soft, nontender, no organomegaly, bowel sounds present Neuro: No focal deficits, no facial deformity, AO x3, power 5/5 in all limbs Extremities: Healthy surgical dressing present on the right hip, mild tenderness, soft no erythema. Data : 10/26/20 23:20 10/26/20 20:30 A&P Assessment and plan (1) Lower gastrointestinal hemorrhage: NPO for now Right red rectal bleeding, one episode in the ER Hemoglobin drifted down from 10.1-8.7 Orthostatic blood pressure drop positive, however per review of records, patient has had issues with orthostatic hypotension since beginning of the year. She is currently receiving 1 unit of packed red blood cell transfusion. GI consult for possible colonoscopy with Dr. Yap Hold Eliquis Protonix 40 mg p.o. twice daily Hold antihypertensives for now. Status: Acute (2) Dementia: Status: Acute Qualifiers: Dementia type: unspecified type Attestations Medical Necessity Statement*: Likely to require greater than 2 midnight stay for management of lower GI bleed, possible colonoscopy, close monitoring of hemoglobin, blood transfusion. Coding Level of Care Code Acute [employer] for [employer] Gonzales Diagnoses Lower gastrointestinal hemorrhage K92.2 Dementia F03.90 Dementia type: unspecified type
[2020-10-27] MEDS: LORazepam 2 mg/mL INJ 1 mL 1 MG IVP (03:15)
[2020-10-27] MEDS: venlafaxine ER (24HR) 150 mg Capsule PO (11:04)
[2020-10-27] MEDS: levothyroxine 50 mcg Tablet PO (11:04)
[2020-10-27] MEDS: pyridostigmine 60 mg Tablet PO ×2 (11:05→21:46)
[2020-10-27] MEDS: memantine 5 mg tablet 10 MG PO ×2 (11:05→21:46)
[2020-10-27] MEDS: mirtazapine 15 mg Tablet 7.5 MG PO (11:05)
[2020-10-27] MEDS: atenolol 50 mg Tablet 25 MG PO (11:06)
--- NOTE | 2020-10-27 11:29 | PC.NURSE ---
nurse collected as much information as possible d/t pt having dementia and no family present at this time.
--- NOTE | 2020-10-27 12:32 | PM.CONSULT ---
Providers/Reason For Consult Consulting Physician/Specialty*: Internal medicine/endoscopy Reason for Consult*: Hematochezia Attending Physician: Bill Williamson MD Primary Care Provider: Saima Carnes MD History of Present Illness History of Present Illness Vandana Le is a 75 year old female who presented the emergency room last night with presyncope, and bloody bowel movements. She apparently had a couple of them prior to presentation to the emergency department. When I interview her, I woke her from sleep, and she admits to me no knowledge of having any bloody bowel movements. By virtue of her chart review, it is apparent that she is profoundly demented. She denies any abdominal pain today. By report, her last bowel movement with blood was approximately 6 hours ago. Her last colonoscopy in our system was in [address] Carnes. This was performed due to her family history of colorectal cancer. He did not find any neoplastic processes, but she does have extremely extensive diverticulosis. She has a history of pulmonary embolus, and apparently was on Eliquis on presentation. Review of Systems General: Reports: ROS unobtainable due to mental status Meds/Allergies Home Medications and Allergies Home Medications Medication Instructions Recorded Confirmed Last Taken Type albuterol sulfate 1 puff INHALATION Q6H PRN 11/26/19 10/26/20 Unknown History alprazolam 0.25 mg PO BID PRN 11/26/19 10/26/20 Unknown History cholecalciferol (vitamin D3) 25 mcg PO DAILY@11/26/19 10/26/20 10/26/20 History [Vitamin D3] levothyroxine 50 mcg PO DAILY@01/12/20 10/26/20 10/26/20 History atenolol 25 mg PO DAILY@07/13/20 10/26/20 10/26/20 History diclofenac sodium 2 g TOPICAL QID PRN 07/13/20 10/26/20 Unknown History donepezil 10 mg PO BEDTIME@07/13/20 10/26/20 10/25/20 History hydrochlorothiazide 25 mg PO DAILY@07/13/20 10/26/20 08/30/20 History leflunomide 20 mg PO DAILY@07/13/20 10/26/20 10/25/20 History memantine 10 mg PO BID@07/13/20 10/26/20 10/26/20 History venlafaxine 150 mg PO DAILY@10 07/13/20 10/26/20 10/26/20 History mirtazapine 7.5 mg PO DAILY 08/30/20 10/26/20 10/25/20 History bisacodyl 10 mg PO DAILY PRN #10 tab 09/01/20 10/26/20 Unknown Rx pyridostigmine bromide 60 mg PO BID@ #0 tab 09/01/20 10/26/20 07/13/20 Rx Seroquel 50 mg PO BEDTIME 10/26/20 10/26/20 10/25/20 History apixaban [Eliquis] 5 mg PO DAILY 10/26/20 10/26/20 10/26/20 History Allergies Allergy/AdvReac Type Severity Reaction Status Date / Time No Known Allergies Allergy Verified 10/26/20 21:28 Current Medications Current Medications Generic Name Dose Route Start Last Admin Trade Name Venturaq PRN Reason Stop Dose Admin Atenolol 25 mg 10/27/20 10:00 10/27/20 11:06 Atenolol 50 Mg Tablet PO 25 mg DAILY@10 TE Administration Levothyroxine Sodium 50 mcg 10/27/20 10:00 10/27/20 11:04 Levothyroxine 50 Mcg Tablet PO 50 mcg DAILY@10 TE Administration Memantine 10 mg 10/27/20 10:00 10/27/20 11:05 Memantine 5 Mg Tablet PO 10 mg BID@ TE Administration Mirtazapine 7.5 mg 10/27/20 09:00 10/27/20 11:05 Mirtazapine 15 Mg Tablet PO 7.5 mg DAILY TE Administration Pyridostigmine [place] 60 mg 10/27/20 10:00 10/27/20 11:05 Pyridostigmine 60 Mg Tablet PO 60 mg BID@ TE Administration Venlafaxine HCl 150 mg 10/27/20 10:00 10/27/20 11:04 Venlafaxine Er (24hr) 150 Mg Capsule PO 150 mg DAILY@10 TE Administration PFSH Acute PFSH: Medical History (Updated 10/27/20 @ 02:35 by Camilla Talavera MD) Acute pulmonary embolism COPD (chronic obstructive pulmonary disease) Dementia Depression due to dementia DM type 2 (diabetes mellitus, type 2) DVT (deep venous thrombosis) GERD (gastroesophageal reflux disease) High risk medication use Hyperlipidemia Hypertension Immunization counseling Joint pain Orthostatic hypotension Plaque psoriasis Seropositive rheumatoid arthritis of multiple sites Syncope Surgical History H/O hernia repair H/O: hysterectomy History of carpal tunnel surgery S/P appendectomy Status post myringotomy with tube placement of both ears Family History Other CAD (coronary artery disease) Cancer Dementia Diabetes Hypertension Stroke Denies family history of Rheumatoid arthritis Lupus Chronic kidney disease (CKD) Lung disease Social History Smoking and tobacco status: former smoker Alcohol intake: never Household members: children Marital status: / History of recent travel: No Female Reproductive History: Para: 3 Vitals/I&O/Wt Last Vital Signs Temp 98.1 F 10/27/20 01:45 Pulse 75 10/27/20 03:19 Resp 10 L 10/27/20 02:32 BP 147/117 10/27/20 03:19 Pulse Ox 100 10/27/20 03:19 10/26/20 10/27/20 10/27/20 22:59 06:59 14:59 Intake Total 1000 / 1000 Balance 1000 / 1000 Weight last 48 hrs Weight 150 lb Physical Exam Narrative: EXAM NARRATIVE: She is in absolutely no distress. In fact she was sleeping comfortably in the bed and I woke her up when I came in. She is pleasant but very confused. She is basically not able to provide me much in the way of history at all. GI: COMMON NORMALS: Normal to inspection, nondistended, normoactive bowel sounds present, Soft to palpation and non-tender PALPATION: Yes Soft to palpation RECTAL EXAM: deferred A&P Assessment and plan (1) Dementia: Status: Acute Qualifiers: Dementia type: unspecified type (2) Lower gastrointestinal hemorrhage: Given that she has not had a bloody bowel movement in 6 hours, she has apparently stopped bleeding. I do not know if she received a colonoscopy at some other institution, but she has not had one here for over 10 years. She does have a family history of colorectal cancer according to her last colonoscopy report. I would lean towards being conservative with her given that clinically she has improved, and a colonoscopy prep could very well dislodge a clot. In all likelihood this is a diverticular bleed, which are notoriously difficult to pinpoint if they are not profusely bleeding. I will continue to monitor her care, but I would imagine she would be able to go home fairly soon if her bleeding stays quiet. Her caregivers should have a conversation with her primary care doctor regarding an outpatient colonoscopy. This may not be reasonable given her other comorbidities. Status: Acute Coding Level of Care Code Acute Engineering Analyst for [facility] Fwd Exam Problem Focused Diagnoses Dementia F03.90 Dementia type: unspecified type Lower gastrointestinal hemorrhage K92.2 Comment Please allow Melissa Tsai to bill for this consult
[2020-10-27 13:10] LABS: Basophils % 0.5 %; Eosinophils # 0.1 10^3/uL (0.0-0.8); Eosinophils % 0.8 %; Hematocrit 27.8 % (37.0-47.0); Hemoglobin 8.5 g/dL (11.5-15.3); Lymphocytes # 2.3 10^3/uL (0.8-4.8); Lymphocytes % 38.6 %; Mean Corpuscular HGB Conc 30.6 g/dL (30.0-36.0); Mean Corpuscular Hemoglobin 30.1 pg (28.0-34.0); Mean Corpuscular Volume 98.6 fL (81-99); Mean Platelet Volume 10.2 fL (7.4-10.4); Monocytes # 0.4 10^3/uL (0.2-0.9); Monocytes % 7.2 %; Neutrophils # 3.15 10^3/uL (1.8-7.7); Neutrophils % 52.7 %; Nucleated Red Blood Cells % 0 %; Platelet Count 208 10^3/cmm (130-400); Red Blood Count 2.82 10^6/uL (4.1-5.3); Red Cell Distribution Width 16.6 % (12.1-15.1)
[2020-10-27 13:38] LABS: Alanine Aminotransferase < 5 U/L (0-33); Albumin Level 2.5 g/dL (3.5-5.2); Alkaline Phosphatase 79 IU/L (35-105); Anion Gap 8.5 (5-19); Aspartate Amino Transferase 10 U/L (0-32); Blood Urea Nitrogen 21 mg/dL (8-23); Calcium 8.1 mg/dL (8.5-10.5); Carbon Dioxide 26 mmol/L (22-29); Chloride 115 mmol/L (98-107); Globulin 2.3 g/dL (1.3-4.6); Glucose 107 mg/dL (65-115); Osmolality Calculated 303 mOsm/kg (285-295); Potassium 4.5 mmol/L (3.5-5.1); Sodium 145 mmol/L (136-145); Total Bilirubin 0.2 mg/dL (0.15-1.2); Total Protein 4.8 g/dL (6.6-8.7)
--- NOTE | 2020-10-27 15:40 | P.PN_ITS ---
Subjective Subjective: Interval history: Admitted overnight. Seen in the ER. Laying comfortably in bed, sleeping on examination. Has had only 1 bowel movement mixed with blood early in the morning. Hemoglobin stable. Has remained hemodynamically stable and afebrile. Denies any nausea vomiting, headache. Vitals/I&O/Wt Last Vital Signs Temp 98.1 F 10/27/20 01:45 Pulse 75 10/27/20 03:19 Resp 10 L 10/27/20 02:32 BP 147/117 10/27/20 03:19 Pulse Ox 100 10/27/20 03:19 10/27/20 10/27/20 10/27/20 06:59 14:59 22:59 Intake Total 1000 / 1000 Balance 1000 / 1000 Weight last 48 hrs Weight 68.039 kg Physical Exam Narrative: EXAM NARRATIVE: General: No acute distress, AO x2, lying comfortably in bed HEENT: PERRLA, pupils bilaterally equal and reactive, pallors not present Chest: Normal vesicular breath sounds, no added sounds, equal good air entry b ilaterally CVS: S1-S2 regular, no murmurs, no tachycardia, no gallops, no rubs Abdomen: Soft, nontender, no organomegaly, bowel sounds present Neuro: No focal deficits, no facial deformity, AO x3, power 5/5 in all limbs Extremities: Healthy surgical dressing present on the right hip, mild tenderness , soft no erythema. Data : 10/27/20 13:01 10/27/20 13:01 A&P Assessment and plan (1) Lower gastrointestinal hemorrhage: Hemoglobin has remained stable. Currently 8.5. Post 1 unit PRBC transfusion. Appreciate recommendations from Dr. Yap. Check vitamin B12, iron panel, folate levels. Oral iron supplementation accordingly. Continue to monitor CBC every 12 hourly for now. Full liquid diet. Protonix 40 mg twice daily. Cannot rule out bowel ischemia given the fact that patient was asked to stop E liquis unlawful discharge but not really sure if she did as Eliquis still on the JUN. Repeat lactate. If remains elevated will check CTA abdomen. D5 NS at 50 cc/h. Status: Acute (2) Dementia: Status: Acute Qualifiers: Dementia type: unspecified type Additional A&P Information History of orthostatic hypotension: Continue with home dose of pyridostigmine. History of hypertension: Goal blood pressure less than 140/90 of Hg. Continue with atenolol to avoid reflex tachycardia. History of hypothyroidism History of CKD: Baseline creatinine 1.1. Medical reconciliation done for nephrotoxic drugs. History of COPD: No active exacerbation. Remote history of PE. Continue other chronic medications for dementia including venlafaxine, Seroquel, mirtazapine, Namenda. Around natural . Full liquid diet. Protonix for PUD prophylaxis. SCDs for DVT prophylaxis. Transfer to [facility] with telemetry when bed available. Attestations Medical Necessity Statement*: Requires further hospitalization for management of lower GI bleed requiring transfusion Time Spent in Patient Care: Greater than 35 minutes (>than 50% of time spent in counselling and/or direct pt care on unit) . Coding Level of Care Code Acute Senior [employer] Administrator for [facility] Gonzales Diagnoses Lower gastrointestinal hemorrhage K92.2 Dementia F03.90 Dementia type: unspecified type
[2020-10-27] MEDS: dextrose 5%-sod chloride 0.9% 1,000 ML 50 ML IV (18:03)
[2020-10-27] MEDS: pantoprazole 40 mg SDV IVP (18:04)
[2020-10-27 20:40] LABS: Hematocrit 29.7 % (37.0-47.0)
[2020-10-27] MEDS: quetiapine 25 mg Tablet 50 MG PO (21:28)
[2020-10-27] MEDS: donepezil 5 MG Tablet 10 MG PO (21:47)
[2020-10-28 03:41] VITALS: BP 105/63; PULSE 55; RESP 16; TEMP 36.4; O2SAT 99
[2020-10-28] MEDS: pantoprazole 40 mg SDV IVP (05:09)
[2020-10-28 06:00] VITALS: PULSE 54
[2020-10-28 08:00] VITALS: BP 117/66; PULSE 64; RESP 14; TEMP 36.4; O2SAT 98
[2020-10-28] MEDS: levothyroxine 50 mcg Tablet PO (09:08)
[2020-10-28] MEDS: venlafaxine ER (24HR) 150 mg Capsule PO (09:08)
[2020-10-28] MEDS: memantine 5 mg tablet 10 MG PO (09:08)
[2020-10-28] MEDS: atenolol 50 mg Tablet 25 MG PO (09:08)
[2020-10-28] MEDS: mirtazapine 15 mg Tablet 7.5 MG PO (09:09)
[2020-10-28 09:11] LABS: Basophils % 0.7 %; Eosinophils # 0.1 10^3/uL (0.0-0.8); Eosinophils % 2.1 %; Hematocrit 27.2 % (37.0-47.0); Hemoglobin 8.2 g/dL (11.5-15.3); Lymphocytes # 1.9 10^3/uL (0.8-4.8); Lymphocytes % 33.2 %; Mean Corpuscular HGB Conc 30.1 g/dL (30.0-36.0); Mean Corpuscular Hemoglobin 30.1 pg (28.0-34.0); Mean Platelet Volume 10.4 fL (7.4-10.4); Monocytes # 0.4 10^3/uL (0.2-0.9); Monocytes % 7.2 %; Neutrophils # 3.28 10^3/uL (1.8-7.7); Neutrophils % 56.5 %; Nucleated Red Blood Cells % 0 %; Platelet Count 212 10^3/cmm (130-400); Red Blood Count 2.72 10^6/uL (4.1-5.3); Red Cell Distribution Width 15.9 % (12.1-15.1); White Blood Count 5.8 10^3/uL (4.0-10.0)
[2020-10-28 09:20] VITALS: PULSE 71; RESP 18; O2SAT 94
[2020-10-28] MEDS: pyridostigmine 60 mg Tablet PO (10:30)
--- NOTE | 2020-10-28 10:58 | PM.DCS ---
Discharge Providers Date of Admission: 10/27/20 09:42 Date of Discharge: October 28, 2020 Attending Provider at Admission: Camilla Talavera MD Attending Provider at Discharge: Bill Williamson MD Consults: Dr. Yap Primary Care Provider: Saima Carnes MD Diagnoses at Discharge Discharge Diagnosis (1) Lower gastrointestinal hemorrhage: Status: Acute (2) Dementia: Status: Acute Qualifiers: Dementia type: unspecified type Reason for Visit Reason for Visit: PASSED OUT/ LOWER GI BLEED Hospital Course Hospital Course Vandana Le is a 75 year old female with a past medical history as outlined below, significantly dementia, presents today with 2 episodes of bright red blood per rectum this afternoon. Patient states passing genie blood with some clots. She was also noted to have a large bloody bowel movement in the ER. She was noted to have orthostatic drop in blood pressure. Hemoglobin upon admission was at 10.1, drifted down to 8.7 on the next check. Denies any hematemesis. No abdominal pain. No fever. No diarrhea or constipation prior to bleeding. Does not recall if she ever had a colonoscopy in the past. Review of medications shows that the patient is on Eliquis. Patient under the hospital for further management of lower GI bleed. She received monitor PRBC. During hospitalization patient did not have any bowel movements. Her hemoglobin remained stable on repeat check. Patient was seen by Dr. Yap for evaluation of colonoscopy who advised her to be followed up as an outpatient in 2 weeks as patient does not have any further active bloody bowel movements while in hospital. Patient is to follow-up with her primary care provider within next 1 week for repeat CBC. On review of her home medications it was seen again that patient was on Eliquis. Eliquis was discontinued on her previous discharge after discussion with family because of high risk of catastrophic bleeding or hemorrhagic stroke. Patient was counseled again in detail regarding not to take Eliquis and Eliquis was removed from her medication list. Patient is also advised to stop hydrochlorothiazide for now for next 1 week. She is to maintain a blood pressure diary watching her blood pressure twice a day for next 1 week and follow-up with her primary care provider for further adjustment of antihypertensives. Patient is to take Protonix twice daily and Carafate twice daily for next 2 weeks. Physical Exam Narrative: EXAM NARRATIVE: General: No acute distress, AO x2, lying comfortably in bed HEENT: PERRLA, pupils bilaterally equal and reactive, pallors not present Chest: Normal vesicular breath sounds, no added sounds, equal good air entry bilaterally CVS: S1-S2 regular, no murmurs, no tachycardia, no gallops, no rubs Abdomen: Soft, nontender, no organomegaly, bowel sounds present Neuro: No focal deficits, no facial deformity, AO x3, power 5/5 in all limbs Extremities: Healthy surgical dressing present on the right hip, mild tenderness, soft no erythema. Discharge Data Data Completed and Pending: Completed Studies During Hospitalization Category Date Time Status XR chest 1V pablo ble [id number] Urgent Exams 10/26/20 20:58 Completed Pending at discharge Category Date Time Status Complete Blood Co unt w/Auto AM LABS Lab 10/29/20 04:00 Ordered Leukocyte Reduced RBC Stat Lab 10/26/20 21:39 Results Type and Screen S tat Lab 10/26/20 21:39 Results Labs from last 24 hours 10/28/20 10/27/20 10/27/20 08:11 20:20 13:01 WBC 5.8 RBC 2.72 L Hgb 8.2 L 9.0 L Hct 27.2 L 29.7 L MCV 100.0 H MCH 30.1 MCHC 30.1 RDW 15.9 H Plt Count 212 MPV 10.4 Neut % (Auto) 56.5 Lymph % (Auto) 33.2 [place] % (Auto) 7.2 Eos % (Auto) 2.1 Baso % (Auto) 0.7 Neut # (Auto) 3.28 Lymph # (Auto) 1.9 [place] # (Auto) 0.4 Eos # (Auto) 0.1 Baso # (Auto) 0.0 Nucleated RBC % (a uto) 0 Nucleated RBCs # 0.0 Sodium Potassium Chloride Carbon Dioxide Anion Gap BUN Creatinine GFR Calculation Glucose Calculated Osmolal ity Lactate 1.0 Calcium Total Bilirubin AST ALT Alkaline Phosphata se Total Protein Albumin Globulin 10/27/20 10/27/20 13:01 13:01 WBC 6.0 RBC 2.82 L Hgb 8.5 L Hct 27.8 L MCV 98.6 MCH 30.1 MCHC 30.6 RDW 16.6 H Plt Count 208 MPV 10.2 Neut % (Auto) 52.7 Lymph % (Auto) 38.6 [place] % (Auto) 7.2 Eos % (Auto) 0.8 Baso % (Auto) 0.5 Neut # (Auto) 3.15 Lymph # (Auto) 2.3 [place] # (Auto) 0.4 Eos # (Auto) 0.1 Baso # (Auto) 0.0 Nucleated RBC % (a uto) 0 Nucleated RBCs # 0.0 Sodium 145 Potassium 4.5 Chloride 115 H Carbon Dioxide 26 Anion Gap 8.5 BUN 21 Creatinine 1.1 H GFR Calculation Not Reportable Glucose 107 Calculated Osmolal ity 303 H Lactate Calcium 8.1 L Total Bilirubin 0.2 AST 10 ALT < 5 Alkaline Phosphata se 79 Total Protein 4.8 L Albumin 2.5 L Globulin 2.3 Addt'l Data from Hospital Stay: Laboratory Results WBC 5.8 10^3/uL (4.0- 10.0) 10/28/20 08:11 RBC 2.72 10^6/uL (4.1 -5.3) L 10/28/20 08:11 Hgb 8.2 g/dL (11.5-15 .3) L 10/28/20 08:11 Hct 27.2 % (37.0-47.0 ) L 10/28/20 08:11 MCV 100.0 fL (81-99) H 10/28/20 08:11 MCH 30.1 pg (28.0-34. 0) 10/28/20 08:11 MCHC 30.1 g/dL (30.0-3 6.0) 10/28/20 08:11 RDW 15.9 % (12.1-15.1 ) H 10/28/20 08:11 Plt Count 212 10^3/cmm (130 -400) 10/28/20 08:11 MPV 10.4 fL (7.4-10.4 ) 10/28/20 08:11 Neut % (Auto) 56.5 % 10/28/20 08:11 Lymph % (Auto) 33.2 % 10/28/20 08:11 [place] % (Auto) 7.2 % 10/28/20 08:11 Eos % (Auto) 2.1 % 10/28/20 08:11 Baso % (Auto) 0.7 % 10/28/20 08:11 Neut # (Auto) 3.28 10^3/uL (1.8 -7.7) 10/28/20 08:11 Lymph # (Auto) 1.9 10^3/uL (0.8- 4.8) 10/28/20 08:11 [place] # (Auto) 0.4 10^3/uL (0.2- 0.9) 10/28/20 08:11 Eos # (Auto) 0.1 10^3/uL (0.0- 0.8) 10/28/20 08:11 Baso # (Auto) 0.0 10^3/uL (0.0- 0.1) 10/28/20 08:11 Nucleated RBC % (a uto) 0 % 10/28/20 08:11 Nucleated RBCs # 0.0 /100WBC 10/28/20 08:11 PT 14.40 SECONDS (12 .1-14.9) 10/26/20 20:30 INR 1.08 (0.8-1.2) 10/26/20 20:30 Sodium 145 mmol/L (136-1 45) 10/27/20 13:01 Potassium 4.5 mmol/L (3.5-5 .1) 10/27/20 13:01 Chloride 115 mmol/L (98-10 7) H 10/27/20 13:01 Carbon Dioxide 26 mmol/L (22-29) 10/27/20 13:01 Anion Gap 8.5 (5-19) 10/27/20 13:01 BUN 21 mg/dL (8-23) 10/27/20 13:01 Creatinine 1.1 mg/dL (0.5-0. 9) H 10/27/20 13:01 GFR Calculation Not Reportable 10/27/20 13:01 Glucose 107 mg/dL (65-115 ) 10/27/20 13:01 Calculated Osmolal ity 303 mOsm/kg (285- 295) H 10/27/20 13:01 Lactic Acid 2.4 mmol/L (0.5-2 .2) H 10/26/20 22:13 Lactate 1.0 mmol/L (0.5-2 .2) 10/27/20 13:01 Calcium 8.1 mg/dL (8.5-10 .5) L 10/27/20 13:01 Total Bilirubin 0.2 mg/dL (0.15-1 .2) 10/27/20 13:01 AST 10 U/L (0-32) 10/27/20 13:01 ALT < 5 U/L (0-33) 10/27/20 13:01 Alkaline Phosphata se 79 IU/L (35-105) 10/27/20 13:01 Total Protein 4.8 g/dL (6.6-8.7 ) L 10/27/20 13:01 Albumin 2.5 g/dL (3.5-5.2 ) L 10/27/20 13:01 Globulin 2.3 g/dL (1.3-4.6 ) 10/27/20 13:01 Blood Type A Positive 10/26/20 21:39 Rho(D) Type Positive / 4+ 10/26/20 21:39 Antibody Screen Negative 10/26/20 21:39 Crossmatch See Detail 10/26/20 21:39 Impressions Chest X-Ray 10/26/20 20:58 IMPRESSION: 1. No change compared to 10/11/2020. 2. Stable chronic reticular opacity and volume loss in the left hemithorax. Vitals: Last Vital Signs Temp 97.6 F 10/28/20 08:00 Pulse 71 10/28/20 09:20 Resp 18 10/28/20 09:20 BP 117/66 10/28/20 08:00 Pulse Ox 94 10/28/20 09:20 Discharge Plan Discharge Patient Disposition: Home Condition: Stable Prescriptions: New pantoprazole [Protonix] 40 mg tablet,delayed release (DR/EC) 40 mg PO BID 14 Days Qty: 28 RF: 0 sucralfate [Carafate] 1 gram tablet 1 g PO BID 28 Days Qty: 56 RF: 0 ferrous sulfate 325 mg (65 mg iron) tablet 325 mg PO DAILY Qty: 30 RF: 0 Continued alprazolam 0.25 mg tablet 0.25 mg PO BID PRN (Reason: Anxiety) RF: 0 albuterol sulfate 90 mcg/actuation HFA aerosol inhaler 1 puff inhalation Q6H PRN (Reason: Shortness Of Breath) RF: 0 cholecalciferol (vitamin D3) [Vitamin D3] 25 mcg (1,000 unit) Tablet 25 mcg PO DAILY@10 RF: 0 mirtazapine 15 mg Tablet 7.5 mg PO DAILY RF: 0 bisacodyl 5 mg Tablet,Delayed Release (Dr/Ec) 10 mg PO DAILY PRN (Reason: Constipation (see protocol)) Qty: 10 RF: 0 pyridostigmine bromide 30 mg tablet 60 mg PO BID@10,22 Qty: 0 RF: 0 levothyroxine 50 mcg Tablet 50 mcg PO DAILY@10 RF: 0 venlafaxine 150 mg Capsule,Extended Release 24hr 150 mg PO DAILY@10 RF: 0 atenolol 50 mg Tablet 25 mg PO DAILY@10 RF: 0 donepezil 10 mg tablet 10 mg PO BEDTIME@22 RF: 0 leflunomide 20 mg tablet 20 mg PO DAILY@22 RF: 0 memantine 10 mg tablet 10 mg PO BID@, RF: 0 diclofenac sodium 1 % gel 2 g topical QID PRN (Reason: Pain) RF: 0 Seroquel 25 mg tablet 50 mg PO BEDTIME RF: 0 Held hydrochlorothiazide 25 mg Tablet 25 mg PO DAILY@10 RF: 0 Hold Instructions: Resume on 09/05/20. Discontinued Eliquis 2.5 mg tablet 5 mg PO DAILY RF: 0 Discharge Orders: Discharge Order (Routine); Ordered 10/28/20 Ordered By: Bill Williamson Referrals: Saima Carnes MD [Primary Care Provider] - 7-10 days (Repeat CBC, blood pressure diary for further adjustment of antihypertensives) Max Yap MD [Physician] - 2 weeks (Colonoscopy) Discharge Diet: Advance as tolerated and GI Soft Discharge Activity: Resume usual activity Patient Instructions: Opioid Safety Activity Restrictions/Additional Instructions: Please follow-up with your primary care provider within next 1 week for repeat CBC. As discussed in the past he should not be taking Eliquis anymore. Please hold hydrochlorothiazide which is a diuretic and antihypertensive for next 1 week. Please maintain a blood pressure diary by checking your blood pressure twice a day and follow-up with your primary care provider within next 1 week for further adjustments of antihypertensives. Please follow-up with Dr. Yap in 2 weeks for possible colonoscopy. Discharge Attestations Time Spent in Discharge Care*: greater than 30 min Specific Discharge Activities: educating patient, discussing with pcp/other providers, discussing with dependency case manager/social workers/dc planners, documenting/other paperwork and evaluating patient/reviewing data Status at Discharge: Cognitive status at discharge: mildly impaired cognition, Behavioral status at discharge: cooperative, Functional status at discharge: uses cane/walker Overall status at discharge: patient is back to baseline Quality Metrics Clinical Quality Measures During this hospital stay, did patient experience: None Coding Level of Care Code Acute [facility] FW KIARA note Diagnoses Lower gastrointestinal hemorrhage K92.2 Dementia F03.90 Dementia type: unspecified type
[2020-10-28 12:00] VITALS: BP 136/71; PULSE 94; RESP 14; TEMP 36.6; O2SAT 97
--- NOTE | 2020-10-28 12:34 | PC.NURSE ---
Discussed with patient her discharge instructions as well as when and how to make her follow up appointments. Patient stated understanding. Patient given discharge instructions and awaiting her ride.
[2020-10-28 14:28] VITALS: BP 136/71; PULSE 94; RESP 14; TEMP 36.6; O2SAT 97
== END 2020-10-28 14:29 | disposition home health service (06) | DRG 379 ==
LOC: ER 10-27 00:51 → ER IP 10-27 07:00 → MEDSURG 10-27 16:20
PROVIDERS: Admitting Provider Student in an Organized Health Care Education/Training Program; Emergency Provider Emergency Medicine; PCP Family Medicine; Visit Provider Student in an Organized Health Care Education/Training Program
DX: K92.2 Gastrointestinal hemorrhage, unspecified (principal); F03.90 Unspecified dementia, unspecified severity, without behavioral disturbance, psychotic disturbance, mood disturbance, and anxiety; F32.9 Major depressive disorder, single episode, unspecified; Z86.718 Personal history of other venous thrombosis and embolism; J44.9 Chronic obstructive pulmonary disease, unspecified; K21.9 Gastro-esophageal reflux disease without esophagitis; E78.5 Hyperlipidemia, unspecified; E11.22 Type 2 diabetes mellitus with diabetic chronic kidney disease; I12.9 Hypertensive chronic kidney disease with stage 1 through stage 4 chronic kidney disease, or unspecified chronic kidney disease; N18.9 Chronic kidney disease, unspecified; I95.1 Orthostatic hypotension; L40.0 Psoriasis vulgaris; M05.9 Rheumatoid arthritis with rheumatoid factor, unspecified; Z87.891 Personal history of nicotine dependence; K57.90 Diverticulosis of intestine, part unspecified, without perforation or abscess without bleeding; E03.9 Hypothyroidism, unspecified; Z79.51 Long term (current) use of inhaled steroids
CPT/HCPCS: 36415; 36430; 71045; 80053; 83605; 85014; 85018; 85025; 85610; 86850; 86900; 86920; 96360; 99285; C9113; J2060; J7030; P9016

== ENCOUNTER → 2020-11-06 10:03 | Outpatient (BNVA) | payer MEDICARE, SELFPAY | PROVIDERS: PCP Family Medicine; Visit Provider Internal Medicine Rheumatology | DX: M05.79 Rheumatoid arthritis with rheumatoid factor of multiple sites without organ or systems involvement (principal); L40.0 Psoriasis vulgaris; Z79.899 Other long term (current) drug therapy; D64.9 Anemia, unspecified; Z86.711 Personal history of pulmonary embolism; Z71.89 Other specified counseling; Z87.891 Personal history of nicotine dependence | CPT/HCPCS: 36415; 85025; 99214 ==

== ENCOUNTER 2020-12-04 20:20 | Emergency (ER) | payer MEDICARE, SELFPAY ==
[2020-12-04 20:22] VITALS: BP 100/64; PULSE 86; RESP 28; TEMP 34.9; O2SAT 93; BMI 29.2
--- NOTE | 2020-12-04 20:26 | XRR_ITS ---
PROCEDURE INFORMATION: Exam: XR Chest Exam date and time: 12/04/2020 8:26 PM Age: 75 years old Clinical indication: Shortness of breath; Patient HX: AMS, SOB, weakness TECHNIQUE: Imaging protocol: XR of the chest. Views: 1 view. COMPARISON: CR (CHEST, ) 10/26/2020 9:24 PM FINDINGS: Lungs: Increased ground-glass opacity in the peripheral right lung base. Stable interstitial scarring in both lungs, left greater than right. Pleural spaces: Unremarkable. No pleural effusion. No pneumothorax. Heart/Mediastinum: The heart size is upper normal. Vasculature: Calcified tortuous thoracic aorta. Bones/joints: Unremarkable. XR/XR chest 1V portable [id number] IMPRESSION: 1. Opacity in the peripheral right lung base could represent pneumonia or progressive scarring.
--- NOTE | 2020-12-04 20:27 | ECG_ITS ---
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 Measurements Intervals [place] Rate: 79 P: 57 AR: 153 QRS: 43 QRSD: 108 T: 37 QT: 421 QTc: 485 Interpretive Statements SINUS RHYTHM LOW QRS VOLTAGE IN PRECORDIAL LEADS [QRS DEFLECTION < 1.0 mV IN CHEST LEADS] INCOMPLETE RIGHT BUNDLE BRANCH BLOCK [90+ ms QRS DURATION, TERMINAL R IN V1/V2, 40+ ms S IN I/aVL/V4/V5/V6] ST DEVIATION AND MODERATE T-WAVE ABNORMALITY, CONSIDER ANTERIOR ISCHEMIA [-0.1+ mV T-WAVE IN V3/V4] Compared to ECG 10/11/2020 02:27:39 Low QRS voltage now present Incomplete right bundle-branch block now present T-wave abnormality now present Possible ischemia now present ST (T wave) deviation no longer present Electronically Signed On 12-05-2020 17:09:44 CDT by Camilo Nieto M.D. [id number]
[2020-12-04 20:49] LABS: Basophils % 0.1 %; Hematocrit 39.2 % (37.0-47.0); Hemoglobin 11.2 g/dL (11.5-15.3); Lymphocytes # 1.4 10^3/uL (0.8-4.8); Lymphocytes % 13.2 %; Mean Corpuscular HGB Conc 28.6 g/dL (30.0-36.0); Mean Corpuscular Hemoglobin 29.9 pg (28.0-34.0); Mean Corpuscular Volume 104.5 fl (81-99); Mean Platelet Volume 10.7 fL (7.4-10.4); Monocytes # 0.6 10^3/uL (0.2-0.9); Monocytes % 5.6 %; Neutrophils # 8.38 10^3/uL (1.8-7.7); Neutrophils % 80.4 %; Nucleated Red Blood Cells % 0 %; Platelet Count 239 10^3/cmm (130-400); Red Blood Count 3.75 10^6/uL (4.1-5.3); Red Cell Distribution Width 14.7 % (12.1-15.1); White Blood Count 10.4 10^3/uL (4.0-10.0)
[2020-12-04] MEDS: sodium chloride 0.9% 1,000 ML 999 ML IV ×2 (20:49→23:29)
[2020-12-04 20:54] LABS: Glucose Point of Care 248 mg/dL (70-110)
[2020-12-04 21:02] LABS: INR 1.23 (0.8-1.2)
--- NOTE | 2020-12-04 21:10 | ED_ITS ---
HPI - SOB/Dyspnea General: Chief Complaint: Shortness of Breath/Dyspnea Stated Complaint: RESP DISTRESS/AMS/WEAKNESS Time Seen by Provider: 12/04/20 20:22 Source: family and EMS Mode of arrival: EMS Limitations: altered mental status History of Present Illness: HPI Narrative: 75-year-old female who has a history of severe dementia who is here from home with increased weakness and confusion. Per EMS patient's became increasingly confused over the last 3 days. Here she is altered and unable to answer any questions. Patient is hypothermic as well with temperature at 94. Patient has disheveled on does not appear well. Review of Systems General: Reports: ROS unobtainable due to mental status PFSH ED PFSH: Medical History Acute pulmonary embolism Anemia COPD (chronic obstructive pulmonary disease) Dementia Depression due to dementia DM type 2 (diabetes mellitus, type 2) DVT (deep venous thrombosis) GERD (gastroesophageal reflux disease) High risk medication use Hyperlipidemia Hypertension Immunization counseling Joint pain Orthostatic hypotension Plaque psoriasis Seropositive rheumatoid arthritis of multiple sites Syncope Surgical History H/O hernia repair H/O: hysterectomy History of carpal tunnel surgery S/P appendectomy Status post myringotomy with tube placement of both ears Family History Other CAD (coronary artery disease) Cancer Dementia Diabetes Hypertension Stroke Denies family history of Rheumatoid arthritis Lupus Chronic kidney disease (CKD) Lung disease Social History Smoking and tobacco status: former smoker Alcohol intake: never Household members: children Marital status: / History of recent travel: No Female Reproductive History: Para: 3 Physical Exam Const: COMMON NORMALS: negative for patient oriented x3 EXAM LIMITATIONS: altered mental status GENERAL APPEARANCE: in distress and ill appearing HENMT: COMMON NORMALS: normocephalic and atraumatic HEAD & SCALP: normocephalic and atraumatic Eye: COMMON NORMALS: Equal, round and reactive pupils present and EOMs intact bilaterally PUPIL: Yes Equal, round and reactive pupils present Neck/C-Spine: COMMON NORMALS: full ROM and supple Chest: COMMONS NORMALS: normal inspection of the chest and normal palpation of entire chest wall Resp: COMMON NORMALS: normal respiratory effort, No retractions, No use of accessory muscles and clear to auscultation bilaterally AUSCULTATION: clear to auscultation bilaterally Cardio: COMMON NORMALS: regular rate, regular rhythm and No murmurs present (Cardio) RATE: regular rate RHYTHM: regular rhythm GI: COMMON NORMALS: Normal to inspection, nondistended, normoactive bowel sounds present, Soft to palpation, non-tender and no masses PALPATION: Yes Soft to palpation Extremity: COMMON NORMALS: normal to inspection and full ROM Neuro: COMMON NORMALS: moves all extremities and no focal motor deficits; negative for patient oriented x3 Psych: COMMON NORMALS: cooperative; negative for mental status grossly normal and negative for Normal thought process present THOUGHT PROCESS: abnormal Skin: COMMON NORMALS: no rashes or lesions noted and no wounds GENERAL SKIN EXAM: no rashes or lesions noted Course Vital Signs: Vital signs: Vital Signs Temperature 94.8 F L 12/04/20 20:22 Pulse Rate 72 12/05/20 02:30 Respiratory Rate 24 H 12/05/20 02:30 Blood Pressure 119/54 12/05/20 02:30 Pulse Oximetry 95 12/05/20 02:30 MDM - SOB/Dyspnea MDM Narrative: Medical decision making narrative: Patient presents here with altered mental status and was found to have pulmonary embolism along with a pneumonia. I called patient's daughter and informed her the CT findings. Her daughter states that she does not want her on blood thinners. I spoke to her at length and daughter decided that she is going to place her on hospice. She did not want any further treatment here. We will hold patient in the ER until the daughter gets a hospice set up in the morning and then will discharge home. Lab Data: Labs: Lab Results 12/04/20 12/04/20 12/04/20 Range/Units 20:45 20:45 20:45 WBC 10.4 H (4.0-10.0) 10^3/ uL RBC 3.75 L (4.1-5.3) 10^6/u L Hgb 11.2 L (11.5-15.3) g/dL Hct 39.2 (37.0-47.0) % MCV 104.5 H (81-99) fl MCH 29.9 (28.0-34.0) pg MCHC 28.6 L (30.0-36.0) g/dL RDW 14.7 (12.1-15.1) % Plt Count 239 (130-400) 10^3/c mm MPV 10.7 H (7.4-10.4) fL Neut % (Auto) 80.4 % Lymph % (Auto) 13.2 % [place] % (Auto) 5.6 % Eos % (Auto) 0.0 % Baso % (Auto) 0.1 % Neut # (Auto) 8.38 H (1.8-7.7) 10^3/u L Lymph # (Auto) 1.4 (0.8-4.8) 10^3/u L [place] # (Auto) 0.6 (0.2-0.9) 10^3/u L Eos # (Auto) 0.0 (0.0-0.8) 10^3/u L Baso # (Auto) 0.0 (0.0-0.1) 10^3/u L Nucleated RBC % (a uto) 0 % Nucleated RBCs # 0.0 /100WBC PT 15.90 H (12.1-14.9) SECO NDS INR 1.23 H (0.8-1.2) Specimen Type Sample Site Dorian Test O2 Delivery Device O2 Liters/Min % FiO2 % Specimen Drawn By Signal Intelligence/Electronic War[employer] ID Blood Gas Notified Time Sodium 139 (136-145) mmol/L Potassium 5.2 H (3.5-5.1) mmol/L Chloride 98 (98-107) mmol/L Carbon Dioxide 13 L (22-29) mmol/L Anion Gap 33.2 H (5-19) BUN 48 H (8-23) mg/dL Creatinine 2.1 H (0.5-0.9) mg/dL GFR Calculation Not Reportable Glucose 233 H (65-115) mg/dL POC Glucose (70-110) mg/dL Calculated Osmolal ity 308 H (285-295) mOsm/k g Lactate (0.5-2.2) mmol/L Calcium 9.0 (8.5-10.5) mg/dL Magnesium 2.4 H (1.7-2.3) mg/dL Total Bilirubin 0.4 (0.15-1.2) mg/dL AST 58 H (0-32) U/L ALT 58 H (0-33) U/L Alkaline Phosphata se 148 H (35-105) IU/L Troponin T Baselin e (0-10) ng/L Troponin T 120 Min [place] (0-10) ng/L Delta Troponin T (0-10) ABS# NT-Pro-B Natriuret Pep > 45748 H (0-450) pg/mL Total Protein 6.2 L (6.6-8.7) g/dL Albumin 3.6 (3.5-5.2) g/dL Globulin 2.6 (1.3-4.6) g/dL TSH 3.51 (0.27-4.20) uIU/ mL Urine Color (Yellow) Urine Appearance (CLEAR) Urine pH (5-7) Ur Specific Gravit y (1.005-1.030) Urine Protein (Negative) Urine Glucose (UA) (Normal) Urine Ketones (Negative) Urine Blood (Negative) Urine Nitrate (Negative) Urine Bilirubin (Negative) Urine Urobilinogen (Negative) mg/dL Ur Leukocyte Zoe ase (Negative) SARS-CoV-2 Ag (Rap id) (Negative) 12/04/20 12/04/20 12/04/20 Range/Units 20:45 20:45 20:51 WBC (4.0-10.0) 10^3/ uL RBC (4.1-5.3) 10^6/u L Hgb (11.5-15.3) g/dL Hct (37.0-47.0) % MCV (81-99) fl MCH (28.0-34.0) pg MCHC (30.0-36.0) g/dL RDW (12.1-15.1) % Plt Count (130-400) 10^3/c mm MPV (7.4-10.4) fL Neut % (Auto) % Lymph % (Auto) % [place] % (Auto) % Eos % (Auto) % Baso % (Auto) % Neut # (Auto) (1.8-7.7) 10^3/u L Lymph # (Auto) (0.8-4.8) 10^3/u L [place] # (Auto) (0.2-0.9) 10^3/u L Eos # (Auto) (0.0-0.8) 10^3/u L Baso # (Auto) (0.0-0.1) 10^3/u L Nucleated RBC % (a uto) % Nucleated RBCs # /100WBC PT (12.1-14.9) SECO NDS INR (0.8-1.2) Specimen Type Sample Site Dorian Test O2 Delivery Device O2 Liters/Min % FiO2 % Specimen Drawn By Signal [employer]/Electronic War[employer] ID Blood Gas Notified Time Sodium (136-145) mmol/L Potassium (3.5-5.1) mmol/L Chloride (98-107) mmol/L Carbon Dioxide (22-29) mmol/L Anion Gap (5-19) BUN (8-23) mg/dL Creatinine (0.5-0.9) mg/dL GFR Calculation Glucose (65-115) mg/dL POC Glucose 248 H (70-110) mg/dL Calculated Osmolal ity (285-295) mOsm/k g Lactate 9.7 H* (0.5-2.2) mmol/L Calcium (8.5-10.5) mg/dL Magnesium (1.7-2.3) mg/dL Total Bilirubin (0.15-1.2) mg/dL AST (0-32) U/L ALT (0-33) U/L Alkaline Phosphata se (35-105) IU/L Troponin T Baselin e 125 H* (0-10) ng/L Troponin T 120 Min [place] (0-10) ng/L Delta Troponin T (0-10) ABS# NT-Pro-B Natriuret Pep (0-450) pg/mL Total Protein (6.6-8.7) g/dL Albumin (3.5-5.2) g/dL Globulin (1.3-4.6) g/dL TSH (0.27-4.20) uIU/ mL Urine Color (Yellow) Urine Appearance (CLEAR) Urine pH (5-7) Ur Specific Gravit y (1.005-1.030) Urine Protein (Negative) Urine Glucose (UA) (Normal) Urine Ketones (Negative) Urine Blood (Negative) Urine Nitrate (Negative) Urine Bilirubin (Negative) Urine Urobilinogen (Negative) mg/dL Ur Leukocyte Zoe ase (Negative) SARS-CoV-2 Ag (Rap id) (Negative) 12/04/20 12/04/20 12/04/20 Range/Units 20:59 21:00 22:12 WBC (4.0-10.0) 10^3/ uL RBC (4.1-5.3) 10^6/u L Hgb (11.5-15.3) g/dL Hct (37.0-47.0) % MCV (81-99) fl MCH (28.0-34.0) pg MCHC (30.0-36.0) g/dL RDW (12.1-15.1) % Plt Count (130-400) 10^3/c mm MPV (7.4-10.4) fL Neut % (Auto) % Lymph % (Auto) % [place] % (Auto) % Eos % (Auto) % Baso % (Auto) % Neut # (Auto) (1.8-7.7) 10^3/u L Lymph # (Auto) (0.8-4.8) 10^3/u L [place] # (Auto) (0.2-0.9) 10^3/u L Eos # (Auto) (0.0-0.8) 10^3/u L Baso # (Auto) (0.0-0.1) 10^3/u L Nucleated RBC % (a uto) % Nucleated RBCs # /100WBC PT (12.1-14.9) SECO NDS INR (0.8-1.2) Specimen Type arterial Sample Site right brachial Dorian Test pos O2 Delivery Device nc O2 Liters/Min 4.0 % FiO2 36.0 % Specimen Drawn By rieri Signal [employer]/Electronic War[employer] ID rr Blood Gas Notified Time peggy Sodium (136-145) mmol/L Potassium (3.5-5.1) mmol/L Chloride (98-107) mmol/L Carbon Dioxide (22-29) mmol/L Anion Gap (5-19) BUN (8-23) mg/dL Creatinine (0.5-0.9) mg/dL GFR Calculation Glucose (65-115) mg/dL POC Glucose (70-110) mg/dL Calculated Osmolal ity (285-295) mOsm/k g Lactate (0.5-2.2) mmol/L Calcium (8.5-10.5) mg/dL Magnesium (1.7-2.3) mg/dL Total Bilirubin (0.15-1.2) mg/dL AST (0-32) U/L ALT (0-33) U/L Alkaline Phosphata se (35-105) IU/L Troponin T Baselin e (0-10) ng/L Troponin T 120 Min [place] (0-10) ng/L Delta Troponin T (0-10) ABS# NT-Pro-B Natriuret Pep (0-450) pg/mL Total Protein (6.6-8.7) g/dL Albumin (3.5-5.2) g/dL Globulin (1.3-4.6) g/dL TSH (0.27-4.20) uIU/ mL Urine Color Dark yellow (Yellow) Urine Appearance Clear (CLEAR) Urine pH 5 (5-7) Ur Specific Gravit y 1.025 (1.005-1.030) Urine Protein Neg (Negative) Urine Glucose (UA) Norm (Normal) Urine Ketones 1+ H (Negative) Urine Blood Neg (Negative) Urine Nitrate Negative (Negative) Urine Bilirubin 1+ H (Negative) Urine Urobilinogen 4 H (Negative) mg/dL Ur Leukocyte Zoe ase Negative (Negative) SARS-CoV-2 Ag (Rap id) Negative (Negative) 12/04/20 12/04/20 Range/Units 22:45 22:45 WBC (4.0-10.0) 10^3/ uL RBC (4.1-5.3) 10^6/u L Hgb (11.5-15.3) g/dL Hct (37.0-47.0) % MCV (81-99) fl MCH (28.0-34.0) pg MCHC (30.0-36.0) g/dL RDW (12.1-15.1) % Plt Count (130-400) 10^3/c mm MPV (7.4-10.4) fL Neut % (Auto) % Lymph % (Auto) % [place] % (Auto) % Eos % (Auto) % Baso % (Auto) % Neut # (Auto) (1.8-7.7) 10^3/u L Lymph # (Auto) (0.8-4.8) 10^3/u L [place] # (Auto) (0.2-0.9) 10^3/u L Eos # (Auto) (0.0-0.8) 10^3/u L Baso # (Auto) (0.0-0.1) 10^3/u L Nucleated RBC % (a uto) % Nucleated RBCs # /100WBC PT (12.1-14.9) SECO NDS INR (0.8-1.2) Specimen Type Sample Site Dorian Test O2 Delivery Device O2 Liters/Min % FiO2 % Specimen Drawn By Signal Intelligence/Electronic Warfare ID Blood Gas Notified Time Sodium 137 (136-145) mmol/L Potassium 4.5 (3.5-5.1) mmol/L Chloride 100 (98-107) mmol/L Carbon Dioxide 11 L (22-29) mmol/L Anion Gap 30.5 H (5-19) BUN 43 H (8-23) mg/dL Creatinine 2.1 H (0.5-0.9) mg/dL GFR Calculation Not Reportable Glucose 222 H (65-115) mg/dL POC Glucose (70-110) mg/dL Calculated Osmolal ity 302 H (285-295) mOsm/k g Lactate (0.5-2.2) mmol/L Calcium 8.3 L (8.5-10.5) mg/dL Magnesium (1.7-2.3) mg/dL Total Bilirubin (0.15-1.2) mg/dL AST (0-32) U/L ALT (0-33) U/L Alkaline Phosphata se (35-105) IU/L Troponin T Baselin e (0-10) ng/L Troponin T 120 Min [place] 101.9 H (0-10) ng/L Delta Troponin T -23.1 L (0-10) ABS# NT-Pro-B Natriuret Pep (0-450) pg/mL Total Protein (6.6-8.7) g/dL Albumin (3.5-5.2) g/dL Globulin (1.3-4.6) g/dL TSH (0.27-4.20) uIU/ mL Urine Color (Yellow) Urine Appearance (CLEAR) Urine pH (5-7) Ur Specific Gravit y (1.005-1.030) Urine Protein (Negative) Urine Glucose (UA) (Normal) Urine Ketones (Negative) Urine Blood (Negative) Urine Nitrate (Negative) Urine Bilirubin (Negative) Urine Urobilinogen (Negative) mg/dL Ur Leukocyte Zoe ase (Negative) SARS-CoV-2 Ag (Rap id) (Negative) Imaging Data^: CT Chest: Attestation: I personally reviewed and interpreted this imaging study as follows: Radiologist's impression: [address] [address] [address] Scan Report Signed with Addenda Patient: Vandana Le Unit #: [id number] : 1945 Age/Sex: 75 / F ADM Date: 12/04/20 Loc: ER Room/Bed: Attending Dr: Ordering Provider/Ordering MD: Johnson Harper MD Date of Service: 12/04/20 Procedure(s): CT angio chest PE protcl [id number] Accession Number(s): [id number] Report Number: [id number]/CT angio chest PE protcl [id number] THIS REPORT CONTAINS FINDINGS THAT MAY BE CRITICAL TO PATIENT CARE. The findings were verbally communicated via telephone conference with JOHNSON HARPER at 12:06 AM CDT on 12/05/2020. The findings were acknowledged and understood. Radiation Dose CTDIVOL = (mGy): DLP = 1183.64 (mGy-cm) Addendum Dictated By: Jerson Hernandez Addendum Signed By: Jerson Hernandez Signed Date/Time: 12/05/20 0 008 Addendum Cosigned By: PROCEDURE INFORMATION: Exam: CTA Chest With Contrast Exam date and time: 12/04/2020 9:56 PM Age: 75 years old Clinical indication: Dyspnea; Additional info: SOB TECHNIQUE: Imaging protocol: Computed tomographic angiography of the chest with contrast. 3D rendering (Not supervised by radiologist): MIP and/or 3D reconstructed images were created by the technologist. Radiation optimization: All CT scans at this facility use at least one of these dose optimization techniques: automated exposure control; mA and/or kV adjustment per patient size (includes targeted exams where dose is matched to clinical indication); or iterative reconstruction. Contrast material: OMNI 350; Contrast volume: 95 ml; Contrast route: INTRAVENOUS (IV); COMPARISON: CT angio chest PE protcl [id number] 09/26/2020 10:54 PM RADIATION DOSE METRICS: Total DLP (mGy-cm): 1183.64 FINDINGS: Pulmonary arteries: Multiple filling defects within bilateral upper and lower lobe pulmonary artery branches. The RV/LV ratio is less than 1. Aorta: Unremarkable. No aortic aneurysm. No aortic dissection. Thyroid: 2.4 cm calcified nodule in the right thyroid lobe. Ultrasound follow-up is recommended. Lungs: Severe emphysema. Scattered patchy ground-glass and interstitial opacities in both lungs. Stable fibrosis in the left upper lobe. Pleural spaces: Unremarkable. No pneumothorax. No pleural effusion. Heart: The heart size is normal. Lymph nodes: Unremarkable. No enlarged lymph nodes. Intraperitoneal space: Mild ascites. Bones/joints: Unremarkable. No acute fracture. Soft tissues: Unremarkable. CT/CT angio chest PE protcl [id number] IMPRESSION: 1. Bilateral pulmonary emboli. 2. No evidence for elevated right heart pressure. 3. Patchy opacities in both lungs could represent pneumonia or could relate to the pulmonary emboli. 4. 2.4 cm calcified right thyroid nodule. Ultrasound follow-up is recommended. COMMENTS: Consistent with the [employer]'s Incidental Findings Committee white paper (J Am Kian Radiol 2015): In patients aged 35 years and older with an incidental thyroid nodule equal to or greater than 1.[address], MRI or extrathyroidal US, further evaluation with dedicated thyroid US is recommended for patients with normal life expectancy and without comorbidities. For smaller nodules without suspicious features, no further evaluation or follow up is recommended. Radiation Dose CTDIVOL = (mGy): DLP = 1183.64 (mGy-cm) Dictated By: Jerson Hernandez Signed By: Jerson Hernandez Signed Date/Time: 12/05/20 0005 DD/ 0003 EKG Data^: EKG 1: Attestation: I personally reviewed and interpreted this EKG as follows: EKG Interpretation Date: 12/04/20 EKG interpretation time: 21:15 Interpretation: nsr hr [address] or t wave abnormalities qrs 108 qtc 456 Discharge Plan Discharge Patient Disposition: Home Clinical Impression: Pulmonary embolism, Community acquired pneumonia Condition: Stable Prescriptions: New doxycycline hyclate 100 mg tablet 100 mg PO BID 7 Days Qty: 14 RF: 0 No Action alprazolam 0.25 mg tablet 0.25 mg PO BID PRN (Reason: Anxiety) RF: 0 albuterol sulfate 90 mcg/actuation HFA aerosol inhaler 1 puff inhalation Q6H PRN (Reason: Shortness Of Breath) RF: 0 cholecalciferol (vitamin D3) [Vitamin D3] 25 mcg (1,000 unit) Tablet 25 mcg PO DAILY@10 RF: 0 mirtazapine 15 mg Tablet 7.5 mg PO DAILY RF: 0 bisacodyl 5 mg Tablet,Delayed Release (Dr/Ec) 10 mg PO DAILY PRN (Reason: Constipation (see protocol)) Qty: 10 RF: 0 pyridostigmine bromide 30 mg tablet 60 mg PO BID@10,22 Qty: 0 RF: 0 levothyroxine 50 mcg Tablet 50 mcg PO DAILY@10 RF: 0 venlafaxine 150 mg Capsule,Extended Release 24hr 150 mg PO DAILY@10 RF: 0 hydrochlorothiazide 25 mg Tablet 25 mg PO DAILY@10 RF: 0 Hold Instructions: Resume on 11/03/20. atenolol 50 mg Tablet 25 mg PO DAILY@10 RF: 0 donepezil 10 mg tablet 10 mg PO BEDTIME@22 RF: 0 memantine 10 mg tablet 10 mg PO BID@10,22 RF: 0 diclofenac sodium 1 % gel 2 g topical QID PRN (Reason: Pain) RF: 0 quetiapine [Seroquel] 25 mg tablet 50 mg PO BEDTIME RF: 0 ferrous sulfate 325 mg (65 mg iron) tablet 325 mg PO DAILY Qty: 30 RF: 0 Discharge Orders: Discharge ED (Routine); Ordered 12/05/20 Ordered By: Johnson Harper Referrals: Saima Carnes MD [Primary Care Provider] - 1-3 days Discharge Diet: Advance as tolerated Discharge Activity: Resume usual activity Patient Instructions: Pulmonary Embolism Coding Level of Care Code ED Glassworker for g Fwd Exam Comprehensive
[2020-12-04 21:12] LABS: Alanine Aminotransferase 58 U/L (0-33); Albumin Level 3.6 g/dL (3.5-5.2); Alkaline Phosphatase 148 IU/L (35-105); Blood Urea Nitrogen 48 mg/dL (8-23); Carbon Dioxide 13 mmol/L (22-29); Chloride 98 mmol/L (98-107); Globulin 2.6 g/dL (1.3-4.6); Glucose 233 mg/dL (65-115); Magnesium 2.4 mg/dL (1.7-2.3); Osmolality Calculated 308 mOsm/kg (285-295); Sodium 139 mmol/L (136-145); Total Bilirubin 0.4 mg/dL (0.15-1.2); Total Protein 6.2 g/dL (6.6-8.7)
[2020-12-04 21:13] LABS: Anion Gap 33.2 (5-19); Aspartate Amino Transferase 58 U/L (0-32); Potassium 5.2 mmol/L (3.5-5.1)
[2020-12-04 21:14] LABS: Lactate (Lactic Acid level) 9.7 mmol/L (0.5-2.2); Troponin(5th) Baseline 125 ng/L (0-10)
[2020-12-04 21:17] LABS: Thyroid Stimulating Hormone 3.51 uIU/mL (0.27-4.20)
[2020-12-04 21:25] LABS: Add Urine Microscopic? NO; Charge for UA Resulting for Rev
[2020-12-04 21:26] LABS: ABG PCO2 26.3 mmHg (35-45)
[2020-12-04 21:27] LABS: Base Excess ABG -16.1 mmol/L (-2.0-2.0); Blood Gas Allen Test pos; Blood Gas Operator Identificat rr; HCO3 ABG 10.4 mmol/L (22-26); PO2 ABG 67.1 mmHg (80.0-100.0)
[2020-12-04 21:28] LABS: Glucose Urine UA Norm (Normal); Ketones Urine 1+ (Negative); Protein Urine Neg (Negative); Specific Gravity, Urine 1.025 (1.005-1.030); Urine Appearance Clear (CLEAR); Urine Color Dark Yellow (Yellow); pH Urine 5 (5-7)
[2020-12-04 21:28] LABS: Oxygen Device nc
[2020-12-04 21:29] LABS: Arterial Blood Gas Hematocrit 33.3 % (37-47)
[2020-12-04 21:29] LABS: Bilirubin Urine 1+ (Negative); Blood Urine Neg (Negative); Leukocyte Esterase Urine Negative (Negative); Nitrate Urine Negative (Negative); Urobilinogen Urine 4 mg/dL (Negative)
[2020-12-04 21:52] LABS: NT Pro B Type Natriuretic Pept > 70000 pg/mL (0-450)
--- NOTE | 2020-12-04 21:56 | CTR_ITS ---
PROCEDURE INFORMATION: Exam: CTA Chest With Contrast Exam date and time: 12/04/2020 9:56 PM Age: 75 years old Clinical indication: Dyspnea; Additional info: SOB TECHNIQUE: Imaging protocol: Computed tomographic angiography of the chest with contrast. 3D rendering (Not supervised by radiologist): MIP and/or 3D reconstructed images were created by the technologist. Radiation optimization: All CT scans at this facility use at least one of these dose optimization techniques: automated exposure control; mA and/or kV adjustment per patient size (includes targeted exams where dose is matched to clinical indication); or iterative reconstruction. Contrast material: OMNI 350; Contrast volume: 95 ml; Contrast route: INTRAVENOUS (IV); COMPARISON: CT angio chest PE protcl [id number] 09/26/2020 10:54 PM RADIATION DOSE METRICS: Total DLP (mGy-cm): 1183.64 FINDINGS: Pulmonary arteries: Multiple filling defects within bilateral upper and lower lobe pulmonary artery branches. The RV/LV ratio is less than 1. Aorta: Unremarkable. No aortic aneurysm. No aortic dissection. Thyroid: 2.4 cm calcified nodule in the right thyroid lobe. Ultrasound follow-up is recommended. Lungs: Severe emphysema. Scattered patchy ground-glass and interstitial opacities in both lungs. Stable fibrosis in the left upper lobe. Pleural spaces: Unremarkable. No pneumothorax. No pleural effusion. Heart: The heart size is normal. Lymph nodes: Unremarkable. No enlarged lymph nodes. Intraperitoneal space: Mild ascites. Bones/joints: Unremarkable. No acute fracture. Soft tissues: Unremarkable. CT/CT angio chest PE protcl [id number] IMPRESSION: 1. Bilateral pulmonary emboli. 2. No evidence for elevated right heart pressure. 3. Patchy opacities in both lungs could represent pneumonia or could relate to the pulmonary emboli. 4. 2.4 cm calcified right thyroid nodule. Ultrasound follow-up is recommended. COMMENTS: Consistent with the [employer]'s Incidental Findings Committee white paper (J Am Kian Radiol 2015): In patients aged 35 years and older with an incidental thyroid nodule equal to or greater than 1.[address], MRI or extrathyroidal US, further evaluation with dedicated thyroid US is recommended for patients with normal life expectancy and without comorbidities. For smaller nodules without suspicious features, no further evaluation or follow up is recommended. Radiation Dose CTDIVOL = (mGy): DLP = 1183.64 (mGy-cm)
[2020-12-04] MEDS: LORazepam 2 mg/mL INJ 1 mL 0.5 MG IVP (22:00)
[2020-12-04] MEDS: piperacillin-tazobactam 3.375 GM in sodium chloride 0.9% (plus) 50 ML IV (22:01)
--- NOTE | 2020-12-04 22:27 | ECG_ITS ---
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 Measurements Intervals [place] Rate: 79 P: 57 [place]: 153 QRS: 43 QRSD: 108 T: 37 QT: 421 QTc: 485 Interpretive Statements SINUS RHYTHM LOW QRS VOLTAGE IN PRECORDIAL LEADS [QRS DEFLECTION < 1.0 mV IN CHEST LEADS] INCOMPLETE RIGHT BUNDLE BRANCH BLOCK [90+ ms QRS DURATION, TERMINAL R IN V1/V2, 40+ ms S IN I/aVL/V4/V5/V6] ST DEVIATION AND MODERATE T-WAVE ABNORMALITY, CONSIDER ANTERIOR ISCHEMIA [-0.1+ mV T-WAVE IN V3/V4] INTERPRETATION BASED ON A DEFAULT AGE OF 40 YEARS Compared to ECG 10/11/2020 02:27:39 Low QRS voltage now present Incomplete right bundle-branch block now present Possible ischemia now present ST (T wave) deviation no longer present Electronically Signed On 12-05-2020 17:12:26 CDT by Camilo Nieto M.D. [email or web address]/store/NU/[id number] f
--- NOTE | 2020-12-04 22:31 | CTR_ITS ---
PROCEDURE INFORMATION: Exam: CT Head Without Contrast Exam date and time: 12/04/2020 10:31 PM Age: 75 years old Clinical indication: Altered mental status/memory loss; Confusion or disorientation; Additional info: AMS TECHNIQUE: Imaging protocol: Computed tomography of the head without contrast. Radiation optimization: All CT scans at this facility use at least one of these dose optimization techniques: automated exposure control; mA and/or kV adjustment per patient size (includes targeted exams where dose is matched to clinical indication); or iterative reconstruction. COMPARISON: CT head wo con* [id number] 09/06/2020 12:29 PM RADIATION DOSE METRICS: Total DLP (mGy-cm): 807.24 FINDINGS: Brain: Mild cortical volume loss. Mild stable hypodensities in supratentorial periventricular and subcortical white matter, consistent with microangiopathy. No intracranial hemorrhage. Cerebral ventricles: No ventriculomegaly. Paranasal sinuses: Visualized sinuses are unremarkable. No fluid levels. Mastoid air cells: Stable small mastoid effusions, left greater than right. Orbital cavity: Prior cataract surgery. Vasculature: No hyperdense artery. Bones/joints: Unremarkable. No acute fracture. Soft tissues: Unremarkable. CT/CT head wo con* [id number] IMPRESSION: 1. Stable CT head. No acute intracranial abnormality. Radiation Dose CTDIVOL = (mGy): DLP = 807.24 (mGy-cm)
[2020-12-04 22:58] LABS: SARS Covid-2 Antigen Negative (Negative)
[2020-12-04] MEDS: iodixanol 320 mg/mL 100mL Btl IV (22:59)
[2020-12-04] MEDS: vancomycin 1,000 MG in sodium chloride 0.9% 250 ML 250 MG IV (23:27)
[2020-12-04 23:29] VITALS: BP 147/109; PULSE 58; RESP 26; O2SAT 93
[2020-12-04] MEDS: LORazepam 2 mg/mL INJ 1 mL 1 MG IVP (23:49)
[2020-12-05 00:15] LABS: Troponin 5 2HR 101.9 ng/L (0-10); Troponin 5 2HR Delta -23.1 ABS# (0-10)
[2020-12-05 00:32] LABS: Anion Gap 30.5 (5-19); Blood Urea Nitrogen 43 mg/dL (8-23); Calcium 8.3 mg/dL (8.5-10.5); Carbon Dioxide 11 mmol/L (22-29); Chloride 100 mmol/L (98-107); Glucose 222 mg/dL (65-115); Osmolality Calculated 302 mOsm/kg (285-295); Potassium 4.5 mmol/L (3.5-5.1); Sodium 137 mmol/L (136-145)
[2020-12-05] MEDS: haloperidol inj 5 mg/mL INJ 1 mL IVP (00:43)
[2020-12-05] MEDS: doxycycline 100 MG in sodium chloride 0.9% (plus) 100 ML IV (01:27)
[2020-12-05 02:30] VITALS: BP 119/54; PULSE 72; RESP 24; O2SAT 95
[2020-12-05 04:27] LABS: Troponin 5 6HR Delta -2.2 ng/L (0-12)
[2020-12-05 04:28] LABS: Lactate (Lactic Acid level) 10.5 mmol/L (0.5-2.2); Troponin 5 6HR 122.8 ng/L (0-10)
[2020-12-05] MEDS: sodium chloride 0.9% 1,000 ML 999 ML IV (04:37)
[2020-12-05 05:38] VITALS: BP 95/66; PULSE 74; RESP 21; O2SAT 99
--- NOTE | 2020-12-05 09:24 | DCPLANNER ---
Addendum entered by Pearl Irby 12/05/20 13:15: Granddaughter came to the ER, housing case manager faxed patients information to hosp[facility] [place] [employer] [facility] [employer]. Original Note: golf club manager was asked to speak with the daughter of patient about hospice. According to patients chart, patients daughter was arranging hospice care for patient, and that it would be arranged in the morning. golf club manager was asked to see where the arrangements were at. golf club manager called patients daughter at [phone], left a voicemail for daughter to return complex case manager phone call. golf club manager then called phone number [phone], and there was no answer. golf club manager then called and spoke with Tricia, patients granddaughter. golf club manager was told that she was not for sure which hospice company that patients daughter had called and started the referral. golf club manager called [facility], [facility] and [facility], and all three companies stated that they did not have a referral for patient. golf club manager spoke with Tricia again, was given a phone number of a company that the patients daughter called. golf club manager called the phone number [phone], a voicemail was left for Marley. golf club manager called [facility], back and spoke with Ruthie, and asked if a Marley worked for that company and explained that someone had called and started a referral for patient with hospice. Ruthie called housing case manager back, and stated that she did find patients name on one of their referral spreadsheets. She stated that she would send out an email to the ones in admissions and have them call housing case manager about referral for patient. golf club manager did call patients granddaughter and updated her on the name of the company that was contacted about patient. golf club manager updated nurse and ER physician about the company that was contacted and that the granddaughter is on her way to the ER from [place].
[2020-12-05 10:37] VITALS: PULSE 53
--- NOTE | 2020-12-05 10:37 | PC.NURSE ---
Pt resting quietly in room, eyes closed, breathing even and unlabored.
[2020-12-05] MEDS: LORazepam 2 mg/mL INJ 1 mL 1 MG IVP (11:06)
[2020-12-05 11:19] VITALS: BP 110/49; PULSE 53; RESP 29
== END 2020-12-05 13:03 | disposition home or self-care (01) ==
PROVIDERS: Emergency Provider Emergency Medicine; PCP Family Medicine
DX: J18.9 Pneumonia, unspecified organism (principal); I26.99 Other pulmonary embolism without acute cor pulmonale; F03.90 Unspecified dementia, unspecified severity, without behavioral disturbance, psychotic disturbance, mood disturbance, and anxiety; J44.9 Chronic obstructive pulmonary disease, unspecified; E11.9 Type 2 diabetes mellitus without complications; E78.5 Hyperlipidemia, unspecified; I10 Essential (primary) hypertension; Z87.891 Personal history of nicotine dependence
CPT/HCPCS: 36416; 36600; 70450; 71045; 71275; 80048; 80053; 81003; 82803; 82962; 83605; 83735; 83880; 84443; 84484; 85025; 85610; 87426; 93005; 96374; 99284; J1630; J2060; J2543; J3370; J3490; J7030; J7050; Q9967